=== PATIENT | male | born 1935 | race Caucasian/White ===

== ENCOUNTER → 2017-01-21 | Outpatient (CLI) | payer MEDICARE, OTHER ==
[2016-10-31 14:29] VITALS: BP 136/71
[~2017-01-21] MED LIST: ACET325T9 PO; AMOX1TAB11 PO; ASPI-482 PO; ASPI1TAB2 PO; ATOR40TA PO; CALC600T4 PO; CEFU500T PO; CLOP75TA27 PO; COLL30OI TP; DOXY100T PO; EZET10TA3 PO; FLUT12AE IH; GABA-585 PO; GUAI600T28 PO; HYDR-971 PO; INSU100I17 SQ; IPRA3AMP IH; LIDO700A27 TP; LINE600T PO; METF500T4 PO; MULT-18 PO; PRED20TA PO; PRIM50TA PO; PROP40TA PO; PSEU120T12 PO; PSYL0.528 PO; SITA100T PO; TAMS0.4C2 PO
--- NOTE | 2017-01-21 14:28 | KCIC ---
PROCEDURE CT cervical spine without contrast. HISTORY Follow up of CT fracture. TECHNIQUE Helical CT imaging of the cervical spine is performed without IV contrast. PQRS: One or more the following individualized dose reduction techniques were utilized for the study: 1. Automated exposure control. 2. Adjustment of the mA and/or kV according to patient size. 3. Use of iterative reconstruction technique. COMPARISON CT cervical spine without contrast June 25, 2016. FINDINGS Type 2 odontoid fracture re- demonstrated. The tip of the dens is from the base by 3-4 millimeters and there is minimal posterior displacement of the dens in relation to the base. No interval callus formation is seen. There is retro odontoid soft tissue thickening and minimal calcification that is stable. The atlantodental articulation is stable. There stable alignment in the cervical spine with grade 1 anterolisthesis of C2 on C3 that is minimal, C3 on C4 that is mild, C4 on C5 that is minimal, and C5 on C6 that is minimal. There is disc space narrowing and degenerative endplate spurring that is most advanced at C4/C5, C5/C6, and C6/C7. There is multilevel facet hypertrophy that is moderate to severe. No new fracture is identified. Spondylitic discs of C4/C5, C5/C6 and C6/C7 have not progressed. Left neural foraminal narrowing of C3/C4 is worse, now probably moderate. Individual level findings otherwise not significantly changed. Lung apices are clear. No cervical adenopathy is seen. IMPRESSION 1. No significant change of type II odontoid fracture, no interval callus formation. 2. Degenerative spondylosis. Interval worsening of left neural foraminal narrowing of C3/C4. Electronically signed by: Juma Bland MD (Jan 21, 2017 14:27:32)
== END | disposition home or self-care (01) ==
LOC: KCIC CT 09:56
PROVIDERS: ATTEND Neurological Surgery
DX: Z87.81 Personal history of (healed) traumatic fracture (principal)
CPT/HCPCS: 72125

== ENCOUNTER → 2017-01-30 | Outpatient (CLI) | payer MEDICARE, OTHER ==
[2016-10-31 14:29] VITALS: BP 136/71
--- NOTE | 2017-01-30 11:27 | KCIC ---
PROCEDURE CT study of the chest without contrast HISTORY Follow up of lung nodule. TECHNIQUE Noncontrast helical CT scanning of the chest was performed. Multiplanar 2D reconstructions were generated. One or more of the following individualized dose reduction techniques were utilized for this study: 1. Automated exposure control 2. Adjustment of the mA and/or kV according to patient size 3. Use of iterative reconstruction technique COMPARISON September 17, 2016. FINDINGS Calcified mediastinal lymph nodes are seen due to old granulomatous disease. There is one large calcified lymph node within the right peritracheal region which measures 4.2 centimeters in dimension. This is unchanged. No new thoracic lymphadenopathy is seen. Wall thickening of the distal esophagus is not as apparent in today's study since the esophagus is not distended with air today. No focal aneurysmal dilatation of the thoracic aorta is seen. Calcified atheromatous disease of the coronary arteries is seen. The heart size is normal. No pericardial effusion is seen. Calcification of the aortic valve leaflets is seen. No adrenal mass is seen. There is a new finding of a heterogeneous appearance of the liver. Again seen is a nodular lung infiltrate within the posterior basal segment of the left lower lobe which is stable. Again seen is a calcified granuloma of the anterior segment of the left upper lobe. Again seen is a calcified granuloma of the medial segment of the right middle lobe. There is some chronic linear scarring or atelectasis within the right lower lobe. No new lung nodule or lung infiltrate is seen. No pleural effusion or pneumothorax is evident. The proximal bronchial tree is patent. An old healed fracture of the posterior right 11th ribs is seen. No osteolytic process is seen. IMPRESSION Stable nodular left lower lobe lung infiltrate. No new lung infiltrates or new lung nodules are seen. Normal heart size. Calcified atheromatous disease of the coronary arteries. There is calcification of the aortic valve leaflets which may be seen with aortic valvular stenosis. No aneurysm or significant ectasia of the ascending aorta is seen. The caliber of the ascending aorta is 3.5 centimeters. New appearance of heterogeneity of the liver. Recommend an abdomen CT with IV contrast for further evaluation to exclude metastatic disease. If IV contrast cannot be given, then an abdomen MRI study without contrast may be helpful. Another possibility is geographic fatty infiltration of the liver. Correlation with liver function tests is recommended as well. Electronically signed by: True Quinonez MD (Jan 30, 2017 11:26:00)
== END | disposition home or self-care (01) ==
LOC: KCIC CT 10:12
PROVIDERS: ATTEND Internal Medicine Pulmonary Disease
DX: R91.1 Solitary pulmonary nodule (principal)
CPT/HCPCS: 71250

== ENCOUNTER → 2017-03-24 | Outpatient (CLI) | payer MEDICARE, OTHER ==
[2016-10-31 14:29] VITALS: BP 136/71
[~2017-03-24] MED LIST changes: +ALBU2.5V5 NEB; -CLOP75TA27 PO; +CLOP75TA57 PO; +EZET10TA18 PO; -EZET10TA3 PO; +FEXO180T81 PO; +HYDR-2762 PO; +IPRA0.2S5 IH; +METH750T2 PO; +PIOG30TA41 PO; +TRAZ50TA15 PO; +TRIA15OI TP
--- NOTE | 2017-03-24 14:59 | EKG ---
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
[2017-03-24 15:00] LABS: BASO # 0.2 x10^3/uL (0.0-0.2); BASO % 2 % (0-3); EOS % 5 % (0-3); HEMATOCRIT 45.1 % (39.0-53.0); HEMOGLOBIN 15.3 g/dL (13.0-17.5); LYMPH # 1.5 x10^3/uL (1.0-4.8); LYMPH % 19 % (24-48); MEAN CORPUSCULAR HEMOGLOBIN 34 pg (25-35); MEAN CORPUSCULAR HGB CONC 34 g/dL (31-37); MEAN CORPUSCULAR VOLUME 99 fL (79-100); MONO % 10 % (0-9); NEUT % 64 % (31-73); PLATELET COUNT 177 x10^3/uL (140-400); RED BLOOD COUNT 4.56 x10^6/uL (4.30-5.70); RED CELL DISTRIBUTION WIDTH 14.7 % (11.5-14.5); WHITE BLOOD COUNT 8.3 x10^3/uL (4.0-11.0)
[2017-03-24 15:14] LABS: ALBUMIN 3.5 g/dL (3.4-5.0); ALBUMIN/GLOBULIN RATIO 0.9 (1.0-1.7); CALCIUM 9.2 mg/dL (8.5-10.1); CREATININE 0.9 mg/dL (0.7-1.3); GFR 81.2; POTASSIUM 3.7 mmol/L (3.5-5.1); TOTAL PROTEIN 7.4 g/dL (6.4-8.2)
[2017-03-24 15:55] LABS: PROTHROMBIN TIME PATIENT 12.7 SEC (11.7-14.0)
== END | disposition home or self-care (01) ==
LOC: SURGPAT 13:21
PROVIDERS: ATTEND Neurological Surgery
DX: Z01.818 Encounter for other preprocedural examination (principal)
CPT/HCPCS: 36415; 80053; 83036; 85027; 85610; 85730; 87641; 93005

== ENCOUNTER → 2017-05-22 | Outpatient (CLI) | payer MEDICARE, OTHER ==
[2017-04-02 15:20] VITALS: BP 97/52
[~2017-05-22] MED LIST changes: -GUAI600T28 PO; +GUAI600T79 PO
--- NOTE | 2017-05-22 12:52 | RAD ---
Cervical spine, 3 views, 05/22/2017: History: Postop odontoid fracture Comparison is made to a study from 04/02/2017. A screw remains in place traversing the site of a prior odontoid fracture. Alignment in this region is unchanged. The central spinal canal is well-preserved. There are moderate multilevel degenerative changes throughout the mid and lower cervical spine. There is mild unchanged anterolisthesis at C3-4, probably due to facet joint arthropathy. No new abnormality is detected. IMPRESSION: 1. Stable postoperative findings at C2. 2. Moderate multilevel degenerative change.
== END | disposition home or self-care (01) ==
LOC: RAD 11:39
PROVIDERS: ATTEND Neurological Surgery
DX: S12.110A Anterior displaced Type II dens fracture, initial encounter for closed fracture (principal); M47.892 Other spondylosis, cervical region; X58.XXXA Exposure to other specified factors, initial encounter; Y93.89 Activity, other specified; Y92.89 Other specified places as the place of occurrence of the external cause; Y99.8 Other external cause status
CPT/HCPCS: 72040

== ENCOUNTER → 2017-07-28 | Outpatient (CLI) | payer MEDICARE, OTHER ==
[2017-04-02 15:20] VITALS: BP 97/52
[~2017-07-28] MED LIST changes: +ASPI-621 PO; -ASPI1TAB2 PO
--- NOTE | 2017-07-28 13:04 | KCIC ---
History: Follow-up lung nodule. Comparison: CT chest January 30, 2017. Technique: Helical CT of the chest was performed without intravenous contrast. Exposure: One or more of the following individualized dose reduction techniques were utilized for this examination: 1. Automated exposure control 2. Adjustment of the mA and/or kV according to patient size 3. Use of iterative reconstruction technique Findings: There is motion artifact at multiple levels which could obscure subtle abnormalities. Thyroid demonstrates a few small calcifications involving the right lobe. Trachea and mainstem bronchi appear patent. A large calcified lymph node is unchanged in the right mediastinum. Additional calcified granulomatous lymph nodes are seen. Coronary artery calcifications are present. Aortic valve calcifications are noted. No pericardial thickening is identified. Cardiac chambers do not appear enlarged. No pneumothorax or pleural effusion is identified. Curvilinear consolidation involving the posterior left lower lobe is without significant change from most recent CT appearance. This could represent focus of parenchymal scarring. There is in the right lower lobe adjacent to the diaphragm a 5 mm soft tissue pulmonary nodule (series 2 image 140) which is apparently new from most recent study. There is a 3 mm soft tissue pulmonary nodule in the right lower lobe superior segment (series 2 image 99), unchanged. Small soft tissue pulmonary nodule measuring 4 mm in the left lower lobe (series 2 image 121) is unchanged. Thoracic spine demonstrates multiple bridging disc osteophytes, suggesting changes of DISH. Impression: 1. Curvilinear consolidation involving the left lower lobe is unchanged the most recent study, may represent parenchymal scarring. 2. Apparently new nonspecific 5 mm soft tissue pulmonary nodule in the right lower lobe. Additional small soft tissue pulmonary nodules are unchanged. By Fleischner Society 2017 guidelines, recommend follow-up chest CT without contrast in 12 months. Electronically signed by: Orestes Quiroz MD (07/28/2017 1:01 PM) [place] [id number]
== END | disposition home or self-care (01) ==
LOC: KCIC CT 08:11
PROVIDERS: ATTEND Internal Medicine Pulmonary Disease
DX: R91.8 Other nonspecific abnormal finding of lung field (principal); R91.1 Solitary pulmonary nodule
CPT/HCPCS: 71250

== ENCOUNTER → 2017-07-28 | Outpatient (CLI) | payer MEDICARE, OTHER ==
[2017-04-02 15:20] VITALS: BP 97/52
--- NOTE | 2017-07-28 11:06 | KCIC ---
CERVICAL SPINE 2-3V Clinical Indication: Postop odontoid screw placement. Comparison: CT cervical spine without contrast January 21, 2017. Findings: Interval single cannulated screw fixation of the odontoid fracture. Slight posterior translation of the odontoid tip relative to the base of C2 is no longer seen. No callus formation is appreciated radiographically. The lateral masses are symmetric. Mild grade 1 anterolisthesis of C3 on C4 and C4 on C5 and C5 on C6 is stable. There is disc space narrowing of C5/C6 and C6/C7. Straightening of normal cervical lordosis may be positional or due to muscle spasm. Multilevel facet hypertrophy. Ossification along the nuchal ligament. No prevertebral soft tissue thickening is identified. Calcified right paratracheal lymph node. Lung apices are clear. IMPRESSION: Screw fixation of the odontoid fracture. Electronically signed by: Juma Bland MD (07/28/2017 11:03 AM) [id number]
== END | disposition home or self-care (01) ==
LOC: KCIC 09:53
PROVIDERS: ATTEND Neurological Surgery
DX: S12.110A Anterior displaced Type II dens fracture, initial encounter for closed fracture (principal); Z98.890 Other specified postprocedural states; X58.XXXA Exposure to other specified factors, initial encounter; Y93.89 Activity, other specified; Y92.89 Other specified places as the place of occurrence of the external cause; Y99.8 Other external cause status
CPT/HCPCS: 72040

== ENCOUNTER → 2018-01-16 | Outpatient (CLI) | payer MEDICARE, OTHER | END | disposition home or self-care (01) | LOC: CT 10:00 | DX: J84.10 Pulmonary fibrosis, unspecified (principal); I25.10 Atherosclerotic heart disease of native coronary artery without angina pectoris | CPT/HCPCS: 71250 ==

== ENCOUNTER 2019-06-04 13:42 | Inpatient (IN) | payer MEDICARE, OTHER ==
[~2019-06-04] VITALS: Ht 172.7 cm; Wt 70.8 kg
[~2019-06-04 13:42] MED LIST changes: +CALC-483 PO; +CALC625T PO; +DOCU-109 PO; -EZET10TA18 PO; +EZET10TA20 PO; +FLUT9.9S NS; +GUAI600T47 PO; +HYDR-2761 PO; -HYDR-2762 PO; +HYDR-2765 PO; +HYDR-3164 PO; -HYDR-971 PO; -IPRA3AMP IH; +IPRA3AMP29 IH; -LINE600T PO; +LINE600T37 PO; +METF500T16 PO; -METF500T4 PO; +POLY17PO29 PO; +TRAZ-118 PO; -TRAZ50TA15 PO
[2019-06-04 14:59] LABS: FECAL OB PT POSITIVE (NEG)
--- NOTE | 2019-06-04 15:00 | PHYS DOC ---
Past Medical History Past Medical History: COPD, Depression, Diabetes-Type II, High Cholesterol, Kidney Stone Additional Past Medical Histor: PVD,ENCEPHALOPATHY, BACK PAIN, URINARY RETENTION, PVD Past Surgical History: Other Additional Past Surgical Histo: JOINT REPLACEMENT, LEFT BKA Alcohol Use: None Drug Use: None Adult General Chief Complaint Chief Complaint: ABDOMINAL PAIN HPI HPI Patient is a 83 year old male that presents to the ER with abnormal labs. He was sent from his custodial as she also had black stools this morning. The patient states he's been nauseous and had loss of appetite the last several days and he states he was short of breath yesterday. Denies any pain at this time. Does state he is on aspirin and Plavix. Review of Systems Review of Systems Constitutional: Denies fever or chills. Reports fatigue and loss of appetite. Eyes: Denies change in visual acuity, redness, or eye pain [] HENT: Denies nasal congestion or sore throat [] Respiratory: Reports shortness of breath [] Cardiovascular: No additional information not addressed in HPI [] GI: Reports nausea and bloody stools. Denies abdominal pain, vomiting, or diarrhea [] : Denies dysuria or hematuria [] Musculoskeletal: Denies back pain or joint pain [] Integument: Denies rash or skin lesions [] Neurologic: Denies headache, focal weakness or sensory changes [] Endocrine: Denies polyuria or polydipsia [] Complete systems were reviewed and found to be within normal limits, except as documented in this note. Current Medications Current Medications Current Medications Medications (Trade) Dose Ordered Sig/Dominique Start Time Stop Time Status Last Admin Dose Admin Ceftriaxone Sodium (Rocephin) 1 gm 1X ONCE 06/04/19 17:30 06/04/19 17:31 DC Info (CONTRAST GIVEN -- Rx MONITORING) 1 each PRN DAILY PRN 06/04/19 16:30 06/06/19 16:29 Iohexol (Omnipaque 300 Mg/ml) 75 ml 1X ONCE 06/04/19 16:30 06/04/19 16:31 DC 06/04/19 16:37 75 ML Pantoprazole Sodium (PROTONIX VIAL for IV PUSH) 40 mg 1X STAT 06/04/19 17:17 06/04/19 17:18 DC Piperacillin Sod/ Tazobactam Sod 3.375 gm/Sodium Chloride 50 ml @ 100 mls/hr 1X ONCE 06/04/19 17:30 06/04/19 17:59 Vancomycin HCl 2 gm/Sodium Chloride 500 ml @ 250 mls/hr 1X ONCE 06/04/19 18:00 06/04/19 19:59 Allergies Allergies Allergies Coded Allergies Type Severity Reaction Last Updated Verified I S O L A T I O N *CONTACT* Allergy Unknown 03/25/17 Yes No Known Medication Allergies Allergy Unknown 03/28/17 Yes Physical Exam Physical Exam Constitutional: Well developed, well nourished, no acute distress, non-toxic appearance. [] HENT: Normocephalic, atraumatic, bilateral external ears normal, oropharynx moist, no oral exudates, nose normal. [] Eyes: PERRLA, EOMI, conjunctiva normal, no discharge. [] Neck: Normal range of motion, no tenderness, supple, no stridor. [] Cardiovascular:Heart rate regular rhythm, no murmur [] Lungs & Thorax: Bilateral breath sounds clear to auscultation [] Abdomen: Bowel sounds normal, soft, no tenderness, no masses, no pulsatile masses. [] Skin: Warm, dry, no erythema, no rash. [] Back: No tenderness, no CVA tenderness. [] Extremities: No tenderness, no cyanosis, no clubbing, ROM intact, no edema. [] Neurologic: Alert and oriented X 3, normal motor function, normal sensory function, no focal deficits noted. [] Psychologic: Affect normal, judgement normal, mood normal. [] Rectal exam: Black tarry stool noted on examination. No external hemorrhoids noted. Fecal occult blood obtained. Current Patient Data Vital Signs Vital Signs Date Time Temp Pulse Resp B/P (MAP) Pulse Ox O2 Delivery O2 Flow Rate FiO2 06/04/19 15:49 68 18 114/81 (92) 97 Room Air 06/04/19 14:21 98.2 98.2 Lab Values Laboratory Tests Test 06/04/19 14:39 06/04/19 15:36 06/04/19 16:47 Stool Occult Blood Positive (NEG) White Blood Count 9.2 x10^3/uL (4.0-11.0) Red Blood Count 3.43 x10^6/uL (4.30-5.70) L Hemoglobin 10.9 g/dL (13.0-17.5) L Hematocrit 32.4 % (39.0-53.0) L Mean Corpuscular Volume 95 fL (79-100) Mean Corpuscular Hemoglobin 32 pg (25-35) Mean Corpuscular Hemoglobin Concent 34 g/dL (31-37) Red Cell Distribution Width 15.9 % (11.5-14.5) H Platelet Count 333 x10^3/uL (140-400) Neutrophils (%) (Auto) 69 % (31-73) Lymphocytes (%) (Auto) 14 % (24-48) L Monocytes (%) (Auto) 8 % (0-9) Eosinophils (%) (Auto) 7 % (0-3) H Basophils (%) (Auto) 2 % (0-3) Neutrophils # (Auto) 6.3 x10^3/uL (1.8-7.7) Lymphocytes # (Auto) 1.3 x10^3/uL (1.0-4.8) Monocytes # (Auto) 0.8 x10^3/uL (0.0-1.1) Eosinophils # (Auto) 0.7 x10^3/uL (0.0-0.7) Basophils # (Auto) 0.2 x10^3/uL (0.0-0.2) Prothrombin Time 14.7 SEC (11.7-14.0) H Prothrombin Time INR 1.2 (0.8-1.1) H Activated Partial Thromboplast Time 30 SEC (24-38) Sodium Level 141 mmol/L (136-145) Potassium Level 3.8 mmol/L (3.5-5.1) Chloride Level 104 mmol/L (98-107) Carbon Dioxide Level 29 mmol/L (21-32) Anion Gap 8 (6-14) Blood Urea Nitrogen 31 mg/dL (8-26) H Creatinine 1.1 mg/dL (0.7-1.3) Estimated GFR (Cockcroft-Gault) 64.1 BUN/Creatinine Ratio 28 (6-20) H Glucose Level 243 mg/dL (70-99) H Calcium Level 9.2 mg/dL (8.5-10.1) Total Bilirubin 0.2 mg/dL (0.2-1.0) Aspartate Amino Transferase (AST) 17 U/L (15-37) Alanine Aminotransferase (ALT) 19 U/L (16-63) Alkaline Phosphatase 72 U/L (46-116) Troponin I Quantitative < 0.017 ng/mL (0.000-0.055) Total Protein 7.6 g/dL (6.4-8.2) Albumin 2.8 g/dL (3.4-5.0) L Albumin/Globulin Ratio 0.6 (1.0-1.7) L Procalcitonin < 0.10 ng/mL (0.00-0.10) Urine Collection Type Unknown Urine Color Yellow Urine Clarity Cloudy Urine pH 5.5 Urine Specific [place] 1.020 Urine Protein Negative mg/dL (NEG-TRACE) Urine Glucose (UA) Negative mg/dL (NEG) Urine Ketones (Stick) Negative mg/dL (NEG) Urine Blood Small (NEG) Urine Nitrite Negative (NEG) Urine Bilirubin Negative (NEG) Urine Urobilinogen Dipstick 0.2 mg/dL (0.2 mg/dL) Urine Leukocyte Esterase Large (NEG) Urine RBC /HPF (0-2) Urine WBC Tntc /HPF (0-4) Urine Bacteria Few /HPF (0-FEW) Urine Mucus Mod /LPF Urine Yeast Present /HPF Laboratory Tests 06/04/19 15:36 Laboratory Tests 06/04/19 15:36 EKG EKG EKG interpreted by Dr. Sarmiento EKG shows sinus rhythm with HR of 67. NO STEMI.[] Radiology/Procedures Radiology/Procedures [facility] [address] [place], [place] [id number] IMAGING REPORT Signed PATIENT: KAROLINE LLAMAS LACCOUNT: [id number] : 1935 LOCATION: ER AGE: 83 SEX: M EXAM STATUS: REG ER ORD. PHYSICIAN: ORESTES MONTEZ APRN REASON: abdominal pain. PROCEDURE: CT ABD PELV W/ IV CONTRST ONLY CT ABD PELV W/ IV CONTRST ONLY Indication: Abdominal pain. Exposure: One or more of the following individualized dose reduction techniques were utilized for this examination: 1. Automated exposure control 2. Adjustment of the mA and/or kV according to patient size 3. Use of iterative reconstruction technique. Technique: Intravenous contrast was given. No oral contrast per request. Comparison: 04/04/2019 FINDINGS: Mild patchy atelectasis or infiltrate in the lung bases, improved as compared with previous exam.Coronary artery calcifications. Calcification at the aortic valve. Liver appears unremarkable. Spleen is not enlarged. Pancreas is unremarkable. No adrenal mass. Mild/moderate right hydronephrosis appears slightly greater than on the previous study. Right ureteric stent is identified with proximal loop within the posterior superior right renal collecting system and distal loop within the urinary bladder. The right nephrogram is slightly delayed as compared with the left. Mild perinephric fluid and stranding on the right. Calcification or calculus identified in lower pole the right kidney measuring 9 mm. No definite calculus is seen alongside the catheter in the ureter, but the ureterovesical junction is poorly evaluated due to artifact from hip replacements. Small low-density lesion at the upper pole of the left kidney measures 1 cm, and measures 25 Hounsfield units, slightly above simple cyst. Difficult to visualize on prior noncontrast exam. Aorta is calcified, no evidence of aneurysm. Small aortocaval lymph nodes are identified appears stable since the previous exam, measuring up to 7 mm short axis. Mild wall thickening of the distal esophagus. No significant small bowel distention. Mild colonic diverticulosis. No evidence of acute colitis. The appendix is not clearly visualized. No significant ascites or pneumoperitoneum is identified. Fat-containing inguinal hernias are again identified, larger on the right. Urinary bladder is mostly obscured by artifact from hip replacements. Bilateral hip replacements are seen. Degenerative spondylosis of the spine appearance and alignment appears similar to the previous exam. IMPRESSION: 1. Right ureteric stent is now in place from the right kidney through the urinary bladder. Mild increase in hydronephrosis, perinephric fluid and inflammatory change as well as slight delayed right renal function suggests a component of ongoing obstruction although a definite ureteric calculus is not seen. Pyelonephritis or ascending infection could also be considered. 2. Right lower pole renal calculus. 3. Small left renal lesion may represent a slightly complex or hemorrhagic cyst. Nonemergent renal ultrasound could further evaluate. 4. Wall thickening of the distal esophagus similar to the previous exam. Electronically signed by: Orestes Nuno MD (06/04/2019 5:12 PM) [id number] DICTATED and SIGNED BY: ORESTES NUNO MD DATE: 06/04/191711 [][facility] [address] [place] [address] IMAGING REPORT Signed PATIENT: KAROLINE LLAMASOUNT: [id number] : 1935 LOCATION: ER AGE: 83 SEX: M EXAM STATUS: REG ER ORD. PHYSICIAN: ORESTES MONTEZ APRN REASON: shortness of breath. PROCEDURE: CHEST PA & LATERAL CHEST PA LATERAL History: Shortness of breath. Comparison: April 04, 2019 Findings: Patchy right basilar opacity. Calcified right paratracheal mass, unchanged. Unchanged heart size. No pleural effusion. No pneumothorax. Impression: 1. Patchy right medial basilar opacity, may represent atelectasis or consolidation. 2. Calcified right paratracheal mass, unchanged. Electronically signed by: Cheng Bates DO (06/04/2019 4:39 PM) [facility] DICTATED and SIGNED BY: CHENG BATES DO DATE: 06/04/19 163 Course & Med Decision Making Course & Med Decision Making Pertinent Labs and Imaging studies reviewed. (See chart for details) Will get labs, chest x-ray, CT of abdomen, and give supportive care. Lab shows hemoglobin of 10.9 which is less than the 13.8 one month ago. Also show fecal occult stool that is positive. Will give protonix. Urine shows leukocytes and blood. Will treat with rocephin. Appears to have pneumonia. Will cover with vanc and zosyn. Will page Dr. Szymanski for admission. Discussed with Dr. Szymanski at 1730. He agreed to admission. Will consult GI and ID. Yovany Disclaimer Yovany Disclaimer This electronic medical record was generated, in whole or in part, using a voice recognition dictation system. Departure Departure Impression: Primary Impression: Urinary tract infection Additional Impressions: GI bleed Pneumonia Disposition: ADMITTED INPATIENT Admitting Physician: Rajesh Szymanski Condition: GUARDED Referrals: RAJESH SZYMANSKI MD (PCP) Problem Qualifiers Primary Impression: Urinary tract infection Urinary tract infection type: acute cystitis Hematuria presence: with he maturia Qualified Codes: N30.01 - Acute cystitis with hematuria Additional Impressions: GI bleed GI bleed type/associated pathology: unspecified gastrointestinal hemorrhage type Qualified Codes: K92.2 - Gastrointestinal hemorrhage, unspecified Pneumonia Pneumonia type: due to unspecified organism Laterality: right Lung location: middle lobe of lung Qualified Codes: J18.1 - Lobar pneumonia, unspecified organism ORESTES MONTEZ APRN Jun 04, 2019 15:00
[2019-06-04 15:42] LABS: BASO # 0.2 x10^3/uL (0.0-0.2); BASO % 2 % (0-3); EOS # 0.7 x10^3/uL (0.0-0.7); EOS % 7 % (0-3); HEMATOCRIT 32.4 % (39.0-53.0); HEMOGLOBIN 10.9 g/dL (13.0-17.5); LYMPH # 1.3 x10^3/uL (1.0-4.8); LYMPH % 14 % (24-48); MEAN CORPUSCULAR HEMOGLOBIN 32 pg (25-35); MEAN CORPUSCULAR HGB CONC 34 g/dL (31-37); MEAN CORPUSCULAR VOLUME 95 fL (79-100); MONO # 0.8 x10^3/uL (0.0-1.1); MONO % 8 % (0-9); NEUT # 6.3 x10^3/uL (1.8-7.7); NEUT % 69 % (31-73); PLATELET COUNT 333 x10^3/uL (140-400); RED BLOOD COUNT 3.43 x10^6/uL (4.30-5.70); RED CELL DISTRIBUTION WIDTH 15.9 % (11.5-14.5); WHITE BLOOD COUNT 9.2 x10^3/uL (4.0-11.0)
[2019-06-04 15:51] LABS: PROTHROMBIN TIME PATIENT 14.7 SEC (11.7-14.0)
[2019-06-04 16:08] LABS: CALCIUM 9.2 mg/dL (8.5-10.1); CREATININE 1.1 mg/dL (0.7-1.3); GFR 64.1; POTASSIUM 3.8 mmol/L (3.5-5.1)
--- NOTE | 2019-06-04 16:10 | EKG ---
[facility] [address] [place] [address] Test Date: 2019-06-04 Test Time: 15:17:03 Pat Name: KAROLINE LALMAS Department: Room: Gender: M [employer]: : 1935 Requested By: SPENCER MONTEZ Order Number: [id number] Reading MD: Measurements Intervals [place] Rate: 67 P: 33 [place]: 146 QRS: 26 QRSD: 102 T: 54 QT: 418 QTc: 445 Interpretive Statements SINUS RHYTHM ATRIAL PREMATURE COMPLEX(ES) QRS(T) CONTOUR ABNORMALITY CONSIDER ANTEROSEPTAL MYOCARDIAL DAMAGE POSSIBLY ABNORMAL ECG RI6.01 Unconfirmed report No previous ECG available for comparison
[2019-06-04 16:14] LABS: ALBUMIN 2.8 g/dL (3.4-5.0); ALBUMIN/GLOBULIN RATIO 0.6 (1.0-1.7); TOTAL BILIRUBIN 0.2 mg/dL (0.2-1.0); TOTAL PROTEIN 7.6 g/dL (6.4-8.2)
[2019-06-04] MEDS ORDERED: CONTRAST GIVEN. MC PRN (16:30)
[2019-06-04] MEDS ORDERED: IOHEXOL 300 MG/ML 100ML VIAL. IV ONE (16:30)
--- NOTE | 2019-06-04 16:42 | RAD ---
CHEST PA LATERAL History: Shortness of breath. Comparison: April 04, 2019 Findings: Patchy right basilar opacity. Calcified right paratracheal mass, unchanged. Unchanged heart size. No pleural effusion. No pneumothorax. Impression: 1. Patchy right medial basilar opacity, may represent atelectasis or consolidation. 2. Calcified right paratracheal mass, unchanged. Electronically signed by: Cheng Bates DO (06/04/2019 4:39 PM) [facility]
[2019-06-04 16:54] LABS: BILIRUBIN,URINE NEGATIVE (NEG); CLARITY,URINE CLOUDY; COLOR,URINE YELLOW; NITRITE,URINE NEGATIVE (NEG); PH,URINE 5.5; PROTEIN,URINE NEGATIVE (NEG-TRACE); UROBILINOGEN,URINE 0.2 mg/dL (0.2 mg/dL)
[2019-06-04 16:59] LABS: WBC,URINE TNTC /HPF (0-4); YEAST,URINE PRESENT /HPF
[2019-06-04 17:03] LABS: BACTERIA,URINE FEW /HPF (0-FEW)
--- NOTE | 2019-06-04 17:15 | RAD ---
CT ABD PELV W/ IV CONTRST ONLY Indication: Abdominal pain. Exposure: One or more of the following individualized dose reduction techniques were utilized for this examination: 1. Automated exposure control 2. Adjustment of the mA and/or kV according to patient size 3. Use of iterative reconstruction technique. Technique: Intravenous contrast was given. No oral contrast per request. Comparison: 04/04/2019 FINDINGS: Mild patchy atelectasis or infiltrate in the lung bases, improved as compared with previous exam.Coronary artery calcifications. Calcification at the aortic valve. Liver appears unremarkable. Spleen is not enlarged. Pancreas is unremarkable. No adrenal mass. Mild/moderate right hydronephrosis appears slightly greater than on the previous study. Right ureteric stent is identified with proximal loop within the posterior superior right renal collecting system and distal loop within the urinary bladder. The right nephrogram is slightly delayed as compared with the left. Mild perinephric fluid and stranding on the right. Calcification or calculus identified in lower pole the right kidney measuring 9 mm. No definite calculus is seen alongside the catheter in the ureter, but the ureterovesical junction is poorly evaluated due to artifact from hip replacements. Small low-density lesion at the upper pole of the left kidney measures 1 cm, and measures 25 Hounsfield units, slightly above simple cyst. Difficult to visualize on prior noncontrast exam. Aorta is calcified, no evidence of aneurysm. Small aortocaval lymph nodes are identified appears stable since the previous exam, measuring up to 7 mm short axis. Mild wall thickening of the distal esophagus. No significant small bowel distention. Mild colonic diverticulosis. No evidence of acute colitis. The appendix is not clearly visualized. No significant ascites or pneumoperitoneum is identified. Fat-containing inguinal hernias are again identified, larger on the right. Urinary bladder is mostly obscured by artifact from hip replacements. Bilateral hip replacements are seen. Degenerative spondylosis of the spine appearance and alignment appears similar to the previous exam. IMPRESSION: 1. Right ureteric stent is now in place from the right kidney through the urinary bladder. Mild increase in hydronephrosis, perinephric fluid and inflammatory change as well as slight delayed right renal function suggests a component of ongoing obstruction although a definite ureteric calculus is not seen. Pyelonephritis or ascending infection could also be considered. 2. Right lower pole renal calculus. 3. Small left renal lesion may represent a slightly complex or hemorrhagic cyst. Nonemergent renal ultrasound could further evaluate. 4. Wall thickening of the distal esophagus similar to the previous exam. Electronically signed by: Orestes Nuno MD (06/04/2019 5:12 PM) [facility]
[2019-06-04] MEDS ORDERED: PANTOPRAZOLE IV PUSH 40 MG VIAL. IVP STA (17:17)
[2019-06-04] MEDS ORDERED: cefTRIAXone IV Push 1 GM VIAL. IVP ONE (17:30)
[2019-06-04] MEDS ORDERED: PIPERACILLIN/TAZOBACTAM 3.375 GM in IV NORMAL SALINE 50ML 50 ML IV ONE (17:30)
[2019-06-04] MEDS ORDERED: ONDANSETRON PF 4 MG/2 ML VIAL. IV PRN (17:45)
[2019-06-04] MEDS ORDERED: fentaNYL PF VIAL 100 MCG/2 ML VIAL IV PRN (17:45)
[2019-06-04] MEDS ORDERED: VANCOMYCIN 2 GM in IV NORMAL SALINE 500ML BAG 500 ML IV ONE (18:00)
[2019-06-04] MEDS ORDERED: POLYETHYLENE GLYCOL 3350 17 GM PACKET. PO PRN (19:30)
[2019-06-04] MEDS ORDERED: IPRATRPIUM/ALBUTEROL 0.5/2.5MG 3 ML NEBU. IH PRN (19:30)
[2019-06-04] MEDS ORDERED: ATORVASTATIN CALCIUM 40 MG TABLET. PO PRN (19:30)
[2019-06-04] MEDS ORDERED: ACETAMINOPHEN 325 MG TABLET. PO PRN (19:30)
[2019-06-04 20:05] VITALS: BP 106/50
[2019-06-04] MEDS: IV NORMAL SALINE 1000ML BAG 1,000 ML IV SCH (20:30)
[2019-06-04] MEDS: DOCUSATE SODIUM 100 MG CAPSULE. PO SCH (20:57)
[2019-06-04] MEDS: PRIMIDONE 50 MG TABLET PO SCH (20:57)
[2019-06-04] MEDS: traZODone 50 MG TABLET. PO SCH (20:57)
[2019-06-04] MEDS: PROPRANOLOL 40 MG TABLET. PO SCH (20:58)
[2019-06-04] MEDS: CALCIUM POLYCARBOPHIL 625 MG TABLET PO SCH ×2 (21:00→21:12)
[2019-06-04] MEDS: TRIAMCINOLONE ACETONIDE 0.1% TOPICAL OINTMENT 15GM TUBE. TP SCH (21:00)
--- NOTE | 2019-06-04 22:47 | HP ---
ADMIT DATE: 06/04/2019 CHIEF COMPLAINT AND HISTORY OF PRESENT ILLNESS: This 83-year-old white male is well known to me from followup in the office. The patient began having dark stools on the morning of admission and was complaining of shortness of breath. CBC was checked that at the [facility] with hemoglobin dropping from 13.5 up to the mid 10s. He was not short of breath, but feeling weaker and he was transferred to the Emergency Room, where he was admitted with a gastrointestinal bleed, with evidence of urinary tract infection. PAST MEDICAL HISTORY: Remarkable for kidney stones, hyperlipidemia, diabetes, depression, COPD, peripheral arterial disease, urinary retention. PAST SURGICAL HISTORY: Remarkable for joint replacement as well as left [id number] amputation. MEDICATIONS: Brought with the patient, listed on the computer and have been addressed. ALLERGIES: He has no known drug allergies. SOCIAL HISTORY: He is a [facility] resident, single, nonsmoker, nondrinker, does not use drugs. FAMILY HISTORY: Noncontributory. REVIEW OF SYSTEMS: As mentioned above. PHYSICAL EXAMINATION: GENERAL: He is well-developed, well-nourished white male, in no acute distress. VITAL SIGNS: Stable. He is afebrile. HEAD, EYES, EARS, NOSE, AND THROAT: Remarkable for glasses. NECK: Supple without bruit or thyromegaly. CHEST: Clear to auscultation and percussion. HEART: Regular rate and rhythm without S3, S4 or murmur. ABDOMEN: Soft, nontender, without hepatosplenomegaly or mass. EXTREMITIES: Without cyanosis, clubbing, or edema. NEUROLOGIC: He is intact. LABORATORY DATA: Initial lab is remarkable for normal white count of 9200, hemoglobin 10.9. INR is 1.2. Urine shows too numerous to count white blood cells and large leukocyte esterase positive. Stool for occult blood in the Emergency Room is negative. IMAGING: Includes a chest x-ray, showing patchy right medial basilar opacity representing atelectasis or consolidation and a calcified right paratracheal mass unchanged. CT scanning of abdomen and pelvis shows a right ureter stent in place, has a right lower pole renal calculus and wall thickening of distal esophagus similar to prior, small left renal lesion, felt to represent a slightly complex or hemorrhagic cyst. IMPRESSION: 1. Gastrointestinal bleed, likely upper, with melanotic stools. 2. Urinary tract infection, with indwelling ureteral stent after recent ESWL for kidney stone. PLAN: The patient has been admitted, IV antibiotics will be ongoing. Urine will be cultured. GI has been consulted for the bleed. Urology will be consulted for the urinary tract infection given the stent making this a complicated urinary tract infection. RAJESH SZYMANSKI MD DR: EDMUND/julia JOB#: [id number] / [id number]
[2019-06-04 23:27] VITALS: BP 101/58
[2019-06-04] MEDS: PANTOPRAZOLE SODIUM IV DRIP 80 MG in IV NORMAL SALINE 100ML 100 ML IV SCH (23:40)
[2019-06-05] MEDS: PIPERACILLIN/TAZOBACTAM 3.375 GM in IV NORMAL SALINE 50ML 50 ML IV SCH ×5 (03:26→23:28)
[2019-06-05 03:40] VITALS: BP 122/56
[2019-06-05 04:00] LABS: BASO # 0.2 x10^3/uL (0.0-0.2); BASO % 1 % (0-3); EOS # 0.7 x10^3/uL (0.0-0.7); EOS % 6 % (0-3); HEMATOCRIT 29.7 % (39.0-53.0); HEMOGLOBIN 9.8 g/dL (13.0-17.5); LYMPH # 1.1 x10^3/uL (1.0-4.8); LYMPH % 9 % (24-48); MEAN CORPUSCULAR HEMOGLOBIN 31 pg (25-35); MEAN CORPUSCULAR HGB CONC 33 g/dL (31-37); MEAN CORPUSCULAR VOLUME 95 fL (79-100); MONO % 8 % (0-9); NEUT # 9.2 x10^3/uL (1.8-7.7); NEUT % 75 % (31-73); PLATELET COUNT 283 x10^3/uL (140-400); RED BLOOD COUNT 3.13 x10^6/uL (4.30-5.70); RED CELL DISTRIBUTION WIDTH 15.7 % (11.5-14.5); WHITE BLOOD COUNT 12.2 x10^3/uL (4.0-11.0)
[2019-06-05] MEDS: PANTOPRAZOLE SODIUM IV DRIP 80 MG in IV NORMAL SALINE 100ML 100 ML IV SCH (06:00)
[2019-06-05] MEDS ORDERED: fentaNYL PF VIAL 100 MCG/2 ML VIAL ONE (08:01)
[2019-06-05] MEDS ORDERED: MIDAZOLAM HCL/PF 5 MG/5 ML VIAL. ONE (08:01)
[2019-06-05] MEDS ORDERED: fentaNYL PF VIAL 100 MCG/2 ML VIAL IV ONE (08:25)
[2019-06-05] MEDS ORDERED: MIDAZOLAM HCL/PF 5 MG/5 ML VIAL. IV ONE (08:25)
--- NOTE | 2019-06-05 08:39 | PDOC2 ---
CONSULT Date of Consult Date of Consult DATE: 06/05/19 TIME: 08:27 Reason for Consult Reason for Consult: melena, heme +, anemia History of Present Illness Reason for Visit: This is a 83 yo male with history of PVD, prior kidney stones with recent stent with new onset nausea this week, followed by black stools and drop in Hgb. Denies abd pain, dysphagia, rectal bleeding, but has lost his appetite the last few days. He denies prior history of Peptic ulcer disease and relates several prior colonoscopies which he recalls as negative. His Hgb has dropped 3 grams since April. Past Medical History Cardiovascular: HTN, Hyperlipidemia, Aortic stenosis, Other Pulmonary: COPD CENTRAL NERVOUS SYSTEM: Other GI: No pertinent hx Heme/Onc: No pertinent hx Hepatobiliary: No pertinent hx Psych: No pertinent hx Musculoskeletal: Osteoarthritis, Other Rheumatologic: No pertinent hx Infectious disease: No pertinent hx Renal/: Benign prostatic enlarg. Endocrine: Diabetes Past Surgical History Past Surgical History: Appendectomy, Cataract Removal, Total hip replacement, Other Family History Family History: Hypertension, Stroke Social History ALCOHOL: none Drugs: None Lives: Alone Domestic Violence: Neg Current Problem List Problem List Problems Medical Problems: (1) GI bleed Status: Acute (2) Pneumonia Status: Acute (3) Urinary tract infection Status: Acute Current Medications Current Medications Current Medications Iohexol (Omnipaque 300 Mg/ml) 75 ml 1X ONCE IV Last administered on 06/04/19at 16:37; Start 06/04/19 at 16:30; Stop 06/04/19 at 16:31; Status DC Info (CONTRAST GIVEN -- Rx MONITORING) 1 each PRN DAILY PRN MC SEE COMMENTS; Start 06/04/19 at 16:30; Stop 06/06/19 at 16:29 Pantoprazole Sodium (PROTONIX VIAL for IV PUSH) 40 mg 1X STAT IVP Last administered on 06/04/19at 17:57; Start 06/04/19 at 17:17; Stop 06/04/19 at 17:18; Status DC Ceftriaxone Sodium (Rocephin) 1 gm 1X ONCE IVP Last administered on 06/04/19at 17:57; Start 06/04/19 at 17:30; Stop 06/04/19 at 17:31; Status DC Vancomycin HCl 2 gm/Sodium Chloride 500 ml @ 250 mls/hr 1X ONCE IV Last administered on 06/04/19 21:01; Start 06/04/19 at 18:00; Stop 06/04/19 at 19:59; Status DC Piperacillin Sod/ Tazobactam Sod 3.375 gm/Sodium Chloride 50 ml @ 100 mls/hr 1X ONCE IV Last administered on 06/04/19at 17:57; Start 06/04/19 at 17:30; Stop 06/04/19 at 17:59; Status DC Ondansetron HCl (Zofran) 4 mg PRN Q8HRS PRN IV NAUSEA/VOMITING; Start 06/04/19 at 17:45; Stop 06/05/19 at 17:44 Fentanyl Citrate (Fentanyl 2ml Vial) 50 mcg PRN Q1HR PRN IV PAIN; Start 06/04/19 at 17:45; Stop 06/05/19 at 17:44 Sodium Chloride 1,000 ml @ 50 mls/hr Q20H IV Last administered on 06/04/19at 21:01; Start 06/04/19 at 17:33; Stop 06/05/19 at 17:32 Pantoprazole Sodium 80 mg/ Sodium Chloride 100 ml @ 10 mls/hr Q10H IV Last administered on 06/05/19at 01:16; Start 06/04/19 at 20:00 Piperacillin Sod/ Tazobactam Sod 3.375 gm/Sodium Chloride 50 ml @ 100 mls/hr Q6HRS IV Last administered on 06/05/19at 06:58; Start 06/05/19 at 00:00 Acetaminophen (Tylenol) 325 mg PRN Q4HRS PRN PO MILD PAIN / TEMP; Start 06/04/19 at 19:30 Atorvastatin Calcium (Lipitor) 40 mg PRN QHS PRN PO High cholesterol Last administered on 06/04/19at 21:12; Start 06/04/19 at 19:30 Calcium Polycarbophil (Fibercon) 1,250 mg BID PO Last administered on 06/04/19 21:12; Start 06/04/19 at 21:00 Docusate Sodium (Colace) 100 mg BID PO Last administered on 06/04/19at 21:01; Start 06/04/19 at 21:00 Guaifenesin (Mucinex) 600 mg BID PO Last administered on 06/04/19at 21:01; Start 06/04/19 at 21:00 Acetaminophen/ Hydrocodone Bitart (Lortab 5/325) 1 tab PRN Q4HRS PRN PO PAIN; Start 06/04/19 at 19:30 Albuterol/ Ipratropium (Duoneb) 3 ml PRN Q4HRS PRN IH COUGH; Start 06/04/19 at 19:30 Polyethylene Glycol (miraLAX PACKET) 17 gm PRN DAILY PRN PO CONSTIPATION; Start 06/04/19 at 19:30 Primidone (Mysoline) 50 mg TID PO Last administered on 06/04/19at 21:01; Start 06/04/19 at 21:00 Propranolol HCl (Inderal) 40 mg TID PO Last administered on 06/04/19at 21:01; Start 06/04/19 at 21:00 Tamsulosin HCl (Flomax) 0.4 mg DAILY PO ; Start 06/05/19 at 09:00 Trazodone HCl (Desyrel) 50 mg QHS PO Last administered on 06/04/19at 21:01; Start 06/04/19 at 21:00 Triamcinolone Acetonide (Kenalog 0.1%) 1 neva BID TP Last administered on 06/05/19at 01:16; Start 06/04/19 at 21:00 Calcium/Vitamin D (Oscal D 500mg/ 200uts) 1 tab BIDWMEALS PO ; Start 06/05/19 at 08:00 Fluticasone Propionate (Flonase) 2 spray DAILY NS ; Start 06/05/19 at 09:00 Multivitamins (Thera M Plus) 1 tab DAILY PO ; Start 06/05/19 at 09:00 Pioglitazone HCl (Actos) 30 mg DAILY PO ; Start 06/05/19 at 09:00 Midazolam HCl (Versed) 5 mg STK-MED ONCE .ROUTE ; Start 06/05/19 at 08:01; Stop 06/05/19 at 08:01; Status DC Fentanyl Citrate (Fentanyl 2ml Vial) 100 mcg STK-MED ONCE .ROUTE ; Start 06/05/19 at 08:01; Stop 06/05/19 at 08:01; Status DC Active Scripts Active Lipitor (Atorvastatin Calcium) 40 Mg Tablet 1 Tab PO QHS PRN Plavix (Clopidogrel Bisulfate) 75 Mg Tablet 75 Mg PO DAILYWBKFT Reported Calcium 500 mg Chewable Tablet (Calcium Carbonate/Vitamin D3) 1 Each Tab.chew 2 Each PO DAILY Mucinex (Guaifenesin) 600 Mg Tablet.er 1 Tab PO BID Miralax (Polyethylene Glycol 3350) 17 Gm Powd.pack 1 Packet PO PRN DAILY PRN Hydrocodone-Apap 5-325 (Hydrocodone Bit/Acetaminophen) 1 Tab Tablet 1 Tab PO PRN Q4HRS PRN Flonase Allergy Relief (Fluticasone Propionate) 9.9 Ml [place].susp 2 Sprays NS DAILY Fibercon (Calcium Polycarbophil) 625 Mg Tablet 2 Tab PO BID Colace (Docusate Sodium) 100 Mg Capsule 1 Cap PO BID Triamcinolone Acetonide 0.1% Oint (Triamcinolone Acetonide) 15 Gm Oint...g. 1 Neva TP BID MIX WITH EUCERIN DIRECTED BY PHYSICIAN Trazodone Hcl 50 Mg Tablet 1 Tab PO QHS LAST DOSE GIVEN: DATE: TIME:9:00 p.m. Kristina Allergy (Fexofenadine Hcl) 180 Mg Tablet 1 Tab PO DAILY LAST DOSE GIVEN: DATE:04/02/17 TIME:0900 Actos (Pioglitazone Hcl) 30 Mg Tablet 1 Tab PO DAILY LAST DOSE GIVEN: DATE:04/02/17 TIME:0900 Tylenol (Acetaminophen) 325 Mg Tablet 1 Tab PO PRN Q4HRS LAST DOSE GIVEN: DATE:04/01/17 TIME:9 p.m. Duoneb 0.5-3(2.5) Mg/3 Ml (Albuterol/Ipratropium) 3 Ml Ampul.neb 3 Ml IH PRN Q4HRS PRN Daily Vitamin (Multivitamin) 1 Each Tablet 1 Each PO DAILY LAST DOSE GIVEN: DATE:04/02/17 TIME:0900 Aspir 81 (Aspirin) 81 Mg Tablet.dr 81 Mg PO DAILY LAST DOSE GIVEN: DATE:04/02/17 TIME:0900 Tamsulosin Hcl 0.4 Mg Cap.er.24h 0.4 Mg PO DAILY LAST DOSE GIVEN: DATE:04/02/17 TIME:0900 Propranolol Hcl 40 Mg Tablet 40 Mg PO TID LAST DOSE GIVEN: DATE:04/02/17 TIME:2:00 p.m. Primidone 50 Mg Tablet 50 Mg PO TID LAST DOSE GIVEN: DATE:04/02/17 TIME:2:00 p.m. Allergies Allergies: Coded Allergies: I S O L A T I O N *CONTACT* (Verified Allergy, Unknown, 06/05/19) No Known Medication Allergies (Verified Allergy, Unknown, 06/05/19) ROS General: YES: Appetite (decreased) Gastrointestinal: Yes Nausea Physical Exam General: Alert, Oriented X3 HEENT: Atraumatic, PERRLA Lungs: Clear to auscultation Heart: Regular rate, Normal S1, Normal S2 Abdomen: Normal bowel sounds, Soft, No tenderness, No hepatosplenomegaly, No masses Extremities: No clubbing, No cyanosis, Other (left BKA) Neuro: Normal speech Psych/Mental Status: Mental status NL Vitals VITALS Vital Signs Date Time Temp Pulse Resp B/P (MAP) Pulse Ox O2 Delivery O2 Flow Rate FiO2 06/05/19 07:55 73 97 Room Air 2 06/05/19 07:51 97.0 16 97.0 06/05/19 03:40 122/56 (78) Labs Labs Laboratory Tests Test 06/04/19 14:39 06/04/19 15:36 06/04/19 16:47 06/04/19 17:48 Stool Occult Blood Positive (NEG) White Blood Count 9.2 x10^3/uL (4.0-11.0) Red Blood Count 3.43 x10^6/uL (4.30-5.70) Hemoglobin 10.9 g/dL (13.0-17.5) Hematocrit 32.4 % (39.0-53.0) Mean Corpuscular Volume 95 fL (79-100) Mean Corpuscular Hemoglobin 32 pg (25-35) Mean Corpuscular Hemoglobin Concent 34 g/dL (31-37) Red Cell Distribution Width 15.9 % (11.5-14.5) Platelet Count 333 x10^3/uL (140-400) Neutrophils (%) (Auto) 69 % (31-73) Lymphocytes (%) (Auto) 14 % (24-48) Monocytes (%) (Auto) 8 % (0-9) Eosinophils (%) (Auto) 7 % (0-3) Basophils (%) (Auto) 2 % (0-3) Neutrophils # (Auto) 6.3 x10^3/uL (1.8-7.7) Lymphocytes # (Auto) 1.3 x10^3/uL (1.0-4.8) Monocytes # (Auto) 0.8 x10^3/uL (0.0-1.1) Eosinophils # (Auto) 0.7 x10^3/uL (0.0-0.7) Basophils # (Auto) 0.2 x10^3/uL (0.0-0.2) Prothrombin Time 14.7 SEC (11.7-14.0) Prothromb Time International Ratio 1.2 (0.8-1.1) Activated Partial Thromboplast Time 30 SEC (24-38) Sodium Level 141 mmol/L (136-145) Potassium Level 3.8 mmol/L (3.5-5.1) Chloride Level 104 mmol/L (98-107) Carbon Dioxide Level 29 mmol/L (21-32) Anion Gap 8 (6-14) Blood Urea Nitrogen 31 mg/dL (8-26) Creatinine 1.1 mg/dL (0.7-1.3) Estimated GFR (Cockcroft-Gault) 64.1 BUN/Creatinine Ratio 28 (6-20) Glucose Level 243 mg/dL (70-99) Calcium Level 9.2 mg/dL (8.5-10.1) Total Bilirubin 0.2 mg/dL (0.2-1.0) Aspartate Amino Transf (AST/SGOT) 17 U/L (15-37) Alanine Aminotransferase (ALT/SGPT) 19 U/L (16-63) Alkaline Phosphatase 72 U/L (46-116) Troponin I Quantitative < 0.017 ng/mL (0.000-0.055) Total Protein 7.6 g/dL (6.4-8.2) Albumin 2.8 g/dL (3.4-5.0) Albumin/Globulin Ratio 0.6 (1.0-1.7) Procalcitonin < 0.10 ng/mL (0.00-0.10) Urine Collection Type Unknown Urine Color Yellow Urine Clarity Cloudy Urine pH 5.5 Urine Specific [place] 1.020 Urine Protein Negative mg/dL (NEG-TRACE) Urine Glucose (UA) Negative mg/dL (NEG) Urine Ketones (Stick) Negative mg/dL (NEG) Urine Blood Small (NEG) Urine Nitrite Negative (NEG) Urine Bilirubin Negative (NEG) Urine Urobilinogen Dipstick 0.2 mg/dL (0.2 mg/dL) Urine Leukocyte Esterase Large (NEG) Urine RBC /HPF (0-2) Urine WBC Tntc /HPF (0-4) Urine Bacteria Few /HPF (0-FEW) Urine Mucus Mod /LPF Urine Yeast Present /HPF Lactic Acid Level 1.4 mmol/L (0.4-2.0) Test 06/05/19 03:30 White Blood Count 12.2 x10^3/uL (4.0-11.0) Red Blood Count 3.13 x10^6/uL (4.30-5.70) Hemoglobin 9.8 g/dL (13.0-17.5) Hematocrit 29.7 % (39.0-53.0) Mean Corpuscular Volume 95 fL (79-100) Mean Corpuscular Hemoglobin 31 pg (25-35) Mean Corpuscular Hemoglobin Concent 33 g/dL (31-37) Red Cell Distribution Width 15.7 % (11.5-14.5) Platelet Count 283 x10^3/uL (140-400) Neutrophils (%) (Auto) 75 % (31-73) Lymphocytes (%) (Auto) 9 % (24-48) Monocytes (%) (Auto) 8 % (0-9) Eosinophils (%) (Auto) 6 % (0-3) Basophils (%) (Auto) 1 % (0-3) Neutrophils # (Auto) 9.2 x10^3/uL (1.8-7.7) Lymphocytes # (Auto) 1.1 x10^3/uL (1.0-4.8) Monocytes # (Auto) 1.0 x10^3/uL (0.0-1.1) Eosinophils # (Auto) 0.7 x10^3/uL (0.0-0.7) Basophils # (Auto) 0.2 x10^3/uL (0.0-0.2) Laboratory Tests Test 06/04/19 14:39 06/04/19 15:36 06/04/19 16:47 06/04/19 17:48 Stool Occult Blood Positive (NEG) White Blood Count 9.2 x10^3/uL (4.0-11.0) Red Blood Count 3.43 x10^6/uL (4.30-5.70) Hemoglobin 10.9 g/dL (13.0-17.5) Hematocrit 32.4 % (39.0-53.0) Mean Corpuscular Volume 95 fL (79-100) Mean Corpuscular Hemoglobin 32 pg (25-35) Mean Corpuscular Hemoglobin Concent 34 g/dL (31-37) Red Cell Distribution Width 15.9 % (11.5-14.5) Platelet Count 333 x10^3/uL (140-400) Neutrophils (%) (Auto) 69 % (31-73) Lymphocytes (%) (Auto) 14 % (24-48) Monocytes (%) (Auto) 8 % (0-9) Eosinophils (%) (Auto) 7 % (0-3) Basophils (%) (Auto) 2 % (0-3) Neutrophils # (Auto) 6.3 x10^3/uL (1.8-7.7) Lymphocytes # (Auto) 1.3 x10^3/uL (1.0-4.8) Monocytes # (Auto) 0.8 x10^3/uL (0.0-1.1) Eosinophils # (Auto) 0.7 x10^3/uL (0.0-0.7) Basophils # (Auto) 0.2 x10^3/uL (0.0-0.2) Prothrombin Time 14.7 SEC (11.7-14.0) Prothromb Time International Ratio 1.2 (0.8-1.1) Activated Partial Thromboplast Time 30 SEC (24-38) Sodium Level 141 mmol/L (136-145) Potassium Level 3.8 mmol/L (3.5-5.1) Chloride Level 104 mmol/L (98-107) Carbon Dioxide Level 29 mmol/L (21-32) Anion Gap 8 (6-14) Blood Urea Nitrogen 31 mg/dL (8-26) Creatinine 1.1 mg/dL (0.7-1.3) Estimated GFR (Cockcroft-Gault) 64.1 BUN/Creatinine Ratio 28 (6-20) Glucose Level 243 mg/dL (70-99) Calcium Level 9.2 mg/dL (8.5-10.1) Total Bilirubin 0.2 mg/dL (0.2-1.0) Aspartate Amino Transf (AST/SGOT) 17 U/L (15-37) Alanine Aminotransferase (ALT/SGPT) 19 U/L (16-63) Alkaline Phosphatase 72 U/L (46-116) Troponin I Quantitative < 0.017 ng/mL (0.000-0.055) Total Protein 7.6 g/dL (6.4-8.2) Albumin 2.8 g/dL (3.4-5.0) Albumin/Globulin Ratio 0.6 (1.0-1.7) Procalcitonin < 0.10 ng/mL (0.00-0.10) Urine Collection Type Unknown Urine Color Yellow Urine Clarity Cloudy Urine pH 5.5 Urine Specific [place] 1.020 Urine Protein Negative mg/dL (NEG-TRACE) Urine Glucose (UA) Negative mg/dL (NEG) Urine Ketones (Stick) Negative mg/dL (NEG) Urine Blood Small (NEG) Urine Nitrite Negative (NEG) Urine Bilirubin Negative (NEG) Urine Urobilinogen Dipstick 0.2 mg/dL (0.2 mg/dL) Urine Leukocyte Esterase Large (NEG) Urine RBC /HPF (0-2) Urine WBC Tntc /HPF (0-4) Urine Bacteria Few /HPF (0-FEW) Urine Mucus Mod /LPF Urine Yeast Present /HPF Lactic Acid Level 1.4 mmol/L (0.4-2.0) Test 06/05/19 03:30 White Blood Count 12.2 x10^3/uL (4.0-11.0) Red Blood Count 3.13 x10^6/uL (4.30-5.70) Hemoglobin 9.8 g/dL (13.0-17.5) Hematocrit 29.7 % (39.0-53.0) Mean Corpuscular Volume 95 fL (79-100) Mean Corpuscular Hemoglobin 31 pg (25-35) Mean Corpuscular Hemoglobin Concent 33 g/dL (31-37) Red Cell Distribution Width 15.7 % (11.5-14.5) Platelet Count 283 x10^3/uL (140-400) Neutrophils (%) (Auto) 75 % (31-73) Lymphocytes (%) (Auto) 9 % (24-48) Monocytes (%) (Auto) 8 % (0-9) Eosinophils (%) (Auto) 6 % (0-3) Basophils (%) (Auto) 1 % (0-3) Neutrophils # (Auto) 9.2 x10^3/uL (1.8-7.7) Lymphocytes # (Auto) 1.1 x10^3/uL (1.0-4.8) Monocytes # (Auto) 1.0 x10^3/uL (0.0-1.1) Eosinophils # (Auto) 0.7 x10^3/uL (0.0-0.7) Basophils # (Auto) 0.2 x10^3/uL (0.0-0.2) Assessment/Plan Assessment/Plan New onset nausea, decreased appetite and black stools- now known to be heme +- with drop in Hgb over last month- very suggestive of new onset peptic ulcer disease Plan- IV protonix Urgent EGD PARIS HEWITT MD Jun 05, 2019 08:39
--- NOTE | 2019-06-05 08:42 | PDOC4 ---
PROCEDURE Procedure EGD melena, heme +, nausea Fentanyl 25 mcg, versed 1 mg Findings- normal esophagus, small HH- erosive gastritis with several linear gastric ulcers (non bleeding), duodenitis with post bulbar duodenal ulcer (no bleeding or visible vessel) Plan PPI carafate resume diet - liquid then PARIS ASENCIO MD Jun 05, 2019 08:42
[2019-06-05] MEDS: PANTOPRAZOLE 40 MG TABLET.DR. PO SCH (09:00)
[2019-06-05] MEDS: SUCRALFATE 1 GM/10 ML ORAL.SUSP. PO SCH ×4 (09:00→20:15)
[2019-06-05 09:46] VITALS: BP 95/37
[2019-06-05] MEDS: PROPRANOLOL 40 MG TABLET. PO SCH ×4 (10:13→20:18)
[2019-06-05] MEDS: TRIAMCINOLONE ACETONIDE 0.1% TOPICAL OINTMENT 15GM TUBE. TP SCH ×2 (10:14→21:39)
[2019-06-05] MEDS: PRIMIDONE 50 MG TABLET PO SCH ×3 (10:15→20:16)
[2019-06-05] MEDS: DOCUSATE SODIUM 100 MG CAPSULE. PO SCH ×2 (10:16→20:15)
[2019-06-05] MEDS: MULTIVITAMIN with MINERAL TABLET. PO SCH (10:17)
[2019-06-05] MEDS: PIOGLITAZONE 15 MG TABLET. PO SCH (10:20)
[2019-06-05] MEDS: FLUTICASONE 50MCG/NASAL SPRAY 16GM BOTTLE. NS SCH (10:21)
[2019-06-05] MEDS: CALCIUM POLYCARBOPHIL 625 MG TABLET PO SCH ×2 (10:25→20:15)
[2019-06-05] MEDS: TAMSULOSIN 0.4 MG CAP.ER.24H. PO SCH (10:26)
[2019-06-05] MEDS: CALCIUM CARB/VIT D3 500/200 TABLET. PO SCH ×2 (10:28→17:01)
--- NOTE | 2019-06-05 10:56 | PDOC ---
GENERAL General: vss and afebrile. awake and alert. egd with gastritis and duodenal ulcer. Hb 9.8 this am. WBC increased to 12.2, albumin 2.8, and UA cw uti with cultures pending. severe protein calorie malnutrition. complicated uti with stent present and urology consult pending. continue antibiotics and PPI therapy for ulcer. VITAL SIGNS/I&O Vital Signs/I&O: Vital Signs Date Time Temp Pulse Resp B/P (MAP) Pulse Ox O2 Delivery O2 Flow Rate FiO2 06/05/19 10:30 72 95/37 06/05/19 10:29 Room Air 2.0 06/05/19 09:46 97.6 16 97 97.6 I & O 06/04/19 06/04/19 06/05/19 14:59 22:59 06:59 Intake Total 50 ml Output Total 800 ml Balance 50 ml -800 ml ALLERGIES Allergies: Allergies Coded Allergies Type Severity Reaction Last Updated Verified I S O L A T I O N *CONTACT* Allergy Unknown 06/05/19 Yes No Known Medication Allergies Allergy Unknown 06/05/19 Yes MEDS Medications: Current Medications Medications (Trade) Dose Ordered Sig/Dominique Route PRN Reason Start Time Stop Time Status Last Admin Dose Admin Iohexol (Omnipaque 300 Mg/ml) 75 ml 1X ONCE IV 06/04/19 16:30 06/04/19 16:31 DC 06/04/19 16:37 Pantoprazole Sodium (PROTONIX VIAL for IV PUSH) 40 mg 1X STAT IVP 06/04/19 17:17 06/04/19 17:18 DC 06/04/19 17:57 Ceftriaxone Sodium (Rocephin) 1 gm 1X ONCE IVP 06/04/19 17:30 06/04/19 17:31 DC 06/04/19 17:57 Vancomycin HCl 2 gm/Sodium Chloride 500 ml @ 250 mls/hr 1X ONCE IV 06/04/19 18:00 06/04/19 19:59 DC 06/04/19 21:01 Piperacillin Sod/ Tazobactam Sod 3.375 gm/Sodium Chloride 50 ml @ 100 mls/hr 1X ONCE IV 06/04/19 17:30 06/04/19 17:59 DC 06/04/19 17:57 Sodium Chloride 1,000 ml @ 50 mls/hr Q20H IV 06/04/19 17:33 06/05/19 17:32 06/04/19 21:01 Pantoprazole Sodium 80 mg/ Sodium Chloride 100 ml @ 10 mls/hr Q10H IV 06/04/19 20:00 06/05/19 09:33 Piperacillin Sod/ Tazobactam Sod 3.375 gm/Sodium Chloride 50 ml @ 100 mls/hr Q6HRS IV 06/05/19 00:00 06/05/19 06:58 Atorvastatin Calcium (Lipitor) 40 mg PRN QHS PRN PO High cholesterol 06/04/19 19:30 06/04/19 21:12 Calcium Polycarbophil (Fibercon) 1,250 mg BID PO 06/04/19 21:00 06/05/19 10:30 Docusate Sodium (Colace) 100 mg BID PO 06/04/19 21:00 06/05/19 10:30 Guaifenesin (Mucinex) 600 mg BID PO 06/04/19 21:00 06/05/19 10:30 Primidone (Mysoline) 50 mg TID PO 06/04/19 21:00 06/05/19 10:30 Propranolol HCl (Inderal) 40 mg TID PO 06/04/19 21:00 06/05/19 10:30 Tamsulosin HCl (Flomax) 0.4 mg DAILY PO 06/05/19 09:00 06/05/19 10:30 Trazodone HCl (Desyrel) 50 mg QHS PO 06/04/19 21:00 06/04/19 21:01 Triamcinolone Acetonide (Kenalog 0.1%) 1 lito BID TP 06/04/19 21:00 06/05/19 10:30 Calcium/Vitamin D (Oscal D 500mg/ 200uts) 1 tab BIDWMEALS PO 06/05/19 08:00 06/05/19 10:30 Fluticasone Propionate (Flonase) 2 spray DAILY NS 06/05/19 09:00 06/05/19 10:30 Multivitamins (Thera M Plus) 1 tab DAILY PO 06/05/19 09:00 06/05/19 10:30 Pioglitazone HCl (Actos) 30 mg DAILY PO 06/05/19 09:00 06/05/19 10:30 Midazolam HCl (Versed) 5 mg STK-MED ONCE IV 06/05/19 08:25 06/05/19 08:28 DC 06/05/19 08:28 Fentanyl Citrate (Fentanyl 2ml Vial) 100 mcg STK-MED ONCE IV 06/05/19 08:25 06/05/19 08:28 DC 06/05/19 08:28 LAB Lab: Laboratory Tests Test 06/04/19 14:39 06/04/19 15:36 06/04/19 16:47 06/04/19 17:48 Stool Occult Blood Positive (NEG) White Blood Count 9.2 x10^3/uL (4.0-11.0) Red Blood Count 3.43 x10^6/uL (4.30-5.70) L Hemoglobin 10.9 g/dL (13.0-17.5) L Hematocrit 32.4 % (39.0-53.0) L Mean Corpuscular Volume 95 fL (79-100) Mean Corpuscular Hemoglobin 32 pg (25-35) Mean Corpuscular Hemoglobin Concent 34 g/dL (31-37) Red Cell Distribution Width 15.9 % (11.5-14.5) H Platelet Count 333 x10^3/uL (140-400) Neutrophils (%) (Auto) 69 % (31-73) Lymphocytes (%) (Auto) 14 % (24-48) L Monocytes (%) (Auto) 8 % (0-9) Eosinophils (%) (Auto) 7 % (0-3) H Basophils (%) (Auto) 2 % (0-3) Neutrophils # (Auto) 6.3 x10^3/uL (1.8-7.7) Lymphocytes # (Auto) 1.3 x10^3/uL (1.0-4.8) Monocytes # (Auto) 0.8 x10^3/uL (0.0-1.1) Eosinophils # (Auto) 0.7 x10^3/uL (0.0-0.7) Basophils # (Auto) 0.2 x10^3/uL (0.0-0.2) Prothrombin Time 14.7 SEC (11.7-14.0) H Prothrombin Time INR 1.2 (0.8-1.1) H Activated Partial Thromboplast Time 30 SEC (24-38) Sodium Level 141 mmol/L (136-145) Potassium Level 3.8 mmol/L (3.5-5.1) Chloride Level 104 mmol/L (98-107) Carbon Dioxide Level 29 mmol/L (21-32) Anion Gap 8 (6-14) Blood Urea Nitrogen 31 mg/dL (8-26) H Creatinine 1.1 mg/dL (0.7-1.3) Estimated GFR (Cockcroft-Gault) 64.1 BUN/Creatinine Ratio 28 (6-20) H Glucose Level 243 mg/dL (70-99) H Calcium Level 9.2 mg/dL (8.5-10.1) Total Bilirubin 0.2 mg/dL (0.2-1.0) Aspartate Amino Transferase (AST) 17 U/L (15-37) Alanine Aminotransferase (ALT) 19 U/L (16-63) Alkaline Phosphatase 72 U/L (46-116) Troponin I Quantitative < 0.017 ng/mL (0.000-0.055) Total Protein 7.6 g/dL (6.4-8.2) Albumin 2.8 g/dL (3.4-5.0) L Albumin/Globulin Ratio 0.6 (1.0-1.7) L Procalcitonin < 0.10 ng/mL (0.00-0.10) Urine Collection Type Unknown Urine Color Yellow Urine Clarity Cloudy Urine pH 5.5 Urine Specific [place] 1.020 Urine Protein Negative mg/dL (NEG-TRACE) Urine Glucose (UA) Negative mg/dL (NEG) Urine Ketones (Stick) Negative mg/dL (NEG) Urine Blood Small (NEG) Urine Nitrite Negative (NEG) Urine Bilirubin Negative (NEG) Urine Urobilinogen Dipstick 0.2 mg/dL (0.2 mg/dL) Urine Leukocyte Esterase Large (NEG) Urine RBC /HPF (0-2) Urine WBC Tntc /HPF (0-4) Urine Bacteria Few /HPF (0-FEW) Urine Mucus Mod /LPF Urine Yeast Present /HPF Lactic Acid Level 1.4 mmol/L (0.4-2.0) Test 06/05/19 03:30 White Blood Count 12.2 x10^3/uL (4.0-11.0) H Red Blood Count 3.13 x10^6/uL (4.30-5.70) L Hemoglobin 9.8 g/dL (13.0-17.5) L Hematocrit 29.7 % (39.0-53.0) L Mean Corpuscular Volume 95 fL (79-100) Mean Corpuscular Hemoglobin 31 pg (25-35) Mean Corpuscular Hemoglobin Concent 33 g/dL (31-37) Red Cell Distribution Width 15.7 % (11.5-14.5) H Platelet Count 283 x10^3/uL (140-400) Neutrophils (%) (Auto) 75 % (31-73) H Lymphocytes (%) (Auto) 9 % (24-48) L Monocytes (%) (Auto) 8 % (0-9) Eosinophils (%) (Auto) 6 % (0-3) H Basophils (%) (Auto) 1 % (0-3) Neutrophils # (Auto) 9.2 x10^3/uL (1.8-7.7) H Lymphocytes # (Auto) 1.1 x10^3/uL (1.0-4.8) Monocytes # (Auto) 1.0 x10^3/uL (0.0-1.1) Eosinophils # (Auto) 0.7 x10^3/uL (0.0-0.7) Basophils # (Auto) 0.2 x10^3/uL (0.0-0.2) Laboratory Tests 06/04/19 15:36 06/05/19 03:30 Laboratory Tests 06/04/19 15:36 RAJESH SZYMANSKI MD Jun 05, 2019 10:56
[2019-06-05 11:00] VITALS: BP 93/54
--- NOTE | 2019-06-05 12:13 | PDOC ---
Infectious Disease Note Vital Sign Vital Signs Vital Signs Date Time Temp Pulse Resp B/P (MAP) Pulse Ox O2 Delivery O2 Flow Rate FiO2 06/05/19 10:30 72 95/37 06/05/19 10:29 Room Air 2.0 06/05/19 09:46 97.6 16 97 97.6 Labs Lab Laboratory Tests Test 06/04/19 14:39 06/04/19 15:36 06/04/19 16:47 06/04/19 17:48 Stool Occult Blood Positive (NEG) White Blood Count 9.2 x10^3/uL (4.0-11.0) Red Blood Count 3.43 x10^6/uL (4.30-5.70) Hemoglobin 10.9 g/dL (13.0-17.5) Hematocrit 32.4 % (39.0-53.0) Mean Corpuscular Volume 95 fL (79-100) Mean Corpuscular Hemoglobin 32 pg (25-35) Mean Corpuscular Hemoglobin Concent 34 g/dL (31-37) Red Cell Distribution Width 15.9 % (11.5-14.5) Platelet Count 333 x10^3/uL (140-400) Neutrophils (%) (Auto) 69 % (31-73) Lymphocytes (%) (Auto) 14 % (24-48) Monocytes (%) (Auto) 8 % (0-9) Eosinophils (%) (Auto) 7 % (0-3) Basophils (%) (Auto) 2 % (0-3) Neutrophils # (Auto) 6.3 x10^3/uL (1.8-7.7) Lymphocytes # (Auto) 1.3 x10^3/uL (1.0-4.8) Monocytes # (Auto) 0.8 x10^3/uL (0.0-1.1) Eosinophils # (Auto) 0.7 x10^3/uL (0.0-0.7) Basophils # (Auto) 0.2 x10^3/uL (0.0-0.2) Prothrombin Time 14.7 SEC (11.7-14.0) Prothromb Time International Ratio 1.2 (0.8-1.1) Activated Partial Thromboplast Time 30 SEC (24-38) Sodium Level 141 mmol/L (136-145) Potassium Level 3.8 mmol/L (3.5-5.1) Chloride Level 104 mmol/L (98-107) Carbon Dioxide Level 29 mmol/L (21-32) Anion Gap 8 (6-14) Blood Urea Nitrogen 31 mg/dL (8-26) Creatinine 1.1 mg/dL (0.7-1.3) Estimated GFR (Cockcroft-Gault) 64.1 BUN/Creatinine Ratio 28 (6-20) Glucose Level 243 mg/dL (70-99) Calcium Level 9.2 mg/dL (8.5-10.1) Total Bilirubin 0.2 mg/dL (0.2-1.0) Aspartate Amino Transf (AST/SGOT) 17 U/L (15-37) Alanine Aminotransferase (ALT/SGPT) 19 U/L (16-63) Alkaline Phosphatase 72 U/L (46-116) Troponin I Quantitative < 0.017 ng/mL (0.000-0.055) Total Protein 7.6 g/dL (6.4-8.2) Albumin 2.8 g/dL (3.4-5.0) Albumin/Globulin Ratio 0.6 (1.0-1.7) Procalcitonin < 0.10 ng/mL (0.00-0.10) Urine Collection Type Unknown Urine Color Yellow Urine Clarity Cloudy Urine pH 5.5 Urine Specific [place] 1.020 Urine Protein Negative mg/dL (NEG-TRACE) Urine Glucose (UA) Negative mg/dL (NEG) Urine Ketones (Stick) Negative mg/dL (NEG) Urine Blood Small (NEG) Urine Nitrite Negative (NEG) Urine Bilirubin Negative (NEG) Urine Urobilinogen Dipstick 0.2 mg/dL (0.2 mg/dL) Urine Leukocyte Esterase Large (NEG) Urine RBC /HPF (0-2) Urine WBC Tntc /HPF (0-4) Urine Bacteria Few /HPF (0-FEW) Urine Mucus Mod /LPF Urine Yeast Present /HPF Lactic Acid Level 1.4 mmol/L (0.4-2.0) Test 06/05/19 03:30 White Blood Count 12.2 x10^3/uL (4.0-11.0) Red Blood Count 3.13 x10^6/uL (4.30-5.70) Hemoglobin 9.8 g/dL (13.0-17.5) Hematocrit 29.7 % (39.0-53.0) Mean Corpuscular Volume 95 fL (79-100) Mean Corpuscular Hemoglobin 31 pg (25-35) Mean Corpuscular Hemoglobin Concent 33 g/dL (31-37) Red Cell Distribution Width 15.7 % (11.5-14.5) Platelet Count 283 x10^3/uL (140-400) Neutrophils (%) (Auto) 75 % (31-73) Lymphocytes (%) (Auto) 9 % (24-48) Monocytes (%) (Auto) 8 % (0-9) Eosinophils (%) (Auto) 6 % (0-3) Basophils (%) (Auto) 1 % (0-3) Neutrophils # (Auto) 9.2 x10^3/uL (1.8-7.7) Lymphocytes # (Auto) 1.1 x10^3/uL (1.0-4.8) Monocytes # (Auto) 1.0 x10^3/uL (0.0-1.1) Eosinophils # (Auto) 0.7 x10^3/uL (0.0-0.7) Basophils # (Auto) 0.2 x10^3/uL (0.0-0.2) Objective Assessment Complicated UTI, POA ? pneumonia Leukocytosis Hydronephrosis with right ureteral stent Kidney stones s/p ESWL recently GI bleed s/p EGD DM h/o MRSA Plan Plan of Care Continue Zosyn One time dose vanc, 06/04 f/u cultures Monitor WBC/temp Urology consulted Thank you [id number] Patient seen and examined. Chart reviewed in detail. Case discussed with DIRECTOR SHIP. Agree with above plan. TULIO HARDEN APRN Jun 05, 2019 12:13 GLENDA PANG MD Jun 05, 2019 20:33
--- NOTE | 2019-06-05 12:42 | CONS ---
DATE OF CONSULTATION: 06/05/2019 INFECTIOUS DISEASE CONSULTATION REFERRING PHYSICIAN: Orestes Wise APRN REASON FOR CONSULTATION: Urinary tract infection and pneumonia. HISTORY OF PRESENT ILLNESS: This patient is an 83-year-old male who is a group home resident, sent to the ER with complaints of nausea, loss of appetite and black tarry stools. Hemoccult tested positive. A CT abdomen/pelvis demonstrated wall thickening of the distal esophagus similar to previous study; mild colonic diverticulosis; no evidence of acute cholecystitis or small bowel distention. He underwent an EGD and was found to have erosive gastritis with several linear gastric ulcers (nonbleeding) and duodenitis with postbulbar duodenal ulcer. He is now on Carafate and tolerating a full liquid diet. On admission, urinalysis showed wbc's too numerous to count, leukocyte esterase, bacteria and yeast. Urine culture was sent. He has a history of kidney stones, status post recent ESWL. Abdomen/pelvis CT showed a right ureteric stent in place as well as mild increase in hydronephrosis, perinephric fluid and inflammatory change. Slight delayed right renal function suggests a component of ongoing obstruction, although a definite ureteric calculus not seen. Urology has been consulted. In addition, chest x-ray showed a patchy right medial basilar opacity representing atelectasis or consolidation. On CAT scan mild patchy atelectasis or infiltrate in the lung bases were noted and improved as compared with previous exam. He is satting above 97% on room air. He denies cough, shortness of air or chest discomfort. Denies fevers, chills or body aches. Denies dysuria or hematuria. He has some urinary frequency and says slow to go. PAST MEDICAL HISTORY: MRSA in sputum. Peripheral vascular disease, hypertension, hyperlipidemia, COPD, diabetes, gastroesophageal reflux disease, esophageal diverticulum, hiatal hernia. Diastolic congestive heart failure, kidney stones. Hyperlipidemia and atrial fibrillation and heart murmur. PAST SURGICAL HISTORY: Recent ESWL. Right ureter stent placement, cataract extraction, appendectomy, bilateral hip replacements, left BKA. Deviated septum repair. SOCIAL HISTORY: intermediate resident, FAMILY HISTORY: Positive for hypertension, diabetes mellitus, cardiovascular disease, Alzheimer's disease and urinary organ neoplasm. ALLERGIES: No known drug allergies. MEDICATIONS: One-time dose of vancomycin on 06/04/2019, Zosyn. One-time dose of ceftriaxone on 06/04/2019. Other medications are available and have been reviewed on the DEC. REVIEW OF SYSTEMS: Per HPI, otherwise all other review of systems are negative. PHYSICAL EXAM: VITAL SIGNS: Temp 97.6, BP 122/52, HR 62, RR 16, SpO2 99% on room air. GENERAL: Propped up in bed, alert, NAD. HENT: Pupils equal, oral cavity clear. NECK: Supple. LUNGS: Clear. HEART: S1, S2. Murmur present. ABDOMEN: Soft, nontender, bowel sounds active. EXTREMITIES: No gross edema or cyanosis. Left BKA prosthesis. SKIN: Warm to touch. No signs of rash. NEUROLOGIC: Alert, answering questions appropriately. LABORATORY DATA: Today's WBC 12.2 from 9.2 on admission, hemoglobin 9.8 and platelets 283,000. Creatinine 1.1, BUN 31. Electrolytes are unremarkable. Glucose 243. Lactic acid 1.4, total bilirubin 0.2, AST 17, and ALT 19. Troponin less than 0.017, albumin 2.8. Procalcitonin less than 0.10. Urinalysis and imaging per HPI. Blood cultures from 06/04/2019 in process. IMPRESSION: 1. Complicated UTI, POA 2. Questionable pneumonia 3. Leukocytosis 4. Hydronephrosis with right ureteral stent 5. Kidney stones s/p ESWL recently 6. GI bleed s/p EGD 7. DM 8. History of MRSA PLAN: Continue Zosyn. He received a one-time dose of vancomycin on the . I will follow up on culture results and adjust antibiotics accordingly. Urology has been consulted. Continue repeat CBC in a.m. Supportive care. Thank you, Orestes Wise APRN for asking us to participate in this patient's care. Should you have further questions or concerns, please call. GLENDA PANG MD DR: GUS/julia JOB#: [id number] / [id number] SHIKHA
[2019-06-05] MEDS: IV NORMAL SALINE 1000ML BAG 1,000 ML IV SCH (14:32)
[2019-06-05 15:00] VITALS: BP 109/60
[2019-06-05 19:39] VITALS: BP 126/50
[2019-06-05] MEDS: LACTOBACILLUS RHAMNOSUS GG 1 CAPSULE. PO SCH (20:16)
[2019-06-05] MEDS: HYDROcodone/APAP 5/325MG 1 TAB TABLET PO PRN (21:39)
[2019-06-05] MEDS: traZODone 50 MG TABLET. PO SCH (22:35)
[2019-06-05 23:44] VITALS: BP 139/63
[2019-06-06 03:47] VITALS: BP 116/55
[2019-06-06] MEDS: PIPERACILLIN/TAZOBACTAM 3.375 GM in IV NORMAL SALINE 50ML 50 ML IV SCH ×4 (05:58→23:47)
[2019-06-06 07:00] VITALS: BP 122/52
[2019-06-06] MEDS: PANTOPRAZOLE 40 MG TABLET.DR. PO SCH (08:00)
[2019-06-06] MEDS: SUCRALFATE 1 GM/10 ML ORAL.SUSP. PO SCH ×4 (08:00→21:44)
[2019-06-06] MEDS: CALCIUM POLYCARBOPHIL 625 MG TABLET PO SCH ×2 (08:03→21:43)
[2019-06-06] MEDS: LACTOBACILLUS RHAMNOSUS GG 1 CAPSULE. PO SCH ×2 (08:04→21:43)
[2019-06-06] MEDS: FLUTICASONE 50MCG/NASAL SPRAY 16GM BOTTLE. NS SCH (08:04)
[2019-06-06] MEDS: MULTIVITAMIN with MINERAL TABLET. PO SCH (08:04)
[2019-06-06] MEDS: TRIAMCINOLONE ACETONIDE 0.1% TOPICAL OINTMENT 15GM TUBE. TP SCH ×2 (08:04→21:43)
[2019-06-06] MEDS: CALCIUM CARB/VIT D3 500/200 TABLET. PO SCH ×2 (08:04→17:37)
[2019-06-06] MEDS: PIOGLITAZONE 15 MG TABLET. PO SCH (08:04)
[2019-06-06] MEDS: DOCUSATE SODIUM 100 MG CAPSULE. PO SCH ×2 (08:04→21:45)
[2019-06-06] MEDS: TAMSULOSIN 0.4 MG CAP.ER.24H. PO SCH (08:04)
[2019-06-06] MEDS: PRIMIDONE 50 MG TABLET PO SCH ×3 (08:04→21:44)
[2019-06-06] MEDS: PROPRANOLOL 40 MG TABLET. PO SCH ×3 (08:05→21:44)
--- NOTE | 2019-06-06 08:34 | PDOC ---
Infectious Disease Note Subjective Subjective Comfortable Some mild back pain on occasion Denies dysuria/F/C/aches/SOA/cough Not very hungry ROS ROS per HPI Vital Sign Vital Signs Vital Signs Date Time Temp Pulse Resp B/P (MAP) Pulse Ox O2 Delivery O2 Flow Rate FiO2 06/06/19 08:06 62 122/52 06/06/19 07:00 97.6 16 99 Room Air 97.6 06/05/19 10:29 2.0 Physical Exam PHYSICAL EXAM GENERAL: Sitting in the chair, alert, NAD HENT: Pupils equal, oral cavity clear. NECK: Supple. LUNGS: Clear. HEART: S1, S2. Murmur present. ABDOMEN: Soft, nontender, bowel sounds active. EXTREMITIES: No gross edema or cyanosis. 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 SKIN: Warm to touch. No signs of rash. NEUROLOGIC: Alert, answering questions appropriately. PIV ok. Labs Lab Laboratory Tests Test 06/05/19 14:20 Hemoglobin 9.7 g/dL (13.0-17.5) Micro Microbiology 06/05/19 Blood Culture - Preliminary, Resulted NO GROWTH AFTER 1 DAY Objective Assessment Complicated UTI, POA ? pneumonia Leukocytosis Hydronephrosis with right ureteral stent Kidney stones s/p ESWL recently GI bleed s/p EGD DM h/o MRSA Plan Plan of Care Continue Zosyn One time dose vanc, 06/04 f/u cultures Monitor WBC/temp CBC in am Awaiting urology evaluation D/w nursing Patient seen and examined. Chart reviewed in detail. Case discussed with HORIZONTAL DRILL OPERATOR. Agree with above plan. TULIO HARDEN APRN Jun 06, 2019 08:34 GLENDA PANG MD Jun 06, 2019 21:36
[2019-06-06 11:00] VITALS: BP 107/52
--- NOTE | 2019-06-06 11:29 | PDOC ---
GENERAL General: vss and afebrile. awake and alert and feeling some better. chest clear, heart regular, abdomen benign, L BKA, no significant flank tenderness. Blood cultures negative to date, no urine culture available. black stool X 1 this am with stable Hb of 9.7. PPI therapy ongoing for PUD. awaiting urology eval for plans with stent. continue IV antibiotics. VITAL SIGNS/I&O Vital Signs/I&O: Vital Signs Date Time Temp Pulse Resp B/P (MAP) Pulse Ox O2 Delivery O2 Flow Rate FiO2 06/06/19 08:06 62 122/52 06/06/19 08:00 Room Air 06/06/19 07:00 97.6 16 99 97.6 06/05/19 10:29 2.0 I & O 06/05/19 06/05/19 06/06/19 14:59 22:59 06:59 Output Total 400 ml Balance -400 ml ALLERGIES Allergies: Allergies Coded Allergies Type Severity Reaction Last Updated Verified I S O L A T I O N *CONTACT* Allergy Unknown 06/05/19 Yes No Known Medication Allergies Allergy Unknown 06/05/19 Yes MEDS Medications: Current Medications Medications (Trade) Dose Ordered Sig/Dominique Route PRN Reason Start Time Stop Time Status Last Admin Dose Admin Lactobacillus Rhamnosus (Culturelle) 1 cap BID PO 06/05/19 21:00 06/06/19 08:06 LAB Lab: Laboratory Tests Test 06/05/19 14:20 Hemoglobin 9.7 g/dL (13.0-17.5) L Laboratory Tests 06/05/19 14:20 RAJESH SZYMANSKI MD Jun 06, 2019 11:29
--- NOTE | 2019-06-06 12:27 | PDOC2 ---
UROLOGY CONSULT Date of Admission DATE: 06/06/19 TIME: 12:23 admitted for gi bleed and anemia, during [facility] noted abnormal UA and hx of stones s/p stone procedure w 03/2019. No fever, no chills, no gh. Stent not bothering him. ct with stent in place, no ureter stones, has 8mm LP stone, no hydro. ROS ROS: RESPIRATORY: Shortness of breath denies. Cough denies. UROLOGY: Denies blood in urine. Denies difficulty urinating Current Medications Current Medications Iohexol (Omnipaque 300 Mg/ml) 75 ml 1X ONCE IV Last administered on 06/04/19at 16:37; Start 06/04/19 at 16:30; Stop 06/04/19 at 16:31; Status DC Info (CONTRAST GIVEN -- Rx MONITORING) 1 each PRN DAILY PRN MC SEE COMMENTS; Start 06/04/19 at 16:30; Stop 06/06/19 at 16:29 Pantoprazole Sodium (PROTONIX VIAL for IV PUSH) 40 mg 1X STAT IVP Last administered on 06/04/19at 17:57; Start 06/04/19 at 17:17; Stop 06/04/19 at 17:18; Status DC Ceftriaxone Sodium (Rocephin) 1 gm 1X ONCE IVP Last administered on 06/04/19at 17:57; Start 06/04/19 at 17:30; Stop 06/04/19 at 17:31; Status DC Vancomycin HCl 2 gm/Sodium Chloride 500 ml @ 250 mls/hr 1X ONCE IV Last administered on 06/04/19at 21:01; Start 06/04/19 at 18:00; Stop 06/04/19 at 19:59; Status DC Piperacillin Sod/ Tazobactam Sod 3.375 gm/Sodium Chloride 50 ml @ 100 mls/hr 1X ONCE IV Last administered on 06/04/19at 17:57; Start 06/04/19 at 17:30; Stop 06/04/19 at 17:59; Status DC Ondansetron HCl (Zofran) 4 mg PRN Q8HRS PRN IV NAUSEA/VOMITING; Start 06/04/19 at 17:45; Stop 06/05/19 at 17:44; Status DC Fentanyl Citrate (Fentanyl 2ml Vial) 50 mcg PRN Q1HR PRN IV PAIN; Start 06/04/19 at 17:45; Stop 06/05/19 at 17:44; Status DC Sodium Chloride 1,000 ml @ 50 mls/hr Q20H IV Last administered on 06/05/19at 14:32; Start 06/04/19 at 17:33; Stop 06/05/19 at 17:32; Status DC Pantoprazole Sodium 80 mg/ Sodium Chloride 100 ml @ 10 mls/hr Q10H IV Last administered on 06/05/19at 09:33; Start 06/04/19 at 20:00; Stop 06/05/19 at 12:42; Status DC Piperacillin Sod/ Tazobactam Sod 3.375 gm/Sodium Chloride 50 ml @ 100 mls/hr Q6HRS IV Last administered on 06/06/19 11:43; Start 06/05/19 at 00:00 Acetaminophen (Tylenol) 325 mg PRN Q4HRS PRN PO MILD PAIN / TEMP; Start 06/04/19 at 19:30 Atorvastatin Calcium (Lipitor) 40 mg PRN QHS PRN PO High cholesterol Last administered on 06/04/19 21:12; Start 06/04/19 at 19:30 Calcium Polycarbophil (Fibercon) 1,250 mg BID PO Last administered on 06/06/19 08:05; Start 06/04/19 at 21:00 Docusate Sodium (Colace) 100 mg BID PO Last administered on 06/06/19 08:06; Start 06/04/19 at 21:00 Guaifenesin (Mucinex) 600 mg BID PO Last administered on 06/06/19 08:06; Start 06/04/19 at 21:00 Acetaminophen/ Hydrocodone Bitart (Lortab 5/325) 1 tab PRN Q4HRS PRN PO PAIN Moderate Last administered on 06/05/19 21:40; Start 06/04/19 at 19:30 Albuterol/ Ipratropium (Duoneb) 3 ml PRN Q4HRS PRN IH COUGH; Start 06/04/19 at 19:30 Polyethylene Glycol (miraLAX PACKET) 17 gm PRN DAILY PRN PO CONSTIPATION; Start 06/04/19 at 19:30 Primidone (Mysoline) 50 mg TID PO Last administered on 06/06/19 08:06; Start 06/04/19 at 21:00 Propranolol HCl (Inderal) 40 mg TID PO Last administered on 06/06/19 08:06; Start 06/04/19 at 21:00 Tamsulosin HCl (Flomax) 0.4 mg DAILY PO Last administered on 06/06/19 08:06; Start 06/05/19 at 09:00 Trazodone HCl (Desyrel) 50 mg QHS PO Last administered on 06/05/19at 22:35; Start 06/04/19 at 21:00 Triamcinolone Acetonide (Kenalog 0.1%) 1 neva BID TP Last administered on 06/06/19 08:06; Start 06/04/19 at 21:00 Calcium/Vitamin D (Oscal D 500mg/ 200uts) 1 tab BIDWMEALS PO Last administered on 06/06/19 08:05; Start 06/05/19 at 08:00 Fluticasone Propionate (Flonase) 2 spray DAILY NS Last administered on 06/06/19 08:06; Start 06/05/19 at 09:00 Multivitamins (Thera M Plus) 1 tab DAILY PO Last administered on 06/06/19 08:06; Start 06/05/19 at 09:00 Pioglitazone HCl (Actos) 30 mg DAILY PO Last administered on 06/06/19 08:06; Start 06/05/19 at 09:00 Midazolam HCl (Versed) 5 mg STK-MED ONCE .ROUTE ; Start 06/05/19 at 08:01; Stop 06/05/19 at 08:01; Status DC Fentanyl Citrate (Fentanyl 2ml Vial) 100 mcg STK-MED ONCE .ROUTE ; Start 06/05/19 at 08:01; Stop 06/05/19 at 08:01; Status DC Midazolam HCl (Versed) 5 mg STK-MED ONCE IV Last administered on 06/05/19 08:28; Start 06/05/19 at 08:25; Stop 06/05/19 at 08:28; Status DC Fentanyl Citrate (Fentanyl 2ml Vial) 100 mcg STK-MED ONCE IV Last administered on 06/05/19 08:28; Start 06/05/19 at 08:25; Stop 8/31/19 at 08:28; Status DC Pantoprazole Sodium (Protonix) 40 mg DAILYAC PO Last administered on 06/06/19at 08:05; Start 06/05/19 at 09:00 Sucralfate (Carafate) 1 gm QIDACHS PO Last administered on 06/06/19at 11:43; Start 06/05/19 at 09:00 Lactobacillus Rhamnosus (Culturelle) 1 cap BID PO Last administered on 06/06/19at 08:06; Start 06/05/19 at 21:00 Active Scripts Active Lipitor (Atorvastatin Calcium) 40 Mg Tablet 1 Tab PO QHS PRN Plavix (Clopidogrel Bisulfate) 75 Mg Tablet 75 Mg PO DAILYWBKFT Reported Calcium 500 mg Chewable Tablet (Calcium Carbonate/Vitamin D3) 1 Each Tab.chew 2 Each PO DAILY Mucinex (Guaifenesin) 600 Mg Tablet.er 1 Tab PO BID Miralax (Polyethylene Glycol 3350) 17 Gm Powd.pack 1 Packet PO PRN DAILY PRN Hydrocodone-Apap 5-325 (Hydrocodone Bit/Acetaminophen) 1 Tab Tablet 1 Tab PO PRN Q4HRS PRN Flonase Allergy Relief (Fluticasone Propionate) 9.9 Ml [place].susp 2 Sprays NS DAILY Fibercon (Calcium Polycarbophil) 625 Mg Tablet 2 Tab PO BID Colace (Docusate Sodium) 100 Mg Capsule 1 Cap PO BID Triamcinolone Acetonide 0.1% Oint (Triamcinolone Acetonide) 15 Gm Oint...g. 1 Neva TP BID MIX WITH EUCERIN DIRECTED BY PHYSICIAN Trazodone Hcl 50 Mg Tablet 1 Tab PO QHS LAST DOSE GIVEN: DATE: TIME:9:00 p.m. Kristina Allergy (Fexofenadine Hcl) 180 Mg Tablet 1 Tab PO DAILY LAST DOSE GIVEN: DATE:04/02/17 TIME:0900 Actos (Pioglitazone Hcl) 30 Mg Tablet 1 Tab PO DAILY LAST DOSE GIVEN: DATE:04/02/17 TIME:0900 Tylenol (Acetaminophen) 325 Mg Tablet 1 Tab PO PRN Q4HRS LAST DOSE GIVEN: DATE:04/01/17 TIME:9 p.m. Duoneb 0.5-3(2.5) Mg/3 Ml (Albuterol/Ipratropium) 3 Ml Ampul.neb 3 Ml IH PRN Q4HRS PRN Daily Vitamin (Multivitamin) 1 Each Tablet 1 Each PO DAILY LAST DOSE GIVEN: DATE:04/02/17 TIME:0900 Aspir 81 (Aspirin) 81 Mg Tablet.dr 81 Mg PO DAILY LAST DOSE GIVEN: DATE:04/02/17 TIME:0900 Tamsulosin Hcl 0.4 Mg Cap.er.24h 0.4 Mg PO DAILY LAST DOSE GIVEN: DATE:04/02/17 TIME:0900 Propranolol Hcl 40 Mg Tablet 40 Mg PO TID LAST DOSE GIVEN: DATE:04/02/17 TIME:2:00 p.m. Primidone 50 Mg Tablet 50 Mg PO TID LAST DOSE GIVEN: DATE:04/02/17 TIME:2:00 p.m. Allergies: Coded Allergies: I S O L A T I O N *CONTACT* (Verified Allergy, Unknown, 06/05/19) No Known Medication Allergies (Verified Allergy, Unknown, 06/05/19) Physical Examination PHYSICAL EXAMINATION: GENERAL: Gen. appearance: No acute distress. Mood/affect: Pleasant. HEENT: Head: Normocephalic, atraumatic. Airway Impairment: No. CHEST: Shape and expansion: Normal. Expansion: Normal. SKIN: General: Warm. Color: Good. GENITOURINARY:External genitalia - wnl. NEUROLOGICAL: Mental status: Alert and oriented �3. Language: Normal. VITALS Vital Signs Date Time Temp Pulse Resp B/P (MAP) Pulse Ox O2 Delivery O2 Flow Rate FiO2 06/06/19 11:00 98.2 63 18 107/52 (70) 97 Room Air 98.2 06/05/19 10:29 2.0 Labs Laboratory Tests Test 06/04/19 14:39 06/04/19 15:36 06/04/19 16:47 06/04/19 17:48 Stool Occult Blood Positive (NEG) White Blood Count 9.2 x10^3/uL (4.0-11.0) Red Blood Count 3.43 x10^6/uL (4.30-5.70) Hemoglobin 10.9 g/dL (13.0-17.5) Hematocrit 32.4 % (39.0-53.0) Mean Corpuscular Volume 95 fL (79-100) Mean Corpuscular Hemoglobin 32 pg (25-35) Mean Corpuscular Hemoglobin Concent 34 g/dL (31-37) Red Cell Distribution Width 15.9 % (11.5-14.5) Platelet Count 333 x10^3/uL (140-400) Neutrophils (%) (Auto) 69 % (31-73) Lymphocytes (%) (Auto) 14 % (24-48) Monocytes (%) (Auto) 8 % (0-9) Eosinophils (%) (Auto) 7 % (0-3) Basophils (%) (Auto) 2 % (0-3) Neutrophils # (Auto) 6.3 x10^3/uL (1.8-7.7) Lymphocytes # (Auto) 1.3 x10^3/uL (1.0-4.8) Monocytes # (Auto) 0.8 x10^3/uL (0.0-1.1) Eosinophils # (Auto) 0.7 x10^3/uL (0.0-0.7) Basophils # (Auto) 0.2 x10^3/uL (0.0-0.2) Prothrombin Time 14.7 SEC (11.7-14.0) Prothromb Time International Ratio 1.2 (0.8-1.1) Activated Partial Thromboplast Time 30 SEC (24-38) Sodium Level 141 mmol/L (136-145) Potassium Level 3.8 mmol/L (3.5-5.1) Chloride Level 104 mmol/L (98-107) Carbon Dioxide Level 29 mmol/L (21-32) Anion Gap 8 (6-14) Blood Urea Nitrogen 31 mg/dL (8-26) Creatinine 1.1 mg/dL (0.7-1.3) Estimated GFR (Cockcroft-Gault) 64.1 BUN/Creatinine Ratio 28 (6-20) Glucose Level 243 mg/dL (70-99) Calcium Level 9.2 mg/dL (8.5-10.1) Total Bilirubin 0.2 mg/dL (0.2-1.0) Aspartate Amino Transf (AST/SGOT) 17 U/L (15-37) Alanine Aminotransferase (ALT/SGPT) 19 U/L (16-63) Alkaline Phosphatase 72 U/L (46-116) Troponin I Quantitative < 0.017 ng/mL (0.000-0.055) Total Protein 7.6 g/dL (6.4-8.2) Albumin 2.8 g/dL (3.4-5.0) Albumin/Globulin Ratio 0.6 (1.0-1.7) Procalcitonin < 0.10 ng/mL (0.00-0.10) Urine Collection Type Unknown Urine Color Yellow Urine Clarity Cloudy Urine pH 5.5 Urine Specific [place] 1.020 Urine Protein Negative mg/dL (NEG-TRACE) Urine Glucose (UA) Negative mg/dL (NEG) Urine Ketones (Stick) Negative mg/dL (NEG) Urine Blood Small (NEG) Urine Nitrite Negative (NEG) Urine Bilirubin Negative (NEG) Urine Urobilinogen Dipstick 0.2 mg/dL (0.2 mg/dL) Urine Leukocyte Esterase Large (NEG) Urine RBC /HPF (0-2) Urine WBC Tntc /HPF (0-4) Urine Bacteria Few /HPF (0-FEW) Urine Mucus Mod /LPF Urine Yeast Present /HPF Lactic Acid Level 1.4 mmol/L (0.4-2.0) Test 06/05/19 03:30 06/05/19 14:20 White Blood Count 12.2 x10^3/uL (4.0-11.0) Red Blood Count 3.13 x10^6/uL (4.30-5.70) Hemoglobin 9.8 g/dL (13.0-17.5) 9.7 g/dL (13.0-17.5) Hematocrit 29.7 % (39.0-53.0) Mean Corpuscular Volume 95 fL (79-100) Mean Corpuscular Hemoglobin 31 pg (25-35) Mean Corpuscular Hemoglobin Concent 33 g/dL (31-37) Red Cell Distribution Width 15.7 % (11.5-14.5) Platelet Count 283 x10^3/uL (140-400) Neutrophils (%) (Auto) 75 % (31-73) Lymphocytes (%) (Auto) 9 % (24-48) Monocytes (%) (Auto) 8 % (0-9) Eosinophils (%) (Auto) 6 % (0-3) Basophils (%) (Auto) 1 % (0-3) Neutrophils # (Auto) 9.2 x10^3/uL (1.8-7.7) Lymphocytes # (Auto) 1.1 x10^3/uL (1.0-4.8) Monocytes # (Auto) 1.0 x10^3/uL (0.0-1.1) Eosinophils # (Auto) 0.7 x10^3/uL (0.0-0.7) Basophils # (Auto) 0.2 x10^3/uL (0.0-0.2) Laboratory Tests Test 06/05/19 14:20 Hemoglobin 9.7 g/dL (13.0-17.5) Images as above Assessment/Plan Abnormal UA. hx of stones. s/p stent placement. Not uncommon to have abnormal UA w stent in place. recommend suppressive macrobid 50mg qhs till 9.9.19 when goes back to get stent removed w BRUCE Nunez MD Jun 06, 2019 12:27
[2019-06-06 15:00] VITALS: BP 109/50
--- NOTE | 2019-06-06 16:26 | PDOC ---
GI PROGRESS NOTES Date Date/Time DATE: 06/06/19 TIME: 16:23 Subjective Subjective Improved, tolerating soup but may be able to advance. Hgb stable Objective Vitals Vital Signs Date Time Temp Pulse Resp B/P (MAP) Pulse Ox O2 Delivery O2 Flow Rate FiO2 06/06/19 15:29 63 109/50 06/06/19 15:00 98.2 63 16 109/50 (69) 99 Room Air 98.2 06/06/19 11:00 98.2 63 18 107/52 (70) 97 Room Air 98.2 06/06/19 08:06 62 122/52 06/06/19 08:00 Room Air 06/06/19 07:00 97.6 62 16 122/52 (75) 99 Room Air 97.6 06/06/19 03:47 97.6 58 18 116/55 (75) 97 Room Air 97.6 06/05/19 23:44 97.7 61 18 139/63 (88) 95 Room Air 97.7 06/05/19 22:54 98 Room Air 06/05/19 21:40 18 98 Room Air 06/05/19 20:19 67 126/50 06/05/19 20:00 Room Air 06/05/19 19:39 98.1 67 18 126/50 (75) 98 Room Air 98.1 06/05/19 17:03 69 109/60 Labs Labs Laboratory Tests Test 06/06/19 12:55 Hemoglobin 9.8 g/dL (13.0-17.5) Physical Exam Physical Exam Alert Chest clear Heart regular rate and rhythm Abdomen soft nontender normal bowel sounds Assessment Assessment Gastric ulcer with duodenal ulcer. No active bleeding but likely the source of recent bleeding. Stable presently Plan Plan Advance diet Avoid ulcerogenic medications Continue pantoprazole and Carafate PARIS HEWITT MD Jun 06, 2019 16:26
[2019-06-06 19:14] VITALS: BP 114/44
[2019-06-06] MEDS: HYDROcodone/APAP 5/325MG 1 TAB TABLET PO PRN (21:43)
[2019-06-06] MEDS: traZODone 50 MG TABLET. PO SCH (22:49)
[2019-06-06 23:20] VITALS: BP 103/46
[2019-06-07] VITALS (7 sets, daily range): BP systolic 107–121; BP diastolic 42–61
[2019-06-07 05:50] LABS: HEMATOCRIT 26.9 % (39.0-53.0); HEMOGLOBIN 9.1 g/dL (13.0-17.5); RED BLOOD COUNT 2.8 x10^6/uL (4.30-5.70)
[2019-06-07] MEDS: PIPERACILLIN/TAZOBACTAM 3.375 GM in IV NORMAL SALINE 50ML 50 ML IV SCH ×3 (06:54→17:21)
[2019-06-07] MEDS: FLUTICASONE 50MCG/NASAL SPRAY 16GM BOTTLE. NS SCH (08:36)
[2019-06-07] MEDS: TAMSULOSIN 0.4 MG CAP.ER.24H. PO SCH (08:37)
[2019-06-07] MEDS: PIOGLITAZONE 15 MG TABLET. PO SCH (08:37)
[2019-06-07] MEDS: SUCRALFATE 1 GM/10 ML ORAL.SUSP. PO SCH ×4 (08:37→20:35)
[2019-06-07] MEDS: CALCIUM POLYCARBOPHIL 625 MG TABLET PO SCH ×2 (08:38→20:35)
[2019-06-07] MEDS: LACTOBACILLUS RHAMNOSUS GG 1 CAPSULE. PO SCH ×2 (08:38→20:35)
[2019-06-07] MEDS: TRIAMCINOLONE ACETONIDE 0.1% TOPICAL OINTMENT 15GM TUBE. TP SCH ×2 (08:38→20:36)
[2019-06-07] MEDS: MULTIVITAMIN with MINERAL TABLET. PO SCH (08:38)
[2019-06-07] MEDS: PRIMIDONE 50 MG TABLET PO SCH ×3 (08:38→20:35)
[2019-06-07] MEDS: CALCIUM CARB/VIT D3 500/200 TABLET. PO SCH ×2 (08:38→17:21)
[2019-06-07] MEDS: DOCUSATE SODIUM 100 MG CAPSULE. PO SCH ×3 (08:38→20:38)
[2019-06-07] MEDS: PANTOPRAZOLE 40 MG TABLET.DR. PO SCH (08:39)
[2019-06-07] MEDS: PROPRANOLOL 40 MG TABLET. PO SCH ×3 (09:00→20:36)
--- NOTE | 2019-06-07 09:53 | PDOC ---
GENERAL General: vss and afebrile. awake and alert and in chair. no major complaints. last stool not as dark. Hb stable at 9.1 this am. chest clear, heart regular, abdomen benign. blood cultures negative to date. no urine culture showing up yet. ongoing antibiotics for uti complicated by stent. urology eval appreciated. await ID thoughts on antibiotics and otherwise same. VITAL SIGNS/I&O Vital Signs/I&O: Vital Signs Date Time Temp Pulse Resp B/P (MAP) Pulse Ox O2 Delivery O2 Flow Rate FiO2 06/07/19 07:00 97.6 64 17 109/53 (71) 96 Room Air 97.6 I & O 06/06/19 06/06/19 06/07/19 14:59 22:59 06:59 Intake Total 300 ml Output Total 700 ml Balance 300 ml -700 ml ALLERGIES Allergies: Allergies Coded Allergies Type Severity Reaction Last Updated Verified I S O L A T I O N *CONTACT* Allergy Unknown 06/05/19 Yes No Known Medication Allergies Allergy Unknown 06/05/19 Yes LAB Lab: Laboratory Tests Test 06/06/19 12:55 06/06/19 22:10 06/07/19 05:00 Hemoglobin 9.8 g/dL (13.0-17.5) L 9.1 g/dL (13.0-17.5) L 9.1 g/dL (13.0-17.5) L White Blood Count 8.0 x10^3/uL (4.0-11.0) Red Blood Count 2.80 x10^6/uL (4.30-5.70) L Hematocrit 26.9 % (39.0-53.0) L Mean Corpuscular Volume 96 fL (79-100) Mean Corpuscular Hemoglobin 32 pg (25-35) Mean Corpuscular Hemoglobin Concent 34 g/dL (31-37) Red Cell Distribution Width 16.0 % (11.5-14.5) H Platelet Count 227 x10^3/uL (140-400) Laboratory Tests 06/06/19 12:55 06/06/19 22:10 06/07/19 05:00 RAJESH SZYMANSKI MD Jun 07, 2019 09:53
--- NOTE | 2019-06-07 11:12 | PDOC ---
G I PROGRESS NOTE Reason for Follow-up Abd pain/anemia Subjective Tolerating PO Physical Exam Lungs clear CV S1 S2 ABD +BS,soft, nontender Review of Relevant I have reviewed the following items genesis (where applicable) has been applied. Labs Laboratory Tests Test 06/05/19 14:20 06/06/19 12:55 06/06/19 22:10 06/07/19 05:00 Hemoglobin 9.7 g/dL (13.0-17.5) 9.8 g/dL (13.0-17.5) 9.1 g/dL (13.0-17.5) 9.1 g/dL (13.0-17.5) White Blood Count 8.0 x10^3/uL (4.0-11.0) Red Blood Count 2.80 x10^6/uL (4.30-5.70) Hematocrit 26.9 % (39.0-53.0) Mean Corpuscular Volume 96 fL (79-100) Mean Corpuscular Hemoglobin 32 pg (25-35) Mean Corpuscular Hemoglobin Concent 34 g/dL (31-37) Red Cell Distribution Width 16.0 % (11.5-14.5) Platelet Count 227 x10^3/uL (140-400) Laboratory Tests Test 06/06/19 12:55 06/06/19 22:10 06/07/19 05:00 Hemoglobin 9.8 g/dL (13.0-17.5) 9.1 g/dL (13.0-17.5) 9.1 g/dL (13.0-17.5) White Blood Count 8.0 x10^3/uL (4.0-11.0) Red Blood Count 2.80 x10^6/uL (4.30-5.70) Hematocrit 26.9 % (39.0-53.0) Mean Corpuscular Volume 96 fL (79-100) Mean Corpuscular Hemoglobin 32 pg (25-35) Mean Corpuscular Hemoglobin Concent 34 g/dL (31-37) Red Cell Distribution Width 16.0 % (11.5-14.5) Platelet Count 227 x10^3/uL (140-400) Microbiology 06/05/19 Blood Culture - Preliminary, Resulted NO GROWTH AFTER 2 DAYS Medications Current Medications Iohexol (Omnipaque 300 Mg/ml) 75 ml 1X ONCE IV Last administered on 06/04/19at 16:37; Start 06/04/19 at 16:30; Stop 06/04/19 at 16:31; Status DC Info (CONTRAST GIVEN -- Rx MONITORING) 1 each PRN DAILY PRN MC SEE COMMENTS; Start 06/04/19 at 16:30; Stop 06/06/19 at 16:29; Status DC Pantoprazole Sodium (PROTONIX VIAL for IV PUSH) 40 mg 1X STAT IVP Last administered on 06/04/19at 17:57; Start 06/04/19 at 17:17; Stop 06/04/19 at 17:18; Status DC Ceftriaxone Sodium (Rocephin) 1 gm 1X ONCE IVP Last administered on 06/04/19at 17:57; Start 06/04/19 at 17:30; Stop 06/04/19 at 17:31; Status DC Vancomycin HCl 2 gm/Sodium Chloride 500 ml @ 250 mls/hr 1X ONCE IV Last admin istered on 06/04/19at 21:01; Start 06/04/19 at 18:00; Stop 06/04/19 at 19:59; Status DC Piperacillin Sod/ Tazobactam Sod 3.375 gm/Sodium Chloride 50 ml @ 100 mls/hr 1X ONCE IV Last administered on 06/04/19at 17:57; Start 06/04/19 at 17:30; Stop 06/04/19 at 17:59; Status DC Ondansetron HCl (Zofran) 4 mg PRN Q8HRS PRN IV NAUSEA/VOMITING; Start 06/04/19 at 17:45; Stop 06/05/19 at 17:44; Status DC Fentanyl Citrate (Fentanyl 2ml Vial) 50 mcg PRN Q1HR PRN IV PAIN; Start 06/04/19 at 17:45; Stop 06/05/19 at 17:44; Status DC Sodium Chloride 1,000 ml @ 50 mls/hr Q20H IV Last administered on 06/05/19at 14:32; Start 06/04/19 at 17:33; Stop 06/05/19 at 17:32; Status DC Pantoprazole Sodium 80 mg/ Sodium Chloride 100 ml @ 10 mls/hr Q10H IV Last administered on 06/05/19at 09:33; Start 06/04/19 at 20:00; Stop 06/05/19 at 12:42; Status DC Piperacillin Sod/ Tazobactam Sod 3.375 gm/Sodium Chloride 50 ml @ 100 mls/hr Q6HRS IV Last administered on 06/07/19 06:54; Start 06/05/19 at 00:00 Acetaminophen (Tylenol) 325 mg PRN Q4HRS PRN PO MILD PAIN / TEMP; Start 06/04/19 at 19:30 Atorvastatin Calcium (Lipitor) 40 mg PRN QHS PRN PO High cholesterol Last administered on 06/04/19 21:12; Start 06/04/19 at 19:30 Calcium Polycarbophil (Fibercon) 1,250 mg BID PO Last administered on 06/07/19 08:38; Start 06/04/19 at 21:00 Docusate Sodium (Colace) 100 mg BID PO Last administered on 06/07/19 08:38; Start 06/04/19 at 21:00 Guaifenesin (Mucinex) 600 mg BID PO Last administered on 06/07/19 08:39; Start 06/04/19 at 21:00 Acetaminophen/ Hydrocodone Bitart (Lortab 5/325) 1 tab PRN Q4HRS PRN PO PAIN Moderate Last administered on 06/06/19 21:46; Start 06/04/19 at 19:30 Albuterol/ Ipratropium (Duoneb) 3 ml PRN Q4HRS PRN IH COUGH; Start 06/04/19 at 19:30 Polyethylene Glycol (miraLAX PACKET) 17 gm PRN DAILY PRN PO CONSTIPATION; Start 06/04/19 at 19:30 Primidone (Mysoline) 50 mg TID PO Last administered on 06/07/19 08:38; Start 06/04/19 at 21:00 Propranolol HCl (Inderal) 40 mg TID PO Last administered on 06/06/19 21:46; Start 06/04/19 at 21:00 Tamsulosin HCl (Flomax) 0.4 mg DAILY PO Last administered on 06/07/19 08:38; Start 06/05/19 at 09:00 Trazodone HCl (Desyrel) 50 mg QHS PO Last administered on 06/06/19 22:49; Start 06/04/19 at 21:00 Triamcinolone Acetonide (Kenalog 0.1%) 1 neva BID TP Last administered on 06/07/19 08:39; Start 06/04/19 at 21:00 Calcium/Vitamin D (Oscal D 500mg/ 200uts) 1 tab BIDWMEALS PO Last administered on 06/07/19 08:38; Start 06/05/19 at 08:00 Fluticasone Propionate (Flonase) 2 spray DAILY NS Last administered on 06/07/19 08:38; Start 06/05/19 at 09:00 Multivitamins (Thera M Plus) 1 tab DAILY PO Last administered on 06/07/19 08:38; Start 06/05/19 at 09:00 Pioglitazone HCl (Actos) 30 mg DAILY PO Last administered on 06/07/19 08:38; Start 06/05/19 at 09:00 Midazolam HCl (Versed) 5 mg STK-MED ONCE .ROUTE ; Start 06/05/19 at 08:01; Stop 06/05/19 at 08:01; Status DC Fentanyl Citrate (Fentanyl 2ml Vial) 100 mcg STK-MED ONCE .ROUTE ; Start 06/05/19 at 08:01; Stop 06/05/19 at 08:01; Status DC Midazolam HCl (Versed) 5 mg STK-MED ONCE IV Last administered on 06/05/19 08:28; Start 06/05/19 at 08:25; Stop 06/05/19 at 08:28; Status DC Fentanyl Citrate (Fentanyl 2ml Vial) 100 mcg STK-MED ONCE IV Last administered on 06/05/19 08:28; Start 06/05/19 at 08:25; Stop 06/05/19 at 08:28; Status DC Pantoprazole Sodium (Protonix) 40 mg DAILYAC PO Last administered on 06/07/19 08:39; Start 06/05/19 at 09:00 Sucralfate (Carafate) 1 gm QIDACHS PO Last administered on 06/07/19 08:38; Start 06/05/19 at 09:00 Lactobacillus Rhamnosus (Culturelle) 1 cap BID PO Last administered on 06/07/19 08:38; Start 06/05/19 at 21:00 Active Scripts Active Lipitor (Atorvastatin Calcium) 40 Mg Tablet 1 Tab PO QHS PRN Plavix (Clopidogrel Bisulfate) 75 Mg Tablet 75 Mg PO DAILYWBKFT Reported Calcium 500 mg Chewable Tablet (Calcium Carbonate/Vitamin D3) 1 Each Tab.chew 2 Each PO DAILY Mucinex (Guaifenesin) 600 Mg Tablet.er 1 Tab PO BID Miralax (Polyethylene Glycol 3350) 17 Gm Powd.pack 1 Packet PO PRN DAILY PRN Hydrocodone-Apap 5-325 (Hydrocodone Bit/Acetaminophen) 1 Tab Tablet 1 Tab PO PRN Q4HRS PRN Flonase Allergy Relief (Fluticasone Propionate) 9.9 Ml [place].susp 2 Sprays NS DAILY Fibercon (Calcium Polycarbophil) 625 Mg Tablet 2 Tab PO BID Colace (Docusate Sodium) 100 Mg Capsule 1 Cap PO BID Triamcinolone Acetonide 0.1% Oint (Triamcinolone Acetonide) 15 Gm Oint...g. 1 Neva TP BID MIX WITH EUCERIN DIRECTED BY PHYSICIAN Trazodone Hcl 50 Mg Tablet 1 Tab PO QHS LAST DOSE GIVEN: DATE: TIME:9:00 p.m. Kristina Allergy (Fexofenadine Hcl) 180 Mg Tablet 1 Tab PO DAILY LAST DOSE GIVEN: DATE:04/02/17 TIME:0900 Actos (Pioglitazone Hcl) 30 Mg Tablet 1 Tab PO DAILY LAST DOSE GIVEN: DATE:04/02/17 TIME:0900 Tylenol (Acetaminophen) 325 Mg Tablet 1 Tab PO PRN Q4HRS LAST DOSE GIVEN: DATE:04/01/17 TIME:9 p.m. Duoneb 0.5-3(2.5) Mg/3 Ml (Albuterol/Ipratropium) 3 Ml Ampul.neb 3 Ml IH PRN Q4HRS PRN Daily Vitamin (Multivitamin) 1 Each Tablet 1 Each PO DAILY LAST DOSE GIVEN: DATE:04/02/17 TIME:0900 Aspir 81 (Aspirin) 81 Mg Tablet.dr 81 Mg PO DAILY LAST DOSE GIVEN: DATE:04/02/17 TIME:0900 Tamsulosin Hcl 0.4 Mg Cap.er.24h 0.4 Mg PO DAILY LAST DOSE GIVEN: DATE:04/02/17 TIME:0900 Propranolol Hcl 40 Mg Tablet 40 Mg PO TID LAST DOSE GIVEN: DATE:04/02/17 TIME:2:00 p.m. Primidone 50 Mg Tablet 50 Mg PO TID LAST DOSE GIVEN: DATE:04/02/17 TIME:2:00 p.m. Vitals/I & O Vital Sign - Last 24 Hours 06/06/19 06/06/19 06/06/19 06/06/19 15:00 15:29 19:14 20:06 Temp 98.2 98.3 98.2 98.3 Pulse 63 63 70 Resp 16 18 B/P (MAP) 109/50 (69) 109/50 114/44 (67) Pulse Ox 99 100 O2 Delivery Room Air Room Air Room Air 06/06/19 06/06/19 06/06/19 06/06/19 21:46 21:46 22:56 23:20 Temp 98.4 98.4 Pulse 70 63 Resp 18 18 B/P (MAP) 114/44 103/46 (65) Pulse Ox 100 100 96 O2 Delivery Room Air Room Air Room Air 06/07/19 06/07/19 06/07/19 03:45 07:00 08:00 Temp 97.8 97.6 97.8 97.6 Pulse 53 64 Resp 18 17 B/P (MAP) 108/42 (64) 109/53 (71) Pulse Ox 97 96 O2 Delivery Room Air Room Air Room Air Intake and Output 0 06/06/19 06/06/19 06/07/19 15:00 23:00 07:00 Intake Total 300 ml Output Total 700 ml Balance 300 ml -700 ml Problem List Problems Medical Problems: (1) GI bleed Status: Acute (2) Pneumonia Status: Acute (3) Urinary tract infection Status: Acute Assessment Acute blood loss anemia- with , Hg stable, on PPI therapy avoid NSAIDs and aspirin, CPM MACK KWOK MD Jun 07, 2019 11:12
--- NOTE | 2019-06-07 12:22 | PDOC ---
Infectious Disease Note Subjective Subjective Comfortable Denies dysuria/F/C/aches/SOA/cough Not very hungry Vital Sign Vital Signs Vital Signs Date Time Temp Pulse Resp B/P (MAP) Pulse Ox O2 Delivery O2 Flow Rate FiO2 06/07/19 08:00 Room Air 06/07/19 07:00 97.6 64 17 109/53 (71) 96 97.6 Physical Exam PHYSICAL EXAM GENERAL: Sitting in the chair, alert, NAD HENT: Pupils equal, oral cavity clear. NECK: Supple. LUNGS: Clear. HEART: S1, S2. Murmur present. ABDOMEN: Soft, nontender, bowel sounds active. EXTREMITIES: No gross edema or cyanosis. 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 SKIN: Warm to touch. No signs of rash. NEUROLOGIC: Alert, answering questions appropriately. PIV ok. Labs Lab Laboratory Tests Test 06/06/19 12:55 06/06/19 22:10 06/07/19 05:00 Hemoglobin 9.8 g/dL (13.0-17.5) 9.1 g/dL (13.0-17.5) 9.1 g/dL (13.0-17.5) White Blood Count 8.0 x10^3/uL (4.0-11.0) Red Blood Count 2.80 x10^6/uL (4.30-5.70) Hematocrit 26.9 % (39.0-53.0) Mean Corpuscular Volume 96 fL (79-100) Mean Corpuscular Hemoglobin 32 pg (25-35) Mean Corpuscular Hemoglobin Concent 34 g/dL (31-37) Red Cell Distribution Width 16.0 % (11.5-14.5) Platelet Count 227 x10^3/uL (140-400) Micro Microbiology 06/05/19 Blood Culture - Preliminary, Resulted NO GROWTH AFTER 2 DAYS Objective Assessment Complicated UTI, POA ? pneumonia Leukocytosis Hydronephrosis with right ureteral stent Kidney stones s/p ESWL recently GI bleed s/p EGD DM h/o MRSA Plan Plan of Care Continue Zosyn One time dose vanc, 06/04 f/u cultures Monitor WBC/temp CBC in am Awaiting urology evaluation D/w nursing YARY TRUONG MD Jun 07, 2019 12:22
[2019-06-07] MEDS: HYDROcodone/APAP 5/325MG 1 TAB TABLET PO PRN (21:40)
[2019-06-07] MEDS: traZODone 50 MG TABLET. PO SCH (22:48)
[2019-06-08] MEDS: PIPERACILLIN/TAZOBACTAM 3.375 GM in IV NORMAL SALINE 50ML 50 ML IV SCH ×2 (00:02→06:16)
[2019-06-08 03:50] VITALS: BP 118/62
[2019-06-08 07:00] VITALS: BP 124/55
--- NOTE | 2019-06-08 07:40 | PDOC ---
GENERAL General: vss and afebrile. awake and alert. no further bleeding. urine showing yeast pablo wing and will defer to ID. chest clear, heart regular, abdomen benign. dc when ID feels ok and urology feels same. VITAL SIGNS/I&O Vital Signs/I&O: Vital Signs Date Time Temp Pulse Resp B/P (MAP) Pulse Ox O2 Delivery O2 Flow Rate FiO2 06/08/19 03:50 97.4 69 20 118/62 (80) 98 Room Air 97.4 I & O 06/07/19 06/07/19 06/08/19 14:59 22:59 06:59 Intake Total 800 ml 700 ml 150 ml Output Total 450 ml 200 ml Balance 350 ml 500 ml 150 ml ALLERGIES Allergies: Allergies Coded Allergies Type Severity Reaction Last Updated Verified I S O L A T I O N *CONTACT* Allergy Unknown 06/05/19 Yes No Known Medication Allergies Allergy Unknown 06/05/19 Yes RAJESH SZYMANSKI MD Jun 08, 2019 07:40
[2019-06-08] MEDS: FLUTICASONE 50MCG/NASAL SPRAY 16GM BOTTLE. NS SCH (08:31)
[2019-06-08] MEDS: SUCRALFATE 1 GM/10 ML ORAL.SUSP. PO SCH ×4 (08:31→20:58)
[2019-06-08] MEDS: PANTOPRAZOLE 40 MG TABLET.DR. PO SCH (08:33)
[2019-06-08] MEDS: PIOGLITAZONE 15 MG TABLET. PO SCH (08:40)
[2019-06-08] MEDS: CALCIUM POLYCARBOPHIL 625 MG TABLET PO SCH ×2 (08:40→20:58)
[2019-06-08] MEDS: PRIMIDONE 50 MG TABLET PO SCH ×3 (08:40→20:58)
[2019-06-08] MEDS: CALCIUM CARB/VIT D3 500/200 TABLET. PO SCH ×2 (08:40→17:03)
[2019-06-08] MEDS: LACTOBACILLUS RHAMNOSUS GG 1 CAPSULE. PO SCH ×2 (08:40→20:58)
[2019-06-08] MEDS: MULTIVITAMIN with MINERAL TABLET. PO SCH (08:40)
[2019-06-08] MEDS: TRIAMCINOLONE ACETONIDE 0.1% TOPICAL OINTMENT 15GM TUBE. TP SCH ×2 (08:41→21:02)
[2019-06-08] MEDS: TAMSULOSIN 0.4 MG CAP.ER.24H. PO SCH (08:41)
[2019-06-08] MEDS: PROPRANOLOL 40 MG TABLET. PO SCH ×3 (08:41→20:58)
[2019-06-08] MEDS ORDERED: FLUCONAZOLE 100 MG TABLET. PO SCH (09:00)
[2019-06-08] MEDS: DOCUSATE SODIUM 100 MG CAPSULE. PO SCH ×2 (09:00→21:00)
--- NOTE | 2019-06-08 09:02 | NUR ---
SW following pt for anticipated dc needs. Chart reviewed and discussed with RN. SW confirmed with Staff at [facility], , fax: [phone], Pt is [facility] resident. SW will continue to follow pt.
--- NOTE | 2019-06-08 10:33 | NUR ---
IP: Pt has a hx of + mrsa screens since 2016 with most recent on 04/05/19. Pt to be in contact precautions. recommend screen then initiate CHG/Nozin decolonization.
[2019-06-08 10:52] VITALS: BP 116/49
--- NOTE | 2019-06-08 11:43 | PDOC ---
Infectious Disease Note Subjective Subjective Comfortable Denies dysuria/F/C/aches/SOA/cough Not very hungry Vital Sign Vital Signs Vital Signs Date Time Temp Pulse Resp B/P (MAP) Pulse Ox O2 Delivery O2 Flow Rate FiO2 06/08/19 10:52 97.8 60 18 116/49 (71) 99 Room Air 97.8 Physical Exam PHYSICAL EXAM GENERAL: Sitting in the chair, alert, NAD HENT: Pupils equal, oral cavity clear. NECK: Supple. LUNGS: Clear. HEART: S1, S2. Murmur present. ABDOMEN: Soft, nontender, bowel sounds active. EXTREMITIES: No gross edema or cyanosis. 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 SKIN: Warm to touch. No signs of rash. NEUROLOGIC: Alert, answering questions appropriately. PIV ok. Labs Micro Microbiology 06/05/19 Blood Culture - Preliminary, Resulted NO GROWTH AFTER 2 DAYS Objective Assessment Complicated UTI, POA,, stent in place ? pneumonia Leukocytosis Hydronephrosis with right ureteral stent Kidney stones s/p ESWL recently GI bleed s/p EGD DM h/o MRSA Plan Plan of Care d/c Zosyn One time dose vanc, 06/04 f/u cultures Monitor WBC/temp CBC in am Yeast growing, treatment is change aguayo, his stent will be removed on ok to d/c without any further antibiotics D/w nursing YARY TRUONG MD Jun 08, 2019 11:43
--- NOTE | 2019-06-08 12:10 | PDOC ---
SUBJECTIVE Subjective Patient doing well, no pain OBJECTIVE Objective General: Pleasant, no acute distress, well groomed Eyes: conjunctiva anicteric, eyes full range of motion ENT: moist oral mucosa, normal dentition Neck: Trachea midline, no masses Respiratory: unlabored breathing, not using accessory muscles Abdomen: nontender, nondistended, no masses Skin: no rashes or skin lesions on visualized skin Psych: normal mood, affect. Alert and oriented x 3. Vital Signs Vital Signs Date Time Temp Pulse Resp B/P (MAP) Pulse Ox O2 Delivery O2 Flow Rate FiO2 06/08/19 10:52 97.8 60 18 116/49 (71) 99 Room Air 97.8 06/08/19 08:41 68 124/55 06/08/19 08:00 Room Air 06/08/19 07:00 97.8 68 18 124/55 (78) 96 Room Air 97.8 06/08/19 03:50 97.4 69 20 118/62 (80) 98 Room Air 97.4 06/07/19 23:18 16 98 Room Air 06/07/19 23:15 97.8 61 18 107/48 (67) 98 Room Air 97.8 06/07/19 21:40 16 98 Room Air 06/07/19 20:37 71 106/48 06/07/19 20:00 Room Air 06/07/19 19:15 98.3 71 18 121/61 (81) 98 Room Air 98.3 06/07/19 15:28 79 109/49 06/07/19 15:00 98.0 7 16 107/53 (71) 95 Room Air 98.0 I & O Intake and Output 06/08/19 06:59 Intake Total 1650 ml Output Total 650 ml Balance 1000 ml Intake Oral 1650 ml Output Urine Total 650 ml PHYSICAL EXAM Physical Exam General: Pleasant, no acute distress, well groomed Eyes: conjunctiva anicteric, eyes full range of motion ENT: moist oral mucosa, normal dentition Neck: Trachea midline, no masses Respiratory: unlabored breathing, not using accessory muscles Abdomen: nontender, nondistended, no masses Skin: no rashes or skin lesions on visualized skin Psych: normal mood, affect. Alert and oriented x 3. ASSESSMENT/PLAN Assessment/Plan abnormal UA, ureteral stent in place Keep f/u with Dr. Copeland 9/9/19 for stent removal. No further antibiotics per ID. Will sign off. Call with any questions. Problems: (1) Abnormal urinalysis (2) History of nephrolithiasis LIZZIE ARCHULETA Jun 08, 2019 12:10
--- NOTE | 2019-06-08 14:52 | PDOC ---
Subjective: Subjective: No GI complaints, feeling okay. Objective: Vital Signs: Vital Signs Date Time Temp Pulse Resp B/P (MAP) Pulse Ox O2 Delivery O2 Flow Rate FiO2 06/08/19 10:52 97.8 60 18 116/49 (71) 99 Room Air 97.8 Imaging: EGD Findings- normal esophagus, small HH- erosive gastritis with several linear gastric ulcers (non bleeding), duodenitis with post bulbar duodenal ulcer (no bleeding or visible vessel) Plan PPI carafate resume diet - liquid then ADAT PE: GEN: NAD, up to chair LUNGS: CTAB HEART: RRR ABD: S/ND/NT NEURO/PSYCH: A & O �3 A/P: Melena - resolved Anemia - Hgb stable (checked 06/07) Erosive gastritis, gastric ulcers (linear/non-bleeding), duodenitis, duodenal ulcer (nonbleeding) Right ureteral stent in place -- Continue pantoprazole and Carafate. ?MARYELLEN Valdez Jun 08, 2019 14:52
[2019-06-08 15:00] VITALS: BP 128/50
[2019-06-08] MEDS: POLYETHYLENE GLYCOL 3350 17 GM PACKET. PO SCH (15:00)
[2019-06-08 19:15] VITALS: BP 141/59
[2019-06-08] MEDS: HYDROcodone/APAP 5/325MG 1 TAB TABLET PO PRN (21:31)
[2019-06-08] MEDS: traZODone 50 MG TABLET. PO SCH (23:02)
[2019-06-08 23:30] VITALS: BP 99/47
[2019-06-09 03:30] VITALS: BP 112/49
[2019-06-09 07:00] VITALS: BP 112/51
[2019-06-09] MEDS ORDERED: PANT40TA77 PO (07:38)
[2019-06-09] MEDS ORDERED: SUCR1ORA5 PO (07:38)
[2019-06-09] MEDS: POLYETHYLENE GLYCOL 3350 17 GM PACKET. PO SCH (09:00)
[2019-06-09] MEDS: DOCUSATE SODIUM 100 MG CAPSULE. PO SCH (09:00)
[2019-06-09] MEDS: MULTIVITAMIN with MINERAL TABLET. PO SCH (09:17)
[2019-06-09] MEDS: SUCRALFATE 1 GM/10 ML ORAL.SUSP. PO SCH (09:17)
[2019-06-09] MEDS: PANTOPRAZOLE 40 MG TABLET.DR. PO SCH (09:17)
[2019-06-09] MEDS: LACTOBACILLUS RHAMNOSUS GG 1 CAPSULE. PO SCH (09:17)
[2019-06-09] MEDS: CALCIUM POLYCARBOPHIL 625 MG TABLET PO SCH (09:17)
[2019-06-09] MEDS: TRIAMCINOLONE ACETONIDE 0.1% TOPICAL OINTMENT 15GM TUBE. TP SCH (09:18)
[2019-06-09] MEDS: FLUTICASONE 50MCG/NASAL SPRAY 16GM BOTTLE. NS SCH (09:18)
[2019-06-09] MEDS: PIOGLITAZONE 15 MG TABLET. PO SCH (09:18)
[2019-06-09] MEDS: CALCIUM CARB/VIT D3 500/200 TABLET. PO SCH (09:18)
[2019-06-09] MEDS: PRIMIDONE 50 MG TABLET PO SCH (09:28)
[2019-06-09] MEDS: PROPRANOLOL 40 MG TABLET. PO SCH (09:28)
[2019-06-09] MEDS: TAMSULOSIN 0.4 MG CAP.ER.24H. PO SCH (09:28)
--- NOTE | 2019-06-09 10:48 | NUR ---
TULIO following pt. TULIO phoned and faxed orders to [facility]. Pt will transport via facility arranged w/c van at 1130. Pt's Abby quiroz notified of plan. Discussed with NASIR.
[2019-06-09 11:00] VITALS: BP 117/63
--- NOTE | 2019-06-09 12:03 | NUR ---
Report called to [facility] at 1145. Reviewed plan of care, medications, follow up with urology for stent removal on June 14. All questions were answered, understanding verbalized.
--- NOTE | 2019-06-09 12:05 | NUR ---
Discharge Note: KAROLINE LLAMAS [address] Discharge instructions and discharge home medications reviewed with [facility] and a copy given to transport personnel. All questions have been answered and understanding verbalized. The following instructions and handouts were given: Follow up with Urology, Dr. Murrell on June 14, 2019 for stent removal. Hold Aspirin, Clopidogrel. Watch out for signs of GI Bleed, worsening of symptoms, fever. Discontinued lines and drains: peripheral IV intact, patient tolerated removal, no complications noted. Patient discharged to [facility] via wheelchair accompanied by transport personnel at 1130.
--- NOTE | 2019-06-09 14:07 | PATHOLOGY ---
[facility] Accession Number: [id number] . 01 Material submitted: . stomach - ANTRUM BX . 01 Clinical history: . Preop DX: GI bleed Postop DX: Gastritis, r/o h. pylori, duodenal and gastric ulcers . 02 Diagnosis: Gastric biopsies, antrum: - Chronic gastritis, mild. (JPM:jl; 06/09/2019) QMS/06/09/2019 . 02 Comment: Sections of the gastric biopsy reveal segments of gastric body mucosa showing superficial congestion and mild chronic inflammation. A properly controlled immunoperoxidase stain for Helicobacter is negative for Helicobacter organisms. There is no evidence of malignancy. (JPM:jl; 06/09/2019) . . Special stain performed: Immunoperoxidase stain for Helicobacter on A1 . 02 Electronically signed: . Erik Esposito MD, Pathologist NPI- [id number] . 01 Gross description: . Received in formalin labeled "Michael Lambert, antrum bx," are two segments of loco soft tissue measuring 0.2 x 0.2 x 0.1 cm and 0.7 x 0.2 x 0.1 cm in greatest dimensions. The specimen is submitted entirely in cassette A1. (DAC; 06/08/2019) XDC/XDC . 02 Pathologist provided ICD-10: K29.50 . 02 CPT . 415079, [id number] Specimen Comment: A courtesy copy of this report has been sent to Specimen Comment: [phone], . Specimen Comment: Report sent to / DR SZYMANSKI Performed at: [address], [place], [place] [id number] MD Dewey Workman MD Phone: [phone] Performed at: [address] [id number] MD Erik Esposito MD Phone: [phone]
--- NOTE | 2019-06-10 00:11 | DS ---
DATE OF DISCHARGE: 06/09/2019 PRIMARY DIAGNOSES: Upper gastrointestinal bleed with several linear gastric ulcers, duodenitis and postbulbar duodenal ulcer. ADDITIONAL DIAGNOSES: Yeast, urinary tract infection, diabetes, left ekktw-cqy-wspm amputation, indwelling ureteral stent with recent kidney stone, extracorporeal shock wave lithotripsy. CHIEF COMPLAINT AND HISTORY OF PRESENT ILLNESS: This 83-year-old white male is well known to me from followup in the office. The patient was admitted after melanotic stools on the morning of admission with shortness of breath. CBC checked in the retirement with hemoglobin dropping from 13.5 to the mid 10s. He was feeling weaker and transferred to the Emergency Room, was admitted for GI bleed. SUMMARY OF STAY: The patient's hemoglobin dropped further and leveled out at 9.1. His last stool to the hospital showed no evidence of melena. EGD showed the diagnoses listed above. He was treated with Protonix as well as Carafate during this stay, had evidence of urinary tract infection. His cultures are eventually growing out of urine, detailed only treatment necessary for the same was change of the catheter and removal of stent, which was planned on being done on the . He was felt he could go back to the retirement with ongoing care. DISPOSITION: The patient is discharged to the retirement. ADA diet, activity as tolerated. I will see him in followup. DISCHARGE MEDICATIONS: Listed on the med rec and have been addressed. RAJESH SZYMANSKI MD DR: EDMUND/julia JOB#: [id number] / [id number]
== END 2019-06-09 11:25 | disposition home or self-care (01) | DRG 377 ==
LOC: ER 13:42 → 6 SOUTH 17:32
PROVIDERS: ADMIT Family Medicine; ATTEND Family Medicine
PROC: 0DJ08ZZ Inspection of Upper Intestinal Tract, Via Natural or Artificial Opening Endoscopic (ICD-10-PCS; principal; 2019-06-05 08:00)
DX: K26.4 Chronic or unspecified duodenal ulcer with hemorrhage (principal); E43 Unspecified severe protein-calorie malnutrition; D62 Acute posthemorrhagic anemia; I50.32 Chronic diastolic (congestive) heart failure; N13.6 Pyonephrosis; K25.4 Chronic or unspecified gastric ulcer with hemorrhage; E11.51 Type 2 diabetes mellitus with diabetic peripheral angiopathy without gangrene; E78.00 Pure hypercholesterolemia, unspecified; E78.5 Hyperlipidemia, unspecified; I11.0 Hypertensive heart disease with heart failure; I35.0 Nonrheumatic aortic (valve) stenosis; I48.91 Unspecified atrial fibrillation; K44.9 Diaphragmatic hernia without obstruction or gangrene; J44.9 Chronic obstructive pulmonary disease, unspecified; F32.9 Major depressive disorder, single episode, unspecified; M19.90 Unspecified osteoarthritis, unspecified site; K21.9 Gastro-esophageal reflux disease without esophagitis; Z96.643 Presence of artificial hip joint, bilateral; Z79.82 Long term (current) use of aspirin; Z86.14 Personal history of Methicillin resistant Staphylococcus aureus infection; Z87.442 Personal history of urinary calculi; Z89.512 Acquired absence of left leg below knee; Z88.5 Allergy status to narcotic agent; Z98.49 Cataract extraction status, unspecified eye; Z68.23 Body mass index [BMI] 23.0-23.9, adult; Z82.0 Family history of epilepsy and other diseases of the nervous system; Z82.3 Family history of stroke; Z82.49 Family history of ischemic heart disease and other diseases of the circulatory system; Z83.3 Family history of diabetes mellitus
CPT/HCPCS: 36415; 43239; 71046; 74177; 80053; 81001; 82274; 83605; 84145; 84484; 85018; 85025; 85027; 85610; 85730; 87040; 87086; 88305; 88342; 93005; 96365; 96375; 99152; C9113; J0696; J2250; J2543; J3010; J3370; J7030; J7040; Q9967; 99285-25; G0378

== ENCOUNTER 2020-10-06 18:14 | Inpatient (IN) | payer MEDICARE, OTHER ==
[~2020-10-06] VITALS: Ht 172.7 cm; Wt 66.6 kg
[~2020-10-06 18:14] MED LIST changes: +ASCO500C PO; +AZIT250T6 PO; -CALC-483 PO; +CALC-712 PO; +CALC400T40 PO; -CALC600T4 PO; +CALC600T60 PO; +CALC625T7 PO; +DEXT1DRO12 OP; +FEXO180T16 PO; +GLIM1TAB PO; +HYDR-2759 PO; +HYDR200T5 PO; +LINE600T12 PO; -LINE600T37 PO; +LOPE-101 PO; +METH-562 PO; -METH750T2 PO; +MULT-301 PO; +NYST60PO TP; +PANT40TA77 PO; +SENN1TAB62 PO; +SUCR1ORA5 PO; +SUCR1TAB35 PO; +TRAZ-123 PO; +ZINC50TA39 PO
[2020-10-06] MEDS ORDERED: IV NORMAL SALINE 1000ML BAG 1,000 ML IV ONE (18:30)
[2020-10-06] MEDS ORDERED: DEXAMETHASONE SOD PHOS 4 MG/ML VIAL IVP ONE (18:30)
[2020-10-06 19:05] LABS: BASO # 0.1 x10^3/uL (0.0-0.2); BASO % 1 % (0-3); EOS # 0.3 x10^3/uL (0.0-0.7); EOS % 4 % (0-3); HEMATOCRIT 35.2 % (39.0-53.0); HEMOGLOBIN 11.5 g/dL (13.0-17.5); LYMPH # 0.6 x10^3/uL (1.0-4.8); LYMPH % 7 % (24-48); MEAN CORPUSCULAR HEMOGLOBIN 29 pg (25-35); MEAN CORPUSCULAR HGB CONC 33 g/dL (31-37); MEAN CORPUSCULAR VOLUME 89 fL (79-100); MONO # 0.9 x10^3/uL (0.0-1.1); MONO % 10 % (0-9); NEUT % 78 % (31-73); PLATELET COUNT 220 x10^3/uL (140-400); RED BLOOD COUNT 3.97 x10^6/uL (4.30-5.70); RED CELL DISTRIBUTION WIDTH 15.5 % (11.5-14.5)
[2020-10-06 19:15] LABS: PROTHROMBIN TIME PATIENT 15.6 SEC (11.7-14.0)
--- NOTE | 2020-10-06 19:21 | PHYS DOC ---
Past Medical History Past Medical History: COPD, Depression, Diabetes-Type II, High Cholesterol, Kidney Stone, Other Additional Past Medical Histor: PVD,ENCEPHALOPATHY, BACK PAIN, URINARY RETENTION, PVD Past Surgical History: Other Additional Past Surgical Histo: JOINT REPLACEMENT, LEFT BKA Smoking Status: Never Smoker Alcohol Use: None Drug Use: None General Adult EDM: Chief Complaint: ALTERED MENTAL STATUS HPI: HPI: 85-year-old male presents via EMS with report of worsening shortness of breath with altered mental status. Patient was recently diagnosed with COVID-19 on 09/12/2020. Patient is currently receiving Levaquin. Patient noted to have decreased oxygen saturation upon EMS arrival despite use of 3 L nasal cannula. EMS placed patient on 4 L with some improvement. Patient does report cough and shortness of breath. Reports history of headache and fatigue. Review of Systems: Review of Systems: Constitutional: Reports subjective fever and chills, and generalized malaise Eyes: Denies redness or eye pain HENT: Denies nasal congestion or sore throat Respiratory: Reports cough and shortness of breath Cardiovascular: Denies chest pain or palpitations GI: Denies abdominal pain, nausea, or vomiting : Denies dysuria or hematuria Musculoskeletal: Denies back pain or joint pain Integument: Denies rash or skin lesions Neurologic: Denies headache; reports history of altered mental status Complete systems were reviewed and found to be within normal limits, except as documented in this note. Current Medications: Current Medications Medications (Trade) Dose Ordered Sig/Dominique Start Time Stop Time Status Last Admin Dose Admin Dexamethasone Sodium Phosphate (Decadron) 10 mg 1X ONCE 10/06/20 18:30 10/06/20 18:31 DC Sodium Chloride 1,000 ml @ 1,000 mls/hr 1X ONCE 10/06/20 18:30 10/06/20 19:29 Allergies: Allergies: Allergies Coded Allergies Type Severity Reaction Last Updated Verified I S O L A T I O N *CONTACT* Allergy Unknown 06/05/19 Yes No Known Medication Allergies Allergy Unknown 06/05/19 Yes Physical Exam: PE: Constitutional: Well developed, well nourished, no acute distress, non-toxic appearance HENT: Normocephalic, atraumatic Eyes: PERRL, EOMI, conjunctiva normal, no discharge Neck: Normal range of motion, no tenderness, supple Lungs & Thorax: Moderate respiratory distress, equal chest rise and fall, in creased work of breathing Abdomen: Soft, no tenderness Skin: Warm, dry, no erythema, no rash Extremities: No tenderness, ROM intact, no edema, left BKA noted Neurologic: Alert and oriented X 3, normal motor function, normal sensory function, no focal deficits noted Psychologic: Affect normal, judgment normal Current Patient Data: Labs: Laboratory Tests Test 10/06/20 18:50 White Blood Count 9.0 x10^3/uL (4.0-11.0) Red Blood Count 3.97 x10^6/uL (4.30-5.70) L Hemoglobin 11.5 g/dL (13.0-17.5) L Hematocrit 35.2 % (39.0-53.0) L Mean Corpuscular Volume 89 fL (79-100) Mean Corpuscular Hemoglobin 29 pg (25-35) Mean Corpuscular Hemoglobin Concent 33 g/dL (31-37) Red Cell Distribution Width 15.5 % (11.5-14.5) H Platelet Count 220 x10^3/uL (140-400) Neutrophils (%) (Auto) 78 % (31-73) H Lymphocytes (%) (Auto) 7 % (24-48) L Monocytes (%) (Auto) 10 % (0-9) H Eosinophils (%) (Auto) 4 % (0-3) H Basophils (%) (Auto) 1 % (0-3) Neutrophils # (Auto) 7.0 x10^3/uL (1.8-7.7) Lymphocytes # (Auto) 0.6 x10^3/uL (1.0-4.8) L Monocytes # (Auto) 0.9 x10^3/uL (0.0-1.1) Eosinophils # (Auto) 0.3 x10^3/uL (0.0-0.7) Basophils # (Auto) 0.1 x10^3/uL (0.0-0.2) Laboratory Tests 10/06/20 18:50 Vital Signs: Vital Signs Date Time Temp Pulse Resp B/P (MAP) Pulse Ox O2 Delivery O2 Flow Rate FiO2 10/06/20 18:34 100 NonRebreather Mask 10/06/20 18:14 98.7 102 20 132/75 (94) 6.0 98.7 EKG: EKG: @1829 NSR at 97bpm, NO ST elevation, baseline artifact noted, QRS 110ms, QT/QTc 356/456ms Radiology/Procedures: Radiology/Procedures: PROCEDURE: CT ANGIOGRAPHY CHEST Exam: CT of chest with contrast INDICATION: Short of air, hypoxia TECHNIQUE: Sequential axial images through the chest obtained following the admi nistration 100 mL of Omni 350 IV contrast. Sagittal and coronal reformatted images were reconstructed from the axial data and reviewed. 3-D reformatted images were reconstructed from the axial data and reviewed. Comparisons: Chest x-ray 09/15/2020 FINDINGS: Visualized portions of the thyroid are unremarkable. No enlarged mediastinal lymph nodes are identified. Heart size is normal. No pericardial effusion. Severe coronary artery calcifications. Thoracic aorta has a normal course and caliber. Pulmonary artery is not enlarged. No pulmonary embolus identified within the main, lobar or segmental pulmonary arteries. Airways are patent. There is patchy areas of ground glass opacity and consoli dation at the lungs bilaterally. No pneumothorax. No suspicious lung nodules. Small bilateral pleural effusions. Visualized upper abdomen is unremarkable. IMPRESSION: 1. No pulmonary embolus identified within the main, lobar or segmental pulmonary arteries. 2. Extensive patchy bilateral airspace disease favored to be infectious or inflammatory in etiology. Correlate for atypical/viral causes such as Covid. 3. Small bilateral pleural effusions. Exposure: One or more of the following in the visualized dose reduction techniques were utilized for this examination: 1. Automated exposure control 2. Adjustment of the MA and/or KV according to patient size 3. Use of iterative of reconstructive technique Electronically signed by: Valerie Cardenas MD (10/06/2020 8:58 PM) [facility] Course & Med Decision Making: Course & Med Decision Making Pertinent Labs and Imaging studies reviewed. (See chart for details) Patient presents via EMS as [facility] report of increased shortness of air, generalized malaise, and history of altered mental status. Patient was found to be hypoxic per EMS and increased on O2 sats. Upon arrival patient with some increased work of breathing and continued hypoxia. Decision to place patient on Vapotherm nasal cannula. O2 sat with interval improvement. EKG stable. Labs obtained and posted to chart. Troponin significantly elevated. Aspirin provided and heparin bolus and drip initiated. D-dimer elevated. BNP elevated. CTA chest obtained without acute PE but notation of bilateral interstitial opacities consistent with Covid pneumonia. Empiric antibiotics given. UA with signs of acute UTI. Patient requiring admission for further evaluation and treatment. Discussed with Dr. Jaeger (PCP) who is in agreement with admission. Discussed case with Dr. Tinajero (cardiology) who is in agreement with plan. Discussed findings and plan with patient, who acknowledges understanding and agreement. COVID-19 CRITERIA: The patient was evaluated during the global COVID-19 pandemic, and that diagnosis was suspected/considered upon their initial presentation. Their evaluation, treatment and testing was consistent with current guidelines for patients who present with complaints or symptoms that may be related to COVID-19. Dragon Disclaimer: [employer] Disclaimer: This electronic medical record was generated, in whole or in part, using a voice recognition dictation system. Departure Departure Impression: Primary Impression: Respiratory failure Qualified Codes: J96.01 - Acute respiratory failure with hypoxia Additional Impressions: COVID-19 Hypoxia NSTEMI (non-ST elevated myocardial infarction) Hypokalemia Elevated d-dimer Elevated brain natriuretic peptide (BNP) level Acute UTI Disposition: ADMITTED INPT THIS HOSP Admitting Physician: Rajesh Jaeger Condition: GUARDED Referrals: RAJESH JAEGER MD (PCP) COVID-19 Assessment: COVID-19 Patient Risks: Age 65 or older: Yes Sign of co-morbidity: Yes Exp to person + for COVID: Yes (know positive) Exp to PUI: No Travel from affected area: No Lower respiratory symptoms: Yes Fever: No Other: Yes PPE Use: Full PPE with N95 mask or PAPR: Yes Critical Care Time Critical care time was 30 minutes which includes time at bedside, spent in discussion of patient's care with specialists and/or family members, with interpretation of laboratory and/or radiological studies and is exclusive of procedures. SPENCER HINOJOSA DO Oct 06, 2020 19:21
[2020-10-06 19:32] LABS: ALBUMIN 1.5 g/dL (3.4-5.0); ALBUMIN/GLOBULIN RATIO 0.3 (1.0-1.7); CALCIUM 8.7 mg/dL (8.5-10.1); GFR 71.2; MAGNESIUM 2.1 mg/dL (1.8-2.4); TOTAL BILIRUBIN 0.4 mg/dL (0.2-1.0); TOTAL PROTEIN 6.5 g/dL (6.4-8.2)
[2020-10-06 19:33] LABS: D-DIMER 4.94 ug/mlFEU (0.00-0.50); POTASSIUM 2.9 mmol/L (3.5-5.1)
[2020-10-06 19:38] LABS: BILIRUBIN,URINE NEGATIVE (NEG); CLARITY,URINE CLOUDY; COLOR,URINE YELLOW; NITRITE,URINE NEGATIVE (NEG); PROTEIN,URINE 30 mg/dL (NEG-TRACE)
[2020-10-06] MEDS ORDERED: HEPARIN for IV BOLUS 10,000 UNIT/10 ML VIAL. IV ONE (19:45)
[2020-10-06] MEDS ORDERED: ASPIRIN 325 MG TABLET PO ONE (19:45)
[2020-10-06 19:50] LABS: BACTERIA,URINE FEW /HPF (0-FEW); WBC,URINE >40 /HPF (0-4)
[2020-10-06 19:51] LABS: YEAST,URINE PRESENT /HPF
[2020-10-06] MEDS ORDERED: POTASSIUM CHLORIDE 20 MEQ TABLET.ER. PO ONE (20:00)
[2020-10-06] MEDS ORDERED: IOHEXOL 350 MG/ML 100 ML VIAL. IV ONE (20:00)
[2020-10-06] MEDS ORDERED: CONTRAST GIVEN. MC PRN (20:00)
[2020-10-06] MEDS ORDERED: DEXTROSE 50% 25 GM / 50ML DISP.SYRIN. IV PRN (20:30)
[2020-10-06] MEDS ORDERED: ACETAMINOPHEN 325 MG TABLET. PO PRN (20:30)
[2020-10-06] MEDS ORDERED: ONDANSETRON PF 4 MG/2 ML VIAL. IV PRN (20:30)
--- NOTE | 2020-10-06 21:00 | RAD ---
Exam: CT of chest with contrast INDICATION: Short of air, hypoxia TECHNIQUE: Sequential axial images through the chest obtained following the administration 100 mL of Omni 350 IV contrast. Sagittal and coronal reformatted images were reconstructed from the axial data and reviewed. 3-D reformatted images were reconstructed from the axial data and reviewed. Comparisons: Chest x-ray 09/15/2020 FINDINGS: Visualized portions of the thyroid are unremarkable. No enlarged mediastinal lymph nodes are identifi ed. Heart size is normal. No pericardial effusion. Severe coronary artery calcifications. Thoracic aorta has a normal course and caliber. Pulmonary artery is not enlarged. No pulmonary embolus identified wi thin the main, lobar or segmental pulmonary arteries. Airways are patent. There is patchy areas of ground glass opacity and consolidation at the lungs bila terally. No pneumothorax. No suspicious lung nodules. Small bilateral pleural effusions. Visualized upper abdomen is unremarkable. IMPRESSION: 1. No pulmonary embolus identified within the main, lobar or segmental pulmonary arteries. 2. Extensive patchy bilateral airspace disease favored to be infectious or inflammatory in etiology. Correlate for atypical/viral causes such as Covid. 3. Small bilateral pleural effusions. Exposure: One or more of the following in the visualized dose reduction techniques were utilized for this examination: 1. Automated exposure control 2. Adjustment of the MA and/or KV according to patient size 3. Use of iterative of reconstructive technique Electronically signed by: Valerie Cardenas MD (10/06/2020 8:58 PM) [facility]
[2020-10-07] VITALS (11 sets, daily range): BP systolic 103–135; BP diastolic 61–82
--- NOTE | 2020-10-07 03:25 | EKG ---
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
[2020-10-07] MEDS ORDERED: STERILE WATER for RESP 1,000 ML BAG. INH PRN (03:30)
[2020-10-07 05:35] LABS: INFLUENZA A PATIENT NEGATIVE (NEGATIVE); INFLUENZA B PATIENT NEGATIVE (NEGATIVE)
[2020-10-07] MEDS ORDERED: HEPARIN for IV BOLUS 10,000 UNIT/10 ML VIAL. IV PRN (06:00)
[2020-10-07] MEDS ORDERED: PIP/TAZO PER PHARMACY MC PRN (06:30)
[2020-10-07] MEDS: PIPERACILLIN/TAZOBACTAM 3.375 GM in IV NORMAL SALINE 50ML 50 ML IV SCH ×3 (07:41→17:53)
[2020-10-07] MEDS: INSULIN LISPRO 300 UNITS/3 ML VIAL. SQ SCH ×3 (08:00→17:00)
[2020-10-07] MEDS ORDERED: ACETAMINOPHEN 325 MG TABLET. PO SCH (11:00)
[2020-10-07] MEDS ORDERED: HYDROcodone/APAP 5/325MG 1 TAB TABLET PO PRN (11:00)
--- NOTE | 2020-10-07 11:27 | HP ---
ADMIT DATE: 10/06/2020 ADMISSION HISTORY AND PHYSICAL CHIEF COMPLAINT AND HISTORY OF PRESENT ILLNESS: This 85-year-old white male is well known to me in followup. The patient is a resident at [facility]. He was hospitalized here a couple of weeks ago with COVID. The patient was doing better and over the last couple of days, he has had decreased p.o. intake, confusion, low-grade fevers. Was sent to the Emergency Room where the patient was admitted with hypoxia despite his confusion, cough and shortness of breath. He has also been tired as well as had headache. He was admitted to the ICU, on 100% oxygen ____ on admission, but at night it was decreasing and is down to 6 liters in the ICU, and the ICU has been full and they want to transfer him up to another floor, which would be fine on current oxygen needs. PAST MEDICAL HISTORY: Remarkable for diabetes, PAD, hyperlipidemia, kidney stones, COPD, depression, back pain, urinary retention. PAST SURGICAL HISTORY: He has had a prior left mxher-ssw-tpmz amputation. MEDICATIONS: Brought with the patient listed on the computer and have been addressed. ALLERGIES: He has no medication allergies. SOCIAL HISTORY: He is a lifetime nonsmoker, nondrinker, does not use drugs. He is single, lives at the [facility]-way. FAMILY HISTORY: Noncontributory. REVIEW OF SYSTEMS: As mentioned above. PHYSICAL EXAMINATION: GENERAL: He is a well-developed, well-nourished white male in no acute distress. Nursing has no major concerns overnight. VITAL SIGNS: Stable. He is afebrile. O2 sats are good on 6 liters. HEAD, EYES, EARS, NOSE AND THROAT: Unremarkable. NECK: Supple, without thyromegaly. CHEST: Clear to auscultation. HEART: Regular rate and rhythm without S3, S4 or murmur. ABDOMEN: Soft, nontender, without hepatosplenomegaly or masses. EXTREMITIES: Reveal a left txtxn-yzs-achx amputation. NEUROLOGIC: He is intact. LABORATORY DATA: Initial laboratory shows a white count of 9000 with a slight left shift. He does have an elevated troponin on admission at 3.8 and has decreased overnight to 2.9. Cardiology has been consulted for the same. BNP is quite elevated at 23,000. Influenza screening is negative. Urinalysis does show greater than 40 white blood cells and large leukocyte esterase. He has been on Levaquin prior to admission. We will wait on cultures prior to any further treatment. He does have hypokalemia on admission with potassium of 2.9. IMPRESSION: Hypoxic respiratory failure due to COVID-19. Non-ST elevated myocardial infarction, hypokalemia, elevated D-dimer with negative CT for pulmonary embolus, but extensive patchy bilateral airspace disease, probably consistent with COVID, elevated BNP, possible urinary tract infection. PLAN: The patient has been admitted. Cardiology has been consulted. I am going to ask for Pulmonary to see. In addition, the patient will be monitored, managed and treated appropriately. RAJESH SZYMANSKI MD DR: EDMUND/julia JOB#: [id number] / [id number]
[2020-10-07] MEDS: DOCUSATE SODIUM 100 MG CAPSULE. PO SCH ×2 (11:38→20:52)
[2020-10-07] MEDS: CALCIUM POLYCARBOPHIL 625 MG TABLET PO SCH (11:39)
[2020-10-07] MEDS: SENNOSIDES/DOCUSATE 8.6/50MG TABLET. PO SCH (11:46)
[2020-10-07] MEDS: PRIMIDONE 50 MG TABLET PO SCH ×2 (12:12→20:52)
[2020-10-07] MEDS: NYSTATIN TOPICAL POWDER 15GM BOTTLE. TP PRN (12:12)
[2020-10-07] MEDS: SUCRALFATE 1 GM TABLET. PO SCH ×3 (12:16→20:51)
[2020-10-07] MEDS: TAMSULOSIN 0.4 MG CAP.ER.24H. PO SCH (12:16)
[2020-10-07] MEDS: PIOGLITAZONE 15 MG TABLET. PO SCH (12:17)
[2020-10-07] MEDS: TRIAMCINOLONE ACETONIDE 0.1% TOPICAL OINTMENT 15GM TUBE. TP SCH ×2 (12:17→21:00)
[2020-10-07] MEDS: MULTIVITAMIN with MINERAL TABLET. PO SCH (12:17)
[2020-10-07] MEDS: GLIMEPIRIDE 2 MG TABLET. PO SCH (12:17)
[2020-10-07] MEDS: GABAPENTIN 100 MG CAPSULE. PO SCH ×2 (12:17→20:52)
[2020-10-07] MEDS: PANTOPRAZOLE 40 MG TABLET.DR. PO SCH (12:17)
[2020-10-07 14:17] LABS: CALCIUM 8.1 mg/dL (8.5-10.1); GFR 71.2; POTASSIUM 3.4 mmol/L (3.5-5.1)
--- NOTE | 2020-10-07 14:57 | PDOC2 ---
CONSULT Date of Consult Date of Consult DATE: 10/07/20 TIME: 14:50 Reason for Consult Reason for Consult: Elevated troponin, possible non-ST elevated myocardial infarction Referring Physician Referring Physician: Dr. Jaeger Identification/Chief Complaint Chief Complaint Mental status changes and shortness of breath Source Source: Chart review, Patient History of Present Illness Reason for Visit: The patient is an 85-[facility]-old male [facility] who was brought to the emergency room for changes in mental status and increasing shortness of breath. He tested positive for Covid on 09/12/2020 and was treated. More recently he has had increased fatigue and mental status changes as noted above. Work-up has included a CT chest scan that showed no pulmonary emboli but did shows extensive patchy airspace disease. His EKG showed no acute ischemic changes. However his troponin did peak at 3.8 and has now decreased to 2.9. He was started on IV heparin. There is no report of chest pain however. The patient is feeling better this morning with improved oxygenation. Past Medical History Cardiovascular: HTN, Hyperlipidemia, Aortic stenosis, Other (Peripheral vascular disease) Pulmonary: COPD CENTRAL NERVOUS SYSTEM: Other GI: No pertinent hx Heme/Onc: No pertinent hx Hepatobiliary: No pertinent hx Psych: No pertinent hx Musculoskeletal: Osteoarthritis, Other Rheumatologic: No pertinent hx Infectious disease: No pertinent hx Renal/: Benign prostatic enlarg. Endocrine: Diabetes Past Surgical History Past Surgical History: Appendectomy, Cataract Removal, Total hip replacement, Other (Left BKA) Family History Family History: Hypertension, Stroke Social History No ALCOHOL: none Drugs: None Lives: Alone Domestic Violence: Neg Current Problem List Problem List Problems Medical Problems: (1) Acute UTI Status: Acute (2) COVID-19 Status: Acute (3) Elevated brain natriuretic peptide (BNP) level Status: Acute (4) Elevated d-dimer Status: Acute (5) Hypokalemia Status: Acute (6) Hypoxia Status: Acute (7) NSTEMI (non-ST elevated myocardial infarction) Status: Acute (8) Respiratory failure Status: Acute Current Medications Current Medications Current Medications Sodium Chloride 1,000 ml @ 1,000 mls/hr 1X ONCE IV Last administered on 10/06/20at 19:27; Start 10/06/20 at 18:30; Stop 10/06/20 at 19:29; Status DC Dexamethasone Sodium Phosphate (Decadron) 10 mg 1X ONCE IVP Last administered on 10/06/20at 19:27; Start 10/06/20 at 18:30; Stop 10/06/20 at 18:31; Status DC Aspirin (Krystin Aspirin) 325 mg 1X ONCE PO Last administered on 10/06/20at 20:00; Start 10/06/20 at 19:45; Stop 10/06/20 at 19:46; Status DC Heparin Sodium (Porcine) (Heparin Sodium) 4,000 unit 1X ONCE IV Last admini stered on 10/06/20at 20:05; Start 10/06/20 at 19:45; Stop 10/06/20 at 19:46; Status DC Heparin Sodium/ Dextrose 250 ml @ 0 mls/hr CONT PRN IV PER PROTOCOL; Start 10/06/20 at 19:45 Potassium Chloride (Klor-Con) 40 meq 1X ONCE PO Last administered on 10/06/20at 20:00; Start 10/06/20 at 20:00; Stop 10/06/20 at 20:01; Status DC Iohexol (Omnipaque 350 Mg/ml) 100 ml 1X ONCE IV Last administered on 10/06/20at 20:35; Start 10/06/20 at 20:00; Stop 10/06/20 at 20:01; Status DC Info (CONTRAST GIVEN -- Rx MONITORING) 1 each PRN DAILY PRN MC SEE COMMENTS; Start 10/06/20 at 20:00; Stop 10/08/20 at 19:59 Ondansetron HCl (Zofran) 4 mg PRN Q8HRS PRN IV NAUSEA/VOMITING; Start 10/06/20 at 20:30; Stop 10/07/20 at 20:29 Acetaminophen (Tylenol) 650 mg PRN Q4HRS PRN PO FEVER > 100.3'F; Start 10/06/20 at 20:30; Stop 10/07/20 at 20:29 Insulin Human Lispro (HumaLOG) 0-5 UNITS TIDWMEALS SQ ; Start 10/07/20 at 08:00 Dextrose (Dextrose 50%-Water Syringe) 12.5 gm PRN Q15MIN PRN IV SEE COMMENTS; Start 10/06/20 at 20:30 Sterile Water (WATER for RESP) 1,000 ml CONT PRN INH VIA VAPOTHERM DEVICE; Start 10/07/20 at 03:30 Heparin Sodium (Porcine) (Heparin Sodium) 1,800 unit PRN Q6HRS PRN IV FOR UFH LEVEL LESS THAN 0.2 Last administered on 10/07/20at 06:01; Start 10/07/20 at 06:00 Piperacillin Sod/ Tazobactam Sod (Zosyn Per Pharmacy) 1 each PRN DAILY PRN MC SEE COMMENTS; Start 10/07/20 at 06:30 Piperacillin Sod/ Tazobactam Sod 3.375 gm/Sodium Chloride 50 ml @ 100 mls/hr Q6HRS IV Last administered on 10/07/20at 12:12; Start 10/07/20 at 07:00 Acetaminophen (Tylenol) 325 mg PRN Q4HRS PO ; Start 10/07/20 at 11:00 Atorvastatin Calcium (Lipitor) 40 mg QHS PO ; Start 10/07/20 at 21:00 Calcium Polycarbophil (Fibercon) 1,250 mg DAILY PO ; Start 10/07/20 at 12:00 Docusate Sodium (Colace) 100 mg BID PO ; Start 10/07/20 at 12:00 Gabapentin (Neurontin) 100 mg BID PO Last administered on 10/07/20at 12:17; Start 10/07/20 at 12:00 Guaifenesin (Mucinex) 600 mg BID PO Last administered on 10/07/20at 12:17; Start 10/07/20 at 12:00 Acetaminophen/ Hydrocodone Bitart (Lortab 5/325) 1 tab HS PO ; Start 10/07/20 at 21:00 Acetaminophen/ Hydrocodone Bitart (Lortab 5/325) 1 tab PRN Q48HR PRN PO ; Start 10/07/20 at 11:00 Multivitamins (Thera M Plus) 1 tab DAILY PO Last administered on 10/07/20at 12:17; Start 10/07/20 at 12:00 Nystatin (Nystop) 1 neva PRN Q8HRS PRN TP RASH Last administered on 10/07/20at 12:12; Start 10/07/20 at 11:00 Pantoprazole Sodium (Protonix) 40 mg DAILYAC PO Last administered on 10/07/20at 12:17; Start 10/07/20 at 12:00 Primidone (Mysoline) 50 mg TID PO Last administered on 10/07/20at 12:12; Start 10/07/20 at 14:00 Senna/Docusate Sodium (Senna Plus) 2 tab DAILY PO ; Start 10/07/20 at 12:00 Sucralfate (Carafate) 1 gm QID PO Last administered on 10/07/20at 12:16; Start 10/07/20 at 13:00 Tamsulosin HCl (Flomax) 0.4 mg DAILY PO Last administered on 10/07/20at 12:16; Start 10/07/20 at 12:00 Trazodone HCl (Desyrel) 100 mg QHS PO ; Start 10/07/20 at 21:00 Triamcinolone Acetonide (Kenalog 0.1%) 1 neva BID TP ; Start 10/07/20 at 13:00 Glimepiride (Amaryl) 2 mg DAILY PO Last administered on 10/07/20at 12:17; Start 10/07/20 at 12:00 Pioglitazone HCl (Actos) 30 mg DAILY PO Last administered on 10/07/20at 12:17; Start 10/07/20 at 12:00 Active Scripts Active Pantoprazole Sodium (Pantoprazole Sodium) 40 Mg Tablet.dr 40 Mg PO DAILYAC 90 Days Lipitor (Atorvastatin Calcium) 40 Mg Tablet 1 Tab PO QHS PRN Reported Vitamin C (Ascorbic Acid) 500 Mg Capsule.er 1 Cap PO DAILY 30 Days Thera-M Caplet (Multivits,Ca,Minerals/Iron/Fa) 1 Each Tablet 1 Tab PO DAILY 30 Days Senna Plus Tablet (Sennosides/Docusate Sodium) 1 Each Tablet 2 Tab PO DAILY 20 Days Nystop (Nystatin) 60 Gm Powder 60 Gm TP PRN Q8MIN PRN Hydrocodone-Acetamin 5-325 mg (Hydrocodone/Acetaminophen) 1 Each Tablet 1 Each PO PRN Q48HR PRN Imodium A-D (Loperamide HCl) 2 Mg Capsule 2 Mg PO PRN Q8HRS PRN Hydroxychloroquine Sulfate 200 Mg Tablet 1 Tab PO BID Genteal Tears 0.1%-0.3% Drop (Dextran 70/Hypromellose/Pf) 1 Each Droperette 1 Each OP BID Gabapentin (Gabapentin) 100 Mg Capsule 100 Mg PO BID Fiber Lax (Calcium Polycarbophil) 625 Mg Tablet 1,250 Mg PO DAILY Fexofenadine Hcl 180 Mg Tablet 1 Tab PO DAILY Carafate (Sucralfate) 1 Gm Tablet 1 Tab PO QID 30 Days Calcium Carbonate 400 Mg Tab.chew 400 Mg PO BID Amaryl (Glimepiride) 1 Mg Tablet 2 Tab PO DAILY Trazodone Hcl 100 Mg Tablet 1 Tab PO QHS Zinc 50 Mg Tablet 1 Tab PO DAILY 30 Days Mucinex (Guaifenesin) 600 Mg Tablet.er 1 Tab PO BID Hydrocodone-Apap 5-325 (Hydrocodone Bit/Acetaminophen) 1 Tab Tablet 1 Tab PO HS Flonase Allergy Relief (Fluticasone Propionate) 9.9 Ml [place].susp 2 Sprays NS DAILY Colace (Docusate Sodium) 100 Mg Capsule 1 Cap PO BID Triamcinolone Acetonide 0.1% Oint (Triamcinolone Acetonide) 15 Gm Oint...g. 1 Neva TP BID MIX WITH EUCERIN DIRECTED BY PHYSICIAN Actos (Pioglitazone Hcl) 30 Mg Tablet 1 Tab PO DAILY LAST DOSE GIVEN: DATE:04/02/17 TIME:0900 Tylenol (Acetaminophen) 325 Mg Tablet 1 Tab PO PRN Q4HRS LAST DOSE GIVEN: DATE:04/01/17 TIME:9 p.m. Duoneb 0.5-3(2.5) Mg/3 Ml (Albuterol/Ipratropium) 3 Ml Ampul.neb 3 Ml IH PRN Q4HRS PRN Tamsulosin Hcl 0.4 Mg Cap.er.24h 0.4 Mg PO DAILY LAST DOSE GIVEN: DATE:04/02/17 TIME:0900 Primidone 50 Mg Tablet 50 Mg PO TID LAST DOSE GIVEN: DATE:04/02/17 TIME:2:00 p.m. Allergies Allergies: Coded Allergies: No Known Medication Allergies (Verified Allergy, Unknown, 06/05/19) I S O L A T I O N "[place]" (Verified Adverse Reaction, Unknown, 10/07/20) ROS General: YES: Fatigue Respiratory: YES: Shortness of breath, SOB with excertion Physical Exam Physical Exam Visual examination due to Covid status. Vitals VITALS Vital Signs Date Time Temp Pulse Resp B/P (MAP) Pulse Ox O2 Delivery O2 Flow Rate FiO2 10/07/20 12:00 98.1 78 15 128/72 (90) 98 Nasal Cannula 6.0 98.1 Labs Labs Laboratory Tests Test 10/06/20 18:50 10/06/20 19:27 10/07/20 00:40 10/07/20 04:35 White Blood Count 9.0 x10^3/uL (4.0-11.0) Red Blood Count 3.97 x10^6/uL (4.30-5.70) Hemoglobin 11.5 g/dL (13.0-17.5) Hematocrit 35.2 % (39.0-53.0) Mean Corpuscular Volume 89 fL (79-100) Mean Corpuscular Hemoglobin 29 pg (25-35) Mean Corpuscular Hemoglobin Concent 33 g/dL (31-37) Red Cell Distribution Width 15.5 % (11.5-14.5) Platelet Count 220 x10^3/uL (140-400) Neutrophils (%) (Auto) 78 % (31-73) Lymphocytes (%) (Auto) 7 % (24-48) Monocytes (%) (Auto) 10 % (0-9) Eosinophils (%) (Auto) 4 % (0-3) Basophils (%) (Auto) 1 % (0-3) Neutrophils # (Auto) 7.0 x10^3/uL (1.8-7.7) Lymphocytes # (Auto) 0.6 x10^3/uL (1.0-4.8) Monocytes # (Auto) 0.9 x10^3/uL (0.0-1.1) Eosinophils # (Auto) 0.3 x10^3/uL (0.0-0.7) Basophils # (Auto) 0.1 x10^3/uL (0.0-0.2) Prothrombin Time 15.6 SEC (11.7-14.0) Prothromb Time International Ratio 1.3 (0.8-1.1) Activated Partial Thromboplast Time 47 SEC (24-38) D-Dimer (Usha) 4.94 ug/mlFEU (0.00-0.50) Sodium Level 141 mmol/L (136-145) Potassium Level 2.9 mmol/L (3.5-5.1) Chloride Level 103 mmol/L (98-107) Carbon Dioxide Level 31 mmol/L (21-32) Anion Gap 7 (6-14) Blood Urea Nitrogen 9 mg/dL (8-26) Creatinine 1.0 mg/dL (0.7-1.3) Estimated GFR (Cockcroft-Gault) 71.2 BUN/Creatinine Ratio 9 (6-20) Glucose Level 112 mg/dL (70-99) Lactic Acid Level 1.4 mmol/L (0.4-2.0) Calcium Level 8.7 mg/dL (8.5-10.1) Magnesium Level 2.1 mg/dL (1.8-2.4) Total Bilirubin 0.4 mg/dL (0.2-1.0) Aspartate Amino Transf (AST/SGOT) 88 U/L (15-37) Alanine Aminotransferase (ALT/SGPT) 46 U/L (16-63) Alkaline Phosphatase 71 U/L (46-116) Creatine Kinase 110 U/L (39-308) Creatine Kinase MB (Mass) 3.3 ng/mL (0.0-3.6) Creatine Kinase MB Relative Index 3.0 % (0-4) Troponin I Quantitative 3.833 ng/mL (0.000-0.055) 2.970 ng/mL (0.000-0.055) AW-Rtk-I-Type Natriuretic Peptide 22477 pg/mL (0-449) Total Protein 6.5 g/dL (6.4-8.2) Albumin 1.5 g/dL (3.4-5.0) Albumin/Globulin Ratio 0.3 (1.0-1.7) Urine Collection Type Unknown Urine Color Yellow Urine Clarity Cloudy Urine pH 7.0 (<5.0-8.0) Urine Specific [place] 1.010 (1.000-1.030) Urine Protein 30 mg/dL (NEG-TRACE) Urine Glucose (UA) Negative mg/dL (NEG) Urine Ketones (Stick) Negative mg/dL (NEG) Urine Blood Moderate (NEG) Urine Nitrite Negative (NEG) Urine Bilirubin Negative (NEG) Urine Urobilinogen Dipstick 1.0 mg/dL (0.2 mg/dL) Urine Leukocyte Esterase Large (NEG) Urine RBC 3-5 /HPF (0-2) Urine WBC >40 /HPF (0-4) Urine Bacteria Few /HPF (0-FEW) Urine Yeast Present /HPF Heparin Anti-Xa Act, Unfractionated < 0.10 IU/mL (0.30-0.70) Influenza Type A Antigen Negative (NEGATIVE) Influenza Type B Antigen Negative (NEGATIVE) Test 10/07/20 07:34 10/07/20 12:04 10/07/20 12:50 Glucose (Fingerstick) 222 mg/dL (70-99) 161 mg/dL (70-99) Heparin Anti-Xa Act, Unfractionated 0.23 IU/mL (0.30-0.70) Sodium Level 144 mmol/L (136-145) Potassium Level 3.4 mmol/L (3.5-5.1) Chloride Level 106 mmol/L (98-107) Carbon Dioxide Level 29 mmol/L (21-32) Anion Gap 9 (6-14) Blood Urea Nitrogen 12 mg/dL (8-26) Creatinine 1.0 mg/dL (0.7-1.3) Estimated GFR (Cockcroft-Gault) 71.2 Glucose Level 178 mg/dL (70-99) Calcium Level 8.1 mg/dL (8.5-10.1) Laboratory Tests Test 10/06/20 18:50 10/06/20 19:27 10/07/20 00:40 10/07/20 04:35 White Blood Count 9.0 x10^3/uL (4.0-11.0) Red Blood Count 3.97 x10^6/uL (4.30-5.70) Hemoglobin 11.5 g/dL (13.0-17.5) Hematocrit 35.2 % (39.0-53.0) Mean Corpuscular Volume 89 fL (79-100) Mean Corpuscular Hemoglobin 29 pg (25-35) Mean Corpuscular Hemoglobin Concent 33 g/dL (31-37) Red Cell Distribution Width 15.5 % (11.5-14.5) Platelet Count 220 x10^3/uL (140-400) Neutrophils (%) (Auto) 78 % (31-73) Lymphocytes (%) (Auto) 7 % (24-48) Monocytes (%) (Auto) 10 % (0-9) Eosinophils (%) (Auto) 4 % (0-3) Basophils (%) (Auto) 1 % (0-3) Neutrophils # (Auto) 7.0 x10^3/uL (1.8-7.7) Lymphocytes # (Auto) 0.6 x10^3/uL (1.0-4.8) Monocytes # (Auto) 0.9 x10^3/uL (0.0-1.1) Eosinophils # (Auto) 0.3 x10^3/uL (0.0-0.7) Basophils # (Auto) 0.1 x10^3/uL (0.0-0.2) Prothrombin Time 15.6 SEC (11.7-14.0) Prothromb Time International Ratio 1.3 (0.8-1.1) Activated Partial Thromboplast Time 47 SEC (24-38) D-Dimer (Usha) 4.94 ug/mlFEU (0.00-0.50) Sodium Level 141 mmol/L (136-145) Potassium Level 2.9 mmol/L (3.5-5.1) Chloride Level 103 mmol/L (98-107) Carbon Dioxide Level 31 mmol/L (21-32) Anion Gap 7 (6-14) Blood Urea Nitrogen 9 mg/dL (8-26) Creatinine 1.0 mg/dL (0.7-1.3) Estimated GFR (Cockcroft-Gault) 71.2 BUN/Creatinine Ratio 9 (6-20) Glucose Level 112 mg/dL (70-99) Lactic Acid Level 1.4 mmol/L (0.4-2.0) Calcium Level 8.7 mg/dL (8.5-10.1) Magnesium Level 2.1 mg/dL (1.8-2.4) Total Bilirubin 0.4 mg/dL (0.2-1.0) Aspartate Amino Transf (AST/SGOT) 88 U/L (15-37) Alanine Aminotransferase (ALT/SGPT) 46 U/L (16-63) Alkaline Phosphatase 71 U/L (46-116) Creatine Kinase 110 U/L (39-308) Creatine Kinase MB (Mass) 3.3 ng/mL (0.0-3.6) Creatine Kinase MB Relative Index 3.0 % (0-4) Troponin I Quantitative 3.833 ng/mL (0.000-0.055) 2.970 ng/mL (0.000-0.055) QE-Shr-W-Type Natriuretic Peptide 51412 pg/mL (0-449) Total Protein 6.5 g/dL (6.4-8.2) Albumin 1.5 g/dL (3.4-5.0) Albumin/Globulin Ratio 0.3 (1.0-1.7) Urine Collection Type Unknown Urine Color Yellow Urine Clarity Cloudy Urine pH 7.0 (<5.0-8.0) Urine Specific [place] 1.010 (1.000-1.030) Urine Protein 30 mg/dL (NEG-TRACE) Urine Glucose (UA) Negative mg/dL (NEG) Urine Ketones (Stick) Negative mg/dL (NEG) Urine Blood Moderate (NEG) Urine Nitrite Negative (NEG) Urine Bilirubin Negative (NEG) Urine Urobilinogen Dipstick 1.0 mg/dL (0.2 mg/dL) Urine Leukocyte Esterase Large (NEG) Urine RBC 3-5 /HPF (0-2) Urine WBC >40 /HPF (0-4) Urine Bacteria Few /HPF (0-FEW) Urine Yeast Present /HPF Heparin Anti-Xa Act, Unfractionated < 0.10 IU/mL (0.30-0.70) Influenza Type A Antigen Negative (NEGATIVE) Influenza Type B Antigen Negative (NEGATIVE) Test 10/07/20 07:34 10/07/20 12:04 10/07/20 12:50 Glucose (Fingerstick) 222 mg/dL (70-99) 161 mg/dL (70-99) Heparin Anti-Xa Act, Unfractionated 0.23 IU/mL (0.30-0.70) Sodium Level 144 mmol/L (136-145) Potassium Level 3.4 mmol/L (3.5-5.1) Chloride Level 106 mmol/L (98-107) Carbon Dioxide Level 29 mmol/L (21-32) Anion Gap 9 (6-14) Blood Urea Nitrogen 12 mg/dL (8-26) Creatinine 1.0 mg/dL (0.7-1.3) Estimated GFR (Cockcroft-Gault) 71.2 Glucose Level 178 mg/dL (70-99) Calcium Level 8.1 mg/dL (8.5-10.1) Images Images CT chest scan as above shows no pulmonary emboli. It does show extensive patchy airspace disease. Assessment/Plan Assessment/Plan 1. Acute respiratory failure. History of recent COVID-19. CT chest scan shows extensive patchy airspace disease. Patient has been treated with oxygen and antibiotics. Pulmonary consultation is pending. 2. Patient has tested positive for Covid on 09/12/2020. Treatment as above. 3. Elevated troponin at 3.833 now trending down. Consistent with a possible mild non-ST elevated myocardial infarction as well as with demand ischemia. Will continue to monitor. We will check an echocardiogram once able based on Covid protocols. 4. Heart failure. Elevated BNP. Mild diuresis with monitoring of the lab. Future echo as noted above. 5. History of hypertension. Resume home medications and monitor. 6. Hyperlipidemia. Will check lab. 7. History of peripheral arterial disease status post a left BKA. 7. Hypokalemia. Potassium level of 2.9. Being replaced. Thank you for allowing us to participate in the care of your patient. WILLIE HERRERA MD Oct 07, 2020 14:57
[2020-10-07] MEDS: HEPARIN 25,000UTS/250ML PREMIX 250 ML IV PRN (15:28)
[2020-10-07] MEDS: traZODone 100 MG TABLET. PO SCH (20:52)
[2020-10-07] MEDS: ATORVASTATIN CALCIUM 40 MG TABLET. PO SCH (20:52)
[2020-10-07] MEDS: HYDROcodone/APAP 5/325MG 1 TAB TABLET PO SCH (21:18)
[2020-10-08] MEDS: PIPERACILLIN/TAZOBACTAM 3.375 GM in IV NORMAL SALINE 50ML 50 ML IV SCH ×4 (02:15→18:19)
[2020-10-08 03:59] VITALS: BP 123/69
[2020-10-08] MEDS: ACETAMINOPHEN 325 MG TABLET. PO PRN ×2 (04:13→17:27)
[2020-10-08 06:00] LABS: CALCIUM 8.2 mg/dL (8.5-10.1); CREATININE 1.1 mg/dL (0.7-1.3); GFR 63.8
[2020-10-08 06:03] LABS: POTASSIUM 2.9 mmol/L (3.5-5.1)
[2020-10-08 06:05] VITALS: BP 117/68
[2020-10-08 06:06] LABS: HEMOGLOBIN 10.9 g/dL (13.0-17.5); RED BLOOD COUNT 3.74 x10^6/uL (4.30-5.70); RED CELL DISTRIBUTION WIDTH 16.2 % (11.5-14.5); WHITE BLOOD COUNT 8.4 x10^3/uL (4.0-11.0)
[2020-10-08] MEDS: POTASSIUM CHLORIDE 20 MEQ TABLET.ER. PO SCH ×2 (06:36→09:18)
[2020-10-08] MEDS: PANTOPRAZOLE 40 MG TABLET.DR. PO SCH (06:37)
[2020-10-08] MEDS: INSULIN LISPRO 300 UNITS/3 ML VIAL. SQ SCH ×3 (08:00→17:00)
[2020-10-08] MEDS: SENNOSIDES/DOCUSATE 8.6/50MG TABLET. PO SCH ×2 (09:00→09:19)
[2020-10-08] MEDS: TRIAMCINOLONE ACETONIDE 0.1% TOPICAL OINTMENT 15GM TUBE. TP SCH ×2 (09:00→21:00)
[2020-10-08] MEDS: DOCUSATE SODIUM 100 MG CAPSULE. PO SCH ×3 (09:00→22:05)
[2020-10-08] MEDS: CALCIUM POLYCARBOPHIL 625 MG TABLET PO SCH ×2 (09:00→09:17)
[2020-10-08] MEDS: HEPARIN 25,000UTS/250ML PREMIX 250 ML IV PRN (09:15)
[2020-10-08] MEDS: SUCRALFATE 1 GM TABLET. PO SCH ×4 (09:17→22:04)
[2020-10-08] MEDS: GABAPENTIN 100 MG CAPSULE. PO SCH ×2 (09:17→22:04)
[2020-10-08] MEDS: GLIMEPIRIDE 2 MG TABLET. PO SCH (09:17)
[2020-10-08] MEDS: TAMSULOSIN 0.4 MG CAP.ER.24H. PO SCH (09:18)
[2020-10-08] MEDS: PIOGLITAZONE 15 MG TABLET. PO SCH (09:18)
[2020-10-08] MEDS: MULTIVITAMIN with MINERAL TABLET. PO SCH (09:18)
[2020-10-08] MEDS: PRIMIDONE 50 MG TABLET PO SCH ×3 (09:18→22:04)
[2020-10-08 11:00] VITALS: BP 123/76
--- NOTE | 2020-10-08 12:26 | PN ---
DATE: 10/08/2020 LOCATION: He is in room 254. SUBJECTIVE: The patient is awake, alert, lying in bed, seems a little grumpy this morning, which is not like him, but is much more awake and alert and oriented than he was yesterday. His major complaint is inability to get out of bed and needs his prosthetic leg to be able to do so. OBJECTIVE: VITAL SIGNS: Stable. He is afebrile. O2 is up to 8 liters per nasal cannula with good sats. CHEST: Clear. HEART: Regular. EXTREMITIES: Benign. Has a left [id number] amputation. LABORATORY DATA: Potassium this morning was low at 2.9. IMPRESSION: Acute respiratory failure with a recent COVID-19 with bilateral pulmonary infiltrates on CT scanning, elevated D-dimer with no evidence of pulmonary embolism on CT of the chest, elevated troponin consistent with non-ST elevated myocardial infarction, heart failure with remarkably elevated BNP with future echocardiogram planned. Hypokalemia, being replaced. PLAN: Recheck BMP in the morning. Await echo as I am suspicious he may have some underlying cardiac dysfunction due to his recent COVID as he has had nothing like that prior. We will decrease O2 as we were able to. Otherwise, supportive care. RAJESH SZYMANSKI MD DR: EDMUND/julia JOB#: [id number] / [id number]
[2020-10-08 15:00] VITALS: BP 125/75
--- NOTE | 2020-10-08 15:34 | PDOC ---
PROGRESS NOTES Date of Service DATE: 10/08/20 TIME: 15:32 Subjective Subjective Patient seen and examined Objective Objective Vital Signs Date Time Temp Pulse Resp B/P (MAP) Pulse Ox O2 Delivery O2 Flow Rate FiO2 10/08/20 11:00 96.8 84 24 123/76 (92) 98 Nasal Cannula 6.0 96.8 Intake and Output 10/08/20 07:00 Intake Total 510 ml Output Total 1190 ml Balance -680 ml Intake Oral 510 ml Output Urine Total 1190 ml # Bowel Movements 1 Physical Exam Abdomen: Normal bowel sounds Heart: Regular rate General: mild distress Lungs: Other (Mildly decreased breath sounds) Assessment Assessment Problems Medical Problems: (1) Acute UTI Status: Acute (2) COVID-19 Status: Acute (3) Elevated brain natriuretic peptide (BNP) level Status: Acute (4) Elevated d-dimer Status: Acute (5) Hypokalemia Status: Acute (6) Hypoxia Status: Acute (7) NSTEMI (non-ST elevated myocardial infarction) Status: Acute (8) Respiratory failure Status: Acute 1. Acute respiratory failure. History of recent COVID-19. CT chest scan shows extensive patchy airspace disease. Patient has been treated with oxygen and an tibiotics. The patient is feeling better today. 2. Patient has tested positive for Covid on 09/12/2020. Treatment as above. 3. Elevated troponin at 3.833 now trending down. Consistent with a possible mild non-ST elevated myocardial infarction as well as with demand ischemia. Will continue to monitor. We will check an echocardiogram once able based on Covid protocols. 4. Heart failure. Elevated BNP. Mild diuresis with monitoring of the lab. 5. History of hypertension. Resume home medications and monitor. 6. Hyperlipidemia. 7. History of peripheral arterial disease status post a left BKA. 8. Hypokalemia. Continues low. Being replaced. Comment Review of Relevant I have reviewed the following items genesis (where applicable) has been applied. Labs Laboratory Tests Test 10/06/20 18:50 10/06/20 19:27 10/07/20 00:40 10/07/20 04:35 White Blood Count 9.0 x10^3/uL (4.0-11.0) Red Blood Count 3.97 x10^6/uL (4.30-5.70) Hemoglobin 11.5 g/dL (13.0-17.5) Hematocrit 35.2 % (39.0-53.0) Mean Corpuscular Volume 89 fL (79-100) Mean Corpuscular Hemoglobin 29 pg (25-35) Mean Corpuscular Hemoglobin Concent 33 g/dL (31-37) Red Cell Distribution Width 15.5 % (11.5-14.5) Platelet Count 220 x10^3/uL (140-400) Neutrophils (%) (Auto) 78 % (31-73) Lymphocytes (%) (Auto) 7 % (24-48) Monocytes (%) (Auto) 10 % (0-9) Eosinophils (%) (Auto) 4 % (0-3) Basophils (%) (Auto) 1 % (0-3) Neutrophils # (Auto) 7.0 x10^3/uL (1.8-7.7) Lymphocytes # (Auto) 0.6 x10^3/uL (1.0-4.8) Monocytes # (Auto) 0.9 x10^3/uL (0.0-1.1) Eosinophils # (Auto) 0.3 x10^3/uL (0.0-0.7) Basophils # (Auto) 0.1 x10^3/uL (0.0-0.2) Prothrombin Time 15.6 SEC (11.7-14.0) Prothromb Time International Ratio 1.3 (0.8-1.1) Activated Partial Thromboplast Time 47 SEC (24-38) D-Dimer (Usha) 4.94 ug/mlFEU (0.00-0.50) Sodium Level 141 mmol/L (136-145) Potassium Level 2.9 mmol/L (3.5-5.1) Chloride Level 103 mmol/L (98-107) Carbon Dioxide Level 31 mmol/L (21-32) Anion Gap 7 (6-14) Blood Urea Nitrogen 9 mg/dL (8-26) Creatinine 1.0 mg/dL (0.7-1.3) Estimated GFR (Cockcroft-Gault) 71.2 BUN/Creatinine Ratio 9 (6-20) Glucose Level 112 mg/dL (70-99) Lactic Acid Level 1.4 mmol/L (0.4-2.0) Calcium Level 8.7 mg/dL (8.5-10.1) Magnesium Level 2.1 mg/dL (1.8-2.4) Total Bilirubin 0.4 mg/dL (0.2-1.0) Aspartate Amino Transf (AST/SGOT) 88 U/L (15-37) Alanine Aminotransferase (ALT/SGPT) 46 U/L (16-63) Alkaline Phosphatase 71 U/L (46-116) Creatine Kinase 110 U/L (39-308) Creatine Kinase MB (Mass) 3.3 ng/mL (0.0-3.6) Creatine Kinase MB Relative Index 3.0 % (0-4) Troponin I Quantitative 3.833 ng/mL (0.000-0.055) 2.970 ng/mL (0.000-0.055) PE-Uuv-C-Type Natriuretic Peptide 83030 pg/mL (0-449) Total Protein 6.5 g/dL (6.4-8.2) Albumin 1.5 g/dL (3.4-5.0) Albumin/Globulin Ratio 0.3 (1.0-1.7) Urine Collection Type Unknown Urine Color Yellow Urine Clarity Cloudy Urine pH 7.0 (<5.0-8.0) Urine Specific [place] 1.010 (1.000-1.030) Urine Protein 30 mg/dL (NEG-TRACE) Urine Glucose (UA) Negative mg/dL (NEG) Urine Ketones (Stick) Negative mg/dL (NEG) Urine Blood Moderate (NEG) Urine Nitrite Negative (NEG) Urine Bilirubin Negative (NEG) Urine Urobilinogen Dipstick 1.0 mg/dL (0.2 mg/dL) Urine Leukocyte Esterase Large (NEG) Urine RBC 3-5 /HPF (0-2) Urine WBC >40 /HPF (0-4) Urine Bacteria Few /HPF (0-FEW) Urine Yeast Present /HPF Heparin Anti-Xa Act, Unfractionated < 0.10 IU/mL (0.30-0.70) Influenza Type A Antigen Negative (NEGATIVE) Influenza Type B Antigen Negative (NEGATIVE) Test 10/07/20 07:34 10/07/20 12:04 10/07/20 12:50 10/07/20 17:56 Glucose (Fingerstick) 222 mg/dL (70-99) 161 mg/dL (70-99) 142 mg/dL (70-99) Heparin Anti-Xa Act, Unfractionated 0.23 IU/mL (0.30-0.70) Sodium Level 144 mmol/L (136-145) Potassium Level 3.4 mmol/L (3.5-5.1) Chloride Level 106 mmol/L (98-107) Carbon Dioxide Level 29 mmol/L (21-32) Anion Gap 9 (6-14) Blood Urea Nitrogen 12 mg/dL (8-26) Creatinine 1.0 mg/dL (0.7-1.3) Estimated GFR (Cockcroft-Gault) 71.2 Glucose Level 178 mg/dL (70-99) Calcium Level 8.1 mg/dL (8.5-10.1) Test 10/07/20 20:10 10/07/20 20:49 10/08/20 04:30 10/08/20 07:58 Heparin Anti-Xa Act, Unfractionated 0.22 IU/mL (0.30-0.70) 0.43 IU/mL (0.30-0.70) Glucose (Fingerstick) 160 mg/dL (70-99) 131 mg/dL (70-99) White Blood Count 8.4 x10^3/uL (4.0-11.0) Red Blood Count 3.74 x10^6/uL (4.30-5.70) Hemoglobin 10.9 g/dL (13.0-17.5) Hematocrit 33.0 % (39.0-53.0) Mean Corpuscular Volume 88 fL (79-100) Mean Corpuscular Hemoglobin 29 pg (25-35) Mean Corpuscular Hemoglobin Concent 33 g/dL (31-37) Red Cell Distribution Width 16.2 % (11.5-14.5) Platelet Count 276 x10^3/uL (140-400) Sodium Level 145 mmol/L (136-145) Potassium Level 2.9 mmol/L (3.5-5.1) Chloride Level 107 mmol/L (98-107) Carbon Dioxide Level 30 mmol/L (21-32) Anion Gap 8 (6-14) Blood Urea Nitrogen 12 mg/dL (8-26) Creatinine 1.1 mg/dL (0.7-1.3) Estimated GFR (Cockcroft-Gault) 63.8 Glucose Level 126 mg/dL (70-99) Calcium Level 8.2 mg/dL (8.5-10.1) Test 10/08/20 11:00 10/08/20 11:52 Heparin Anti-Xa Act, Unfractionated 0.47 IU/mL (0.30-0.70) Glucose (Fingerstick) 127 mg/dL (70-99) Laboratory Tests Test 10/07/20 17:56 10/07/20 20:10 10/07/20 20:49 10/08/20 04:30 Glucose (Fingerstick) 142 mg/dL (70-99) 160 mg/dL (70-99) Heparin Anti-Xa Act, Unfractionated 0.22 IU/mL (0.30-0.70) 0.43 IU/mL (0.30-0.70) White Blood Count 8.4 x10^3/uL (4.0-11.0) Red Blood Count 3.74 x10^6/uL (4.30-5.70) Hemoglobin 10.9 g/dL (13.0-17.5) Hematocrit 33.0 % (39.0-53.0) Mean Corpuscular Volume 88 fL (79-100) Mean Corpuscular Hemoglobin 29 pg (25-35) Mean Corpuscular Hemoglobin Concent 33 g/dL (31-37) Red Cell Distribution Width 16.2 % (11.5-14.5) Platelet Count 276 x10^3/uL (140-400) Sodium Level 145 mmol/L (136-145) Potassium Level 2.9 mmol/L (3.5-5.1) Chloride Level 107 mmol/L (98-107) Carbon Dioxide Level 30 mmol/L (21-32) Anion Gap 8 (6-14) Blood Urea Nitrogen 12 mg/dL (8-26) Creatinine 1.1 mg/dL (0.7-1.3) Estimated GFR (Cockcroft-Gault) 63.8 Glucose Level 126 mg/dL (70-99) Calcium Level 8.2 mg/dL (8.5-10.1) Test 10/08/20 07:58 10/08/20 11:00 10/08/20 11:52 Glucose (Fingerstick) 131 mg/dL (70-99) 127 mg/dL (70-99) Heparin Anti-Xa Act, Unfractionated 0.47 IU/mL (0.30-0.70) Microbiology 10/07/20 Blood Culture - Preliminary, Resulted NO GROWTH AFTER 1 DAY 10/06/20 Urine Culture - Final, Complete Medications Current Medications Sodium Chloride 1,000 ml @ 1,000 mls/hr 1X ONCE IV Last administered on 10/06/20at 19:27; Start 10/06/20 at 18:30; Stop 10/06/20 at 19:29; Status DC Dexamethasone Sodium Phosphate (Decadron) 10 mg 1X ONCE IVP Last administered on 10/06/20at 19:27; Start 10/06/20 at 18:30; Stop 10/06/20 at 18:31; Status DC Aspirin (Krystin Aspirin) 325 mg 1X ONCE PO Last administered on 10/06/20at 20:00; Start 10/06/20 at 19:45; Stop 10/06/20 at 19:46; Status DC Heparin Sodium (Porcine) (Heparin Sodium) 4,000 unit 1X ONCE IV Last administered on 10/06/20at 20:05; Start 10/06/20 at 19:45; Stop 10/06/20 at 19:46; Status DC Heparin Sodium/ Dextrose 250 ml @ 0 mls/hr CONT PRN IV PER PROTOCOL Last administered on 10/08/20at 09:15; Start 10/06/20 at 19:45 Potassium Chloride (Klor-Con) 40 meq 1X ONCE PO Last administered on 10/06/20at 20:00; Start 10/06/20 at 20:00; Stop 10/06/20 at 20:01; Status DC Iohexol (Omnipaque 350 Mg/ml) 100 ml 1X ONCE IV Last administered on 10/06/20at 20:35; Start 10/06/20 at 20:00; Stop 10/06/20 at 20:01; Status DC Info (CONTRAST GIVEN -- Rx MONITORING) 1 each PRN DAILY PRN MC SEE COMMENTS; Start 10/06/20 at 20:00; Stop 10/08/20 at 19:59 Ondansetron HCl (Zofran) 4 mg PRN Q8HRS PRN IV NAUSEA/VOMITING; Start 10/06/20 at 20:30; Stop 10/07/20 at 20:29; Status DC Acetaminophen (Tylenol) 650 mg PRN Q4HRS PRN PO FEVER > 100.3'F; Start 10/06/20 at 20:30; Stop 10/07/20 at 20:29; Status DC Insulin Human Lispro (HumaLOG) 0-5 UNITS TIDWMEALS SQ ; Start 10/07/20 at 08:00 Dextrose (Dextrose 50%-Water Syringe) 12.5 gm PRN Q15MIN PRN IV SEE COMMENTS; Start 10/06/20 at 20:30 Sterile Water (WATER for RESP) 1,000 ml CONT PRN INH VIA VAPOTHERM DEVICE; Start 10/07/20 at 03:30 Heparin Sodium (Porcine) (Heparin Sodium) 1,800 unit PRN Q6HRS PRN IV FOR UFH LEVEL LESS THAN 0.2 Last administered on 10/07/20at 06:01; Start 10/07/20 at 06:00 Piperacillin Sod/ Tazobactam Sod (Zosyn Per Pharmacy) 1 each PRN DAILY PRN MC SEE COMMENTS; Start 10/07/20 at 06:30 Piperacillin Sod/ Tazobactam Sod 3.375 gm/Sodium Chloride 50 ml @ 100 mls/hr Q6HRS IV Last administered on 10/08/20at 12:47; Start 10/07/20 at 07:00 Acetaminophen (Tylenol) 325 mg PRN Q4HRS PO ; Start 10/07/20 at 11:00; Stop 10/08/20 at 04:10; Status DC Atorvastatin Calcium (Lipitor) 40 mg QHS PO Last administered on 10/07/20at 20:52; Start 10/07/20 at 21:00 Calcium Polycarbophil (Fibercon) 1,250 mg DAILY PO Last administered on 10/08/20at 09:17; Start 10/07/20 at 12:00 Docusate Sodium (Colace) 100 mg BID PO Last administered on 10/08/20at 09:17; Start 10/07/20 at 12:00 Gabapentin (Neurontin) 100 mg BID PO Last administered on 10/08/20at 09:17; Start 10/07/20 at 12:00 Guaifenesin (Mucinex) 600 mg BID PO Last administered on 10/08/20at 09:17; Start 10/07/20 at 12:00 Acetaminophen/ Hydrocodone Bitart (Lortab 5/325) 1 tab HS PO Last administered on 10/07/20 21:18; Start 10/07/20 at 21:00 Acetaminophen/ Hydrocodone Bitart (Lortab 5/325) 1 tab PRN Q48HR PRN PO ; Start 10/07/20 at 11:00 Multivitamins (Thera M Plus) 1 tab DAILY PO Last administered on 10/08/20 09:18; Start 10/07/20 at 12:00 Nystatin (Nystop) 1 neva PRN Q8HRS PRN TP RASH Last administered on 10/07/20 12 :12; Start 10/07/20 at 11:00 Pantoprazole Sodium (Protonix) 40 mg DAILYAC PO Last administered on 10/08/20 06:37; Start 10/07/20 at 12:00 Primidone (Mysoline) 50 mg TID PO Last administered on 10/08/20 09:18; Start 10/07/20 at 14:00 Senna/Docusate Sodium (Senna Plus) 2 tab DAILY PO Last administered on 10/08/20 09:19; Start 10/07/20 at 12:00 Sucralfate (Carafate) 1 gm QID PO Last administered on 10/08/20 09:17; Start 10/07/20 at 13:00 Tamsulosin HCl (Flomax) 0.4 mg DAILY PO Last administered on 10/08/20 09:18; Start 10/07/20 at 12:00 Trazodone HCl (Desyrel) 100 mg QHS PO Last administered on 10/07/20at 20:52; Start 10/07/20 at 21:00 Triamcinolone Acetonide (Kenalog 0.1%) 1 neva BID TP ; Start 10/07/20 at 13:00 Glimepiride (Amaryl) 2 mg DAILY PO Last administered on 10/08/20 09:17; Start 10/07/20 at 12:00 Pioglitazone HCl (Actos) 30 mg DAILY PO Last administered on 10/08/20 09:18; Start 10/07/20 at 12:00 Acetaminophen (Tylenol) 325 mg PRN Q4HRS PRN PO MILD PAIN 1-3 Last administered on 1/3/21at 04:13; Start 10/08/20 at 04:15 Potassium Chloride (Klor-Con) 40 meq DAILY PO Last administered on 10/08/20at 09:18; Start 10/08/20 at 06:30 Active Scripts Active Pantoprazole Sodium (Pantoprazole Sodium) 40 Mg Tablet.dr 40 Mg PO DAILYAC 90 Days Lipitor (Atorvastatin Calcium) 40 Mg Tablet 1 Tab PO QHS PRN Reported Vitamin C (Ascorbic Acid) 500 Mg Capsule.er 1 Cap PO DAILY 30 Days Thera-M Caplet (Multivits,Ca,Minerals/Iron/Fa) 1 Each Tablet 1 Tab PO DAILY 30 Days Senna Plus Tablet (Sennosides/Docusate Sodium) 1 Each Tablet 2 Tab PO DAILY 20 Days Nystop (Nystatin) 60 Gm Powder 60 Gm TP PRN Q8MIN PRN Hydrocodone-Acetamin 5-325 mg (Hydrocodone/Acetaminophen) 1 Each Tablet 1 Each PO PRN Q48HR PRN Imodium A-D (Loperamide HCl) 2 Mg Capsule 2 Mg PO PRN Q8HRS PRN Hydroxychloroquine Sulfate 200 Mg Tablet 1 Tab PO BID Genteal Tears 0.1%-0.3% Drop (Dextran 70/Hypromellose/Pf) 1 Each Droperette 1 Each OP BID Gabapentin (Gabapentin) 100 Mg Capsule 100 Mg PO BID Fiber Lax (Calcium Polycarbophil) 625 Mg Tablet 1,250 Mg PO DAILY Fexofenadine Hcl 180 Mg Tablet 1 Tab PO DAILY Carafate (Sucralfate) 1 Gm Tablet 1 Tab PO QID 30 Days Calcium Carbonate 400 Mg Tab.chew 400 Mg PO BID Amaryl (Glimepiride) 1 Mg Tablet 2 Tab PO DAILY Trazodone Hcl 100 Mg Tablet 1 Tab PO QHS Zinc 50 Mg Tablet 1 Tab PO DAILY 30 Days Mucinex (Guaifenesin) 600 Mg Tablet.er 1 Tab PO BID Hydrocodone-Apap 5-325 (Hydrocodone Bit/Acetaminophen) 1 Tab Tablet 1 Tab PO HS Flonase Allergy Relief (Fluticasone Propionate) 9.9 Ml [place].susp 2 Sprays NS DAILY Colace (Docusate Sodium) 100 Mg Capsule 1 Cap PO BID Triamcinolone Acetonide 0.1% Oint (Triamcinolone Acetonide) 15 Gm Oint...g. 1 Neva TP BID MIX WITH EUCERIN DIRECTED BY PHYSICIAN Actos (Pioglitazone Hcl) 30 Mg Tablet 1 Tab PO DAILY LAST DOSE GIVEN: DATE:04/02/17 TIME:0900 Tylenol (Acetaminophen) 325 Mg Tablet 1 Tab PO PRN Q4HRS LAST DOSE GIVEN: DATE:04/01/17 TIME:9 p.m. Duoneb 0.5-3(2.5) Mg/3 Ml (Albuterol/Ipratropium) 3 Ml Ampul.neb 3 Ml IH PRN Q4HRS PRN Tamsulosin Hcl 0.4 Mg Cap.er.24h 0.4 Mg PO DAILY LAST DOSE GIVEN: DATE:04/02/17 TIME:09 Primidone 50 Mg Tablet 50 Mg PO TID LAST DOSE GIVEN: DATE:04/02/17 TIME:2:00 p.m. Vitals/I & O Vital Sign - Last 24 Hours 10/07/20 10/07/20 10/07/20 10/07/20 19:45 20:00 21:18 22:18 Temp 97.7 97.7 Pulse 93 Resp 18 B/P (MAP) 120/70 (87) Pulse Ox 99 O2 Delivery Nasal Cannula Nasal Cannula Room Air Room Air O2 Flow Rate 8.0 6.0 10/07/20 10/08/20 10/08/20 10/08/20 23:25 03:59 06:05 08:00 Temp 98.1 97.7 96.5 98.1 97.7 96.5 Pulse 81 85 85 Resp 16 18 18 B/P (MAP) 116/63 (80) 123/69 (87) 117/68 (84) Pulse Ox 100 96 96 O2 Delivery Nasal Cannula Nasal Cannula Nasal Cannula Nasal Cannula O2 Flow Rate 8.0 8.0 8.0 6.0 10/08/20 11:00 Temp 96.8 96.8 Pulse 84 Resp 24 B/P (MAP) 123/76 (92) Pulse Ox 98 O2 Delivery Nasal Cannula O2 Flow Rate 6.0 Intake and Output 10/07/20 10/07/20 10/08/20 15:00 23:00 07:00 Intake Total 180 ml 180 ml 150 ml Output Total 90 ml 1100 ml Balance 90 ml 180 ml -950 ml Justifications for Admission Other Justification WILLIE HERRERA MD Oct 08, 2020 15:34
--- NOTE | 2020-10-08 17:35 | PDOC ---
PULMONARY PROGRESS NOTES DATE: 10/08/20 TIME: 17:34 Vitals Vital Signs Date Time Temp Pulse Resp B/P (MAP) Pulse Ox O2 Delivery O2 Flow Rate FiO2 10/08/20 11:00 96.8 84 24 123/76 (92) 98 Nasal Cannula 6.0 96.8 General: Alert, No acute distress Lungs: Clear Cardiovascular: S1, S2 Abdomen: Soft Extremities: No Edema Labs Laboratory Tests Test 10/06/20 18:50 10/06/20 19:27 10/07/20 00:40 10/07/20 04:35 White Blood Count 9.0 x10^3/uL (4.0-11.0) Red Blood Count 3.97 x10^6/uL (4.30-5.70) Hemoglobin 11.5 g/dL (13.0-17.5) Hematocrit 35.2 % (39.0-53.0) Mean Corpuscular Volume 89 fL (79-100) Mean Corpuscular Hemoglobin 29 pg (25-35) Mean Corpuscular Hemoglobin Concent 33 g/dL (31-37) Red Cell Distribution Width 15.5 % (11.5-14.5) Platelet Count 220 x10^3/uL (140-400) Neutrophils (%) (Auto) 78 % (31-73) Lymphocytes (%) (Auto) 7 % (24-48) Monocytes (%) (Auto) 10 % (0-9) Eosinophils (%) (Auto) 4 % (0-3) Basophils (%) (Auto) 1 % (0-3) Neutrophils # (Auto) 7.0 x10^3/uL (1.8-7.7) Lymphocytes # (Auto) 0.6 x10^3/uL (1.0-4.8) Monocytes # (Auto) 0.9 x10^3/uL (0.0-1.1) Eosinophils # (Auto) 0.3 x10^3/uL (0.0-0.7) Basophils # (Auto) 0.1 x10^3/uL (0.0-0.2) Prothrombin Time 15.6 SEC (11.7-14.0) Prothromb Time International Ratio 1.3 (0.8-1.1) Activated Partial Thromboplast Time 47 SEC (24-38) D-Dimer (Usha) 4.94 ug/mlFEU (0.00-0.50) Sodium Level 141 mmol/L (136-145) Potassium Level 2.9 mmol/L (3.5-5.1) Chloride Level 103 mmol/L (98-107) Carbon Dioxide Level 31 mmol/L (21-32) Anion Gap 7 (6-14) Blood Urea Nitrogen 9 mg/dL (8-26) Creatinine 1.0 mg/dL (0.7-1.3) Estimated GFR (Cockcroft-Gault) 71.2 BUN/Creatinine Ratio 9 (6-20) Glucose Level 112 mg/dL (70-99) Lactic Acid Level 1.4 mmol/L (0.4-2.0) Calcium Level 8.7 mg/dL (8.5-10.1) Magnesium Level 2.1 mg/dL (1.8-2.4) Total Bilirubin 0.4 mg/dL (0.2-1.0) Aspartate Amino Transf (AST/SGOT) 88 U/L (15-37) Alanine Aminotransferase (ALT/SGPT) 46 U/L (16-63) Alkaline Phosphatase 71 U/L (46-116) Creatine Kinase 110 U/L (39-308) Creatine Kinase MB (Mass) 3.3 ng/mL (0.0-3.6) Creatine Kinase MB Relative Index 3.0 % (0-4) Troponin I Quantitative 3.833 ng/mL (0.000-0.055) 2.970 ng/mL (0.000-0.055) IO-Sku-I-Type Natriuretic Peptide 79122 pg/mL (0-449) Total Protein 6.5 g/dL (6.4-8.2) Albumin 1.5 g/dL (3.4-5.0) Albumin/Globulin Ratio 0.3 (1.0-1.7) Urine Collection Type Unknown Urine Color Yellow Urine Clarity Cloudy Urine pH 7.0 (<5.0-8.0) Urine Specific [place] 1.010 (1.000-1.030) Urine Protein 30 mg/dL (NEG-TRACE) Urine Glucose (UA) Negative mg/dL (NEG) Urine Ketones (Stick) Negative mg/dL (NEG) Urine Blood Moderate (NEG) Urine Nitrite Negative (NEG) Urine Bilirubin Negative (NEG) Urine Urobilinogen Dipstick 1.0 mg/dL (0.2 mg/dL) Urine Leukocyte Esterase Large (NEG) Urine RBC 3-5 /HPF (0-2) Urine WBC >40 /HPF (0-4) Urine Bacteria Few /HPF (0-FEW) Urine Yeast Present /HPF Heparin Anti-Xa Act, Unfractionated < 0.10 IU/mL (0.30-0.70) Influenza Type A Antigen Negative (NEGATIVE) Influenza Type B Antigen Negative (NEGATIVE) Test 10/07/20 07:34 10/07/20 12:04 10/07/20 12:50 10/07/20 17:56 Glucose (Fingerstick) 222 mg/dL (70-99) 161 mg/dL (70-99) 142 mg/dL (70-99) Heparin Anti-Xa Act, Unfractionated 0.23 IU/mL (0.30-0.70) Sodium Level 144 mmol/L (136-145) Potassium Level 3.4 mmol/L (3.5-5.1) Chloride Level 106 mmol/L (98-107) Carbon Dioxide Level 29 mmol/L (21-32) Anion Gap 9 (6-14) Blood Urea Nitrogen 12 mg/dL (8-26) Creatinine 1.0 mg/dL (0.7-1.3) Estimated GFR (Cockcroft-Gault) 71.2 Glucose Level 178 mg/dL (70-99) Calcium Level 8.1 mg/dL (8.5-10.1) Test 10/07/20 20:10 10/07/20 20:49 10/08/20 04:30 10/08/20 07:58 Heparin Anti-Xa Act, Unfractionated 0.22 IU/mL (0.30-0.70) 0.43 IU/mL (0.30-0.70) Glucose (Fingerstick) 160 mg/dL (70-99) 131 mg/dL (70-99) White Blood Count 8.4 x10^3/uL (4.0-11.0) Red Blood Count 3.74 x10^6/uL (4.30-5.70) Hemoglobin 10.9 g/dL (13.0-17.5) Hematocrit 33.0 % (39.0-53.0) Mean Corpuscular Volume 88 fL (79-100) Mean Corpuscular Hemoglobin 29 pg (25-35) Mean Corpuscular Hemoglobin Concent 33 g/dL (31-37) Red Cell Distribution Width 16.2 % (11.5-14.5) Platelet Count 276 x10^3/uL (140-400) Sodium Level 145 mmol/L (136-145) Potassium Level 2.9 mmol/L (3.5-5.1) Chloride Level 107 mmol/L (98-107) Carbon Dioxide Level 30 mmol/L (21-32) Anion Gap 8 (6-14) Blood Urea Nitrogen 12 mg/dL (8-26) Creatinine 1.1 mg/dL (0.7-1.3) Estimated GFR (Cockcroft-Gault) 63.8 Glucose Level 126 mg/dL (70-99) Calcium Level 8.2 mg/dL (8.5-10.1) Test 10/08/20 11:00 10/08/20 11:52 Heparin Anti-Xa Act, Unfractionated 0.47 IU/mL (0.30-0.70) Glucose (Fingerstick) 127 mg/dL (70-99) Laboratory Tests Test 10/07/20 17:56 10/07/20 20:10 10/07/20 20:49 10/08/20 04:30 Glucose (Fingerstick) 142 mg/dL (70-99) 160 mg/dL (70-99) Heparin Anti-Xa Act, Unfractionated 0.22 IU/mL (0.30-0.70) 0.43 IU/mL (0.30-0.70) White Blood Count 8.4 x10^3/uL (4.0-11.0) Red Blood Count 3.74 x10^6/uL (4.30-5.70) Hemoglobin 10.9 g/dL (13.0-17.5) Hematocrit 33.0 % (39.0-53.0) Mean Corpuscular Volume 88 fL (79-100) Mean Corpuscular Hemoglobin 29 pg (25-35) Mean Corpuscular Hemoglobin Concent 33 g/dL (31-37) Red Cell Distribution Width 16.2 % (11.5-14.5) Platelet Count 276 x10^3/uL (140-400) Sodium Level 145 mmol/L (136-145) Potassium Level 2.9 mmol/L (3.5-5.1) Chloride Level 107 mmol/L (98-107) Carbon Dioxide Level 30 mmol/L (21-32) Anion Gap 8 (6-14) Blood Urea Nitrogen 12 mg/dL (8-26) Creatinine 1.1 mg/dL (0.7-1.3) Estimated GFR (Cockcroft-Gault) 63.8 Glucose Level 126 mg/dL (70-99) Calcium Level 8.2 mg/dL (8.5-10.1) Test 10/08/20 07:58 10/08/20 11:00 10/08/20 11:52 Glucose (Fingerstick) 131 mg/dL (70-99) 127 mg/dL (70-99) Heparin Anti-Xa Act, Unfractionated 0.47 IU/mL (0.30-0.70) Medications Active Scripts Medications Dose Route/Sig Max Daily Dose Days Date Category Dose Instructions Vitamin C (Ascorbic Acid) 500 Mg Capsule.er 1 Cap PO DAILY 30 09/16/20 Reported Thera-M Caplet (Multivits,Ca,Minerals/Iron/Fa) 1 Each Tablet 1 Tab PO DAILY 30 09/16/20 Reported Senna Plus Tablet (Sennosides/Docusate Sodium) 1 Each Tablet 2 Tab PO DAILY 20 09/16/20 Reported Nystop (Nystatin) 60 Gm Powder 60 Gm TP PRN Q8MIN PRN 09/16/20 Reported Hydrocodone-Acetamin 5-325 mg (Hydrocodone/Acetaminophen) 1 Each Tablet 1 Each PO PRN Q48HR PRN 09/16/20 Reported Imodium A-D (Loperamide HCl) 2 Mg Capsule 2 Mg PO PRN Q8HRS PRN 09/16/20 Reported Hydroxychloroquine Sulfate 200 Mg Tablet 1 Tab PO BID 09/16/20 Reported Genteal Tears 0.1%-0.3% Drop (Dextran 70/Hypromellose/Pf) 1 Each Droperette 1 Each OP BID 09/16/20 Reported Gabapentin (Gabapentin) 100 Mg Capsule 100 Mg PO BID 09/16/20 Reported Fiber Lax (Calcium Polycarbophil) 625 Mg Tablet 1,250 Mg PO DAILY 09/16/20 Reported Fexofenadine Hcl 180 Mg Tablet 1 Tab PO DAILY 09/16/20 Reported Carafate (Sucralfate) 1 Gm Tablet 1 Tab PO QID 30 09/16/20 Reported Calcium Carbonate 400 Mg Tab.chew 400 Mg PO BID 09/16/20 Reported Amaryl (Glimepiride) 1 Mg Tablet 2 Tab PO DAILY 09/16/20 Reported Trazodone Hcl 100 Mg Tablet 1 Tab PO QHS 09/16/20 Reported Zinc 50 Mg Tablet 1 Tab PO DAILY 30 09/16/20 Reported Pantoprazole Sodium (Pantoprazole Sodium) 40 Mg Tablet.dr 40 Mg PO DAILYAC 90 06/09/19 Rx Mucinex (Guaifenesin) 600 Mg Tablet.er 1 Tab PO BID 04/04/19 Reported Hydrocodone-Apap 5-325 (Hydrocodone Bit/Acetaminophen) 1 Tab Tablet 1 Tab PO HS 04/04/19 Reported Flonase Allergy Relief (Fluticasone Propionate) 9.9 Ml [place].susp 2 Sprays NS DAILY 04/04/19 Reported Colace (Docusate Sodium) 100 Mg Capsule 1 Cap PO BID 04/04/19 Reported Triamcinolone Acetonide 0.1% Oint (Triamcinolone Acetonide) 15 Gm Oint...g. 1 Neva TP BID 03/24/17 Reported MIX WITH EUCERIN DIRECTED BY PHYSICIAN Actos (Pioglitazone Hcl) 30 Mg Tablet 1 Tab PO DAILY 03/24/17 Reported LAST DOSE GIVEN: DATE:04/02/17 TIME:0900 Tylenol (Acetaminophen) 325 Mg Tablet 1 Tab PO PRN Q4HRS 01/15/17 Reported LAST DOSE GIVEN: DATE:04/01/17 TIME:9 p.m. Duoneb 0.5-3(2.5) Mg/3 Ml (Albuterol/Ipratropium) 3 Ml Ampul.neb 3 Ml IH PRN Q4HRS PRN 01/23/16 Reported Lipitor (Atorvastatin Calcium) 40 Mg Tablet 1 Tab PO QHS PRN 02/01/15 Rx Tamsulosin Hcl 0.4 Mg Cap.er.24h 0.4 Mg PO DAILY 01/31/15 Reported LAST DOSE GIVEN: DATE:04/02/17 TIME:0900 Primidone 50 Mg Tablet 50 Mg PO TID 01/31/15 Reported LAST DOSE GIVEN: DATE:04/02/17 TIME:2:00 p.m. Impression . Full consult dictated Abnormal CT chest compatible with bacterial pneumonia, doubt repeat Covid Empiric antibiotics Diurese Repeat SARS-CoV-2 testing REKHA FONTENOT MD Oct 08, 2020 17:35
--- NOTE | 2020-10-08 18:00 | NUR ---
Turned patient's Q2 down to 3L NC. Patient O2 sat in 90's.
[2020-10-08] MEDS: methylPREDNISolone SOD SUCC PF 125 MG/2 ML VIAL. IV SCH (18:16)
[2020-10-08 19:00] VITALS: BP 123/75
--- NOTE | 2020-10-08 20:04 | CONS ---
DATE OF CONSULTATION: 10/08/2020 ATTENDING PHYSICIAN: Db Jaeger MD REASON FOR CONSULTATION: The patient is seen in pulmonary consultation at the request of Dr. Jaeger for increasing shortness of air and respiratory failure. HISTORY OF PRESENT ILLNESS: The patient is an 85-year-old male that tested positive for COVID-19 back on 09/12. He resides at [facility]. He is normally on 3 liters of oxygen supplementation. The patient was readmitted with increasing shortness of breath. He has been weak. Decreased appetite, low-grade fever. The patient was evaluated with imaging studies and labs. His white count is not elevated. He does have lymphopenia. Electrolytes were noted. Potassium was low. Troponin level was markedly elevated. The proBNP was elevated. Serology for influenza was negative. He also had CT angiogram, which revealed no evidence of PE. There was extensive patchy bilateral infiltrates, small bilateral pleural effusions. He also had some dependent atelectasis. I was asked to see him in consultation. Initially, the patient was admitted to the intensive care unit on 100% nonrebreather. He was transferred to the floor. He is currently less short of air. He is awake, alert, following commands. PAST MEDICAL HISTORY: 1. COVID-19, diagnosed back on 09/12/2020. 2. Diabetes. 3. Peripheral arterial disease. 4. Hyperlipidemia. 5. Kidney stones. 6. COPD. 7. Depression. 8. Urinary retention. PAST SURGICAL HISTORY: Previous left below knee amputation. ALLERGIES: No known drug allergies. SOCIAL HISTORY: He is currently not smoking. He has never smoked. REVIEW OF SYSTEMS: As indicated above, otherwise a 10-point system was reviewed and negative. PHYSICAL EXAMINATION: GENERAL: The patient did not appear to be in any respiratory distress. VITAL SIGNS: Since admission, he has been afebrile, currently on 6 liters of oxygen supplementation. HEENT: Eyes: The sclerae were nonicteric. NECK: Jugular venous distention was not elevated. No lymphadenopathy. CHEST: Full expansion. LUNGS: Crackles in the bases. No wheezes. CARDIOVASCULAR: Regular rate and rhythm with S1, S2. No S3. ABDOMEN: Soft, nontender, nondistended. EXTREMITIES: No cyanosis, clubbing or pitting edema. Evidence of previous below knee amputation. Labs and CT as indicated above. IMPRESSION: 1. Acute hypoxemic respiratory failure. 2. Negative CT for pulmonary embolism. 3. CT chest revealed extensive bibasilar airspace disease and some atelectasis in the bases with small effusions. 4. Non-ST segment elevation myocardial infarction. 5. Elevated troponin. 6. COVID-19 positive back on 09/12/2019. 7. Acute heart failure. 8. Hypertension. 9. Hyperlipidemia. 10. Peripheral arterial disease, status post left below knee amputation. 11. Hypokalemia. PLAN: 1. Recommend empiric antibiotics, doubt that this admission is related to recurrent or persistent COVID-19. 2. Repeat both rapid and PCR testing. 3. Consult Cardiology already performed. 4. Recommend diuresis. 5. Replace potassium. I do appreciate the privilege in sharing in the patient's care. REKHA FONTENOT MD DR: CRISTELA/julia JOB#: [id number] / [id number]
[2020-10-08] MEDS: traZODone 100 MG TABLET. PO SCH (22:04)
[2020-10-08] MEDS: ATORVASTATIN CALCIUM 40 MG TABLET. PO SCH (22:04)
[2020-10-08] MEDS: HYDROcodone/APAP 5/325MG 1 TAB TABLET PO SCH (22:05)
[2020-10-08 23:01] VITALS: BP 134/84
[2020-10-09] MEDS: PIPERACILLIN/TAZOBACTAM 3.375 GM in IV NORMAL SALINE 50ML 50 ML IV SCH ×4 (00:14→17:58)
[2020-10-09] MEDS: HEPARIN 25,000UTS/250ML PREMIX 250 ML IV PRN (01:19)
[2020-10-09 03:39] VITALS: BP 129/70
[2020-10-09] MEDS: PANTOPRAZOLE 40 MG TABLET.DR. PO SCH (05:45)
[2020-10-09] MEDS ORDERED: ONDANSETRON PF 4 MG/2 ML VIAL. IVP PRN (05:45)
[2020-10-09 07:00] VITALS: BP 103/63
[2020-10-09] MEDS: INSULIN LISPRO 300 UNITS/3 ML VIAL. SQ SCH ×3 (08:00→17:58)
[2020-10-09] MEDS ORDERED: ANTI-COAG MONITOR BY PHARMACY. MC PRN (08:45)
[2020-10-09] MEDS: TRIAMCINOLONE ACETONIDE 0.1% TOPICAL OINTMENT 15GM TUBE. TP SCH ×2 (09:00→21:00)
[2020-10-09] MEDS: DOCUSATE SODIUM 100 MG CAPSULE. PO SCH ×2 (09:00→22:04)
[2020-10-09] MEDS: SENNOSIDES/DOCUSATE 8.6/50MG TABLET. PO SCH (09:00)
[2020-10-09 10:14] LABS: GFR 71.2; POTASSIUM 3.8 mmol/L (3.5-5.1)
[2020-10-09] MEDS: GLIMEPIRIDE 2 MG TABLET. PO SCH (10:14)
[2020-10-09] MEDS: PIOGLITAZONE 15 MG TABLET. PO SCH (10:14)
[2020-10-09] MEDS: MULTIVITAMIN with MINERAL TABLET. PO SCH (10:15)
[2020-10-09] MEDS: GABAPENTIN 100 MG CAPSULE. PO SCH ×2 (10:15→22:05)
[2020-10-09] MEDS: SUCRALFATE 1 GM TABLET. PO SCH ×4 (10:15→22:04)
[2020-10-09] MEDS: POTASSIUM CHLORIDE 20 MEQ TABLET.ER. PO SCH (10:16)
[2020-10-09] MEDS: NYSTATIN TOPICAL POWDER 15GM BOTTLE. TP PRN (10:16)
[2020-10-09] MEDS: TAMSULOSIN 0.4 MG CAP.ER.24H. PO SCH (10:16)
[2020-10-09] MEDS: CALCIUM POLYCARBOPHIL 625 MG TABLET PO SCH (10:17)
[2020-10-09] MEDS: methylPREDNISolone SOD SUCC PF 125 MG/2 ML VIAL. IV SCH (10:17)
[2020-10-09] MEDS: PRIMIDONE 50 MG TABLET PO SCH ×3 (10:17→22:05)
[2020-10-09 11:00] VITALS: BP 101/55
--- NOTE | 2020-10-09 11:33 | PDOC ---
PULMONARY PROGRESS NOTES DATE: 10/09/20 TIME: 11:33 Subjective resting, on 3 liters N/C afebrile no overnight events Vitals Vital Signs Date Time Temp Pulse Resp B/P (MAP) Pulse Ox O2 Delivery O2 Flow Rate FiO2 10/09/20 07:00 97.8 82 18 103/63 (76) 95 Room Air 3.0 97.8 ROS: No Nausea, No Chest Pain, No Abdominal Pain, No Increase Cough General: Alert, No acute distress Lungs: Clear Cardiovascular: S1, S2 Abdomen: Soft Extremities: No Edema Labs Laboratory Tests Test 10/07/20 12:04 10/07/20 12:50 10/07/20 17:56 10/07/20 20:10 Glucose (Fingerstick) 161 mg/dL (70-99) 142 mg/dL (70-99) Heparin Anti-Xa Act, Unfractionated 0.23 IU/mL (0.30-0.70) 0.22 IU/mL (0.30-0.70) Sodium Level 144 mmol/L (136-145) Potassium Level 3.4 mmol/L (3.5-5.1) Chloride Level 106 mmol/L (98-107) Carbon Dioxide Level 29 mmol/L (21-32) Anion Gap 9 (6-14) Blood Urea Nitrogen 12 mg/dL (8-26) Creatinine 1.0 mg/dL (0.7-1.3) Estimated GFR (Cockcroft-Gault) 71.2 Glucose Level 178 mg/dL (70-99) Calcium Level 8.1 mg/dL (8.5-10.1) Test 10/07/20 20:49 10/08/20 04:30 10/08/20 07:58 10/08/20 11:00 Glucose (Fingerstick) 160 mg/dL (70-99) 131 mg/dL (70-99) White Blood Count 8.4 x10^3/uL (4.0-11.0) Red Blood Count 3.74 x10^6/uL (4.30-5.70) Hemoglobin 10.9 g/dL (13.0-17.5) Hematocrit 33.0 % (39.0-53.0) Mean Corpuscular Volume 88 fL (79-100) Mean Corpuscular Hemoglobin 29 pg (25-35) Mean Corpuscular Hemoglobin Concent 33 g/dL (31-37) Red Cell Distribution Width 16.2 % (11.5-14.5) Platelet Count 276 x10^3/uL (140-400) Heparin Anti-Xa Act, Unfractionated 0.43 IU/mL (0.30-0.70) 0.47 IU/mL (0.30-0.70) Sodium Level 145 mmol/L (136-145) Potassium Level 2.9 mmol/L (3.5-5.1) Chloride Level 107 mmol/L (98-107) Carbon Dioxide Level 30 mmol/L (21-32) Anion Gap 8 (6-14) Blood Urea Nitrogen 12 mg/dL (8-26) Creatinine 1.1 mg/dL (0.7-1.3) Estimated GFR (Cockcroft-Gault) 63.8 Glucose Level 126 mg/dL (70-99) Calcium Level 8.2 mg/dL (8.5-10.1) Test 10/08/20 11:52 10/08/20 17:26 10/08/20 21:18 10/09/20 00:30 Glucose (Fingerstick) 127 mg/dL (70-99) 109 mg/dL (70-99) 222 mg/dL (70-99) SARS-CoV-2 Antigen (Rapid) Negative (NEGATIVE) Test 10/09/20 07:43 10/09/20 07:45 Glucose (Fingerstick) 195 mg/dL (70-99) Heparin Anti-Xa Act, Unfractionated 0.48 IU/mL (0.30-0.70) Sodium Level 144 mmol/L (136-145) Potassium Level 3.8 mmol/L (3.5-5.1) Chloride Level 107 mmol/L (98-107) Carbon Dioxide Level 28 mmol/L (21-32) Anion Gap 9 (6-14) Blood Urea Nitrogen 12 mg/dL (8-26) Creatinine 1.0 mg/dL (0.7-1.3) Estimated GFR (Cockcroft-Gault) 71.2 Glucose Level 180 mg/dL (70-99) Calcium Level 8.0 mg/dL (8.5-10.1) Laboratory Tests Test 10/08/20 11:52 1/3/21 17:26 10/08/20 21:18 10/09/20 00:30 Glucose (Fingerstick) 127 mg/dL (70-99) 109 mg/dL (70-99) 222 mg/dL (70-99) SARS-CoV-2 Antigen (Rapid) Negative (NEGATIVE) Test 10/09/20 07:43 10/09/20 07:45 Glucose (Fingerstick) 195 mg/dL (70-99) Heparin Anti-Xa Act, Unfractionated 0.48 IU/mL (0.30-0.70) Sodium Level 144 mmol/L (136-145) Potassium Level 3.8 mmol/L (3.5-5.1) Chloride Level 107 mmol/L (98-107) Carbon Dioxide Level 28 mmol/L (21-32) Anion Gap 9 (6-14) Blood Urea Nitrogen 12 mg/dL (8-26) Creatinine 1.0 mg/dL (0.7-1.3) Estimated GFR (Cockcroft-Gault) 71.2 Glucose Level 180 mg/dL (70-99) Calcium Level 8.0 mg/dL (8.5-10.1) Medications Active Scripts Medications Dose Route/Sig Max Daily Dose Days Date Category Dose Instructions Vitamin C (Ascorbic Acid) 500 Mg Capsule.er 1 Cap PO DAILY 30 09/16/20 Reported Thera-M Caplet (Multivits,Ca,Minerals/Iron/Fa) 1 Each Tablet 1 Tab PO DAILY 30 09/16/20 Reported Senna Plus Tablet (Sennosides/Docusate Sodium) 1 Each Tablet 2 Tab PO DAILY 20 09/16/20 Reported Nystop (Nystatin) 60 Gm Powder 60 Gm TP PRN Q8MIN PRN 09/16/20 Reported Hydrocodone-Acetamin 5-325 mg (Hydrocodone/Acetaminophen) 1 Each Tablet 1 Each PO PRN Q48HR PRN 09/16/20 Reported Imodium A-D (Loperamide HCl) 2 Mg Capsule 2 Mg PO PRN Q8HRS PRN 09/16/20 Reported Hydroxychloroquine Sulfate 200 Mg Tablet 1 Tab PO BID 09/16/20 Reported Genteal Tears 0.1%-0.3% Drop (Dextran 70/Hypromellose/Pf) 1 Each Droperette 1 Each OP BID 09/16/20 Reported Gabapentin (Gabapentin) 100 Mg Capsule 100 Mg PO BID 09/16/20 Reported Fiber Lax (Calcium Polycarbophil) 625 Mg Tablet 1,250 Mg PO DAILY 09/16/20 Reported Fexofenadine Hcl 180 Mg Tablet 1 Tab PO DAILY 09/16/20 Reported Carafate (Sucralfate) 1 Gm Tablet 1 Tab PO QID 30 09/16/20 Reported Calcium Carbonate 400 Mg Tab.chew 400 Mg PO BID 09/16/20 Reported Amaryl (Glimepiride) 1 Mg Tablet 2 Tab PO DAILY 09/16/20 Reported Trazodone Hcl 100 Mg Tablet 1 Tab PO QHS 09/16/20 Reported Zinc 50 Mg Tablet 1 Tab PO DAILY 30 09/16/20 Reported Pantoprazole Sodium (Pantoprazole Sodium) 40 Mg Tablet.dr 40 Mg PO DAILYAC 90 06/09/19 Rx Mucinex (Guaifenesin) 600 Mg Tablet.er 1 Tab PO BID 04/04/19 Reported Hydrocodone-Apap 5-325 (Hydrocodone Bit/Acetaminophen) 1 Tab Tablet 1 Tab PO HS 04/04/19 Reported Flonase Allergy Relief (Fluticasone Propionate) 9.9 Ml [place].susp 2 Sprays NS DAILY 04/04/19 Reported Colace (Docusate Sodium) 100 Mg Capsule 1 Cap PO BID 04/04/19 Reported Triamcinolone Acetonide 0.1% Oint (Triamcinolone Acetonide) 15 Gm Oint...g. 1 Neva TP BID 03/24/17 Reported MIX WITH EUCERIN DIRECTED BY PHYSICIAN Actos (Pioglitazone Hcl) 30 Mg Tablet 1 Tab PO DAILY 03/24/17 Reported LAST DOSE GIVEN: DATE:04/02/17 TIME:0900 Tylenol (Acetaminophen) 325 Mg Tablet 1 Tab PO PRN Q4HRS 01/15/17 Reported LAST DOSE GIVEN: DATE:04/01/17 TIME:9 p.m. Duoneb 0.5-3(2.5) Mg/3 Ml (Albuterol/Ipratropium) 3 Ml Ampul.neb 3 Ml IH PRN Q4HRS PRN 01/23/16 Reported Lipitor (Atorvastatin Calcium) 40 Mg Tablet 1 Tab PO QHS PRN 02/01/15 Rx Tamsulosin Hcl 0.4 Mg Cap.er.24h 0.4 Mg PO DAILY 01/31/15 Reported LAST DOSE GIVEN: DATE:04/02/17 TIME:0900 Primidone 50 Mg Tablet 50 Mg PO TID 01/31/15 Reported LAST DOSE GIVEN: DATE:04/02/17 TIME:2:[address] chest IMPRESSION: 1. No pulmonary embolus identified within the main, lobar or segmental pulmonary arteries. 2. Extensive patchy bilateral airspace disease favored to be infectious or inflammatory in etiology. Correlate for atypical/viral causes such as Covid. 3. Small bilateral pleural effusions. Impression . IMPRESSION: 1. Acute hypoxemic respiratory failure. 2. Negative CT for pulmonary embolism. 3. CT chest revealed extensive bibasilar airspace disease and some atelectasis in the bases with small effusions. 4. Non-ST segment elevation myocardial infarction. 5. Elevated troponin. 6. COVID-19 positive back on 09/12/2019. 7. Acute heart failure. 8. Hypertension. 9. Hyperlipidemia. 10. Peripheral arterial disease, status post left below knee amputation. 11. Hypokalemia. Plan . PLAN: Continue supplemental oxygen, to keep sats above 92% Follow CXR PRN Continue steroids with taper Continue ABX Follow cardiology recs-- Diuresis COVID-19 rapid negtive await PCR, influenza negative PT/OT DVT/GI PPX D/W REKHA BUI MD Oct 09, 2020 11:33
--- NOTE | 2020-10-09 12:21 | PN ---
DATE: 10/09/2020 LOCATION: He is in room 254. SUBJECTIVE: The patient is awake, alert, lying in bed, had some nausea over tonight, this was remedied with Zofran. He is otherwise feeling mainly just fatigued. He denies any shortness of breath this morning. OBJECTIVE: VITAL SIGNS: Stable. He is afebrile. O2 has been decreased to 3 liters per nasal cannula since being at 8 liters yesterday with good sats. CHEST: Clear. HEART: Regular. ABDOMEN: Benign. EXTREMITIES: Reveal the left zaawg-weg-bonz amputation. LABORATORY DATA: Sugars have been decent in the morning. Potassium is still pending. IMPRESSION: 1. Acute respiratory failure with recent COVID-19, bilateral pulmonary infiltrates on CT scanning and an elevated D-dimer with no evidence of pulmonary embolism, elevated troponin. 2. Consistent with non-ST elevated myocardial infarction. 3. Heart failure with markedly elevated BNP with echocardiogram plan once ____ COVID negative which rapid test this morning has been negative. 4. Hypokalemia, being replaced. PLAN: 1. Await morning's potassium. 2. Need the echo done when we are able to do this. Also, [facility], so the Therapy can begin to mobilize him. RAJESH SZYMANSKI MD DR: EDMUND/julia JOB#: [id number] / [id number]
--- NOTE | 2020-10-09 13:07 | NUR ---
SS following for discharge planning. SS reviewed pt chart and discussed with pt RN. Pt is from home and is currently requiring oxygen. Pt on IV Zosyn. Heparin drip. COVID19 negative. Cardiology following. SS will continue to follow for discharge planning.
--- NOTE | 2020-10-09 13:21 | PDOC ---
CARDIO Progress Notes Date and Time Date of Service 10/09/19 Time of Evaluation 1300 Subjective Subjective: No Chest Pain, No Palpitations, Other (fatigued ) Vitals Vitals Vital Signs Date Time Temp Pulse Resp B/P (MAP) Pulse Ox O2 Delivery O2 Flow Rate FiO2 10/09/20 11:00 97.9 87 20 101/55 (70) 97 Room Air 3.0 97.9 Weight Weight [ ] Input and Output Intake and Output Intake and Output 10/09/20 07:00 Intake Total 690 ml Output Total 200 ml Balance 490 ml Intake Oral 690 ml Output Urine Total 200 ml Laboratory Labs Laboratory Tests Test 10/08/20 17:26 10/08/20 21:18 10/09/20 00:30 10/09/20 07:43 Glucose (Fingerstick) 109 mg/dL (70-99) 222 mg/dL (70-99) 195 mg/dL (70-99) SARS-CoV-2 Antigen (Rapid) Negative (NEGATIVE) Test 10/09/20 07:45 10/09/20 10:24 Heparin Anti-Xa Act, Unfractionated 0.48 IU/mL (0.30-0.70) Sodium Level 144 mmol/L (136-145) Potassium Level 3.8 mmol/L (3.5-5.1) Chloride Level 107 mmol/L (98-107) Carbon Dioxide Level 28 mmol/L (21-32) Anion Gap 9 (6-14) Blood Urea Nitrogen 12 mg/dL (8-26) Creatinine 1.0 mg/dL (0.7-1.3) Estimated GFR (Cockcroft-Gault) 71.2 Glucose Level 180 mg/dL (70-99) Calcium Level 8.0 mg/dL (8.5-10.1) Glucose (Fingerstick) 185 mg/dL (70-99) Microbiology Micro Microbiology 10/07/20 Blood Culture - Preliminary, Resulted NO GROWTH AFTER 2 DAYS 10/06/20 Urine Culture - Final, Complete Physical Exam HEENT: Neck Supple W Full Motion Chest: Symmetric LUNGS: Other (on NC) Heart: RRR (SR) Extremities: Other (left BKA ) Neurology: alert, oriented, follow commands Assessment Assessment 1. Acute respiratory failure secondary to PNA, CHF 2. Recent COVID: + 09/12/20 3. NSTEMI; trop peak 3.8. Possibly type II, demand ischemia, but underlying CAD cannot be ruled out. on heparin gtt. 4. Acute on chronic diastolic CHF; better compensated 5. Hypertension; controlled 6. Hyperlipidemia; statin 7. PAD s/p left BKA 8. Hypokalemia; replaced Recommendations Stop heparin gtt. Continue statin. Add ASA, low-dose BB therapy. Lipid panel Repeat EKG Echo if COVID PCR is negative. Lasix PRN Will need further ischemic evaluation, possibly as an outpatient Ongoing lung optimization, treatment of PNA as per pulm Justicifation of Admission Dx: Justifications for Admission: Justification of Admission Dx: Yes UT: Acute NSTEMI Comments: Acute respiratory failure, PNA NASEEM FOLEY APRN Oct 09, 2020 13:20
[2020-10-09 15:00] VITALS: BP 97/58
[2020-10-09] MEDS: ASPIRIN ENTERIC COATED 81 MG TABLET.DR. PO SCH (17:46)
[2020-10-09 19:50] VITALS: BP 101/54
[2020-10-09] MEDS: ATORVASTATIN CALCIUM 40 MG TABLET. PO SCH (22:03)
[2020-10-09] MEDS: HYDROcodone/APAP 5/325MG 1 TAB TABLET PO SCH (22:04)
[2020-10-09] MEDS: traZODone 100 MG TABLET. PO SCH (22:04)
[2020-10-09] MEDS: METOPROLOL TART IMMED RELEASE 25 MG TABLET. PO SCH (22:05)
--- NOTE | 2020-10-09 22:27 | EKG ---
[facility] [address] [place] [address] Test Date: 2020-10-09 Test Time: 22:15:55 Pat Name: KAROLINE LLAMAS Department: Room: 254 1 Gender: M Card Puncher: NIK : [id number] Requested By: NASEEM FOLEY Order Number: [id number] Reading MD: Measurements Intervals [place] Rate: 94 P: 26 NE: 120 QRS: 42 QRSD: 110 T: 13 QT: 380 QTc: 481 Interpretive Statements SINUS RHYTHM QRS(T) CONTOUR ABNORMALITY CONSIDER INFERIOR MYOCARDIAL DAMAGE ST & T ABNORMALITY, CONSIDER ANTEROLATERAL ISCHEMIA OR LEFT VENTRICULAR STRAIN ABNORMAL ECG RI6.02 Compared to ECG 10/06/2020 18:29:09 T-wave abnormality now present Possible ischemia now present Atrial abnormality no longer present Left ventricular hypertrophy no longer present Early repolarization no longer present
[2020-10-09 23:30] VITALS: BP 105/65
[2020-10-10] MEDS: PIPERACILLIN/TAZOBACTAM 3.375 GM in IV NORMAL SALINE 50ML 50 ML IV SCH ×5 (00:26→23:32)
[2020-10-10 03:44] VITALS: BP 102/48
[2020-10-10 07:00] VITALS: BP 107/58
[2020-10-10] MEDS: INSULIN LISPRO 300 UNITS/3 ML VIAL. SQ SCH ×3 (08:00→17:30)
--- NOTE | 2020-10-10 08:14 | PN ---
DATE: 10/10/2020 LOCATION: He is in room 254. SUBJECTIVE: This 85-year-old white male, awake, alert, lying in bed, wants to sleep in this morning as he is feeling tired. Denies any shortness of breath or major discomfort. OBJECTIVE: VITAL SIGNS: Stable. He is afebrile. O2 is currently being decreased to 2 liters per nasal cannula this morning. CHEST: Clear. HEART: Regular. ABDOMEN: Benign. DIAGNOSTIC DATA: Sugars are fair. We are still awaiting COVID PCR testing to be able to do an echocardiogram to assess his heart function. IMPRESSION: 1. Acute respiratory failure with recent COVID-19 and bilateral pulmonary infiltrates on CT scanning with an elevated D-dimer. No evidence of pulmonary embolism, but elevated troponin. 2. Non-ST elevated myocardial infarction. 3. Heart failure with markedly elevated BNP. 4. Hypokalemia with replacement replaced. PLAN: Continue present supportive care. Await COVID testing for echocardiogram. Further plans per Cardiology. Otherwise, he seems to be nearing a stable enough condition to consider [facility] to [facility] in the next day or two. RAJESH SZYMANSKI MD DR: EDMUND/julia JOB#: [id number] / [id number]
[2020-10-10] MEDS: PIOGLITAZONE 15 MG TABLET. PO SCH (08:42)
[2020-10-10] MEDS: GLIMEPIRIDE 2 MG TABLET. PO SCH (08:43)
[2020-10-10] MEDS: TAMSULOSIN 0.4 MG CAP.ER.24H. PO SCH (08:43)
[2020-10-10] MEDS: SUCRALFATE 1 GM TABLET. PO SCH ×4 (08:43→20:33)
[2020-10-10] MEDS: MULTIVITAMIN with MINERAL TABLET. PO SCH (08:43)
[2020-10-10] MEDS: GABAPENTIN 100 MG CAPSULE. PO SCH ×2 (08:43→20:36)
[2020-10-10] MEDS: PRIMIDONE 50 MG TABLET PO SCH ×3 (08:43→20:36)
[2020-10-10] MEDS: DOCUSATE SODIUM 100 MG CAPSULE. PO SCH ×2 (08:43→20:36)
[2020-10-10] MEDS: POTASSIUM CHLORIDE 20 MEQ TABLET.ER. PO SCH (08:43)
[2020-10-10] MEDS: PANTOPRAZOLE 40 MG TABLET.DR. PO SCH (08:43)
[2020-10-10] MEDS: CALCIUM POLYCARBOPHIL 625 MG TABLET PO SCH (08:44)
[2020-10-10] MEDS: SENNOSIDES/DOCUSATE 8.6/50MG TABLET. PO SCH (08:44)
[2020-10-10] MEDS: methylPREDNISolone SOD SUCC PF 125 MG/2 ML VIAL. IV SCH (08:44)
[2020-10-10] MEDS: METOPROLOL TART IMMED RELEASE 25 MG TABLET. PO SCH ×2 (08:44→20:34)
[2020-10-10] MEDS: TRIAMCINOLONE ACETONIDE 0.1% TOPICAL OINTMENT 15GM TUBE. TP SCH ×2 (09:00→20:47)
[2020-10-10 09:13] LABS: CHOLESTEROL/HDL RATIO 3.8
[2020-10-10] MEDS: ASPIRIN ENTERIC COATED 81 MG TABLET.DR. PO SCH (09:36)
[2020-10-10] MEDS: ACETAMINOPHEN 325 MG TABLET. PO PRN (10:27)
--- NOTE | 2020-10-10 10:43 | PDOC ---
PULMONARY PROGRESS NOTES DATE: 10/10/20 TIME: 10:42 Subjective resting, on 2 liters N/C afebrile no SOA or increased cough complains of a headache today no overnight events Vitals Vital Signs Date Time Temp Pulse Resp B/P (MAP) Pulse Ox O2 Delivery O2 Flow Rate FiO2 10/10/20 08:44 70 107/58 10/10/20 08:00 Nasal Cannula 2.0 10/10/20 07:00 98.4 18 96 98.4 ROS: No Nausea, No Chest Pain, No Abdominal Pain, No Increase Cough General: Alert, No acute distress Lungs: Clear Cardiovascular: S1, S2 Abdomen: Soft Extremities: No Edema Labs Laboratory Tests Test 10/08/20 11:00 10/08/20 11:52 10/08/20 17:26 10/08/20 21:18 Heparin Anti-Xa Act, Unfractionated 0.47 IU/mL (0.30-0.70) Glucose (Fingerstick) 127 mg/dL (70-99) 109 mg/dL (70-99) 222 mg/dL (70-99) Test 10/09/20 00:30 10/09/20 07:43 10/09/20 07:45 10/09/20 10:24 SARS-CoV-2 Antigen (Rapid) Negative (NEGATIVE) Glucose (Fingerstick) 195 mg/dL (70-99) 185 mg/dL (70-99) Heparin Anti-Xa Act, Unfractionated 0.48 IU/mL (0.30-0.70) Sodium Level 144 mmol/L (136-145) Potassium Level 3.8 mmol/L (3.5-5.1) Chloride Level 107 mmol/L (98-107) Carbon Dioxide Level 28 mmol/L (21-32) Anion Gap 9 (6-14) Blood Urea Nitrogen 12 mg/dL (8-26) Creatinine 1.0 mg/dL (0.7-1.3) Estimated GFR (Cockcroft-Gault) 71.2 Glucose Level 180 mg/dL (70-99) Calcium Level 8.0 mg/dL (8.5-10.1) Test 10/09/20 17:45 10/09/20 21:08 10/10/20 07:26 10/10/20 07:48 Glucose (Fingerstick) 203 mg/dL (70-99) 194 mg/dL (70-99) 84 mg/dL (70-99) Triglycerides Level 147 mg/dL (0-150) Cholesterol Level 92 mg/dL (0-200) LDL Cholesterol, Calculated 39 mg/dL (0-100) VLDL Cholesterol, Calculated 29 mg/dL (0-40) Non-HDL Cholesterol Calculated 68 mg/dL (0-129) HDL Cholesterol 24 mg/dL (40-60) Cholesterol/HDL Ratio 3.8 Laboratory Tests Test 10/09/20 17:45 10/09/20 21:08 10/10/20 07:26 10/10/20 07:48 Glucose (Fingerstick) 203 mg/dL (70-99) 194 mg/dL (70-99) 84 mg/dL (70-99) Triglycerides Level 147 mg/dL (0-150) Cholesterol Level 92 mg/dL (0-200) LDL Cholesterol, Calculated 39 mg/dL (0-100) VLDL Cholesterol, Calculated 29 mg/dL (0-40) Non-HDL Cholesterol Calculated 68 mg/dL (0-129) HDL Cholesterol 24 mg/dL (40-60) Cholesterol/HDL Ratio 3.8 Medications Active Scripts Medications Dose Route/Sig Max Daily Dose Days Date Category Dose Instructions Vitamin C (Ascorbic Acid) 500 Mg Capsule.er 1 Cap PO DAILY 30 09/16/20 Reported Thera-M Caplet (Multivits,Ca,Minerals/Iron/Fa) 1 Each Tablet 1 Tab PO DAILY 30 09/16/20 Reported Senna Plus Tablet (Sennosides/Docusate Sodium) 1 Each Tablet 2 Tab PO DAILY 20 09/16/20 Reported Nystop (Nystatin) 60 Gm Powder 60 Gm TP PRN Q8MIN PRN 09/16/20 Reported Hydrocodone-Acetamin 5-325 mg (Hydrocodone/Acetaminophen) 1 Each Tablet 1 Each PO PRN Q48HR PRN 09/16/20 Reported Imodium A-D (Loperamide HCl) 2 Mg Capsule 2 Mg PO PRN Q8HRS PRN 09/16/20 Reported Hydroxychloroquine Sulfate 200 Mg Tablet 1 Tab PO BID 09/16/20 Reported Genteal Tears 0.1%-0.3% Drop (Dextran 70/Hypromellose/Pf) 1 Each Droperette 1 Each OP BID 09/16/20 Reported Gabapentin (Gabapentin) 100 Mg Capsule 100 Mg PO BID 09/16/20 Reported Fiber Lax (Calcium Polycarbophil) 625 Mg Tablet 1,250 Mg PO DAILY 09/16/20 Reported Fexofenadine Hcl 180 Mg Tablet 1 Tab PO DAILY 09/16/20 Reported Carafate (Sucralfate) 1 Gm Tablet 1 Tab PO QID 30 09/16/20 Reported Calcium Carbonate 400 Mg Tab.chew 400 Mg PO BID 09/16/20 Reported Amaryl (Glimepiride) 1 Mg Tablet 2 Tab PO DAILY 09/16/20 Reported Trazodone Hcl 100 Mg Tablet 1 Tab PO QHS 09/16/20 Reported Zinc 50 Mg Tablet 1 Tab PO DAILY 30 09/16/20 Reported Pantoprazole Sodium (Pantoprazole Sodium) 40 Mg Tablet.dr 40 Mg PO DAILYAC 90 06/09/19 Rx Mucinex (Guaifenesin) 600 Mg Tablet.er 1 Tab PO BID 04/04/19 Reported Hydrocodone-Apap 5-325 (Hydrocodone Bit/Acetaminophen) 1 Tab Tablet 1 Tab PO HS 04/04/19 Reported Flonase Allergy Relief (Fluticasone Propionate) 9.9 Ml [place].susp 2 Sprays NS DAILY 04/04/19 Reported Colace (Docusate Sodium) 100 Mg Capsule 1 Cap PO BID 04/04/19 Reported Triamcinolone Acetonide 0.1% Oint (Triamcinolone Acetonide) 15 Gm Oint...g. 1 Neva TP BID 03/24/17 Reported MIX WITH EUCERIN DIRECTED BY PHYSICIAN Actos (Pioglitazone Hcl) 30 Mg Tablet 1 Tab PO DAILY 03/24/17 Reported LAST DOSE GIVEN: DATE:04/02/17 TIME:0900 Tylenol (Acetaminophen) 325 Mg Tablet 1 Tab PO PRN Q4HRS 01/15/17 Reported LAST DOSE GIVEN: DATE:04/01/17 TIME:9 p.m. Duoneb 0.5-3(2.5) Mg/3 Ml (Albuterol/Ipratropium) 3 Ml Ampul.neb 3 Ml IH PRN Q4HRS PRN 01/23/16 Reported Lipitor (Atorvastatin Calcium) 40 Mg Tablet 1 Tab PO QHS PRN 02/01/15 Rx Tamsulosin Hcl 0.4 Mg Cap.er.24h 0.4 Mg PO DAILY 01/31/15 Reported LAST DOSE GIVEN: DATE:04/02/17 TIME:0900 Primidone 50 Mg Tablet 50 Mg PO TID 01/31/15 Reported LAST DOSE GIVEN: DATE:04/02/17 TIME:2:[address] chest IMPRESSION: 1. No pulmonary embolus identified within the main, lobar or segmental pulmonary arteries. 2. Extensive patchy bilateral airspace disease favored to be infectious or inflammatory in etiology. Correlate for atypical/viral causes such as Covid. 3. Small bilateral pleural effusions. Impression . IMPRESSION: 1. Acute hypoxemic respiratory failure. 2. Negative CT for pulmonary embolism. 3. CT chest revealed extensive bibasilar airspace disease and some atelectasis in the bases with small effusions. 4. Non-ST segment elevation myocardial infarction. 5. Elevated troponin. 6. COVID-19 positive back on 09/12/2019. 7. Acute heart failure. 8. Hypertension. 9. Hyperlipidemia. 10. Peripheral arterial disease, status post left below knee amputation. 11. Hypokalemia. Plan . PLAN: Continue supplemental oxygen, to keep sats above 92%, wean as tolerated Follow CXR PRN Continue steroids with taper Continue ABX on zosyn Follow cardiology recs-- Diuresis COVID-19 rapid negtive await PCR, influenza negative PT/OT DVT/GI PPX D/W ALAINA PERRIN MD Oct 10, 2020 10:43
[2020-10-10 10:56] VITALS: BP 133/72
--- NOTE | 2020-10-10 14:36 | NUR ---
SS following up with discharge planning. SS reviewed pt chart and discussed with pt RN. SS notified that pt is [facility], ; fax [phone]. Pt is currently requiring oxygen via nasal canula. COVID19 negative. Pt on IV Zosyn. Per Dr. Jaeger possible discharge back to facility in the next day or two. SS will continue to follow for discharge planning.
--- NOTE | 2020-10-10 15:05 | PDOC ---
CARDIO Progress Notes Date and Time Date of Service 10/10/19 Time of Evaluation 1220 Subjective Subjective: No Chest Pain, No Palpitations, Other (fatigued ) Vitals Vitals Vital Signs Date Time Temp Pulse Resp B/P (MAP) Pulse Ox O2 Delivery O2 Flow Rate FiO2 10/10/20 10:56 98.0 81 20 133/72 (92) 94 Room Air 98.0 10/10/20 08:00 2.0 Weight Weight [ ] Input and Output Intake and Output Intake and Output 10/10/20 07:00 Intake Total 740 ml Output Total 100 ml Balance 640 ml Intake Oral 740 ml Output Urine Total 100 ml # Bowel Movements 3 Laboratory Labs Laboratory Tests Test 10/09/20 17:45 10/09/20 21:08 10/10/20 07:26 10/10/20 07:48 Glucose (Fingerstick) 203 mg/dL (70-99) 194 mg/dL (70-99) 84 mg/dL (70-99) Triglycerides Level 147 mg/dL (0-150) Cholesterol Level 92 mg/dL (0-200) LDL Cholesterol, Calculated 39 mg/dL (0-100) VLDL Cholesterol, Calculated 29 mg/dL (0-40) Non-HDL Cholesterol Calculated 68 mg/dL (0-129) HDL Cholesterol 24 mg/dL (40-60) Cholesterol/HDL Ratio 3.8 Test 10/10/20 11:44 Glucose (Fingerstick) 134 mg/dL (70-99) Microbiology Micro Microbiology 10/07/20 Blood Culture - Preliminary, Resulted NO GROWTH AFTER 3 DAYS 10/06/20 Urine Culture - Final, Complete Physical Exam HEENT: Neck Supple W Full Motion Chest: Symmetric LUNGS: Other (on NC) Heart: RRR (SR) Extremities: Other (left BKA ) Neurology: alert, oriented, follow commands Assessment Assessment 1. Acute respiratory failure secondary to CHF, possible PNA 2. Recent COVID: + 09/12/20 3. NSTEMI; trop peak 3.8. Possibly type II, demand ischemia, but underlying CAD cannot be ruled out. on heparin gtt. 4. Acute on chronic diastolic CHF; better compensated 5. Hypertension; controlled 6. Hyperlipidemia; statin. LDL 39 7. PAD s/p left BKA 8. Hypokalemia; replaced Recommendations Continue ASA, statin, and low-dose BB therapy. Echo pending Await PCR. CXR Lasix PRN Consider further ischemic evaluation Will need to determine goal of care with patient/family Ongoing lung optimization as per pulm Justicifation of Admission Dx: Justifications for Admission: Justification of Admission Dx: Yes [place]: Acute NSTEMI NASEEM FOLEY APRN Oct 10, 2020 15:04
[2020-10-10 15:22] VITALS: BP 140/69
--- NOTE | 2020-10-10 16:27 | RAD ---
EXAM: Chest, single view. HISTORY: Shortness of air. COMPARISON: 10/06/2020 FINDINGS: A frontal view of the chest is obtained. There is suspected partially consolidated infiltra te within the right and left greater than right lower lobe superimposed on stable diffuse diffuse int erstitial infiltrate. There is a stable cardiac silhouette. There are stable small pleural effusions. There are calcified subcarinal granulomas, flushed which is in a reticular distribution. IMPRESSION: Suspected new partial right upper lobe and increasing left greater than right lower lobe partial consolidation superimposed on stable diffuse interstitial infiltrate and small pleural effusi ons. Electronically signed by: Светлана Reed MD (10/10/2020 4:25 PM) [id number]
--- NOTE | 2020-10-10 18:29 | CARD ---
MR#: [id number] Date of Study: 10/09/2020 Ordering Physician: WILLIE DUMONT, Referring Physician: WILLIE DUMONT, Tech: Mary Jane Hogan APPROVED REPORT EXAM: Two-dimensional and M-mode echocardiogram with Doppler and color Doppler. Other Information Quality : FairHR: 88bpm INDICATION Dyspnea 2D DIMENSIONS Left Atrium(2D)3.2 (1.6-4.0cm)IVSd1.1 (0.7-1.1cm) Aortic Root(2D)2.8 (2.0-3.7cm)LVDd4.7 (3.9-5.9cm) LVOT Diameter1.9 (1.8-2.4cm)PWd1.1 (0.7-1.1cm) LVDs2.7 (2.5-4.0cm)FS (%) 42.6 % SV76.4 ml Aortic Valve AoV Peak Ilir.270.3cm/sAoV VTI62.3cm AO Peak GR.29.2mmHgLVOT VTI 16.45cm AO Mean GR.19mmHgAI P 1/2 [id number] Mitral Valve MV E Qxntllsf446.6cm/sMV E Peak Gr.4mmHg MV DECEL [id number] A Ynfownuf368.4cm/s MV E Mean Gr.2mmHgE/A Ratio1.0 TDI Lateral E' P. V1.68cm/sMedial E' P. V1.68cm/s E/Lateral E'65.2E/Medial E'65.2 Tricuspid Valve RAP [id number] LEFT VENTRICLE The left ventricle is normal size. There is borderline to mild concentric left ventricular hypertroph y. The left ventricular systolic function is normal and the ejection fraction is within normal range. The Ejection Fraction is 55-60%. There is normal LV segmental wall motion. Transmitral Doppler flow pattern is Grade I-abnormal relaxation pattern. RIGHT VENTRICLE The right ventricle is normal size. There is normal right ventricular wall thickness. The right ventr icular systolic function is normal. ATRIA The left atrium size is normal. The right atrium size is normal. The interatrial septum is intact wit h no evidence for an atrial septal defect or patent foramen ovale as noted on 2-D or Doppler imaging. AORTIC VALVE The aortic valve is mildly to moderately thickened. Doppler and Color Flow revealed trace aortic regu rgitation. Calculated aortic valve area is 1.70 cm2 with maximum pressure gradient of 31 mmHg and ulisses n pressure gradient of 20 mmHg. There is mild valvular aortic stenosis. MITRAL VALVE The mitral valve is normal in structure and function. There is no evidence of mitral valve prolapse. There is no mitral valve stenosis. Doppler and Color-flow revealed trace mitral regurgitation. TRICUSPID VALVE The tricuspid valve is not well visualized. Doppler and Color Flow revealed no tricuspid valve regurg itation noted. There is no tricuspid valve stenosis. PULMONIC VALVE The pulmonic valve is not well visualized. Doppler and Color Flow revealed no pulmonic valvular regur gitation. GREAT VESSELS The aortic root is normal in size. The IVC is dilated. PERICARDIAL EFFUSION There is no evidence of significant pericardial effusion. Critical Notification Critical Value: No <Conclusion> The left ventricle is normal size. The left ventricular systolic function is normal and the ejection fraction is within normal range. The Ejection Fraction is 55-60%. There is borderline to mild concentric left ventricular hypertrophy. Doppler and Color Flow revealed trace aortic regurgitation. Calculated aortic valve area is 1.70 cm2 with maximum pressure gradient of 31 mmHg and mean pressure gradient of 20 mmHg. There is mild valvular aortic stenosis. Doppler and Color-flow revealed trace mitral regurgitation. Doppler and Color Flow revealed no tricuspid valve regurgitation noted. Signed by : Willie Dumont MD Electronically Approved : 10/10/2020 18:28:56
[2020-10-10 19:30] VITALS: BP 128/78
[2020-10-10] MEDS: ATORVASTATIN CALCIUM 40 MG TABLET. PO SCH (20:33)
[2020-10-10] MEDS: traZODone 100 MG TABLET. PO SCH (20:36)
[2020-10-10] MEDS: LACTOBACILLUS RHAMNOSUS GG 1 CAPSULE. PO SCH (20:36)
[2020-10-10] MEDS: HYDROcodone/APAP 5/325MG 1 TAB TABLET PO SCH ×2 (20:36→23:48)
[2020-10-10] MEDS: NYSTATIN TOPICAL POWDER 15GM BOTTLE. TP PRN (20:38)
[2020-10-10 23:30] VITALS: BP 140/74
[2020-10-11 03:15] VITALS: BP 134/79
[2020-10-11] MEDS: PIPERACILLIN/TAZOBACTAM 3.375 GM in IV NORMAL SALINE 50ML 50 ML IV SCH (05:15)
[2020-10-11] MEDS: PANTOPRAZOLE 40 MG TABLET.DR. PO SCH (06:33)
[2020-10-11 07:00] VITALS: BP 146/86
[2020-10-11] MEDS: SENNOSIDES/DOCUSATE 8.6/50MG TABLET. PO SCH (09:00)
[2020-10-11] MEDS: DOCUSATE SODIUM 100 MG CAPSULE. PO SCH ×2 (09:00→21:00)
[2020-10-11] MEDS: TRIAMCINOLONE ACETONIDE 0.1% TOPICAL OINTMENT 15GM TUBE. TP SCH ×2 (09:00→21:00)
[2020-10-11] MEDS ORDERED: methylPREDNISolone SOD SUCC PF 125 MG/2 ML VIAL. IV SCH (09:00)
[2020-10-11] MEDS: ASPIRIN ENTERIC COATED 81 MG TABLET.DR. PO SCH (09:30)
[2020-10-11] MEDS: LACTOBACILLUS RHAMNOSUS GG 1 CAPSULE. PO SCH ×2 (09:30→23:09)
[2020-10-11] MEDS: PRIMIDONE 50 MG TABLET PO SCH ×3 (09:30→23:10)
[2020-10-11] MEDS: SUCRALFATE 1 GM TABLET. PO SCH ×4 (09:31→23:17)
[2020-10-11] MEDS: GLIMEPIRIDE 2 MG TABLET. PO SCH (09:31)
[2020-10-11] MEDS: POTASSIUM CHLORIDE 20 MEQ TABLET.ER. PO SCH (09:31)
[2020-10-11] MEDS: CALCIUM POLYCARBOPHIL 625 MG TABLET PO SCH (09:31)
[2020-10-11] MEDS: TAMSULOSIN 0.4 MG CAP.ER.24H. PO SCH (09:31)
[2020-10-11] MEDS: PIOGLITAZONE 15 MG TABLET. PO SCH (09:31)
[2020-10-11] MEDS: GABAPENTIN 100 MG CAPSULE. PO SCH ×2 (09:31→23:15)
[2020-10-11] MEDS: METOPROLOL TART IMMED RELEASE 25 MG TABLET. PO SCH ×2 (09:32→23:14)
[2020-10-11] MEDS: MULTIVITAMIN with MINERAL TABLET. PO SCH (09:32)
[2020-10-11] MEDS: INSULIN LISPRO 300 UNITS/3 ML VIAL. SQ SCH ×3 (09:45→17:27)
--- NOTE | 2020-10-11 10:43 | PDOC ---
PULMONARY PROGRESS NOTES DATE: 10/11/20 TIME: 10:41 Subjective on 2 liters N/C afebrile no SOA or increased cough no overnight events Vitals Vital Signs Date Time Temp Pulse Resp B/P (MAP) Pulse Ox O2 Delivery O2 Flow Rate FiO2 10/11/20 09:32 100 146/86 10/11/20 07:00 97.2 19 95 Nasal Cannula 2.0 97.2 ROS: No Nausea, No Chest Pain, No Abdominal Pain, No Increase Cough General: Alert, No acute distress Lungs: Clear Cardiovascular: S1, S2 Abdomen: Soft Extremities: No Edema Labs Laboratory Tests Test 10/09/20 17:45 10/09/20 21:08 10/10/20 07:26 10/10/20 07:48 Glucose (Fingerstick) 203 mg/dL (70-99) 194 mg/dL (70-99) 84 mg/dL (70-99) Triglycerides Level 147 mg/dL (0-150) Cholesterol Level 92 mg/dL (0-200) LDL Cholesterol, Calculated 39 mg/dL (0-100) VLDL Cholesterol, Calculated 29 mg/dL (0-40) Non-HDL Cholesterol Calculated 68 mg/dL (0-129) HDL Cholesterol 24 mg/dL (40-60) Cholesterol/HDL Ratio 3.8 Test 10/10/20 11:44 10/10/20 16:46 10/10/20 20:43 Glucose (Fingerstick) 134 mg/dL (70-99) 225 mg/dL (70-99) 165 mg/dL (70-99) Laboratory Tests Test 10/10/20 11:44 10/10/20 16:46 10/10/20 20:43 Glucose (Fingerstick) 134 mg/dL (70-99) 225 mg/dL (70-99) 165 mg/dL (70-99) Medications Active Scripts Medications Dose Route/Sig Max Daily Dose Days Date Category Dose Instructions Vitamin C (Ascorbic Acid) 500 Mg Capsule.er 1 Cap PO DAILY 09/16/20 Reported Thera-M Caplet (Multivits,Ca,Minerals/Iron/Fa) 1 Each Tablet 1 Tab PO DAILY 30 09/16/20 Reported Senna Plus Tablet (Sennosides/Docusate Sodium) 1 Each Tablet 2 Tab PO DAILY 09/16/20 Reported Nystop (Nystatin) 60 Gm Powder 60 Gm TP PRN Q8MIN PRN 09/16/20 Reported Hydrocodone-Acetamin 5-325 mg (Hydrocodone/Acetaminophen) 1 Each Tablet 1 Each PO PRN Q48HR PRN 09/16/20 Reported Imodium A-D (Loperamide HCl) 2 Mg Capsule 2 Mg PO PRN Q8HRS PRN 09/16/20 Reported Hydroxychloroquine Sulfate 200 Mg Tablet 1 Tab PO BID 09/16/20 Reported Genteal Tears 0.1%-0.3% Drop (Dextran 70/Hypromellose/Pf) 1 Each Droperette 1 Each OP BID 09/16/20 Reported Gabapentin (Gabapentin) 100 Mg Capsule 100 Mg PO BID 09/16/20 Reported Fiber Lax (Calcium Polycarbophil) 625 Mg Tablet 1,250 Mg PO DAILY 09/16/20 Reported Fexofenadine Hcl 180 Mg Tablet 1 Tab PO DAILY 09/16/20 Reported Carafate (Sucralfate) 1 Gm Tablet 1 Tab PO QID 30 09/16/20 Reported Calcium Carbonate 400 Mg Tab.chew 400 Mg PO BID 09/16/20 Reported Amaryl (Glimepiride) 1 Mg Tablet 2 Tab PO DAILY 09/16/20 Reported Trazodone Hcl 100 Mg Tablet 1 Tab PO QHS 09/16/20 Reported Zinc 50 Mg Tablet 1 Tab PO DAILY 30 09/16/20 Reported Pantoprazole Sodium (Pantoprazole Sodium) 40 Mg Tablet.dr 40 Mg PO DAILYAC 90 06/09/19 Rx Mucinex (Guaifenesin) 600 Mg Tablet.er 1 Tab PO BID 04/04/19 Reported Hydrocodone-Apap 5-325 (Hydrocodone Bit/Acetaminophen) 1 Tab Tablet 1 Tab PO HS 04/04/19 Reported Flonase Allergy Relief (Fluticasone Propionate) 9.9 Ml [place].susp 2 Sprays NS DAILY 04/04/19 Reported Colace (Docusate Sodium) 100 Mg Capsule 1 Cap PO BID 04/04/19 Reported Triamcinolone Acetonide 0.1% Oint (Triamcinolone Acetonide) 15 Gm Oint...g. 1 Nev[place] TP BID 03/24/17 Reported MIX WITH EUCERIN DIRECTED BY PHYSICIAN Actos (Pioglitazone Hcl) 30 Mg Tablet 1 Tab PO DAILY 03/24/17 Reported LAST DOSE GIVEN: DATE:04/02/17 TIME:0900 Tylenol (Acetaminophen) 325 Mg Tablet 1 Tab PO PRN Q4HRS 01/15/17 Reported LAST DOSE GIVEN: DATE:04/01/17 TIME:9 p.m. Duoneb 0.5-3(2.5) Mg/3 Ml (Albuterol/Ipratropium) 3 Ml Ampul.neb 3 Ml IH PRN Q4HRS PRN 01/23/16 Reported Lipitor (Atorvastatin Calcium) 40 Mg Tablet 1 Tab PO QHS PRN 02/01/15 Rx Tamsulosin Hcl 0.4 Mg Cap.er.24h 0.4 Mg PO DAILY 01/31/15 Reported LAST DOSE GIVEN: DATE:04/02/17 TIME:0900 Primidone 50 Mg Tablet 50 Mg PO TID 01/31/15 Reported LAST DOSE GIVEN: DATE:04/02/17 TIME:2:[address] chest IMPRESSION: 1. No pulmonary embolus identified within the main, lobar or segmental pulmonary arteries. 2. Extensive patchy bilateral airspace disease favored to be infectious or inflammatory in etiology. Correlate for atypical/viral causes such as Covid. 3. Small bilateral pleural effusions. Impression . IMPRESSION: 1. Acute hypoxemic respiratory failure. 2. Negative CT for pulmonary embolism. 3. CT chest revealed extensive bibasilar airspace disease and some atelectasis in the bases with small effusions. 4. Non-ST segment elevation myocardial infarction. 5. Elevated troponin. 6. COVID-19 positive back on 09/12/2019. 7. Acute heart failure. 8. Hypertension. 9. Hyperlipidemia. 10. Peripheral arterial disease, status post left below knee amputation. 11. Hypokalemia. Plan . PLAN: Continue supplemental oxygen, to keep sats above 92%, wean as tolerated Follow CXR PRN Continue steroids with taper, transitioned to po today, taper over 10 days Continue ABX D/C zosyn change to Augmentin for full 7 day course Follow cardiology recs-- Diuresis COVID-19 rapid negative Positive by PCR, influenza negative PT/OT DVT/GI PPX D/W RN Ok to D/C home today from our standpoint ALAINA SZYMANSKI MD Oct 11, 2020 10:43
[2020-10-11 11:00] VITALS: BP 134/78
--- NOTE | 2020-10-11 12:03 | PDOC ---
NASEEM FOLEY CHEMICAL ENGINEERING PROFESSOR 10/11/20 1203: CARDIO Progress Notes Date and Time Date of Service 10/11/19 Time of Evaluation 1215 Subjective Subjective: No Chest Pain, No Palpitations, No Dizziness Vitals Vitals Vital Signs Date Time Temp Pulse Resp B/P (MAP) Pulse Ox O2 Delivery O2 Flow Rate FiO2 10/11/20 09:32 100 146/86 10/11/20 08:00 Nasal Cannula 2.0 10/11/20 07:00 97.2 19 95 97.2 Weight Weight [ ] Input and Output Intake and Output Intake and Output 10/11/20 07:00 Intake Total 1260 ml Output Total 1100 ml Balance 160 ml Intake Oral 1260 ml Output Urine Total 1100 ml # Bowel Movements 4 Laboratory Labs Laboratory Tests Test 10/10/20 11:44 10/10/20 16:46 10/10/20 20:43 Glucose (Fingerstick) 134 mg/dL (70-99) 225 mg/dL (70-99) 165 mg/dL (70-99) Microbiology Micro Microbiology 10/07/20 Blood Culture - Preliminary, Resulted NO GROWTH AFTER 3 DAYS 10/06/20 Urine Culture - Final, Complete Physical Exam HEENT: Neck Supple W Full Motion Chest: Symmetric LUNGS: Other (on NC) Heart: RRR (SR) Abdomen: Soft N/T Extremities: Other (left BKA ) Neurology: alert, follow commands, other (forgetful. Thought he was at [employer] ) Assessment Assessment 1. Acute respiratory failure secondary to CHF, possible PNA 2. Recent COVID: + 09/12/20 3. NSTEMI; trop peak 3.8. Possibly type II, demand ischemia, but underlying CAD cannot be ruled out. on heparin gtt. 4. Acute on chronic diastolic CHF; better compensated 5. Hypertension; controlled 6. Hyperlipidemia; statin. LDL 39 7. PAD s/p left BKA 8. Hypokalemia; replaced Recommendations Continue ASA, statin, and low-dose BB therapy. Salvador ZENG Spoke with niece and LUANN, Teressa and patient. Discussed further ischemic evaluation with stress test/LHC versus conservative measures given significant comorbidities and overall poor functional status. At this time, they would like to continue with medical management. Also discussed code status. LUANN would like to discuss this further with her siblings. Ongoing lung optimization as per pulm Justicifation of Admission Dx: Justifications for Admission: Justification of Admission Dx: Yes [place]: Acute NSTEMI WILLIE HERRERA MD 10/11/202039: CARDIO Progress Notes Assessment Assessment Patient seen and examined I agree with our nurse practitioners assessment and plan as above. Acute respiratory failure secondary to CHF, possible PNA. Improving. Lasix as needed. Recent COVID: + 09/12/20 NSTEMI; trop peak 3.8. Possibly type II, demand ischemia, but underlying CAD cannot be ruled out. Medical treatment as discussed above. Acute on chronic diastolic CHF; better compensated Hypertension; controlled Hyperlipidemia; statin. LDL 39 PAD s/p left BKA NASEEM FOLEY APRN Oct 11, 2020 12:03 WILLIE HERRERA MD Oct 11, 2020 20:40
--- NOTE | 2020-10-11 12:49 | PN ---
DATE: 10/11/2020 LOCATION: He is in room 254. SUBJECTIVE: This 85-year-old white male remains hospitalized with acute respiratory failure. He is breathing better. O2 has been turned down to 2 liters per nasal cannula and he actually was off CO2 for a while yesterday during the day per nursing. He still states that he is somewhat short of breath when trying to do anything. OBJECTIVE: VITAL SIGNS: Stable. He is afebrile. O2 is at 2 liters per nasal cannula. Sugars are decent. CHEST: Clear. HEART: Regular. ABDOMEN: Benign. A repeat COVID PCR is still positive, but likely represents old infection ____ virus. Echocardiogram yesterday is fairly unremarkable. Cardiology has planned for an ischemic workup, but will not be doing it with him being COVID positive. He remains on IV Zosyn currently per Pulmonary. Also, he has had multiple stools over the last 12 hours or so and nursing shows me when I collected for C. diff, which definitely still has some form to it. IMPRESSION: 1. Acute respiratory failure with recent COVID-19, bilateral pulmonary infiltrates on CT with elevated D-dimer and no evidence of pulmonary embolism, but elevated troponin on admission. 2. Non-ST elevated myocardial infarction. 3. Heart failure with markedly elevated BNP on admission with essentially normal echo. 4. Hypokalemia, replacement. 5. Diarrhea, rule out Clostridium difficile. PLAN: Continue supportive care. We will await final direction from Pulmonary and Cardiology as to discharge or further treatment. RAJESH SZYMANSKI MD DR: EDMUND/julia JOB#: [id number] / [id number]
[2020-10-11 15:00] VITALS: BP 150/87
--- NOTE | 2020-10-11 15:44 | NUR ---
SS following up with discharge planning. SS reviewed pt chart and discussed with pt RN. Pt is currently requiring oxygen via nasal canula. COVID19 PCR positive and rapid test negative. Pt on IV Zosyn. SS phoned and faxed clinical to [facility], ; fax [phone]. Consultants signed off. Dr. Jaeger notified. Currently awaiting discharge orders. SS will continue to follow for discharge planning.
[2020-10-11 19:59] VITALS: BP 122/72
[2020-10-11] MEDS: ATORVASTATIN CALCIUM 40 MG TABLET. PO SCH (23:14)
[2020-10-11] MEDS: AMOXICILLIN/K CLAV 875/125MG TABLET. PO SCH (23:14)
[2020-10-11] MEDS: traZODone 100 MG TABLET. PO SCH (23:15)
[2020-10-11 23:46] VITALS: BP 118/69
[2020-10-12 03:59] VITALS: BP 138/80
[2020-10-12 07:00] VITALS: BP 124/68
[2020-10-12] MEDS: INSULIN LISPRO 300 UNITS/3 ML VIAL. SQ SCH ×2 (08:00→12:00)
[2020-10-12] MEDS ORDERED: predniSONE 10 MG TABLET PO SCH (09:00)
[2020-10-12] MEDS: DOCUSATE SODIUM 100 MG CAPSULE. PO SCH (09:00)
[2020-10-12] MEDS: SENNOSIDES/DOCUSATE 8.6/50MG TABLET. PO SCH (09:00)
[2020-10-12] MEDS: TRIAMCINOLONE ACETONIDE 0.1% TOPICAL OINTMENT 15GM TUBE. TP SCH (09:00)
[2020-10-12] MEDS: MULTIVITAMIN with MINERAL TABLET. PO SCH (09:21)
[2020-10-12] MEDS: CALCIUM POLYCARBOPHIL 625 MG TABLET PO SCH (09:21)
[2020-10-12] MEDS: PRIMIDONE 50 MG TABLET PO SCH ×2 (09:21→15:36)
[2020-10-12] MEDS: POTASSIUM CHLORIDE 20 MEQ TABLET.ER. PO SCH (09:21)
[2020-10-12] MEDS: AMOXICILLIN/K CLAV 875/125MG TABLET. PO SCH (09:21)
[2020-10-12] MEDS: PIOGLITAZONE 15 MG TABLET. PO SCH (09:21)
[2020-10-12] MEDS: ASPIRIN ENTERIC COATED 81 MG TABLET.DR. PO SCH (09:22)
[2020-10-12] MEDS: TAMSULOSIN 0.4 MG CAP.ER.24H. PO SCH (09:22)
[2020-10-12] MEDS: LACTOBACILLUS RHAMNOSUS GG 1 CAPSULE. PO SCH (09:22)
[2020-10-12] MEDS: METOPROLOL TART IMMED RELEASE 25 MG TABLET. PO SCH (09:22)
[2020-10-12] MEDS: GLIMEPIRIDE 2 MG TABLET. PO SCH (09:22)
[2020-10-12] MEDS: SUCRALFATE 1 GM TABLET. PO SCH ×2 (09:22→12:19)
[2020-10-12] MEDS: GABAPENTIN 100 MG CAPSULE. PO SCH (09:22)
[2020-10-12] MEDS: PANTOPRAZOLE 40 MG TABLET.DR. PO SCH (09:22)
--- NOTE | 2020-10-12 10:34 | PDOC ---
NASEEM FOLEY [employer] CHIEF CLERK 10/12/20 1034: CARDIO Progress Notes Date and Time Date of Service 10/12/20 Time of Evaluation 1030 Subjective Subjective: No Chest Pain, No Palpitations, No Dizziness Vitals Vitals Vital Signs Date Time Temp Pulse Resp B/P (MAP) Pulse Ox O2 Delivery O2 Flow Rate FiO2 10/12/20 09:22 83 10/12/20 07:00 95.2 18 124/68 (86) 99 Nasal Cannula 2.0 95.2 Weight Weight [ ] Input and Output Intake and Output Intake and Output 10/12/20 07:00 Intake Total 700 ml Output Total 1650 ml Balance -950 ml Intake Oral 700 ml Output Urine Total 1650 ml # Voids 1 # Bowel Movements 1 Laboratory Labs Laboratory Tests Test 10/11/20 11:58 10/11/20 16:42 10/11/20 20:56 10/12/20 08:34 Glucose (Fingerstick) 148 mg/dL (70-99) 217 mg/dL (70-99) 149 mg/dL (70-99) 89 mg/dL (70-99) Microbiology Micro Microbiology 10/07/20 Blood Culture - Preliminary, Resulted NO GROWTH AFTER 4 DAYS 10/06/20 Urine Culture - Final, Complete Physical Exam HEENT: Neck Supple W Full Motion Chest: Symmetric LUNGS: Other (on NC) Heart: RRR (SR/ST) Abdomen: Soft N/T Extremities: Other (left BKA ) Neurology: alert, follow commands, other (forgetful. Thought he was at [facility] ) Assessment Assessment 1. Acute respiratory failure secondary to CHF, possible PNA 2. Recent COVID: + 09/12/20 3. NSTEMI; trop peak 3.8. Possibly type II, demand ischemia, but underlying CAD cannot be ruled out. on heparin gtt. 4. Acute on chronic diastolic CHF; better compensated 5. Hypertension; controlled 6. Hyperlipidemia; statin. LDL 39 7. PAD s/p left BKA 8. Hypokalemia; replaced Recommendations Continue ASA, statin, and low-dose BB therapy. Lasix PRN Continue conservative measures per patient, family request. Ongoing lung optimization as per pulm Justicifation of Admission Dx: Justifications for Admission: Justification of Admission Dx: Yes [place]: Acute NSTEMI WILLIE HERRERA MD 1/7/21 1853: CARDIO Progress Notes Assessment Assessment Patient seen and examined I agree with our nurse practitioners assessment and plan as above. Acute respiratory failure secondary to CHF, possible PNA. Continues improvement. Lasix as needed. Recent COVID: + 09/12/20 NSTEMI; trop peak 3.8. Possibly type II, demand ischemia, but underlying CAD cannot be ruled out. Continuing medical treatment as per family request. Acute on chronic diastolic CHF; better compensated Hypertension; controlled Hyperlipidemia; statin. PAD s/p left ADANA NASEEM FOLEY APRN Oct 12, 2020 10:34 WILLIE HERRERA MD Oct 12, 2020 18:53
[2020-10-12 11:00] VITALS: BP 145/89
[2020-10-12] MEDS: ACETAMINOPHEN 325 MG TABLET. PO PRN (12:04)
[2020-10-12] MEDS ORDERED: METOPROLOL TART IMMED RELEASE 25 MG TABLET. PO ONE (14:30)
[2020-10-12 15:00] VITALS: BP 135/86
[2020-10-12] MEDS ORDERED: METO25TA4 PO (15:04)
[2020-10-12] MEDS ORDERED: DEXA6TAB6 PO (15:04)
[2020-10-12] MEDS ORDERED: AMOX1TAB11 PO (15:04)
[2020-10-12] MEDS ORDERED: ASPI-886 PO (15:04)
[2020-10-12] MEDS ORDERED: DEXA4TAB63 PO (15:07)
--- NOTE | 2020-10-12 15:09 | SNU/HH DC ---
DISCHARGE ORDERS DISCHARGE INFORMATION: DISCHARGE DATE: Oct 12, 2020 FINAL DIAGNOSIS Problems Medical Problems: (1) Acute UTI Status: Acute (2) COVID-19 Status: Acute (3) Elevated brain natriuretic peptide (BNP) level Status: Acute (4) Elevated d-dimer Status: Acute (5) Hypokalemia Status: Acute (6) Hypoxia Status: Acute (7) NSTEMI (non-ST elevated myocardial infarction) Status: Acute (8) Respiratory failure Status: Acute CONDITION ON DISCHARGE: Stable CODE STATUS: Code Status: Full CUSTODIAL: SNF STAY <30 DAYS: Yes HOSPICE: HOSPICE: No HOSPICE EVAL & TREAT: No LTAC: ADMIT TO LTAC: No POST DISCHARGE ORDERS: ACTIVITY ORDERS: Activity as tolerated WEIGHT BEARING STATUS: Full weight bearing, As tolerated BATHING ORDERS: Shower-keep dressing dry, No Tub Bath until see DIET AFTER DISCHARGE: Regular WOUND/INCISION CARE: Ice to area for comfort, May get incision wet CHECKS AFTER DISCHARGE: CHECKS AFTER DISCHARGE: Check blood press - daily, Check blood sugar, ac/hs TREATMENT/EQUIPMENT ORDERS: ADAPTIVE EQUIPMENT NEEDED: None Physical Therapy For: Evalulation/Treatment Occupational Therapy For: Evaluation/Treatment DISCHARGE MEDICATIONS: Home Meds Active Scripts Dexamethasone (Decadron) 4 Mg Tablet, 1 TAB PO DAILY PRN for scheduled for 5 Days, #5 TAB 0 Refills Prov:RAJESH SZYMANSKI MD 10/12/20 Dexamethasone (Decadron) 6 Mg Tablet, 2 TAB PO ONCE for covid for 1 Day, #2 TAB 0 Refills Prov:RAJESH SZYMANSKI MD 10/12/20 Aspirin (ASPIRIN EC) 81 Mg Tablet., 81 MG PO DAILYWBKFT for cad for 30 Days, #30 TAB.SR Prov:RAJESH SZYMANSKI MD 10/12/20 Metoprolol Tartrate (METOPROLOL TARTRATE) 25 Mg Tablet, 25 MG PO BID for cad for 30 Days, #60 TAB Prov:RAJESH SZYMANSKI MD 10/12/20 Amoxicillin/Potassium Clav (AMOX TR-K CLV 875-125 MG TAB) 1 Each Tablet, 1 TAB PO BID for pneumonia for 7 Days, #14 TAB Prov:RAJESH SZYMANSKI MD 10/12/20 Pantoprazole Sodium (PANTOPRAZOLE SODIUM ) 40 Mg Tablet., 40 MG PO DAILYAC for pud for 90 Days, #90 TAB.SR Prov:RAJESH SZYMANSKI MD 06/09/19 Atorvastatin Calcium (LIPITOR) 40 Mg Tablet, 1 TAB PO QHS PRN for High cholesterol, #90 TAB 1 Refill Prov:ESTRADA JARAMILLO MD 02/01/15 Reported Medications Ascorbic Acid (VITAMIN C) 500 Mg Capsule.er, 1 CAP PO DAILY for for 30 Days, #30 CAP 0 Refills 09/16/20 Multivits,Ca,Minerals/Iron/Fa (THERA-M CAPLET) 1 Each Tablet, 1 TAB PO DAILY for for 30 Days, #30 TAB 0 Refills 09/16/20 Sennosides/Docusate Sodium (SENNA PLUS TABLET) 1 Each Tablet, 2 TAB PO DAILY for for 20 Days, #40 TAB 0 Refills 09/16/20 Nystatin (NYSTOP) 60 Gm Powder, 60 GM TP PRN Q8MIN PRN for , MISC 09/16/20 Hydrocodone/Acetaminophen (Hydrocodone-Acetamin 5-325 mg) 1 Each Tablet, 1 EACH PO PRN Q48HR PRN for , TAB 09/16/20 Loperamide HCl (Imodium A-D) 2 Mg Capsule, 2 MG PO PRN Q8HRS PRN for , CAP 09/16/20 Dextran 70/Hypromellose/Pf (Genteal Tears 0.1%-0.3% Drop) 1 Each Droperette, 1 EACH OP BID for , DROP 09/16/20 Gabapentin (GABAPENTIN ) 100 Mg Capsule, 100 MG PO BID for NEUROGENIC PAIN, CAP 09/16/20 Calcium Polycarbophil (FIBER LAX) 625 Mg Tablet, 1250 MG PO DAILY for , TAB 09/16/20 Fexofenadine Hcl (FEXOFENADINE HCL) 180 Mg Tablet, 1 TAB PO DAILY for , #30 TAB 5 Refills 09/16/20 Sucralfate (CARAFATE) 1 Gm Tablet, 1 TAB PO QID for for 30 Days, #120 TAB 0 Refills 09/16/20 Calcium Carbonate (CALCIUM CARBONATE) 400 Mg Tab.chew, 400 MG PO BID for , TAB.CHEW 09/16/20 Glimepiride (AMARYL) 1 Mg Tablet, 2 TAB PO DAILY for , #30 TAB 5 Refills 09/16/20 Trazodone Hcl (TRAZODONE HCL) 100 Mg Tablet, 1 TAB PO QHS for , #30 TAB 1 Refill 09/16/20 Zinc (ZINC) 50 Mg Tablet, 1 TAB PO DAILY for for 30 Days, #30 TAB 0 Refills 09/16/20 Guaifenesin (MUCINEX) 600 Mg Tablet.er, 1 TAB PO BID for cough, #14 TAB 04/04/19 Hydrocodone Bit/Acetaminophen (HYDROCODONE-APAP 5-325 ) 1 Tab Tablet, 1 TAB PO HS for , TAB 0 Refills 04/04/19 Fluticasone Propionate (Flonase Allergy Relief) 9.9 Ml [place].susp, 2 SPRAYS NS DAILY for allergic rhinitis, BOTTLE 04/04/19 Docusate Sodium (COLACE) 100 Mg Capsule, 1 CAP PO BID for constipation, #30 CAP 04/04/19 Triamcinolone Acetonide (TRIAMCINOLONE ACETONIDE 0.1% OINT) 15 Gm Oint...g., 1 MARIANNE TP BID for WOUND CARE, #1 TUBE MIX WITH EUCERIN DIRECTED BY PHYSICIAN 03/24/17 Pioglitazone Hcl (ACTOS) 30 Mg Tablet, 1 TAB PO DAILY, #30 TAB 5 Refills LAST DOSE GIVEN: DATE:04/02/17 TIME:0900 03/24/17 Acetaminophen (TYLENOL) 325 Mg Tablet, 1 TAB PO PRN Q4HRS, #30 TAB LAST DOSE GIVEN: DATE:04/01/17 TIME:9 p.m. 01/15/17 Ipratropium/Albuterol Sulfate (DUONEB 0.5-3(2.5) MG/3 ML) 3 Ml Ampul.neb, 3 ML IH PRN Q4HRS PRN for COUGH 01/23/16 Tamsulosin Hcl (TAMSULOSIN HCL) 0.4 Mg Cap.er.24h, 0.4 MG PO DAILY, TAB LAST DOSE GIVEN: DATE:04/02/17 TIME:0900 01/31/15 Primidone (PRIMIDONE) 50 Mg Tablet, 50 MG PO TID LAST DOSE GIVEN: DATE:04/02/17 TIME:2:00 p.m. 01/31/15 Discontinued Reported Medications Hydroxychloroquine Sulfate (HYDROXYCHLOROQUINE SULFATE) 200 Mg Tablet, 1 TAB PO BID for , #180 TAB 1 Refill 09/16/20 RAJESH SZYMANSKI MD Oct 12, 2020 15:09
--- NOTE | 2020-10-12 15:20 | NUR ---
SS following up with discharge planning. SS reviewed pt chart and discussed with pt RN. Pt is currently requiring oxygen at two liters nasal canula. COVID19 positive. Discharge orders received to return to [facility], ; fax [phone]. SS phoned and faxed discharge orders to facility. Pt will discharge today and return to [facility] at 1630. Facility providing transportation. Pt and pt's RN notified.
--- NOTE | 2020-10-12 17:02 | NUR ---
Discharge: Report called to [facility] [phone]. Reviewed orders, medication, follow-up, tachycardia, pneumonia, diet, ect. Daughter Velvet called [phone] updated on patient and discharge. Patient assisted off of unit via personal wheelchair on 3L oxygen [place].
--- NOTE | 2020-10-12 20:59 | DS ---
DATE OF DISCHARGE: 10/12/2020 PRIMARY DIAGNOSES: 1. Non-ST elevated myocardial infarction. 2. Acute respiratory failure secondary to congestive heart failure and COVID-19 with possible pneumonia, hypertension, hyperlipidemia and hypokalemia replaced, diabetes, peripheral artery disease with left zarck-uqy-evpz amputation prior. 3. Encephalopathy. CHIEF COMPLAINT AND HISTORY OF PRESENT ILLNESS: This is an 85-year-old white male who is well known to me from followup. The patient was sent from the long term to the Emergency Room on the day of admission. He had been hospitalized here a couple of weeks before with COVID. The patient was doing better, but over the last couple of days, had decreased p.o. intake, confusion, low-grade fevers, sent to the Emergency Room where he was admitted with hypoxia, cough, shortness of breath. He was initially requiring 100% oxygen on admission, but overnight it had been decreased to 6 liters in the ICU. SUMMARY OF STAY: The patient was admitted where he initially received some diuresis. This apparently made a huge difference as his O2 needs went down to 2 liters by the time of discharge. He progressively improved in everything except for his strength. He did have some urinary retention, requiring a Valero catheter placement and this will be continued at discharge with an attempt to remove it next week at the Emergency Room as he becomes a little more mobile. Hypokalemia was present and replaced during the stay. He was covered with antibiotics as well as steroids. He was back to his baseline other than weakness with the encephalopathy completely resolved and felt ready for dismissal. DISPOSITION: The patient is discharged back to the long term on snf. DIET: ADA diet. ACTIVITY: As tolerated with therapy to evaluate and treat. DISCHARGE MEDICATIONS: Listed on the med rec and have been addressed. RAJESH SZYMANSKI MD DR: EDMUND/julia JOB#: [id number] / [id number]
[2020-10-12] MEDS ORDERED: METOPROLOL TART IMMED RELEASE 25 MG TABLET. PO SCH (21:00)
--- NOTE | 2021-01-26 15:33 | PDOC1 ---
History & Physical: Date of Service: DOS: 10-07-2020 H&P: PATIENT: KAROLINE LLAMAS LACCOUNT: [id number] : 1935 LOC: [address] [place] [address] AGE: 85 SEX: M STATUS: ADM IN LOCATION: [address] [place] [address] ADMIT DATE: 10/06/2020 ADMISSION HISTORY AND PHYSICAL CHIEF COMPLAINT AND HISTORY OF PRESENT ILLNESS: This 85-year-old white male is well known to me in followup. The patient is a resident at [facility]. He was hospitalized here a couple of weeks ago with COVID. The patient was doing better and over the last couple of days, he has had decreased p.o. intake, confusion, low-grade fevers. Was sent to the Emergency Room where the patient was admitted with hypoxia despite his confusion, cough and shortness of breath. He has also been tired as well as had headache. He was admitted to the ICU, on 100% oxygen ____ on admission, but at night it was decreasing and is down to 6 liters in the ICU, and the ICU has been full and they want to transfer him up to another floor, which would be fine on current oxygen needs. PAST MEDICAL HISTORY: Remarkable for diabetes, PAD, hyperlipidemia, kidney stones, COPD, depression, back pain, urinary retention. PAST SURGICAL HISTORY: He has had a prior left ikvau-clk-joea amputation. MEDICATIONS: Brought with the patient listed on the computer and have been addressed. ALLERGIES: He has no medication allergies. SOCIAL HISTORY: He is a lifetime nonsmoker, nondrinker, does not use drugs. He is single, [facility]. FAMILY HISTORY: Noncontributory. REVIEW OF SYSTEMS: As mentioned above. PHYSICAL EXAMINATION: GENERAL: He is a well-developed, well-nourished white male in no acute distress. Nursing has no major concerns overnight. VITAL SIGNS: Stable. He is afebrile. O2 sats are good on 6 liters. HEAD, EYES, EARS, NOSE AND THROAT: Unremarkable. NECK: Supple, without thyromegaly. CHEST: Clear to auscultation. HEART: Regular rate and rhythm without S3, S4 or murmur. ABDOMEN: Soft, nontender, without hepatosplenomegaly or masses. EXTREMITIES: Reveal a left qxssd-zyg-irkb amputation. NEUROLOGIC: He is intact. LABORATORY DATA: Initial laboratory shows a white count of 9000 with a slight left shift. He does have an elevated troponin on admission at 3.8 and has decreased overnight to 2.9. Cardiology has been consulted for the same. BNP is quite elevated at 23,000. Influenza screening is negative. Urinalysis does show greater than 40 white blood cells and large leukocyte esterase. He has been on Levaquin prior to admission. We will wait on cultures prior to any further treatment. He does have hypokalemia on admission with potassium of 2.9. IMPRESSION: Hypoxic respiratory failure due to COVID-19. Non-ST elevated myocardial infarction, hypokalemia, elevated D-dimer with negative CT for pulmonary embolus, but extensive patchy bilateral airspace disease, probably consistent with COVID, elevated BNP, possible urinary tract infection. PLAN: The patient has been admitted. Cardiology has been consulted. I am going to ask for Pulmonary to see. In addition, the patient will be monitored, managed and treated appropriately. RAJESH Munoz. MD STEPHON DR: EDMUND/julia JOB#: [id number] / [id number] DICTATED BY: RAJESH SZYMANSKI MD 10/07/20 1054 SIGNED BY: RAJESH SZYMANSKI MD 10/08/20 0949 cc: RAJESH SZYMANSKI MD ~MTF0 28 Page of RAJESH SZYMANSKI MD Jan 26, 2021 15:33
== END 2020-10-12 17:17 | DRG 280 ==
LOC: ER 18:14 → UNDOADMIN 21:12 → 1 WEST ICU 21:12 → ED HOLD 21:12 → 1 WEST ICU 10-07 04:55 → 2 SOUTH 10-07 12:10 → 1 WEST ICU 10-07 12:10 → UNDODISIN 10-12 17:17
PROVIDERS: ADMIT Family Medicine; ATTEND Family Medicine
DX: I21.4 Non-ST elevation (NSTEMI) myocardial infarction (principal); U07.1 COVID-19; J96.01 Acute respiratory failure with hypoxia; I50.33 Acute on chronic diastolic (congestive) heart failure; J15.9 Unspecified bacterial pneumonia; J12.82 Pneumonia due to coronavirus disease 2019; G93.40 Encephalopathy, unspecified; J44.0 Chronic obstructive pulmonary disease with (acute) lower respiratory infection; J98.11 Atelectasis; N39.0 Urinary tract infection, site not specified; D72.810 Lymphocytopenia; E11.51 Type 2 diabetes mellitus with diabetic peripheral angiopathy without gangrene; E78.00 Pure hypercholesterolemia, unspecified; E78.5 Hyperlipidemia, unspecified; E87.6 Hypokalemia; I11.0 Hypertensive heart disease with heart failure; I25.2 Old myocardial infarction; I35.0 Nonrheumatic aortic (valve) stenosis; Z82.3 Family history of stroke; Z82.49 Family history of ischemic heart disease and other diseases of the circulatory system; Z87.442 Personal history of urinary calculi; Z87.891 Personal history of nicotine dependence; Z89.512 Acquired absence of left leg below knee; Z96.649 Presence of unspecified artificial hip joint; F32.9 Major depressive disorder, single episode, unspecified; M19.90 Unspecified osteoarthritis, unspecified site
CPT/HCPCS: 36415; 71045; 71275; 80048; 80053; 80061; 81001; 82553; 82962; 83605; 83735; 83880; 84484; 85025; 85027; 85379; 85520; 85610; 85730; 87040; 87086; 87426; 87493; 87804; 93005; 93306; 96361; 96374; 96375; 99291; J1100; J1644; J2405; J2543; J2930; J7030; J7512; Q9967; U0003; G0378

== ENCOUNTER 2020-10-25 11:03 | Inpatient (IN) | payer MEDICARE, OTHER ==
[~2020-10-25] VITALS: Ht 177.8 cm; Wt 66.9 kg
[~2020-10-25 11:03] MED LIST changes: +ASPI-886 PO; +DEXA4TAB63 PO; +DEXA6TAB6 PO; +METO25TA4 PO
[2020-10-25] MEDS ORDERED: IBUPROFEN 200 MG TABLET. PO ONE (11:30)
--- NOTE | 2020-10-25 11:33 | PHYS DOC ---
Past Medical History Past Medical History: COPD, Depression, Diabetes-Type II, High Cholesterol, Kidney Stone, Other Additional Past Medical Histor: PVD,ENCEPHALOPATHY, BACK PAIN, URINARY RETENTION, PVD Past Surgical History: Other Additional Past Surgical Histo: JOINT REPLACEMENT, LEFT BKA Smoking Status: Never Smoker Alcohol Use: None Drug Use: None General Adult EDM: Chief Complaint: FEVER HPI: HPI: Patient is a 85 year old male with history of diabetes type 2, COPD, hypertension, high cholesterol, who presents to the ED today from a local long term to be evaluated for fever that was noted this morning, they also report reports it is altered since this morning. They state patient received COVID-19 vaccine yesterday first dose then spiked a fever this morning. They state patient was diagnosed with COVID-19 in September and finished antibiotics for pneumonia yesterday. Patient himself is a poor historian. Hx obtained from EMS who received it from the long term Review of Systems: Review of Systems: Constitutional: Reports fever HENT: KATIE due to mentation Respiratory: Unable to assess due to mentation Cardiovascular: KATIE due to mentation GI: KATIE due to mentation : KATIE due to mentation Musculoskeletal: KATIE due to mentation Integument: Rash noted on the abdomen and right thigh Neurologic: Reports AMS Heart Score: Risk Factors: Risk Factors: DM, Current or recent (<one month) smoker, HTN, HLP, family history of CAD, obesity. Risk Scores: Score 0 - 3: 2.5% MACE over next 6 weeks - Discharge Home Score 4 - 6: 20.3% MACE over next 6 weeks - Admit for Clinical Observation Score 7 - 10: 72.7% MACE over next 6 weeks - Early Invasive Strategies Current Medications: Current Medications Medications (Trade) Dose Ordered Sig/[facility] Start Time Stop Time Status Last Admin Dose Admin Ibuprofen (Motrin) 600 mg 1X ONCE 10/25/20 11:30 10/25/20 11:31 UNV Sodium Chloride 2,040 ml @ 2,040 mls/hr Q1H 10/25/20 11:30 UNV Allergies: Allergies: Allergies Coded Allergies Type Severity Reaction Last Updated Verified No Known Medication Allergies Allergy Unknown 06/05/19 Yes I S O L A T I O N "AIRBOURNE" Adverse Reaction Unknown 10/07/20 Yes Physical Exam: PE: Constitutional: Well developed, well nourished, no acute distress, non-toxic appearance. [] HENT: Normocephalic, atraumatic, bilateral external ears normal, oropharynx moist, no oral exudates, nose normal. [] Eyes: PERRLA, EOMI, conjunctiva normal, no discharge. [] Neck: Normal range of motion, no tenderness, supple, no stridor. [] Cardiovascular:Heart rate regular rhythm, no murmur [] Lungs & Thorax: Diminished breath sounds Abdomen: Bowel sounds normal, soft, no tenderness, no masses, no pulsatile masses. [] Skin: Small amount of erythematous papular rash noted on patient's abdomen and right thigh. Right lower extremity redness that is reported as chronic. A scab noted on the right knee. Left BKA Back: No tenderness, no CVA tenderness. [] Extremities: No tenderness, no cyanosis, no clubbing, ROM intact, no edema. [] Neurologic: Alert and oriented X 1-2, normal motor function, normal sensory function, no focal deficits noted. [] Psychologic: Affect normal, judgement normal, mood normal. [] EKG: EK interpreted by Dr. Suggs sinus tachycardia HR 123 no STEMI[] Radiology/Procedures: Radiology/Procedures: []PROCEDURE: PORTABLE CHEST 1V EXAM: Chest, single view. HISTORY: Fever. COMPARISON: 10/10/2020 FINDINGS: A frontal view of the chest is obtained. There has been slight interval decrease in diffuse interstitial infiltrate. There is no consolidation, pleural effusion or pneumothorax. There is a stable cardiac silhouette. There are calcified granulomas, primarily in a right paratracheal distribution. IMPRESSION: Decrease in diffuse interstitial infiltrate. Electronically signed by: Светлана Hayes MD (10/25/2020 12:06 PM) [id number] DICTATED and SIGNED BY: СВЕТЛАНА HAYES MD DATE: 10/25/20 [id number] Course & Med Decision Making: Course & Med Decision Making Pertinent Labs and Imaging studies reviewed. (See chart for details) This is a 85-year-old male patient presented to the ED today from the local long term to be evaluated for a fever that began this morning, also reported altered mental status. Symptoms began this morning, he received COVID-19 vaccine yesterday. He was positive for COVID-19 in September, he was treated for pneumonia and completed antibiotics yesterday. It is unknown what antibiotics he was on Vitals on arrival to the ED temperature 102.8, heart rate 137, respiration 26, blood pressure 97/61, O2 sats 94% on room air. Patient was started on the sepsis protocol with IV fluids. CBC with a WBC of 11.1, lactic 2.9, procalcitonin 0.11, urine positive for nitrates and leukocytes. Chest x-ray noted for decreased interstitial infiltrates. Spoke with Dr. Jaeger who accepted patient for admission. Also started on Zosyn per request for by Dr. Heide Pedroza Disclaimer: Yovany Disclaimer: This electronic medical record was generated, in whole or in part, using a voice recognition dictation system. Date and Time of Reassessment Date: May 09, 2015 Time: 12:30 Fluid Challenge Is the fluid challenge complet: No IBW Target Volume Used: No BMI > 30: No Vital Signs Vital Signs: Vital Signs Date Time Temp Pulse Resp B/P (MAP) Pulse Ox O2 Delivery O2 Flow Rate FiO2 10/25/20 12:40 112 83/49 (60) 94 Room Air 10/25/20 11:10 102.8 26 102.8 Temperature Source: Rectal Respirations Respiratory Effort: Normal Respiratory Pattern: Normal Cardiovascular Pulse Rhythm: Regular Heart: Nml rate, reg. rhythm Lung Sounds Breath Sounds: Clear Capillary Refil Capillary Refill: Rt Hand > 3 seconds Peripheral Pulse Pulse Location: Monitor Pulse Strength: Normal (2+) Pulse Assessment Method: NIBP Integumentary Skin: Warm Skin Moisture: Dry Skin Turgor: Normal Skin Color: warm Fingernail Color: WNL Departure Departure Impression: Primary Impression: Fever Qualified Codes: R50.9 - Fever, unspecified Additional Impressions: Sepsis Qualified Codes: A41.9 - Sepsis, unspecified organism UTI (urinary tract infection) Qualified Codes: N39.0 - Urinary tract infection, site not specified AMS (altered mental status) Qualified Codes: R41.82 - Altered mental status, unspecified Disposition: 09 ADMITTED INPT THIS HOSP Condition: STABLE Referrals: RAJESH JAEGER MD (PCP) SEB DAUGHERTY APRN Oct 25, 2020 11:33
[2020-10-25 11:45] LABS: BASO % 0 % (0-3); EOS # 0.1 x10^3/uL (0.0-0.7); EOS % 1 % (0-3); HEMATOCRIT 37.1 % (39.0-53.0); HEMOGLOBIN 12.1 g/dL (13.0-17.5); LYMPH # 0.5 x10^3/uL (1.0-4.8); LYMPH % 4 % (24-48); MEAN CORPUSCULAR HEMOGLOBIN 30 pg (25-35); MEAN CORPUSCULAR HGB CONC 33 g/dL (31-37); MEAN CORPUSCULAR VOLUME 91 fL (79-100); MONO # 0.6 x10^3/uL (0.0-1.1); MONO % 5 % (0-9); NEUT # 9.9 x10^3/uL (1.8-7.7); NEUT % 89 % (31-73); PLATELET COUNT 196 x10^3/uL (140-400); RED CELL DISTRIBUTION WIDTH 16.9 % (11.5-14.5); WHITE BLOOD COUNT 11.1 x10^3/uL (4.0-11.0)
[2020-10-25] MEDS: IV NORMAL SALINE 1000ML BAG 1,000 ML IV SCH ×2 (11:53→14:00)
[2020-10-25 11:54] LABS: CALCIUM 8.5 mg/dL (8.5-10.1); GFR 71.2; POTASSIUM 3.5 mmol/L (3.5-5.1)
[2020-10-25 12:00] LABS: ALBUMIN 2.1 g/dL (3.4-5.0); ALBUMIN/GLOBULIN RATIO 0.4 (1.0-1.7); TOTAL BILIRUBIN 0.7 mg/dL (0.2-1.0); TOTAL PROTEIN 7.3 g/dL (6.4-8.2)
--- NOTE | 2020-10-25 12:06 | EKG ---
[facility] [address] [place] [address] Test Date: 2020-10-25 Test Time: 11:18:34 Pat Name: KAROLINE LLAMAS Department: Room: Gender: M Pediatric Nurse: : 1935 Requested By: SEB DAUGHERTY Order Number: [id number] Reading MD: Measurements Intervals [place] Rate: 123 P: -82 GA: 136 QRS: 40 QRSD: 114 T: 54 QT: 328 QTc: 475 Interpretive Statements SINUS TACHYCARDIA LVH WITH REPOLARIZATION ABNORMALITY ABNORMAL ECG RI6.01 No previous ECG available for comparison
--- NOTE | 2020-10-25 12:08 | RAD ---
EXAM: Chest, single view. HISTORY: Fever. COMPARISON: 10/10/2020 FINDINGS: A frontal view of the chest is obtained. There has been slight interval decrease in diffuse interstitial infiltrate. There is no consolidation, pleural effusion or pneumothorax. There is a sta ble cardiac silhouette. There are calcified granulomas, primarily in a right paratracheal distributio n. IMPRESSION: Decrease in diffuse interstitial infiltrate. Electronically signed by: Светлана Reed MD (10/25/2020 12:06 PM) [id number]
[2020-10-25 12:16] LABS: INFLUENZA A PATIENT NEGATIVE (NEGATIVE); INFLUENZA B PATIENT NEGATIVE (NEGATIVE)
[2020-10-25 12:32] LABS: BILIRUBIN,URINE NEGATIVE (NEG); CLARITY,URINE CLOUDY; COLOR,URINE YELLOW; NITRITE,URINE POSITIVE (NEG); PROTEIN,URINE 30 mg/dL (NEG-TRACE); UROBILINOGEN,URINE 0.2 mg/dL (0.2 mg/dL)
[2020-10-25 12:47] LABS: BACTERIA,URINE MANY /HPF (0-FEW); WBC,URINE TNTC /HPF (0-4)
[2020-10-25] MEDS ORDERED: PIPERACILLIN/TAZOBACTAM 3.375 GM in IV NORMAL SALINE 50ML 50 ML IV ONE (13:30)
[2020-10-25] MEDS ORDERED: ACETAMINOPHEN 500 MG TABLET PO ONE (13:30)
[2020-10-25 13:58] LABS: % BASOS 2 % (0-3); % LYMPHS 7 % (24-48); % MONOS 5 % (0-10); % SEGS 86 % (35-66); PLT ESTIMATE ADEQUATE (ADEQUATE)
[2020-10-25 13:59] LABS: POLYCHROMASIA SLIGHT; TOXIC GRANULATION SLIGHT
[2020-10-25] MEDS ORDERED: ACETAMINOPHEN 325 MG TABLET. PO PRN (14:15)
[2020-10-25] MEDS ORDERED: MORPHINE SULFATE 2 MG/ML VIAL. IV PRN (14:15)
[2020-10-25] MEDS ORDERED: IV NORMAL SALINE 1000ML BAG 1,000 ML IV ONE (14:15)
[2020-10-25] MEDS ORDERED: ONDANSETRON PF 4 MG/2 ML VIAL. IV PRN (14:15)
[2020-10-25 14:45] VITALS: BP 80/49
[2020-10-25 15:20] VITALS: BP 80/49
[2020-10-25 19:00] VITALS: BP 93/51
[2020-10-25] MEDS: PIPERACILLIN/TAZOBACTAM 3.375 GM in IV NORMAL SALINE 50ML 50 ML IV SCH (21:40)
[2020-10-25 23:00] VITALS: BP 90/45
[2020-10-26 03:00] VITALS: BP 80/41
[2020-10-26] MEDS: PIPERACILLIN/TAZOBACTAM 3.375 GM in IV NORMAL SALINE 50ML 50 ML IV SCH ×4 (05:56→23:16)
[2020-10-26 07:00] VITALS: BP 97/51
[2020-10-26 08:08] LABS: BASO # 0.1 x10^3/uL (0.0-0.2); BASO % 1 % (0-3); EOS # 0.3 x10^3/uL (0.0-0.7); EOS % 3 % (0-3); HEMATOCRIT 33.7 % (39.0-53.0); HEMOGLOBIN 11.1 g/dL (13.0-17.5); LYMPH # 0.5 x10^3/uL (1.0-4.8); LYMPH % 4 % (24-48); MEAN CORPUSCULAR HEMOGLOBIN 30 pg (25-35); MEAN CORPUSCULAR HGB CONC 33 g/dL (31-37); MEAN CORPUSCULAR VOLUME 91 fL (79-100); MONO # 0.4 x10^3/uL (0.0-1.1); MONO % 4 % (0-9); NEUT # 9.3 x10^3/uL (1.8-7.7); NEUT % 88 % (31-73); PLATELET COUNT 171 x10^3/uL (140-400); RED CELL DISTRIBUTION WIDTH 17.8 % (11.5-14.5); WHITE BLOOD COUNT 10.6 x10^3/uL (4.0-11.0)
[2020-10-26 08:15] LABS: ALBUMIN 1.7 g/dL (3.4-5.0); ALBUMIN/GLOBULIN RATIO 0.4 (1.0-1.7); CALCIUM 7.8 mg/dL (8.5-10.1); CREATININE 0.8 mg/dL (0.7-1.3); GFR 92.1; TOTAL BILIRUBIN 0.7 mg/dL (0.2-1.0)
[2020-10-26 08:22] LABS: POTASSIUM 2.8 mmol/L (3.5-5.1)
--- NOTE | 2020-10-26 09:29 | NUR ---
TULIO following. Discussed with RN. 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 Pt does not need a COVID test to return as he was positive in September 2020. Pt on room air, clear liquid diet. RN anticipates discharge in the next day or two. SW to fax clinicals to [facility], when more available. TULIO will continue to follow.
--- NOTE | 2020-10-26 09:39 | NUR ---
Lab called this morning regarding patient Critical Lab value of K =2.8. Dr. Jaeger was paged and notified at 0914 and ordered received.
[2020-10-26] MEDS ORDERED: POTASSIUM BICARB 10 MEQ EFFERVESCENT TABLET. PO ONE (10:00)
--- NOTE | 2020-10-26 10:24 | NUR ---
Positive blood culture with gram + cocci in cluster, suggestive of staph in [address] Jaeger was paged and notified and ordered received.
[2020-10-26 11:00] VITALS: BP 85/42
[2020-10-26] MEDS ORDERED: VANCOMYCIN PER PHARMACY MC PRN (11:15)
[2020-10-26] MEDS ORDERED: VANCOMYCIN 1.5 GM in IV NORMAL SALINE 500ML BAG 500 ML IV ONE (11:30)
--- NOTE | 2020-10-26 14:01 | NUR ---
Pharmacy Vancomycin Dosing Note S:Consulted to monitor and dose vancomycin started 10/26/20. O:KAROLINE LLAMAS is a 85 year old M with bacteremia, UTI. Height: 5 feet, 10 inches Weight: 67.0 kg Dosing Weight: Actual Other Antibiotics: ZOSYN 3.375G IV Q6HRS LABS: Last BUN: 9 Last Creatinine: 0.8 Creatinine Clearance: 52 mL/min Last WBC: 10.6 Last Procalcitonin: 0.11 Tmax (past 24 hours): 98.5 Microbiology: BLOOD CX (10/25): GPC 10/08 URINE CX (10/25): E.COLI I/O: 1150/2 voids A: Patient requires vancomycin for bacteremia, goal trough 15-20 mcg/ml. Patient's SCr is 0.8 with an eCrCl of 52 ml/min. Initiate the following: P: 1. Initiate Vancomycin 1500 mg IV x 1 dose, then 1000 mg IV q18h 2. Follow up Trough level on 10/27/20 at 2230 3. Pharmacy will continue to monitor, follow and adjust therapy as needed. [facility], 10/26/20 [id number]
[2020-10-26 14:56] VITALS: BP 89/47
--- NOTE | 2020-10-26 17:14 | NUR ---
Dr. Jaeger was paged and notified regarding patient hand tremors but no new ordered received at this time. Dr. Jaeger will check on the patient tomorrow
[2020-10-26 19:00] VITALS: BP 92/57
--- NOTE | 2020-10-26 19:20 | CONS ---
DATE OF CONSULTATION: 10/26/2020 REFERRING PHYSICIAN: Db Jaeger MD REASON FOR CONSULTATION: Bacteremia. HISTORY OF PRESENT ILLNESS: An 85-year-old male, long term resident with history of type 2 diabetes, left below knee amputation, COPD, atrial fibrillation, hypertension, hyperlipidemia, benign prostatic hypertrophy, history of COVID-19 on 09/12/2020, history of acute on chronic CHF, presented to the ER with fever. The patient had received COVID-19 vaccine the day prior to admission and then spiked a fever. The patient is a poor historian, hard of hearing. History obtained from the chart and medical staff. The patient's white count was 11.1 with lactic acidosis. LFT elevation, procalcitonin of 0.11. UA showed large leukocyte esterase, wbc's too numerous to count. Blood cultures were done on admission, 1/3 bottles, positive for gram-positive cocci in clusters, suggestive of Staph. Urine culture greater than 100,000 E. coli. The patient is on IV vancomycin and Zosyn. ID consultation has been requested for antibiotic management. PAST MEDICAL HISTORY: COVID-19 on 09/12/2020, diabetes with diabetic neuropathy, left below knee amputation, hypertension, hyperlipidemia, atrial fibrillation, COPD, benign prostatic hypertrophy, CHF, non-STEMI, peripheral arterial disease. SOCIAL HISTORY: Negative for smoking, ETOH, or illicit drug use. ALLERGIES: No known drug allergies. CURRENT MEDICATIONS: Reviewed. Zosyn, vancomycin x 1. REVIEW OF SYSTEMS: Negative except for above, though limited. PHYSICAL EXAMINATION: VITAL SIGNS: Temperature 98.5, pulse 85, respiratory rate 18, blood pressure 85/42, oxygen saturation 95% on room air, T-max was 102.8. GENERAL: Alert, awake, hard of hearing male, in no acute distress. HEENT: Normocephalic, atraumatic. Oral mucosa dry. NECK: Supple. No JVD. LUNGS: Clear bilaterally. HEART: S1, S2 regular. ABDOMEN: Soft, nontender, nondistended. GENITOURINARY: Briefs in place. No Valero. EXTREMITIES: Left BKA. No edema. NEUROLOGIC: Alert, follows commands, somewhat forgetful. SKIN: PIV looks okay. LABORATORY DATA: WBC 11.1, now 10.6, hemoglobin 12.1, hematocrit 37.1, platelets 196. Lactate 2.9, repeat is 1.1. Sodium 144, potassium 2.8, chloride 109, bicarbonate 28, BUN 9, creatinine 0.8, glucose 120, AST 106, ALT 88, alkaline phosphatase 172, albumin 1.7. UA shows large leukocyte esterase, wbc's too numerous to count. Influenza screen negative. MICROBIOLOGY: Blood culture 1/3 bottles positive for GPC Staph. ID and GEE pending E. coli. Greater than 100,000 E. coli. IMAGING: Chest x-ray shows decrease in diffuse interstitial infiltrates. IMPRESSION: 1. Fever. 2. Lactic acidosis. 3. Gram-positive cocci bacteremia, 1/3 bottles present on admission, could be a contaminant. 4. Escherichia coli urinary tract infection. 5. Abnormal liver function tests. 6. Diabetes with neuropathy. 7. Left below knee amputation. 8. Atrial fibrillation. 9. Hypokalemia. RECOMMENDATIONS: 1. Continue Zosyn. 2. Status post one dose of vancomycin. 3. Follow up GPC in blood cultures. 4. Follow up UC 5. Maintain aspiration precaution. Discussed with nursing staff. Thank you for allowing me to participate in this patient's care. If you have any questions, do not hesitate to contact me. RICK TRUONG MD DR: DRAKE/julia JOB#: [id number] / [id number] SHIKHA
[2020-10-26] MEDS: LACTOBACILLUS RHAMNOSUS GG 1 CAPSULE. PO SCH (21:31)
[2020-10-26 23:00] VITALS: BP 99/50
[2020-10-27 02:56] VITALS: BP 108/64
[2020-10-27] MEDS ORDERED: VANCOMYCIN 1 GM in IV NORMAL SALINE 250ML 250 ML IV SCH (05:00)
[2020-10-27] MEDS: PIPERACILLIN/TAZOBACTAM 3.375 GM in IV NORMAL SALINE 50ML 50 ML IV SCH (06:53)
[2020-10-27 07:00] VITALS: BP 112/62
[2020-10-27] MEDS: LACTOBACILLUS RHAMNOSUS GG 1 CAPSULE. PO SCH ×2 (07:58→20:35)
--- NOTE | 2020-10-27 08:23 | HP ---
ADMIT DATE: 10/27/2020 CHIEF COMPLAINT AND HISTORY OF PRESENT ILLNESS: This 85-year-old white male is well known to me in followup in the office and over time in a longterm at [facility]. The patient was febrile, encephalopathic and hypoxic at the longterm and transferred to the Emergency Room for further evaluation. He had received his COVID vaccine the day prior and was running high fevers. He has already had COVID and was hospitalized earlier this winter for the same at least on one occasion and possibly two. He was admitted with the fever and evidence of urinary tract infection with some encephalopathic changes on admission. PAST MEDICAL HISTORY: Remarkable for left [id number] amputation for peripheral arterial disease. He has diabetes, COPD, depression, hyperlipidemia, history of kidney stones, chronic low back pain. MEDICATIONS: Brought with the patient, listed on the computer and have been addressed. ALLERGIES: He has no known drug allergies. SOCIAL HISTORY: He is a lifetime nonsmoker, nondrinker. Does not use drugs. He is single, lives at a longterm. FAMILY HISTORY: Noncontributory. REVIEW OF SYSTEMS: Remarkable for him feeling significantly better by the time of my examination on 10/26 in the morning. He appears to be back to his normal baseline lucidity and was complaining of general aches and pains including some abdominal and nausea. PHYSICAL EXAMINATION: GENERAL: He is a well-developed, well-nourished white male, in no acute distress. VITAL SIGNS: Stable. He was 102.8 on admission, but has not been febrile since. HEAD, EYES, EARS, NOSE AND THROAT: Unremarkable. NECK: Supple without adenopathy or thyromegaly. CHEST: Clear to auscultation and percussion. HEART: Regular rate and rhythm without S3, S4 or murmur. ABDOMEN: Soft, nontender, without hepatosplenomegaly or masses. There is no CVA tenderness present. EXTREMITIES: Without cyanosis, clubbing, or edema. NEUROLOGIC: He does have a left tqpzq-bzr-pxea amputation. NEUROLOGIC: He is intact. LABORATORY DATA: Initial laboratory is remarkable for white count of 11,100 with left shift. He is profoundly hypokalemic with a potassium of 2.8 on admission with normal renal function. Blood sugar is good. Urinalysis once again is consistent with urinary tract infection. Influenza A and B testing is negative. IMPRESSION: 1. Fever, leukocytosis, sepsis, likely due to urinary tract source. 2. Encephalopathy, improving. 3. Hypokalemia. PLAN: Potassium replacement, IV antibiotics. Blood cultures are pending and the patient will be monitored, managed and treated appropriately. RAJESH SZYMANSKI MD DR: EDMUND/julia JOB#: [id number] / [id number]
--- NOTE | 2020-10-27 08:27 | PN ---
DATE: 10/27/2020 DAILY PROGRESS NOTE SUBJECTIVE: This 85-year-old white male remains hospitalized for a picture less consistent with sepsis with encephalopathy, leukocytosis, fevers on admission. Complicating this, all is the fact that he had a COVID vaccine on the day prior to all this beginning and has had COVID recently and recovered from the same. OBJECTIVE: VITAL SIGNS: Stable. He has remained afebrile since admission. CHEST: Clear. HEART: Regular. ABDOMEN: Benign. He does complain of a little nausea this morning still. Blood culture has been reported out as positive for gram-positive cocci, which are unlikely from the urine and may be contaminant. An ID has been consulted for the same. He is currently covered with broad-spectrum antibiotics. IMPRESSION: 1. Encephalopathy, fever, leukocytosis consistent with sepsis picture, but likely urinary tract related. 2. Positive blood cultures. PLAN: Continue present antibiotics. Await final ID on blood cultures and Infectious Disease help is appreciated. RAJESH SZYMANSKI MD DR: EDMUND/julia JOB#: [id number] / [id number]
[2020-10-27 08:49] LABS: ALBUMIN 1.7 g/dL (3.4-5.0); ALBUMIN/GLOBULIN RATIO 0.4 (1.0-1.7); CALCIUM 7.6 mg/dL (8.5-10.1); CREATININE 0.9 mg/dL (0.7-1.3); GFR 80.4; TOTAL BILIRUBIN 0.9 mg/dL (0.2-1.0); TOTAL PROTEIN 6.4 g/dL (6.4-8.2)
--- NOTE | 2020-10-27 08:54 | PDOC ---
Infectious Disease Note Subjective: Subjective Patient feels better Denies fever, nausea, vomiting, diarrhea, abdominal pain Remains on room air Vital Signs: Vital Signs Vital Signs Date Time Temp Pulse Resp B/P (MAP) Pulse Ox O2 Delivery O2 Flow Rate FiO2 10/27/20 08:00 Room Air 10/27/20 07:00 98.0 89 16 112/62 (79) 92 98.0 Physical Exam: PHYSICAL EXAM GENERAL: Alert, awake, , in no acute distress. On room air HEENT: Normocephalic, atraumatic. Oral mucosa dry. NECK: Supple. No JVD. LUNGS: Clear bilaterally. HEART: S1, S2 regular. ABDOMEN: Soft, nontender, nondistended. GENITOURINARY: Briefs in place. No Valero. EXTREMITIES: Left BKA. No edema. NEUROLOGIC: Alert, follows commands, somewhat forgetful. SKIN: PIV looks okay. Medications: Inpatient Meds: Current Medications Medications (Trade) Dose Ordered Sig/Dominique Start Time Stop Time Status Last Admin Dose Admin Acetaminophen (Tylenol) 650 mg PRN Q4HRS PRN 10/25/20 14:15 10/26/20 14:14 DC Ibuprofen (Motrin) 600 mg 1X ONCE 10/25/20 11:30 10/25/20 11:32 DC 10/25/20 11:52 600 MG Lactobacillus Rhamnosus (Culturelle) 1 cap BID 10/26/20 21:00 10/27/20 07:58 1 CAP Morphine Sulfate (Morphine Sulfate) 2 mg PRN Q2HR PRN 10/25/20 14:15 10/26/20 14:14 DC 10/25/20 21:42 2 MG Ondansetron HCl (Zofran) 4 mg PRN Q8HRS PRN 10/25/20 14:15 10/26/20 14:14 DC 10/25/20 22:10 4 MG Piperacillin Sod/ Tazobactam Sod 3.375 gm/Sodium Chloride 50 ml @ 100 mls/hr Q6HRS 10/26/20 12:00 10/27/20 06:53 100 MLS/HR Potassium Bicarbonate (Potassium Effervescent Tablet) 40 meq 1X ONCE 10/26/20 10:00 10/26/20 10:01 DC 10/26/20 10:32 40 MEQ Sodium Chloride 1,000 ml @ 125 mls/hr 1X ONCE 10/25/20 14:15 10/25/20 22:14 DC 10/25/20 14:15 125 MLS/HR Vancomycin HCl (Vanco Per Pharmacy) 1 each PRN DAILY PRN 10/26/20 11:15 10/26/20 14:01 1 EACH Vancomycin HCl (Vancomycin Trough Level) 1 each 1X ONCE 10/27/20 22:30 10/27/20 22:31 Vancomycin HCl 1.5 gm/Sodium Chloride 500 ml @ 250 mls/hr 1X ONCE 10/26/20 11:30 10/26/20 13:29 DC 10/26/20 11:27 250 MLS/HR Vancomycin HCl 1 gm/Sodium Chloride 250 ml @ 250 mls/hr Q18H 10/27/20 05:00 10/27/20 05:07 250 MLS/HR Labs: Lab Laboratory Tests Test 10/26/20 11:32 10/26/20 16:34 10/26/20 20:26 10/27/20 07:30 Glucose (Fingerstick) 147 mg/dL (70-99) 158 mg/dL (70-99) 157 mg/dL (70-99) 151 mg/dL (70-99) Objective: Assessment: 1. Fever. 2. Lactic acidosis. 3. Gram-positive cocci bacteremia, 1/3 bottles present on admission, could be a contaminant. 4. Escherichia coli urinary tract infection. 5. Abnormal liver function tests. 6. Diabetes with neuropathy. 7. Left below knee amputation. 8. Atrial fibrillation. 9. Hypokalemia. Plan: Plan of Care DC Zosyn Ceftriaxone Dose Dapto until blood cultures are resulted Continue supportive care RICK TRUONG MD Oct 27, 2020 08:54
[2020-10-27 09:15] LABS: POTASSIUM 2.9 mmol/L (3.5-5.1)
--- NOTE | 2020-10-27 09:25 | NUR ---
SW following. Discussed with RN, pt from [facility], room air, clear liquid diet. IV abx. RN does not anticipate discharge over the weekend. SW added pt to the weekend list in case plans change. Clinicals faxed to [facility]. [facility] will continue to follow.
--- NOTE | 2020-10-27 09:25 | NUR ---
Patient has critical K+ 2.9. Dr. Jaeger notified and orders recieved for 40 of K+ BID for today.
[2020-10-27] MEDS ORDERED: POTASSIUM CHLORIDE 20 MEQ TABLET.ER. PO ONE ×2 (09:30→12:00)
[2020-10-27] MEDS ORDERED: cefTRIAXone IV Push 2 GM VIAL. IVP SCH (09:30)
[2020-10-27] MEDS ORDERED: cefTRIAXone IV Push 1 GM VIAL. IVP SCH ×2 (09:30→10:00)
[2020-10-27 11:00] VITALS: BP 105/65
[2020-10-27] MEDS ORDERED: DAPTOmycin (GENERIC) IVPB 400 MG in IV NORMAL SALINE 50ML 50 ML IV SCH (11:00)
[2020-10-27 15:00] VITALS: BP 123/69
[2020-10-27 19:00] VITALS: BP 118/73
[2020-10-27 22:45] VITALS: BP 105/72
[2020-10-28 02:57] VITALS: BP 119/63
[2020-10-28 07:00] VITALS: BP 129/76
[2020-10-28] MEDS: MULTIVITAMIN with MINERAL TABLET. PO SCH (08:49)
[2020-10-28] MEDS: LACTOBACILLUS RHAMNOSUS GG 1 CAPSULE. PO SCH ×2 (08:49→20:53)
--- NOTE | 2020-10-28 08:52 | PDOC ---
Infectious Disease Note Subjective: Subjective Patient denies any complaints, forgetful no fevers Remains on room air Vital Signs: Vital Signs Vital Signs Date Time Temp Pulse Resp B/P (MAP) Pulse Ox O2 Delivery O2 Flow Rate FiO2 10/28/20 07:00 97.7 104 16 129/76 (93) 98 Room Air 97.7 Physical Exam: PHYSICAL EXAM GENERAL: Alert, awake, , in no acute distress. On room air HEENT: Normocephalic, atraumatic. Oral mucosa dry. NECK: Supple. No JVD. LUNGS: Clear bilaterally. HEART: S1, S2 regular. ABDOMEN: Soft, nontender, nondistended. GENITOURINARY: Briefs in place. No Valero. EXTREMITIES: Left BKA. No edema. NEUROLOGIC: Alert, follows commands, somewhat forgetful. SKIN: PIV looks okay. Medications: Inpatient Meds: Current Medications Medications (Trade) Dose Ordered Sig/Dominique Start Time Stop Time Status Last Admin Dose Admin Acetaminophen (Tylenol) 650 mg PRN Q4HRS PRN 10/25/20 14:15 10/26/20 14:14 DC Ceftriaxone Sodium (Rocephin) 1 gm Q24H 10/27/20 10:00 10/27/20 09:52 1 GM Daptomycin 400 mg/ Sodium Chloride 50 ml @ 100 mls/hr Q24H 10/27/20 11:00 10/27/20 10:33 100 MLS/HR Ibuprofen (Motrin) 600 mg 1X ONCE 10/25/20 11:30 10/25/20 11:32 DC 10/25/20 11:52 600 MG Lactobacillus Rhamnosus (Culturelle) 1 cap BID 10/26/20 21:00 10/27/20 20:35 1 CAP Morphine Sulfate (Morphine Sulfate) 2 mg PRN Q2HR PRN 10/25/20 14:15 10/26/20 14:14 DC 10/25/20 21:42 2 MG Multivitamins (Thera M Plus) 1 tab DAILY 10/28/20 09:00 Ondansetron HCl (Zofran) 4 mg PRN Q8HRS PRN 10/25/20 14:15 10/26/20 14:14 DC 10/25/20 22:10 4 MG Piperacillin Sod/ Tazobactam Sod 3.375 gm/Sodium Chloride 50 ml @ 100 mls/hr Q6HRS 10/26/20 12:00 10/27/20 08:55 DC 10/27/20 06:53 100 MLS/HR Potassium Bicarbonate (Potassium Effervescent Tablet) 40 meq 1X ONCE 10/26/20 10:00 10/26/20 10:01 DC 10/26/20 10:32 40 MEQ Potassium Chloride (Klor-Con) 40 meq 1X ONCE 10/27/20 12:00 10/27/20 12:01 DC 10/27/20 11:39 40 MEQ Sodium Chloride 1,000 ml @ 125 mls/hr 1X ONCE 10/25/20 14:15 10/25/20 22:14 DC 10/25/20 14:15 125 MLS/HR Vancomycin HCl (Vanco Per Pharmacy) 1 each PRN DAILY PRN 10/26/20 11:15 10/27/20 08:55 DC 10/26/20 14:01 1 EACH Vancomycin HCl (Vancomycin Trough Level) 1 each 1X ONCE 10/27/20 22:30 10/27/20 08:55 DC Vancomycin HCl 1.5 gm/Sodium Chloride 500 ml @ 250 mls/hr 1X ONCE 10/26/20 11:30 10/26/20 13:29 DC 10/26/20 11:27 250 MLS/HR Vancomycin HCl 1 gm/Sodium Chloride 250 ml @ 250 mls/hr Q18H 10/27/20 05:00 10/27/20 09:00 DC 10/27/20 05:07 250 MLS/HR Labs: Lab Laboratory Tests Test 10/27/20 11:41 10/27/20 20:35 10/28/20 07:21 Glucose (Fingerstick) 169 mg/dL (70-99) 120 mg/dL (70-99) 149 mg/dL (70-99) Objective: Assessment: 1. Fever.resolved 2. Lactic acidosis. improved 3. Gram-positive cocci bacteremia, 1/3 bottles present on admission, could be a contaminant.coag neg staph likely contaminant 4. Escherichia coli urinary tract infection. 5. Abnormal liver function tests. 6. Diabetes with neuropathy. 7. Left below knee amputation. 8. Atrial fibrillation. 9. Hypokalemia. Plan: Plan of Care DC Ceftriaxone and Daptomycin Keflex for 7 days probiotics Continue supportive care d/w RICK SAN MD Oct 28, 2020 08:52
--- NOTE | 2020-10-28 09:55 | PDOC ---
Provider Note Date of Service: DATE: 10/28/20 TIME: 09:54 Provider Note no temp, vss, same , exam same, on keflex re uti- K+ low 2.9, will add po now, home meds renewed Justifications for Admission Other Justification GIORGI MORALES MD Oct 28, 2020 09:55
[2020-10-28] MEDS ORDERED: ACETAMINOPHEN 325 MG TABLET. PO PRN (10:00)
[2020-10-28] MEDS: METOPROLOL TART IMMED RELEASE 25 MG TABLET. PO SCH ×2 (10:00→20:55)
[2020-10-28] MEDS: DOCUSATE SODIUM 100 MG CAPSULE. PO SCH ×2 (10:00→20:53)
[2020-10-28] MEDS: PRIMIDONE 50 MG TABLET PO SCH ×3 (10:00→20:54)
[2020-10-28] MEDS ORDERED: IPRATRPIUM/ALBUTEROL 0.5/2.5MG 3 ML NEBU. IH PRN (10:00)
[2020-10-28] MEDS: GABAPENTIN 100 MG CAPSULE. PO SCH ×2 (10:00→20:55)
[2020-10-28] MEDS: ASPIRIN ENTERIC COATED 81 MG TABLET.DR. PO SCH (10:00)
[2020-10-28] MEDS: POTASSIUM CHLORIDE 10 MEQ TABLET.ER. PO SCH ×2 (10:15→12:54)
[2020-10-28] MEDS: TAMSULOSIN 0.4 MG CAP.ER.24H. PO SCH (10:15)
[2020-10-28] MEDS: SENNOSIDES/DOCUSATE 8.6/50MG TABLET. PO SCH (10:15)
[2020-10-28] MEDS: PIOGLITAZONE 15 MG TABLET. PO SCH (10:15)
[2020-10-28 10:29] LABS: ALBUMIN 1.7 g/dL (3.4-5.0); ALBUMIN/GLOBULIN RATIO 0.3 (1.0-1.7); CALCIUM 8.4 mg/dL (8.5-10.1); CREATININE 0.7 mg/dL (0.7-1.3); GFR 107.4; TOTAL BILIRUBIN 0.6 mg/dL (0.2-1.0); TOTAL PROTEIN 6.7 g/dL (6.4-8.2)
[2020-10-28 10:57] LABS: POTASSIUM 2.9 mmol/L (3.5-5.1)
[2020-10-28] MEDS: PANTOPRAZOLE 40 MG TABLET.DR. PO SCH (10:58)
[2020-10-28 11:00] VITALS: BP 132/78
[2020-10-28] MEDS ORDERED: POTASSIUM CHLORIDE 20 MEQ TABLET.ER. PO ONE (12:30)
[2020-10-28] MEDS: IV 1/2 NORMAL SALINE 1,000 ML IV SCH ×2 (12:54→22:40)
[2020-10-28] MEDS: CEPHALEXIN 250 MG CAPSULE. PO SCH ×3 (12:54→20:53)
[2020-10-28] MEDS: NYSTATIN TOPICAL POWDER 15GM BOTTLE. TP PRN ×2 (13:09→22:13)
[2020-10-28 15:00] VITALS: BP 123/82
[2020-10-28 19:10] VITALS: BP 117/66
[2020-10-28] MEDS: POTASSIUM CHLORIDE 20 MEQ TABLET.ER. PO SCH (20:51)
[2020-10-28] MEDS: HYDROcodone/APAP 5/325MG 1 TAB TABLET PO SCH (20:55)
[2020-10-28] MEDS: traZODone 100 MG TABLET. PO SCH (20:55)
[2020-10-28 22:52] VITALS: BP 111/72
[2020-10-29] MEDS: HYDROcodone/APAP 5/325MG 1 TAB TABLET PO SCH ×2 (01:27→20:30)
[2020-10-29 03:00] VITALS: BP 116/74
--- NOTE | 2020-10-29 03:05 | NUR ---
This RN spoke to RN at [facility]. They stated pt. was going to be evaluated by speech therapy at their facility but then pt. got transferred to [facility] so a speech evaluation was not completed. Pt. has been having trouble swallowing thin liquids tonight so this RN decided to place pt. on NPO status. Will continue to monitor.
[2020-10-29 07:00] VITALS: BP 124/79
[2020-10-29] MEDS: PANTOPRAZOLE 40 MG TABLET.DR. PO SCH (07:30)
[2020-10-29] MEDS: PIOGLITAZONE 15 MG TABLET. PO SCH (07:50)
[2020-10-29] MEDS: LACTOBACILLUS RHAMNOSUS GG 1 CAPSULE. PO SCH ×2 (07:50→20:29)
[2020-10-29] MEDS: TAMSULOSIN 0.4 MG CAP.ER.24H. PO SCH (07:50)
[2020-10-29] MEDS: ASPIRIN ENTERIC COATED 81 MG TABLET.DR. PO SCH (07:50)
[2020-10-29] MEDS: DOCUSATE SODIUM 100 MG CAPSULE. PO SCH ×2 (07:50→20:53)
[2020-10-29] MEDS: METOPROLOL TART IMMED RELEASE 25 MG TABLET. PO SCH ×2 (07:51→20:54)
[2020-10-29] MEDS: SENNOSIDES/DOCUSATE 8.6/50MG TABLET. PO SCH (07:51)
[2020-10-29] MEDS: GABAPENTIN 100 MG CAPSULE. PO SCH ×2 (07:51→20:54)
[2020-10-29] MEDS: POTASSIUM CHLORIDE 20 MEQ TABLET.ER. PO SCH ×2 (07:51→20:29)
[2020-10-29] MEDS: PRIMIDONE 50 MG TABLET PO SCH ×3 (07:51→20:29)
[2020-10-29] MEDS: CEPHALEXIN 250 MG CAPSULE. PO SCH ×4 (07:51→20:29)
[2020-10-29] MEDS: MULTIVITAMIN with MINERAL TABLET. PO SCH (07:52)
--- NOTE | 2020-10-29 08:01 | PDOC ---
Infectious Disease Note Subjective: Subjective Patient denies any complaints, forgetful no fevers Remains on room air Vital Signs: Vital Signs Vital Signs Date Time Temp Pulse Resp B/P (MAP) Pulse Ox O2 Delivery O2 Flow Rate FiO2 10/29/20 07:00 98.0 102 18 124/79 (94) 95 Room Air 98.0 Physical Exam: PHYSICAL EXAM GENERAL: Alert, awake, , in no acute distress. On room air HEENT: Normocephalic, atraumatic. Oral mucosa dry. NECK: Supple. No JVD. LUNGS: Clear bilaterally. HEART: S1, S2 regular. ABDOMEN: Soft, nontender, nondistended. GENITOURINARY: Briefs in place. No Valero. EXTREMITIES: Left BKA. No edema. NEUROLOGIC: Alert, follows commands, somewhat forgetful. SKIN: PIV looks okay. Medications: Inpatient Meds: Current Medications Medications (Trade) Dose Ordered Sig/Dominique Start Time Stop Time Status Last Admin Dose Admin Acetaminophen (Tylenol) 325 mg PRN Q4HRS PRN 10/28/20 10:00 Acetaminophen/ Hydrocodone Bitart (Lortab 5/325) 1 tab HS 10/28/20 21:00 10/29/20 01:27 1 TAB Albuterol/ Ipratropium (Duoneb) 3 ml PRN Q4HRS PRN 10/28/20 10:00 Aspirin (Ecotrin) 81 mg [id number] 10/28/20 10:00 Ceftriaxone Sodium (Rocephin) 1 gm Q24H 10/27/20 10:00 10/28/20 09:41 DC 10/27/20 09:52 1 GM Cephalexin HCl (Keflex) 500 mg QID 10/28/20 13:00 10/28/20 20:53 500 MG Daptomycin 400 mg/ Sodium Chloride 50 ml @ 100 mls/hr Q24H 10/27/20 11:00 10/28/20 09:41 DC 10/27/20 10:33 100 MLS/HR Docusate Sodium (Colace) 100 mg BID 10/28/20 10:00 10/28/20 20:53 100 MG Gabapentin (Neurontin) 100 mg BID 10/28/20 10:00 Ibuprofen (Motrin) 600 mg 1X ONCE 10/25/20 11:30 10/25/20 11:32 DC 10/25/20 11:52 600 MG Lactobacillus Rhamnosus (Culturelle) 1 cap BID 10/26/20 21:00 10/28/20 20:53 1 CAP Metoprolol Tartrate (Lopressor) 25 mg BID 10/28/20 10:00 10/28/20 20:55 25 MG Morphine Sulfate (Morphine Sulfate) 2 mg PRN Q2HR PRN 10/25/20 14:15 10/26/20 14:14 DC 10/25/20 21:42 2 MG Multivitamins (Thera M Plus) 1 tab DAILY 10/28/20 09:00 10/28/20 08:49 1 TAB Nystatin (Nystop) 60 lito PRN Q8HRS PRN 10/28/20 10:00 10/28/20 22:13 1 LITO Ondansetron HCl (Zofran) 4 mg PRN Q8HRS PRN 10/25/20 14:15 10/26/20 14:14 DC 10/25/20 22:10 4 MG Pantoprazole Sodium (Protonix) 40 mg DAILYAC 10/28/20 11:30 Pioglitazone HCl (Actos) 30 mg DAILY 10/28/20 10:15 Piperacillin Sod/ Tazobactam Sod 3.375 gm/Sodium Chloride 50 ml @ 100 mls/hr Q6HRS 10/26/20 12:00 10/27/20 08:55 DC 10/27/20 06:53 100 MLS/HR Potassium Bicarbonate (Potassium Effervescent Tablet) 40 meq 1X ONCE 10/26/20 10:00 10/26/20 10:01 DC 10/26/20 10:32 40 MEQ Potassium Chloride (Klor-Con) 40 meq 1X ONCE 10/28/20 12:30 10/28/20 12:31 DC 10/28/20 12:54 40 MEQ Primidone (Mysoline) 50 mg TID 10/28/20 10:00 10/28/20 20:54 50 MG Senna/Docusate Sodium (Senna Plus) 2 tab DAILY 10/28/20 10:15 Sodium Chloride 1,000 ml @ 100 mls/hr Q10H 10/28/20 13:00 10/28/20 22:40 100 MLS/HR Tamsulosin HCl (Flomax) 0.4 mg DAILY 10/28/20 10:15 Trazodone HCl (Desyrel) 100 mg QHS 10/28/20 21:00 10/28/20 20:55 100 MG Vancomycin HCl (Vanco Per Pharmacy) 1 each PRN DAILY PRN 10/26/20 11:15 10/27/20 08:55 DC 10/26/20 14:01 1 EACH Vancomycin HCl (Vancomycin Trough Level) 1 each 1X ONCE 10/27/20 22:30 10/27/20 08:55 DC Vancomycin HCl 1.5 gm/Sodium Chloride 500 ml @ 250 mls/hr 1X ONCE 10/26/20 11:30 10/26/20 13:29 DC 10/26/20 11:27 250 MLS/HR Vancomycin HCl 1 gm/Sodium Chloride 250 ml @ 250 mls/hr Q18H 10/27/20 05:00 10/27/20 09:00 DC 10/27/20 05:07 250 MLS/HR Labs: Lab Laboratory Tests Test 10/28/20 08:35 10/28/20 11:26 10/28/20 16:34 10/28/20 19:31 Sodium Level 150 mmol/L (136-145) Potassium Level 2.9 mmol/L (3.5-5.1) Chloride Level 112 mmol/L (98-107) Carbon Dioxide Level 26 mmol/L (21-32) Anion Gap 12 (6-14) Blood Urea Nitrogen 7 mg/dL (8-26) Creatinine 0.7 mg/dL (0.7-1.3) Estimated GFR (Cockcroft-Gault) 107.4 BUN/Creatinine Ratio 10 (6-20) Glucose Level 186 mg/dL (70-99) Calcium Level 8.4 mg/dL (8.5-10.1) Total Bilirubin 0.6 mg/dL (0.2-1.0) Aspartate Amino Transf (AST/SGOT) 70 U/L (15-37) Alanine Aminotransferase (ALT/SGPT) 65 U/L (16-63) Alkaline Phosphatase 162 U/L (46-116) Creatine Kinase 100 U/L (39-308) Total Protein 6.7 g/dL (6.4-8.2) Albumin 1.7 g/dL (3.4-5.0) Albumin/Globulin Ratio 0.3 (1.0-1.7) Glucose (Fingerstick) 176 mg/dL (70-99) 165 mg/dL (70-99) 196 mg/dL (70-99) Test 10/29/20 07:11 Glucose (Fingerstick) 143 mg/dL (70-99) Objective: Assessment: 1. Fever.resolved 2. Lactic acidosis. improved 3. Gram-positive cocci bacteremia, 1/3 bottles present on admission, could be a contaminant.coag neg staph likely contaminant 4. Escherichia coli urinary tract infection. 5. Abnormal liver function tests. 6. Diabetes with neuropathy. 7. Left below knee amputation. 8. Atrial fibrillation. 9. Hypokalemia. Plan: Plan of Care DC Ceftriaxone and Daptomycin Keflex for 7 days probiotics Continue supportive care d/w RICK SAN MD Oct 29, 2020 08:01
--- NOTE | 2020-10-29 09:32 | PDOC ---
Provider Note Date of Service: DATE: 10/29/20 TIME: 09:26 Provider Note vss, no temp, remains anorexic , poor output- Na+ up, K+ still low so will change iv fluid- TAs slowly better from admit- follow lytes Justifications for Admission Other Justification GIORGI MORALES MD Oct 29, 2020 09:32
[2020-10-29 11:00] VITALS: BP 109/67
[2020-10-29] MEDS: POTASSIUM CHLORIDE 40 MEQ in IV DEXTROSE 5% 1,000 ML IV SCH (11:25)
[2020-10-29 15:00] VITALS: BP 122/80
[2020-10-29 19:15] VITALS: BP 121/71
[2020-10-29] MEDS: traZODone 100 MG TABLET. PO SCH (20:30)
[2020-10-29 23:25] VITALS: BP 97/56
[2020-10-30] MEDS: POTASSIUM CHLORIDE 40 MEQ in IV DEXTROSE 5% 1,000 ML IV SCH ×2 (00:01→13:29)
[2020-10-30 03:14] VITALS: BP 117/70
[2020-10-30] MEDS: PANTOPRAZOLE 40 MG TABLET.DR. PO SCH (07:01)
[2020-10-30] MEDS: ASPIRIN ENTERIC COATED 81 MG TABLET.DR. PO SCH (07:01)
[2020-10-30] MEDS: TAMSULOSIN 0.4 MG CAP.ER.24H. PO SCH (07:02)
[2020-10-30] MEDS: PIOGLITAZONE 15 MG TABLET. PO SCH (07:02)
[2020-10-30] MEDS: DOCUSATE SODIUM 100 MG CAPSULE. PO SCH ×2 (07:02→21:00)
[2020-10-30] MEDS: LACTOBACILLUS RHAMNOSUS GG 1 CAPSULE. PO SCH ×2 (07:02→21:00)
[2020-10-30] MEDS: GABAPENTIN 100 MG CAPSULE. PO SCH ×2 (07:02→21:00)
[2020-10-30] MEDS: MULTIVITAMIN with MINERAL TABLET. PO SCH (07:03)
[2020-10-30] MEDS: SENNOSIDES/DOCUSATE 8.6/50MG TABLET. PO SCH (07:03)
[2020-10-30 07:11] VITALS: BP 121/74
[2020-10-30] MEDS: METOPROLOL TART IMMED RELEASE 25 MG TABLET. PO SCH ×2 (07:30→21:00)
[2020-10-30] MEDS: POTASSIUM CHLORIDE 20 MEQ TABLET.ER. PO SCH ×2 (07:31→21:00)
[2020-10-30] MEDS: CEPHALEXIN 250 MG CAPSULE. PO SCH (07:42)
[2020-10-30] MEDS: PRIMIDONE 50 MG TABLET PO SCH ×3 (07:42→21:00)
--- NOTE | 2020-10-30 08:42 | PN ---
DATE: 10/30/2020 DAILY PROGRESS NOTE LOCATION: He is in room 404. SUBJECTIVE: This 85-year-old white male remains hospitalized for sepsis due to urinary tract infection with encephalopathy, leukocytosis and fever. He has remained afebrile over the last several days. White count has dropped back into the normal range. E. coli has been found on the urine cultures and ID is adjusting antibiotics. He continues to be hypokalemic despite lots of potassium replacement and this morning's labs are pending regarding the same. OBJECTIVE: VITAL SIGNS: Stable. He is afebrile. CHEST: Clear. HEART: Regular. ABDOMEN: Benign. LABORATORY AND DIAGNOSTIC DATA: Blood cultures grew Staph epidermidis, which is a contaminant. IMPRESSION: 1. Urinary tract infection with fever, leukocytosis and encephalopathy, all improving. 2. Hypokalemia. PLAN: Continue present antibiotics. Await morning labs to direct further potassium replacement. Infectious Disease help is appreciated. RAJESH SZYMANSKI MD DR: EDMUND/julia JOB#: [id number] / [id number]
[2020-10-30 09:06] LABS: CALCIUM 7.8 mg/dL (8.5-10.1); CREATININE 0.6 mg/dL (0.7-1.3); GFR 128.4; POTASSIUM 3.4 mmol/L (3.5-5.1)
--- NOTE | 2020-10-30 09:20 | NUR ---
SW following. Discussed with RN, pt from [facility]. Pt having a video swallow study today. Potassium being replaced. Pt not ready for discharge today. SW will continue to follow.
--- NOTE | 2020-10-30 09:32 | PDOC ---
Infectious Disease Note Subjective Subjective Patient denies any complaints, forgetful no fevers Remains on room air ROS ROS no n/v/d/ Vital Sign Vital Signs Vital Signs Date Time Temp Pulse Resp B/P (MAP) Pulse Ox O2 Delivery O2 Flow Rate FiO2 10/30/20 08:00 Room Air 10/30/20 07:11 97.6 103 18 121/74 (90) 95 97.6 Physical Exam PHYSICAL EXAM GENERAL: Alert, awake, , in no acute distress. On room air HEENT: Normocephalic, atraumatic. Oral mucosa dry. NECK: Supple. No JVD. LUNGS: Clear bilaterally. HEART: S1, S2 regular. ABDOMEN: Soft, nontender, nondistended. GENITOURINARY: Briefs in place. No Valero. EXTREMITIES: Left BKA. No edema. NEUROLOGIC: Alert, follows commands, somewhat forgetful. SKIN: PIV looks okay. Labs Lab Laboratory Tests Test 10/29/20 11:09 10/29/20 16:14 10/29/20 20:47 10/30/20 07:01 Glucose (Fingerstick) 132 mg/dL (70-99) 161 mg/dL (70-99) 158 mg/dL (70-99) 153 mg/dL (70-99) Test 10/30/20 08:05 Sodium Level 142 mmol/L (136-145) Potassium Level 3.4 mmol/L (3.5-5.1) Chloride Level 108 mmol/L (98-107) Carbon Dioxide Level 24 mmol/L (21-32) Anion Gap 10 (6-14) Blood Urea Nitrogen 3 mg/dL (8-26) Creatinine 0.6 mg/dL (0.7-1.3) Estimated GFR (Cockcroft-Gault) 128.4 Glucose Level 165 mg/dL (70-99) Calcium Level 7.8 mg/dL (8.5-10.1) Micro Microbiology 10/25/20 Urine Culture - Final, Complete 10/25/20 Antimicrobic Susceptibility - Final, Complete 10/25/20 Blood Culture - Preliminary, Resulted NO GROWTH AFTER 4 DAYS Objective Assessment 1. Fever.resolved 2. Lactic acidosis. improved 3. Gram-positive cocci bacteremia, 1/3 bottles present on admission, could be a contaminant.coag neg staph likely contaminant 4. Escherichia coli urinary tract infection. 5. Abnormal liver function tests. 6. Diabetes with neuropathy. 7. Left below knee amputation. 8. Atrial fibrillation. 9. Hypokalemia. Plan Plan of Care pt is not allowed oral, will change to rocephine for now probiotics Continue supportive care d/w YARY SAN MD Oct 30, 2020 09:32
[2020-10-30] MEDS: cefTRIAXone IV Push 2 GM VIAL. IVP SCH (09:52)
[2020-10-30 10:30] VITALS: BP 119/72
--- NOTE | 2020-10-30 12:37 | NUR ---
Wound/Ostomy Care Wound Type/Assessment: Wound consult for coccyx, buttock and penis wounds. Per Zelda Cummins APRN, Pt has widespread yeast rash with small open areas to bilateral groin, posterior scrotum, and gluteal fold. Treatment Recommendations/Plan: Nystatin ointment BID and PRN to rash Education provided: Pt educated on PU prevention and WC POC Offloading surface/device: TQ2H with wedge and heel floated on pillow Recommended Referrals/Tests: na Discharge Recommendations for dressings: continue as above noted
[2020-10-30 14:44] VITALS: BP 124/77
[2020-10-30 19:00] VITALS: BP 115/71
[2020-10-30] MEDS: NYSTATIN 100,000 UNIT/GM TOPICAL OINTMENT 15GM TUBE. TP SCH (21:00)
[2020-10-30] MEDS: HYDROcodone/APAP 5/325MG 1 TAB TABLET PO SCH (21:00)
[2020-10-30] MEDS: traZODone 100 MG TABLET. PO SCH (21:00)
[2020-10-30 23:00] VITALS: BP 118/72
[2020-10-31 03:00] VITALS: BP 117/69
[2020-10-31] MEDS: POTASSIUM CHLORIDE 40 MEQ in IV DEXTROSE 5% 1,000 ML IV SCH (03:39)
[2020-10-31] MEDS: ASPIRIN ENTERIC COATED 81 MG TABLET.DR. PO SCH (06:58)
[2020-10-31] MEDS: PANTOPRAZOLE 40 MG TABLET.DR. PO SCH (06:58)
[2020-10-31] MEDS: PIOGLITAZONE 15 MG TABLET. PO SCH (06:58)
[2020-10-31] MEDS: DOCUSATE SODIUM 100 MG CAPSULE. PO SCH ×2 (06:58→21:00)
[2020-10-31] MEDS: LACTOBACILLUS RHAMNOSUS GG 1 CAPSULE. PO SCH ×2 (06:58→21:00)
[2020-10-31] MEDS: MULTIVITAMIN with MINERAL TABLET. PO SCH (06:59)
[2020-10-31] MEDS: PRIMIDONE 50 MG TABLET PO SCH ×3 (06:59→21:00)
[2020-10-31] MEDS: GABAPENTIN 100 MG CAPSULE. PO SCH ×2 (06:59→21:00)
[2020-10-31] MEDS: SENNOSIDES/DOCUSATE 8.6/50MG TABLET. PO SCH (06:59)
[2020-10-31] MEDS: POTASSIUM CHLORIDE 20 MEQ TABLET.ER. PO SCH ×2 (06:59→10:08)
[2020-10-31] MEDS: METOPROLOL TART IMMED RELEASE 25 MG TABLET. PO SCH ×2 (06:59→21:00)
[2020-10-31] MEDS: TAMSULOSIN 0.4 MG CAP.ER.24H. PO SCH (06:59)
[2020-10-31 07:00] VITALS: BP 118/73
[2020-10-31] MEDS: NYSTATIN 100,000 UNIT/GM TOPICAL OINTMENT 15GM TUBE. TP SCH ×2 (07:00→21:22)
--- NOTE | 2020-10-31 07:01 | NUR ---
IP: C.diff order cancelled, therefore contact + precautions may be discontinued.
[2020-10-31] MEDS: cefTRIAXone IV Push 2 GM VIAL. IVP SCH (08:28)
--- NOTE | 2020-10-31 08:55 | PDOC ---
Infectious Disease Note Subjective Subjective Patient denies any complaints, forgetful no fevers Remains on room air ROS ROS no n/v/d/ Vital Sign Vital Signs Vital Signs Date Time Temp Pulse Resp B/P (MAP) Pulse Ox O2 Delivery O2 Flow Rate FiO2 10/31/20 07:00 98.5 109 18 118/73 (88) 94 Room Air 98.5 Physical Exam PHYSICAL EXAM GENERAL: Alert, awake, , in no acute distress. On room air HEENT: Normocephalic, atraumatic. Oral mucosa dry. NECK: Supple. No JVD. LUNGS: Clear bilaterally. HEART: S1, S2 regular. ABDOMEN: Soft, nontender, nondistended. GENITOURINARY: Briefs in place. No Valero. EXTREMITIES: Left BKA. No edema. NEUROLOGIC: Alert, follows commands, somewhat forgetful. SKIN: PIV looks okay. Labs Lab Laboratory Tests Test 10/30/20 11:00 10/30/20 15:54 10/30/20 20:43 10/31/20 07:40 Glucose (Fingerstick) 183 mg/dL (70-99) 159 mg/dL (70-99) 170 mg/dL (70-99) 175 mg/dL (70-99) Micro Microbiology 10/25/20 Urine Culture - Final, Complete 10/25/20 Antimicrobic Susceptibility - Final, Complete 10/25/20 Blood Culture - Preliminary, Resulted NO GROWTH AFTER 4 DAYS Objective Assessment 1. Fever.resolved 2. Lactic acidosis. improved 3. Gram-positive cocci bacteremia, 1/3 bottles present on admission, could be a contaminant.coag neg staph likely contaminant 4. Escherichia coli urinary tract infection. 5. Abnormal liver function tests. 6. Diabetes with neuropathy. 7. Left below knee amputation. 8. Atrial fibrillation. 9. Hypokalemia. Plan Plan of Care pt is not allowed oral, Rocephine for now failed swallow eval, may need PEG probiotics Continue supportive care d/w YARY SAN MD Oct 31, 2020 08:55
[2020-10-31 09:05] LABS: CALCIUM 8.2 mg/dL (8.5-10.1); CREATININE 0.7 mg/dL (0.7-1.3); GFR 107.4; POTASSIUM 3.4 mmol/L (3.5-5.1)
--- NOTE | 2020-10-31 10:15 | PN ---
DATE: 10/31/2020 LOCATION: He is in room 404. SUBJECTIVE: The patient is awake, alert, feeling better on a daily basis. Still complains of weakness. OBJECTIVE: VITAL SIGNS: Stable. He is afebrile. GENERAL: He is awake, alert and oriented and encephalopathy is completely resolved. CHEST: Clear. HEART: Regular. ABDOMEN: Benign. LABORATORY DATA: Potassium is up to 3.4 this morning. He still remains on IV fluids with potassium and we will stop this today and add oral potassium to see if he would hopefully be ready for discharge tomorrow on some oral potassium as he does seem to be doing better on a daily basis. IMPRESSION: 1. Urinary tract infection with fever, leukocytosis, encephalopathy, improving. 2. Hypokalemia. 3. Diabetes. 4. Left [id number]-abll amputation. PLAN: Continue present antibiotics, potassium changes as discussed above with possible discharge as soon as tomorrow. RAJESH SZYMANSKI MD DR: EDMUND/julia JOB#: [id number] / [id number]
[2020-10-31 11:00] VITALS: BP 117/69
[2020-10-31 15:00] VITALS: BP 115/68
[2020-10-31 19:00] VITALS: BP 117/77
[2020-10-31] MEDS: traZODone 100 MG TABLET. PO SCH (21:00)
[2020-10-31] MEDS: HYDROcodone/APAP 5/325MG 1 TAB TABLET PO SCH (21:00)
[2020-10-31 23:16] VITALS: BP 116/66
[2020-11-01 03:00] VITALS: BP 104/55
[2020-11-01 06:11] LABS: CALCIUM 8.5 mg/dL (8.5-10.1); CREATININE 0.7 mg/dL (0.7-1.3); GFR 107.4; POTASSIUM 3.7 mmol/L (3.5-5.1)
[2020-11-01 07:00] VITALS: BP 109/76
[2020-11-01] MEDS: PANTOPRAZOLE 40 MG TABLET.DR. PO SCH (07:30)
[2020-11-01] MEDS: ASPIRIN ENTERIC COATED 81 MG TABLET.DR. PO SCH (07:31)
[2020-11-01] MEDS: POTASSIUM CHLORIDE 20 MEQ TABLET.ER. PO SCH (07:31)
[2020-11-01] MEDS: PIOGLITAZONE 15 MG TABLET. PO SCH (07:31)
[2020-11-01] MEDS: DOCUSATE SODIUM 100 MG CAPSULE. PO SCH ×2 (07:31→21:00)
[2020-11-01] MEDS: METOPROLOL TART IMMED RELEASE 25 MG TABLET. PO SCH ×2 (07:32→21:00)
[2020-11-01] MEDS: GABAPENTIN 100 MG CAPSULE. PO SCH ×2 (07:32→21:00)
[2020-11-01] MEDS: SENNOSIDES/DOCUSATE 8.6/50MG TABLET. PO SCH (07:32)
[2020-11-01] MEDS: MULTIVITAMIN with MINERAL TABLET. PO SCH (07:32)
[2020-11-01] MEDS: TAMSULOSIN 0.4 MG CAP.ER.24H. PO SCH (07:32)
[2020-11-01] MEDS: PRIMIDONE 50 MG TABLET PO SCH ×3 (07:32→21:00)
[2020-11-01] MEDS: LACTOBACILLUS RHAMNOSUS GG 1 CAPSULE. PO SCH ×2 (07:32→21:00)
--- NOTE | 2020-11-01 08:14 | PN ---
DATE: 11/01/2020 LOCATION: The patient is in room 404. SUBJECTIVE: The patient is awake, alert, continues to feel better. He is currently n.p.o. because of a failed bedside swallow test. DPOA states that the patient wants no alternate feedings in his wishes and thus there will be no PEG tube, etc., so discussed with nursing this morning that the patient will be continued to be fed and watched closely while doing so as we are not going to do anything about an abnormal swallow if indeed it does exist. OBJECTIVE: VITAL SIGNS: Stable. He is afebrile. GENERAL: He is awake, alert. CHEST: Clear. HEART: Regular. ABDOMEN: Benign. EXTREMITIES: He has a left BKA. LABORATORY DATA: This morning is remarkable for potassium finally being up to completely normal. His IV fluids are running at 20 mL an hour and has been n.p.o. for 24 hours now. IMPRESSION: Urinary tract infection with Escherichia coli, improving clinically; status post recent COVID infection, clinically improved; hypokalemia, finally replaced; diabetes with fair blood sugars; left [id number] amputation. PLAN: Left the n.p.o. status, begin feeding, check labs again tomorrow to make sure he is able to maintain orally with likely discharge tomorrow. RAJESH SZYMANSKI MD DR: EDMUND/julia JOB#: [id number] / [id number]
[2020-11-01] MEDS: NYSTATIN 100,000 UNIT/GM TOPICAL OINTMENT 15GM TUBE. TP SCH ×2 (09:00→21:34)
--- NOTE | 2020-11-01 09:11 | PDOC ---
Infectious Disease Note Subjective Subjective Patient denies any complaints, forgetful no fevers Remains on room air ROS ROS no n/v/d/ Vital Sign Vital Signs Vital Signs Date Time Temp Pulse Resp B/P (MAP) Pulse Ox O2 Delivery O2 Flow Rate FiO2 11/01/20 07:00 98.0 101 16 109/76 (87) 97 Room Air 98.0 Physical Exam PHYSICAL EXAM GENERAL: Alert, awake, , in no acute distress. On room air HEENT: Normocephalic, atraumatic. Oral mucosa dry. NECK: Supple. No JVD. LUNGS: Clear bilaterally. HEART: S1, S2 regular. ABDOMEN: Soft, nontender, nondistended. GENITOURINARY: Briefs in place. No Valero. EXTREMITIES: Left BKA. No edema. NEUROLOGIC: Alert, follows commands, somewhat forgetful. SKIN: PIV looks okay. Labs Lab Laboratory Tests Test 10/31/20 12:05 10/31/20 17:01 10/31/20 19:35 11/01/20 05:37 Glucose (Fingerstick) 199 mg/dL (70-99) 175 mg/dL (70-99) 166 mg/dL (70-99) Sodium Level 140 mmol/L (136-145) Potassium Level 3.7 mmol/L (3.5-5.1) Chloride Level 105 mmol/L (98-107) Carbon Dioxide Level 21 mmol/L (21-32) Anion Gap 14 (6-14) Blood Urea Nitrogen 3 mg/dL (8-26) Creatinine 0.7 mg/dL (0.7-1.3) Estimated GFR (Cockcroft-Gault) 107.4 Glucose Level 150 mg/dL (70-99) Calcium Level 8.5 mg/dL (8.5-10.1) Test 11/01/20 07:16 Glucose (Fingerstick) 172 mg/dL (70-99) Micro ANTIMICROBIAL SUSCEPTIBILITY Final Comment NEG GEE 56 ESCHERICHIA COLI ANTIBIOTIC RESULT INTERPRETATION AMPICILLIN/SULBACTAM >16/8 R AMIKACIN <=16 S AMPICILLIN >16 R AMOXICILLIN/K CLAVULANATE >16/8 R AZTREONAM <=4 S CEFTRIAXONE <=1 S CEFTAZIDIME <=1 S CEFOTAXIME <=2 S CEFOXITIN <=8 S CIPROFLOXACIN >2 R CEFEPIME <=2 S CEFUROXIME 16 I CEFTAZIDIME/AVIBACTAM <=4 S ERTAPENEM <=0.5 S NITROFURANTOIN <=32 S GENTAMICIN <=2 S LEVOFLOXACIN >4 R MEROPENEM <=1 S PIPERACILLIN/TAZOBACTAM >64 R TRIMETHOPRIM/SULFAMETHOXAZOLE >2/38 R TETRACYCLINE >8 R TOBRAMYCIN <=2 S Unless otherwise specified, Testing Performed by: Objective Assessment 1. Fever.resolved 2. Lactic acidosis. improved 3. Gram-positive cocci bacteremia, 1/3 bottles present on admission, could be a contaminant.coag neg staph likely contaminant 4. Escherichia coli urinary tract infection. 5. Abnormal liver function tests. 6. Diabetes with neuropathy. 7. Left below knee amputation. 8. Atrial fibrillation. 9. Hypokalemia. Plan Plan of Care d/c rocephine cefdinir for 3 days probiotics Continue supportive care d/w YARY SAN MD Nov 01, 2020 09:11
[2020-11-01] MEDS: CEFDINIR 300 MG CAPSULE PO SCH ×2 (10:00→21:00)
[2020-11-01 11:00] VITALS: BP 100/70
[2020-11-01] MEDS ORDERED: BARIUM SULFATE 40% (APPLE) 148 GM PWD. PO ONE (12:45)
[2020-11-01 15:00] VITALS: BP 102/72
[2020-11-01 19:00] VITALS: BP_SYST 105; BP_DIAS 11; BP_DIAS 71
[2020-11-01] MEDS: traZODone 100 MG TABLET. PO SCH (21:00)
[2020-11-01] MEDS: HYDROcodone/APAP 5/325MG 1 TAB TABLET PO SCH (21:00)
[2020-11-01 23:00] VITALS: BP 108/72
[2020-11-02 03:00] VITALS: BP 99/63
[2020-11-02 07:00] VITALS: BP 104/66
[2020-11-02] MEDS: PANTOPRAZOLE 40 MG TABLET.DR. PO SCH (07:30)
[2020-11-02] MEDS: ASPIRIN ENTERIC COATED 81 MG TABLET.DR. PO SCH (08:00)
[2020-11-02] MEDS: POTASSIUM CHLORIDE 20 MEQ TABLET.ER. PO SCH (08:00)
--- NOTE | 2020-11-02 08:27 | RAD ---
EXAMINATION: BARIUM SWALLOW WITH VIDEOFLUOROSCOPY CLINICAL HISTORY: Difficulty swallowing TECHNIQUE: DG VIDEO SWALLOW STUDY -- 12 images Fluoroscopy Time: 2.2 minutes COMPARISON: C-spine radiographs 07/28/2017 TECHNIQUE/FINDINGS: Modified barium swallow was performed in conjunction with Speech Pathology with fluoroscopic assistan ce provided by the radiologist. Patient was given various barium substrates for the speech pathologis t to evaluate the oropharyngeal phases of swallowing. The exam is recorded for review. During oral stage, there was reduced bolus formation and posterior spillage into the pharynx. During pharyngeal stage, there was reduced epiglottic inversion and post swallow residue in the valleculae a nd along the posterior pharyngeal wall. Aspiration with variably delayed cough noted with puree and t hin liquids. No aspiration noted with limited trial of honey and nectar thick liquids, but moderate r esidue present. 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 Of note, the screw appears to have backed o ut of the odontoid fragment since comparison from 2017 with persistent posterior displacement of the odontoid fragment. Degree of odontoid displacement appears fairly similar to comparison from 2017, bu t this was ultimately suboptimally assessed on low-resolution fluoroscopic images. Mild anteriorly convex bulging of the posterior pharyngeal wall at the level of the screw head appear s to be causing mechanical obstruction to epiglottic inversion/airway closure, contributing to aspira tion. IMPRESSION: Aspiration with puree and thin liquids, likely at least in part related to mechanical obstruction to airway closure caused by prominent surgical screw as described. 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 Recommend dedicated cervical spine images for further evaluatio n. Incidental C-spine findings and recommendations called to ordering provider's, Physician: RAJESH BEJARANO MD, office immediately following the procedure with voicemail left on the provider's nursing nory e, as no one was readily available to receive this examination. Electronically signed by: Gustavo Freitas DO (11/02/2020 8:25 AM) [id number]
--- NOTE | 2020-11-02 08:52 | PDOC ---
Infectious Disease Note Subjective Subjective Patient denies any complaints, forgetful no fevers Remains on room air ROS ROS no n/v/d/ Vital Sign Vital Signs Vital Signs Date Time Temp Pulse Resp B/P (MAP) Pulse Ox O2 Delivery O2 Flow Rate FiO2 11/02/20 07:42 Room Air 11/02/20 07:00 97.7 104 18 104/66 (79) 94 97.7 Physical Exam PHYSICAL EXAM GENERAL: Alert, awake, , in no acute distress. On room air HEENT: Normocephalic, atraumatic. Oral mucosa dry. NECK: Supple. No JVD. LUNGS: Clear bilaterally. HEART: S1, S2 regular. ABDOMEN: Soft, nontender, nondistended. GENITOURINARY: Briefs in place. No Valero. EXTREMITIES: Left BKA. No edema. NEUROLOGIC: Alert, follows commands, somewhat forgetful. SKIN: PIV looks okay. Labs Lab Laboratory Tests Test 11/01/20 10:25 11/01/20 16:30 11/01/20 19:19 Glucose (Fingerstick) 142 mg/dL (70-99) 167 mg/dL (70-99) 154 mg/dL (70-99) Micro ANTIMICROBIAL SUSCEPTIBILITY Final Comment NEG GEE 56 ESCHERICHIA COLI ANTIBIOTIC RESULT INTERPRETATION AMPICILLIN/SULBACTAM >16/8 R AMIKACIN <=16 S AMPICILLIN >16 R AMOXICILLIN/K CLAVULANATE >16/8 R AZTREONAM <=4 S CEFTRIAXONE <=1 S CEFTAZIDIME <=1 S CEFOTAXIME <=2 S CEFOXITIN <=8 S CIPROFLOXACIN >2 R CEFEPIME <=2 S CEFUROXIME 16 I CEFTAZIDIME/AVIBACTAM <=4 S ERTAPENEM <=0.5 S NITROFURANTOIN <=32 S GENTAMICIN <=2 S LEVOFLOXACIN >4 R MEROPENEM <=1 S PIPERACILLIN/TAZOBACTAM >64 R TRIMETHOPRIM/SULFAMETHOXAZOLE >2/38 R TETRACYCLINE >8 R TOBRAMYCIN <=2 S Unless otherwise specified, Testing Performed by: Objective Assessment 1. Fever.resolved 2. Lactic acidosis. improved 3. Gram-positive cocci bacteremia, 1/3 bottles present on admission, could be a contaminant.coag neg staph likely contaminant 4. Escherichia coli urinary tract infection. 5. Abnormal liver function tests. 6. Diabetes with neuropathy. 7. Left below knee amputation. 8. Atrial fibrillation. 9. Hypokalemia. Plan Plan of Care cefdinir for 3 days probiotics Continue supportive care d/w RN Neurosurgery eval pending YARY TRUONG MD Nov 02, 2020 08:52
[2020-11-02] MEDS: SENNOSIDES/DOCUSATE 8.6/50MG TABLET. PO SCH (09:00)
[2020-11-02] MEDS: PRIMIDONE 50 MG TABLET PO SCH ×3 (09:00→20:46)
[2020-11-02] MEDS: PIOGLITAZONE 15 MG TABLET. PO SCH (09:00)
[2020-11-02] MEDS: LACTOBACILLUS RHAMNOSUS GG 1 CAPSULE. PO SCH ×2 (09:00→20:47)
[2020-11-02] MEDS: NYSTATIN 100,000 UNIT/GM TOPICAL OINTMENT 15GM TUBE. TP SCH ×2 (09:00→20:46)
[2020-11-02] MEDS: DOCUSATE SODIUM 100 MG CAPSULE. PO SCH ×2 (09:00→20:47)
[2020-11-02] MEDS: METOPROLOL TART IMMED RELEASE 25 MG TABLET. PO SCH ×2 (09:00→20:47)
[2020-11-02] MEDS: TAMSULOSIN 0.4 MG CAP.ER.24H. PO SCH (09:00)
[2020-11-02] MEDS: MULTIVITAMIN with MINERAL TABLET. PO SCH (09:00)
[2020-11-02] MEDS: CEFDINIR 300 MG CAPSULE PO SCH ×2 (09:00→20:46)
[2020-11-02] MEDS: GABAPENTIN 100 MG CAPSULE. PO SCH ×2 (09:00→20:46)
--- NOTE | 2020-11-02 10:05 | PN ---
DATE: 11/02/2020 DAILY PROGRESS NOTE LOCATION: He is in room 404. SUBJECTIVE: The patient is awake, alert, wondering when he is going to be able to go home. I discussed in detail with him the swallowing difficulties yesterday on the video swallow and the screw that has seemed to migrate out from prior cervical fracture fixation affecting his swallow. I told him that we have to have this figured out before we can send him back to a retirement as he has got be able to eat. We would either have to do some about the screw or consider some kind of PEG tube feeding, which he is not interested in. OBJECTIVE: VITAL SIGNS: Stable. He is afebrile. Sugars are decent. CHEST: Clear. HEART: Regular. ABDOMEN: Benign. LABORATORY DATA: Morning labs are pending. X-rays reviewed. ASSESSMENT: 1. Urinary tract infection with Escherichia coli, improved. 2. Hyponatremia, improved. 3. Dysphagia, as described above. 4. Diabetes. 5. Left omaag-gwh-[id number] amputation. PLAN: We will start PPN as he is n.p.o. at this point, ask Neurosurgery for opinion on the screw, get plain films of the neck as Radiology suggested with plans to follow. RAJESH SZYMANSKI MD DR: EDMUND/julia JOB#: [id number] / [id number]
[2020-11-02 11:00] VITALS: BP 115/67
[2020-11-02] MEDS: AMINO AC 3%/ELECTROLYTE/GLYCER 1,000 ML IV SCH (13:51)
[2020-11-02 13:54] LABS: CALCIUM 8.6 mg/dL (8.5-10.1); CREATININE 0.8 mg/dL (0.7-1.3); GFR 92.1; POTASSIUM 3.6 mmol/L (3.5-5.1)
--- NOTE | 2020-11-02 15:03 | PDOC ---
Provider Note Date of Service: DATE: 11/02/20 TIME: 14:55 Provider Note Patient seen and examined at 1230 consulted for displaced odontoid screw patient underwent placement of odontoid screw in March 2017 and did well recently developed dysphagia imaging studies the screw has migrated anteriorly abutting against the esophagus although he is in poor health, I feel the best course would be to remove the screw before it erodes into the esophagus D/W Dr. Jaeger plan for OR tomorrow at 1100 Justifications for Admission Other Justification KATHY GALLOWAY MD Nov 02, 2020 15:02
--- NOTE | 2020-11-02 15:09 | RAD ---
Exam performed: CT scan of the cervical spine without contrast. Date of Service:11/02/2020 Comparison:Several prior x-ray cervical spine CT cervical spine from 2016 no priors . Clinical History: History of odontoid process fracture. Technique: Helical acquisitions are obtained through the cervical spine. Sagittal and coronal refor matted images are obtained and reviewed. CT cervical spine findings: There is a chronic fracture base of odontoid process. The anterior fixation screw is redemonstrated, however the tip of the screw is seen in the body of C2 inferior to the fracture and not clearly trans fixing the fracture. This is likely unchanged in position since the x-ray of 05/22/2017 with the tip o f the screw seen in the body of C2 along the inferior and the fracture. There is sclerosis along the fracture. There is no abnormal movement of the fractured fragment. There is grade 1 anterolisthesis o f C3 over C4, the remainder alignment is preserved. The vertebral body heights are maintained. There is narrowing of C5/6 and C6/7 intravertebral disc spaces with diffuse osteophytic spurring. Multileve l bilateral apophyseal joint hypertrophic changes are seen. The visualized portion of the brain appears normal. The airway is preserved. Mild airspace opacities are seen in the right lung apex. Impression: 1. 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 The tip of the scre w is seen in the body of C2 along the inferior and inferior aspect of the fracture and is not clearly transfixing the fracture. No abnormal with of the fractures seen 2. Multilevel disc degenerative changes and facet arthropathy involving the cervical spine. 3. Mild airspace opacities in the right lung apex. End impression AP, lateral and open-mouth view of the cervical spine is obtained. Study somewhat limited due to positioning. Fixation screw is seen involving C2 vertebral body region of the fracture base of odontoid process slightly inferior to the fracture. It looks similar in posit ion on AP view. There is no acute fracture. Diffuse spondylotic changes are seen. No prevertebral sof t tissue swelling identified. IMPRESSION: See discussion above Electronically signed by: Dory Vu MD (11/02/2020 3:07 PM) [id number]
[2020-11-02 19:00] VITALS: BP 102/46
[2020-11-02] MEDS: HYDROcodone/APAP 5/325MG 1 TAB TABLET PO SCH (20:46)
[2020-11-02] MEDS: traZODone 100 MG TABLET. PO SCH (20:47)
[2020-11-02 23:02] VITALS: BP 134/75
[2020-11-03] VITALS (10 sets, daily range): BP systolic 86–132; BP diastolic 39–73
[2020-11-03] MEDS: AMINO AC 3%/ELECTROLYTE/GLYCER 1,000 ML IV SCH ×2 (00:39→13:15)
[2020-11-03] MEDS: PANTOPRAZOLE 40 MG TABLET.DR. PO SCH (03:18)
[2020-11-03] MEDS ORDERED: BACITRACIN 50,000 UNIT in IV NORMAL SALINE 1000ML BAG 1,000 ML IRR ONE (06:00)
[2020-11-03 07:13] LABS: CALCIUM 9.2 mg/dL (8.5-10.1); CREATININE 0.7 mg/dL (0.7-1.3); GFR 107.4; POTASSIUM 3.7 mmol/L (3.5-5.1)
[2020-11-03] MEDS: POTASSIUM CHLORIDE 20 MEQ TABLET.ER. PO SCH (08:00)
[2020-11-03] MEDS: ASPIRIN ENTERIC COATED 81 MG TABLET.DR. PO SCH (08:00)
--- NOTE | 2020-11-03 08:22 | PDOC ---
Infectious Disease Note Subjective Subjective Patient denies any complaints, forgetful no fevers Remains on room air Vital Sign Vital Signs Vital Signs Date Time Temp Pulse Resp B/P (MAP) Pulse Ox O2 Delivery O2 Flow Rate FiO2 11/03/20 07:00 98.5 121 18 110/73 (85) 93 Room Air 98.5 Physical Exam PHYSICAL EXAM GENERAL: Alert, awake, , in no acute distress. On room air HEENT: Normocephalic, atraumatic. Oral mucosa dry. NECK: Supple. No JVD. LUNGS: Clear bilaterally. HEART: S1, S2 regular. ABDOMEN: Soft, nontender, nondistended. GENITOURINARY: Briefs in place. No Valero. EXTREMITIES: Left BKA. No edema. NEUROLOGIC: Alert, follows commands, somewhat forgetful. SKIN: PIV looks okay. Labs Lab Laboratory Tests Test 11/02/20 11:01 11/02/20 13:31 11/02/20 16:13 11/02/20 20:31 Glucose (Fingerstick) 141 mg/dL (70-99) 148 mg/dL (70-99) 158 mg/dL (70-99) Sodium Level 145 mmol/L (136-145) Potassium Level 3.6 mmol/L (3.5-5.1) Chloride Level 108 mmol/L (98-107) Carbon Dioxide Level 21 mmol/L (21-32) Anion Gap 16 (6-14) Blood Urea Nitrogen 7 mg/dL (8-26) Creatinine 0.8 mg/dL (0.7-1.3) Estimated GFR (Cockcroft-Gault) 92.1 Glucose Level 131 mg/dL (70-99) Calcium Level 8.6 mg/dL (8.5-10.1) Test 11/03/20 05:50 11/03/20 07:21 Sodium Level 142 mmol/L (136-145) Potassium Level 3.7 mmol/L (3.5-5.1) Chloride Level 106 mmol/L (98-107) Carbon Dioxide Level 23 mmol/L (21-32) Anion Gap 13 (6-14) Blood Urea Nitrogen 12 mg/dL (8-26) Creatinine 0.7 mg/dL (0.7-1.3) Estimated GFR (Cockcroft-Gault) 107.4 Glucose Level 179 mg/dL (70-99) Calcium Level 9.2 mg/dL (8.5-10.1) Glucose (Fingerstick) 190 mg/dL (70-99) Micro ANTIMICROBIAL SUSCEPTIBILITY Final Comment NEG GEE 56 ESCHERICHIA COLI ANTIBIOTIC RESULT INTERPRETATION AMPICILLIN/SULBACTAM >16/8 R AMIKACIN <=16 S AMPICILLIN >16 R AMOXICILLIN/K CLAVULANATE >16/8 R AZTREONAM <=4 S CEFTRIAXONE <=1 S CEFTAZIDIME <=1 S CEFOTAXIME <=2 S CEFOXITIN <=8 S CIPROFLOXACIN >2 R CEFEPIME <=2 S CEFUROXIME 16 I CEFTAZIDIME/AVIBACTAM <=4 S ERTAPENEM <=0.5 S NITROFURANTOIN <=32 S GENTAMICIN <=2 S LEVOFLOXACIN >4 R MEROPENEM <=1 S PIPERACILLIN/TAZOBACTAM >64 R TRIMETHOPRIM/SULFAMETHOXAZOLE >2/38 R TETRACYCLINE >8 R TOBRAMYCIN <=2 S Unless otherwise specified, Testing Performed by: Objective Assessment 1. Fever.resolved 2. Lactic acidosis. improved 3. Gram-positive cocci bacteremia, 1/3 bottles present on admission, could be a contaminant.coag neg staph likely contaminant 4. Escherichia coli urinary tract infection. 5. Abnormal liver function tests. 6. Diabetes with neuropathy. 7. Left below knee amputation. 8. Atrial fibrillation. 9. Hypokalemia. Plan Plan of Care cefdinir for 3 days probiotics Continue supportive care d/w RN Neurosurgery eval pending YARY TRUONG MD Nov 03, 2020 08:22
[2020-11-03] MEDS: GABAPENTIN 100 MG CAPSULE. PO SCH ×2 (09:00→21:00)
[2020-11-03] MEDS: NYSTATIN 100,000 UNIT/GM TOPICAL OINTMENT 15GM TUBE. TP SCH ×2 (09:00→21:21)
[2020-11-03] MEDS: METOPROLOL TART IMMED RELEASE 25 MG TABLET. PO SCH ×2 (09:00→21:00)
[2020-11-03] MEDS: TAMSULOSIN 0.4 MG CAP.ER.24H. PO SCH (09:00)
[2020-11-03] MEDS: MULTIVITAMIN with MINERAL TABLET. PO SCH (09:00)
[2020-11-03] MEDS: DOCUSATE SODIUM 100 MG CAPSULE. PO SCH ×2 (09:00→21:00)
[2020-11-03] MEDS: SENNOSIDES/DOCUSATE 8.6/50MG TABLET. PO SCH (09:00)
[2020-11-03] MEDS: LACTOBACILLUS RHAMNOSUS GG 1 CAPSULE. PO SCH ×2 (09:00→21:00)
[2020-11-03] MEDS: PRIMIDONE 50 MG TABLET PO SCH ×3 (09:00→21:00)
[2020-11-03] MEDS: CEFDINIR 300 MG CAPSULE PO SCH ×2 (09:00→21:00)
[2020-11-03] MEDS: PIOGLITAZONE 15 MG TABLET. PO SCH (09:00)
[2020-11-03] MEDS ORDERED: PROPOFOL 10 MG/ML (20ML) VIAL. IV ONE (09:41)
[2020-11-03] MEDS ORDERED: ROCURONIUM 50 MG/5 ML VIAL. ONE (09:41)
[2020-11-03] MEDS ORDERED: LIDOCAINE 2% PF 5 ML VIAL. ONE (09:41)
[2020-11-03] MEDS ORDERED: ONDANSETRON PF 4 MG/2 ML VIAL. ONE (09:41)
[2020-11-03] MEDS ORDERED: fentaNYL PF VIAL 100 MCG/2 ML VIAL ONE (09:41)
[2020-11-03] MEDS ORDERED: DEXAMETHASONE SOD PHOS 20 MG/5 ML VIAL. ONE (09:41)
[2020-11-03] MEDS ORDERED: SUCCINYLCHOLINE 200 MG/10 ML VIAL. ONE (09:42)
[2020-11-03] MEDS ORDERED: HYDROmorphone 2 MG/ML VIAL IVP PRN (09:45)
[2020-11-03] MEDS ORDERED: MORPHINE SULFATE 2 MG/ML VIAL. IVP PRN (09:45)
[2020-11-03] MEDS ORDERED: PROCHLORPERAZINE 10 MG/2 ML VIAL. IVP PRN (09:45)
[2020-11-03] MEDS ORDERED: fentaNYL PF VIAL 100 MCG/2 ML VIAL IVP PRN ×3 (09:45→12:15)
[2020-11-03] MEDS ORDERED: GELATIN SPONGE SIZE 100. ONE (10:01)
[2020-11-03] MEDS ORDERED: BUPIVACAINE-EPI 0.5%-1:200000 MPF 30 ML VIAL. ONE (10:01)
[2020-11-03] MEDS ORDERED: THROMBIN TOPICAL 20,000 UNIT SPRAY.SYRN KIT TP ONE (10:01)
[2020-11-03] MEDS ORDERED: ceFAZolin SODIUM IV Push 1 GM VIAL. IVP ONE (10:12)
[2020-11-03] MEDS: IV RINGERS,LACTATED 1000ML 1,000 ML IV SCH ×2 (10:14→12:24)
[2020-11-03] MEDS ORDERED: PROPOFOL 50 ML IV ONE (10:17)
[2020-11-03] MEDS ORDERED: REMIFENTANIL 1 MG VIAL. IV ONE (10:22)
[2020-11-03] MEDS ORDERED: PHENYLEPHRINE in 0.9% NACL PF 1 MG/10 ML SYRINGE. IV ONE ×2 (10:44→11:41)
[2020-11-03] MEDS ORDERED: ePHEDrine PF IN SALINE 50 MG/10 ML SYRINGE. IV ONE (11:15)
[2020-11-03] MEDS ORDERED: GLYCOPYRROLATE 1 MG/5 ML VIAL. ONE (11:48)
[2020-11-03] MEDS ORDERED: NEOSTIGMINE METHYLSULFATE 5 MG/5 ML SYRINGE. ONE (11:49)
[2020-11-03] MEDS ORDERED: INSULIN LISPRO 100 UNIT/ML 3ML VIAL for OP,RR ONLY. SQ PRN (12:15)
--- NOTE | 2020-11-03 13:15 | OP ---
DATE OF SURGERY: 11/03/2020 PREOPERATIVE DIAGNOSIS: Displaced cervical fixation screws in C2. POSTOPERATIVE DIAGNOSIS: Displaced cervical fixation screws in C2. OPERATION PERFORMED: Removal of C2 fixation screw. Fluoroscopy was utilized in the operation. SURGEON: Murphy Galloway M.D. OPERATIVE INDICATIONS: The patient is a pleasant 85-year-old man who about 3-1/2 years ago underwent an anterior screw fixation of an odontoid fracture and did very well. He had difficulties with COVID, has been hospitalized and developed problems with dysphagia and on imaging studies, it appeared that the screw had backed out of the dens portion of C2 and was markedly indenting the cervical esophagus. I recommended removal of the screw. I was concerned that he may have eroded partially into the esophagus and there may be some infection, risk of replacing it and since he has done very well with the screw backed out and not developed any problems with change of the orientation of his C2 dens. On imaging studies, I felt that he had a fibrous union and that was relatively safe to remove the offending screw. I did discuss this with the patient who somewhat understood and was also discussed with his niece who is the power of attorney general, who wished for me to go ahead. If the screw had been left, he would have required a PEG and the patient vehemently refused this. Therefore, it is a potentially a lifesaving procedure. We decided to go ahead. DESCRIPTION OF PROCEDURE: Following general endotracheal anesthesia, the patient was positioned supine on the operating room table in a neutral position. The operation was conducted such that there was absolutely no motion of the cervical spine. We did use monitoring during the operation and there was no change in SSEPs. The motor evoked potentials were satisfactory throughout. His previous incision in the anterior cervical region was reopened and I dissected superiorly around the medial aspect of the sternocleidomastoid and carotid artery sheath down the anterior cervical vertebral bodies. I worked superiorly gently digitally and with a handheld Cloward retractor and palpated the C2 screw. I worked, the esophagus over the screw and retracted contralaterally. I then shaved scar off of the screw and backed the screw out without difficulty. At this point, then the esophagus is slipped back into its normal position. The screw was removed. Hemostasis was excellent throughout. We closed the wound, then in layers with absorbable suture and the skin was closed with 4-0 subcuticular stitch. I felt the surgery went very well. MURPHY GALLOWAY MD DR: DUSTY/julia JOB#: [id number] / [id number] SHIKHA
[2020-11-03] MEDS: traZODone 100 MG TABLET. PO SCH (21:00)
[2020-11-03] MEDS: HYDROcodone/APAP 5/325MG 1 TAB TABLET PO SCH (21:00)
--- NOTE | 2020-11-03 22:02 | PN ---
DATE: 11/03/2020 SUBJECTIVE: This 85-year-old white male remains hospitalized because of urinary tract infection with encephalopathy. This is improved, but now the swallowing difficulties related at least in part to dislocated screw in his neck from prior surgery, will be addressed later today in Surgery. I discussed this with him in detail. He is willing to proceed, definitely does not want any kind of PEG tube feedings. OBJECTIVE: VITAL SIGNS: Stable. He is afebrile. CHEST: Clear. HEART: Regular. ABDOMEN: Benign. IV fluids are still running with PPN for hydration and nutrition. IMPRESSION: 1. Urinary tract infection with Escherichia coli, improved. 2. Hyponatremia. 3. Dysphagia due to screw from prior surgeries described prior. 4. Diabetes. 5. Ztvaf-[id number]-hrgt amputation on the left. PLAN: Surgery today. Once the patient is able to eat, he should be reasonable for discharge as all of his other issues present on admission have resolved. RAJESH SZYMANSKI MD DR: EDMUND/julia JOB#: [id number] / [id number]
[2020-11-04] VITALS (7 sets, daily range): BP systolic 80–108; BP diastolic 41–67
[2020-11-04] MEDS: AMINO AC 3%/ELECTROLYTE/GLYCER 1,000 ML IV SCH ×2 (02:55→15:05)
[2020-11-04] MEDS: PANTOPRAZOLE 40 MG TABLET.DR. PO SCH (05:56)
--- NOTE | 2020-11-04 07:03 | PDOC ---
PROGRESS NOTES Date of Service DATE: 11/04/20 TIME: 07:01 Subjective Subjective pod #1 s/p removal of odontiod screw awake, alert denies pain Objective Objective Vital Signs Date Time Temp Pulse Resp B/P (MAP) Pulse Ox O2 Delivery O2 Flow Rate FiO2 11/04/20 03:12 97.4 62 18 95/45 (62) 88 Nasal Cannula 2.0 97.4 Intake and Output 11/04/20 06:59 Intake Total 2900 ml Output Total 1355 ml Balance 1545 ml IV Total 2900 ml Output Urine Total 1350 ml Estimated Blood Loss 5 ml Physical Exam General: Other (voice clear) Neck: Other (soft collar on) Neuro: Other (OWUSU) Skin: Other (dressing C,D,I, flat) Assessment Assessment Problems Medical Problems: (1) AMS (altered mental status) Status: Acute (2) Fever Status: Acute (3) Sepsis Status: Acute (4) UTI (urinary tract infection) Status: Acute Plan Plan of Care rehab swallow eval Comment Review of Relevant I have reviewed the following items genesis (where applicable) has been applied. Labs Laboratory Tests Test 11/02/20 11:01 11/02/20 13:31 11/02/20 16:13 11/02/20 20:31 Glucose (Fingerstick) 141 mg/dL (70-99) 148 mg/dL (70-99) 158 mg/dL (70-99) Sodium Level 145 mmol/L (136-145) Potassium Level 3.6 mmol/L (3.5-5.1) Chloride Level 108 mmol/L (98-107) Carbon Dioxide Level 21 mmol/L (21-32) Anion Gap 16 (6-14) Blood Urea Nitrogen 7 mg/dL (8-26) Creatinine 0.8 mg/dL (0.7-1.3) Estimated GFR (Cockcroft-Gault) 92.1 Glucose Level 131 mg/dL (70-99) Calcium Level 8.6 mg/dL (8.5-10.1) Test 11/03/20 05:50 11/03/20 07:21 11/03/20 12:26 11/03/20 16:35 Sodium Level 142 mmol/L (136-145) Potassium Level 3.7 mmol/L (3.5-5.1) Chloride Level 106 mmol/L (98-107) Carbon Dioxide Level 23 mmol/L (21-32) Anion Gap 13 (6-14) Blood Urea Nitrogen 12 mg/dL (8-26) Creatinine 0.7 mg/dL (0.7-1.3) Estimated GFR (Cockcroft-Gault) 107.4 Glucose Level 179 mg/dL (70-99) Calcium Level 9.2 mg/dL (8.5-10.1) Glucose (Fingerstick) 190 mg/dL (70-99) 162 mg/dL (70-99) 221 mg/dL (70-99) Test 11/03/20 19:27 Glucose (Fingerstick) 241 mg/dL (70-99) Laboratory Tests Test 11/03/20 07:21 11/03/20 12:26 11/03/20 16:35 11/03/20 19:27 Glucose (Fingerstick) 190 mg/dL (70-99) 162 mg/dL (70-99) 221 mg/dL (70-99) 241 mg/dL (70-99) Microbiology 10/25/20 Urine Culture - Final, Complete 10/25/20 Antimicrobic Susceptibility - Final, Complete 10/25/20 Blood Culture - Final, Complete NO GROWTH AFTER 5 DAYS Medications Current Medications Sodium Chloride 1,000 ml @ 400 mls/hr Q2H30M IV Last administered on 10/25/20at 11:53; Start 10/25/20 at 11:30; Stop 10/25/20 at 16:29; Status DC Ibuprofen (Motrin) 600 mg 1X ONCE PO Last administered on 10/25/20at 11:52; Start 10/25/20 at 11:30; Stop 10/25/20 at 11:32; Status DC Piperacillin Sod/ Tazobactam Sod 3.375 gm/Sodium Chloride 50 ml @ 100 mls/hr 1X ONCE IV Last administered on 10/25/20at 14:21; Start 10/25/20 at 13:30; Stop 10/25/20 at 13:59; Status DC Acetaminophen (Tylenol) 1,000 mg 1X ONCE PO Last administered on 10/25/20at 14:20; Start 10/25/20 at 13:30; Stop 10/25/20 at 13:32; Status DC Ondansetron HCl (Zofran) 4 mg PRN Q8HRS PRN IV NAUSEA/VOMITING Last administered on 10/25/20at 22:10; Start 10/25/20 at 14:15; Stop 10/26/20 at 14:14; Status DC Morphine Sulfate (Morphine Sulfate) 2 mg PRN Q2HR PRN IV PAIN Last administered on 10/25/20at 21:42; Start 10/25/20 at 14:15; Stop 10/26/20 at 14:14; Status DC Acetaminophen (Tylenol) 650 mg PRN Q4HRS PRN PO FEVER > 100.3'F; Start 10/25/20 at 14:15; Stop 10/26/20 at 14:14; Status DC Sodium Chloride 1,000 ml @ 125 mls/hr 1X ONCE IV Last administered on 10/25/20at 14:15; Start 10/25/20 at 14:15; Stop 10/25/20 at 22:14; Status DC Piperacillin Sod/ Tazobactam Sod 3.375 gm/Sodium Chloride 50 ml @ 100 mls/hr Q8HRS IV Last administered on 10/26/20at 05:56; Start 10/25/20 at 22:00; Stop 10/26/20 at 10:09; Status DC Potassium Bicarbonate (Potassium Effervescent Tablet) 40 meq 1X ONCE PO Last administered on 10/26/20at 10:32; Start 10/26/20 at 10:00; Stop 10/26/20 at 10:01; Status DC Piperacillin Sod/ Tazobactam Sod 3.375 gm/Sodium Chloride 50 ml @ 100 mls/hr Q6HRS IV Last administered on 10/27/20at 06:53; Start 10/26/20 at 12:00; Stop 10/27/20 at 08:55; Status DC Vancomycin HCl (Vanco Per Pharmacy) 1 each PRN DAILY PRN MC SEE COMMENTS Last administered on 10/26/20at 14:01; Start 10/26/20 at 11:15; Stop 10/27/20 at 08:55; Status DC Vancomycin HCl 1.5 gm/Sodium Chloride 500 ml @ 250 mls/hr 1X ONCE IV Last administered on 10/26/20at 11:27; Start 10/26/20 at 11:30; Stop 10/26/20 at 13:29; Status DC Vancomycin HCl 1 gm/Sodium Chloride 250 ml @ 250 mls/hr Q18H IV Last administered on 10/27/20at 05:07; Start 10/27/20 at 05:00; Stop 10/27/20 at 09:00; Status DC Vancomycin HCl (Vancomycin Trough Level) 1 each 1X ONCE MC ; Start 10/27/20 at 22:30; Stop 10/27/20 at 08:55; Status DC Lactobacillus Rhamnosus (Culturelle) 1 cap BID PO Last administered on 10/29/20at 20:29; Start 10/26/20 at 21:00 Ceftriaxone Sodium (Rocephin) 1 gm Q24H IVP ; Start 10/27/20 at 09:30; Stop 10/27/20 at 09:17; Status DC Daptomycin 400 mg/ Sodium Chloride 50 ml @ 100 mls/hr Q24H IV Last administered on 10/27/20at 10:33; Start 10/27/20 at 11:00; Stop 10/28/20 at 09:41; Status DC Ceftriaxone Sodium (Rocephin) 1 gm Q24H IVP ; Start 10/27/20 at 09:30; Stop 10/27/20 at 09:18; Status DC Ceftriaxone Sodium (Rocephin) 1 gm Q24H IVP Last administered on 10/27/20at 09:52; Start 10/27/20 at 10:00; Stop 10/28/20 at 09:41; Status DC Potassium Chloride (Klor-Con) 40 meq 1X ONCE PO Last administered on 10/27/20at 09:37; Start 10/27/20 at 09:30; Stop 10/27/20 at 09:31; Status DC Potassium Chloride (Klor-Con) 40 meq 1X ONCE PO Last administered on 10/27/20at 11:39; Start 10/27/20 at 12:00; Stop 10/27/20 at 12:01; Status DC Multivitamins (Thera M Plus) 1 tab DAILY PO Last administered on 10/28/20at 08:49; Start 10/28/20 at 09:00 Cephalexin HCl (Keflex) 500 mg QID PO Last administered on 10/29/20at 20:29; Start 10/28/20 at 13:00; Stop 10/30/20 at 09:32; Status DC Acetaminophen (Tylenol) 325 mg PRN Q4HRS PRN PO MILD PAIN / TEMP > 100.3'F; Start 10/28/20 at 10:00 Aspirin (Ecotrin) 81 mg DAILYWBKFT PO ; Start 10/28/20 at 10:00 Docusate Sodium (Colace) 100 mg BID PO Last administered on 10/28/20at 20:53; Start 10/28/20 at 10:00 Gabapentin (Neurontin) 100 mg BID PO ; Start 10/28/20 at 10:00 Acetaminophen/ Hydrocodone Bitart (Lortab 5/325) 1 tab HS PO Last administered on 10/29/20at 20:30; Start 10/28/20 at 21:00 Albuterol/ Ipratropium (Duoneb) 3 ml PRN Q4HRS PRN IH COUGH; Start 10/28/20 at 10:00 Metoprolol Tartrate (Lopressor) 25 mg BID PO Last administered on 10/28/20at 20:55; Start 10/28/20 at 10:00 Nystatin (Nystop) 60 neva PRN Q8HRS PRN TP RASH Last administered on 10/28/20at 22:13; Start 10/28/20 at 10:00; Stop 10/30/20 at 11:01; Status DC Pantoprazole Sodium (Protonix) 40 mg DAILYAC PO ; Start 10/28/20 at 11:30 Primidone (Mysoline) 50 mg TID PO Last administered on 10/29/20at 20:29; Start 10/28/20 at 10:00 Senna/Docusate Sodium (Senna Plus) 2 tab DAILY PO ; Start 10/28/20 at 10:15 Tamsulosin HCl (Flomax) 0.4 mg DAILY PO ; Start 10/28/20 at 10:15 Trazodone HCl (Desyrel) 100 mg QHS PO Last administered on 10/29/20at 20:30; Start 10/28/20 at 21:00 Pioglitazone HCl (Actos) 30 mg DAILY PO ; Start 10/28/20 at 10:15 Potassium Chloride (Klor-Con) 10 meq TIDAFTMEAL PO Last administered on 10/28/20at 12:54; Start 10/28/20 at 10:15; Stop 10/28/20 at 13:19; Status DC Sodium Chloride 1,000 ml @ 100 mls/hr Q10H IV Last administered on 10/28/20at 22:40; Start 10/28/20 at 13:00; Stop 10/29/20 at 09:26; Status DC Potassium Chloride (Klor-Con) 40 meq BID PO Last administered on 10/29/20at 2 0:29; Start 10/28/20 at 21:00; Stop 10/31/20 at 12:31; Status DC Potassium Chloride (Klor-Con) 40 meq 1X ONCE PO Last administered on 10/28/20at 12:54; Start 10/28/20 at 12:30; Stop 10/28/20 at 12:31; Status DC Potassium Chloride 40 meq/ Dextrose 1,020 ml @ 75 mls/hr [id number] IV Last administered on 10/31/20at 03:39; Start 10/29/20 at 09:30; Stop 10/31/20 at 09:38; Status DC Ceftriaxone Sodium (Rocephin) 2 gm Q24H IVP Last administered on 10/31/20at 08:28; Start 10/30/20 at 10:00; Stop 11/01/20 at 09:11; Status DC Nystatin (Mycostatin) 1 neva BID TP Last administered on 11/03/20at 21:21; Start 10/30/20 at 21:00 Potassium Chloride (Klor-Con) 20 meq DAILYWBKFT PO ; Start 10/31/20 at 11:00 Cefdinir (Omnicef) 300 mg BID PO ; Start 11/01/20 at 10:00; Stop 11/03/20 at 21:01; Status DC Barium Sulfate (Varibar Thin Liquid Apple) 148 gm 1X ONCE PO Last administered on 11/01/20at 12:45; Start 11/01/20 at 12:45; Stop 11/01/20 at 12:46; Status DC Amino Acids/ Glycerin/ Electrolytes 1,000 ml @ 80 mls/hr [id number] IV Last administered on 11/04/20at 02:55; Start 11/02/20 at 12:15 Cefazolin Sodium/ Dextrose 50 ml @ 100 mls/hr 1X PREOP PRN IV PRIOR TO PROCEDURE; Start 11/03/20 at 06:00; Stop 11/03/20 at 14:18; Status DC Bacitracin 83414 unit/Sodium Chloride 1,000 ml @ 1,000 mls/hr 1X ONCE IRR Last administered on 11/03/20at 11:19; Start 11/03/20 at 06:00; Stop 11/03/20 at 06:59; Status DC Propofol (Diprivan) 200 mg STK-MED ONCE IV ; Start 11/03/20 at 09:41; Stop 11/03/20 at 09:42; Status DC Dexamethasone Sodium Phosphate (Decadron) 20 mg STK-MED ONCE .ROUTE ; Start 11/03/20 at 09:41; Stop 11/03/20 at 09:42; Status DC Lidocaine HCl (Lidocaine Pf 2% Vial) 5 ml STK-MED ONCE .ROUTE ; Start 11/03/20 at 09:41; Stop 11/03/20 at 09:42; Status DC Ondansetron HCl (Zofran) 4 mg STK-MED ONCE .ROUTE ; Start 11/03/20 at 09:41; Stop 11/03/20 at 09:42; Status DC Fentanyl Citrate (Fentanyl 2ml Vial) 100 mcg STK-MED ONCE .ROUTE ; Start 11/03/20 at 09:41; Stop 11/03/20 at 09:42; Status DC Rocuronium [place] (Zemuron) 50 mg STK-MED ONCE .ROUTE ; Start 11/03/20 at 09:41; Stop 11/03/20 at 09:42; Status DC Succinylcholine Chloride (Anectine) 200 mg STK-MED ONCE .ROUTE ; Start 11/03/20 at 09:42; Stop 11/03/20 at 09:42; Status DC Fentanyl Citrate (Fentanyl 2ml Vial) 25 mcg PRN Q5MIN PRN IVP MILD PAIN 1-3; Start 11/03/20 at 09:45; Stop 11/03/20 at 15:00; Status DC Fentanyl Citrate (Fentanyl 2ml Vial) 50 mcg PRN Q5MIN PRN IVP MODERATE PAIN 4- 6; Start 11/03/20 at 09:45; Stop 11/03/20 at 15:00; Status DC Morphine Sulfate (Morphine Sulfate) 1 mg PRN Q10MIN PRN IVP SEVERE PAIN 7-10; Start 11/03/20 at 09:45; Stop 11/03/20 at 15:00; Status DC Ringer's Solution 1,000 ml @ 30 mls/hr Q24H IV Last administered on 11/03/20at 12:24; Start 11/03/20 at 09:45; Stop 11/03/20 at 21:44; Status DC Hydromorphone HCl (Dilaudid) 0.5 mg PRN Q10MIN PRN IVP SEVERE PAIN 7-10, 2nd CHOICE; Start 11/03/20 at 09:45; Stop 11/03/20 at 15:00; Status DC Prochlorperazine Edisylate (Compazine) 5 mg PACU PRN PRN IVP NAUSEA, MRX1; Start 11/03/20 at 09:45; Stop 11/03/20 at 15:00; Status DC Gelatin (Gelfoam Size 100) 1 each STK-MED ONCE .ROUTE Last administered on 11/03/20at 11:19; Start 11/03/20 at 10:01; Stop 11/03/20 at 10:01; Status DC Bupivacaine HCl/ Epinephrine Bitart (Sensorcain-Epi 0.5%-1:[id number] Mpf) [address] K-MED ONCE .ROUTE Last administered on 11/03/20at 11:19; Start 11/03/20 at 10:01; Stop 11/03/20 at 10:01; Status DC Thrombin 20,000 unit STK-MED ONCE TP Last administered on 11/03/20at 11:19; Start 11/03/20 at 10:01; Stop 11/03/20 at 10:02; Status DC Cefazolin Sodium (Ancef) 1 gm STK-MED ONCE IVP ; Start 11/03/20 at 10:12; Stop 11/03/20 at 10:13; Status DC Propofol 50 ml @ As Directed STK-MED ONCE IV ; Start 11/03/20 at 10:17; Stop 11/03/20 at 10:17; Status DC Remifentanil HCl (Ultiva) 1 mg STK-MED ONCE IV ; Start 11/03/20 at 10:22; Stop 11/03/20 at 10:22; Status DC Phenylephrine HCl (PHENYLEPHRINE in 0.9% NACL PF) 1 mg STK-MED ONCE IV ; Start 11/03/20 at 10:44; Stop 11/03/20 at 10:44; Status DC Ephedrine Sulfate (ePHEDrine PF IN SALINE SYRINGE) 50 mg STK-MED ONCE IV ; Start 11/03/20 at 11:15; Stop 11/03/20 at 11:15; Status DC Phenylephrine HCl (PHENYLEPHRINE in 0.9% NACL PF) 1 mg STK-MED ONCE IV ; Start 11/03/20 at 11:41; Stop 11/03/20 at 11:42; Status DC Glycopyrrolate (Robinul) 1 mg STK-MED ONCE .ROUTE ; Start 11/03/20 at 11:48; Stop 11/03/20 at 11:49; Status DC Neostigmine [place] (Neostigmine Methylsulfate) 5 mg STK-MED ONCE .ROUTE ; Start 11/03/20 at 11:49; Stop 11/03/20 at 11:49; Status DC Fentanyl Citrate (Fentanyl 2ml Vial) 25 mcg PRN Q2HR PRN IVP PAIN; Start 11/03/20 at 12:15 Insulin Human Lispro (HumaLOG VIAL for OP,RR ONLY) 0-10 units PRN Q1HR PRN SQ PER PROTOCOL; Start 11/03/20 at 12:15; Stop 11/03/20 at 15:00; Status DC Active Scripts Active Decadron (Dexamethasone) 4 Mg Tablet 1 Tab PO DAILY PRN 5 Days Decadron (Dexamethasone) 6 Mg Tablet 2 Tab PO ONCE 1 Days Aspirin Ec (Aspirin) 81 Mg Tablet.dr 81 Mg PO DAILYWBKFT 30 Days Metoprolol Tartrate 25 Mg Tablet 25 Mg PO BID 30 Days Amox Tr-K Clv 875-125 Mg Tab (Amoxicillin/Potassium Clav) 1 Each Tablet 1 Tab PO BID 7 Days Pantoprazole Sodium (Pantoprazole Sodium) 40 Mg Tablet.dr 40 Mg PO DAILYAC 90 Days Lipitor (Atorvastatin Calcium) 40 Mg Tablet 1 Tab PO QHS PRN Reported Vitamin C (Ascorbic Acid) 500 Mg Capsule.er 1 Cap PO DAILY 30 Days Thera-M Caplet (Multivits,Ca,Minerals/Iron/Fa) 1 Each Tablet 1 Tab PO DAILY 30 Days Senna Plus Tablet (Sennosides/Docusate Sodium) 1 Each Tablet 2 Tab PO DAILY 20 Days Nystop (Nystatin) 60 Gm Powder 60 Gm TP PRN Q8MIN PRN Hydrocodone-Acetamin 5-325 mg (Hydrocodone/Acetaminophen) 1 Each Tablet 1 Each PO PRN Q48HR PRN Imodium A-D (Loperamide HCl) 2 Mg Capsule 2 Mg PO PRN Q8HRS PRN Genteal Tears 0.1%-0.3% Drop (Dextran 70/Hypromellose/Pf) 1 Each Droperette 1 Each OP BID Gabapentin (Gabapentin) 100 Mg Capsule 100 Mg PO BID Fiber Lax (Calcium Polycarbophil) 625 Mg Tablet 1,250 Mg PO DAILY Fexofenadine Hcl 180 Mg Tablet 1 Tab PO DAILY Carafate (Sucralfate) 1 Gm Tablet 1 Tab PO QID 30 Days Calcium Carbonate 400 Mg Tab.chew 400 Mg PO BID Amaryl (Glimepiride) 1 Mg Tablet 2 Tab PO DAILY Trazodone Hcl 100 Mg Tablet 1 Tab PO QHS Zinc 50 Mg Tablet 1 Tab PO DAILY 30 Days Mucinex (Guaifenesin) 600 Mg Tablet.er 1 Tab PO BID Hydrocodone-Apap 5-325 (Hydrocodone Bit/Acetaminophen) 1 Tab Tablet 1 Tab PO HS Flonase Allergy Relief (Fluticasone Propionate) 9.9 Ml [place].susp 2 Sprays NS DAILY Colace (Docusate Sodium) 100 Mg Capsule 1 Cap PO BID Triamcinolone Acetonide 0.1% Oint (Triamcinolone Acetonide) 15 Gm Oint...g. 1 Neva TP BID MIX WITH EUCERIN DIRECTED BY PHYSICIAN Jose (Pioglitazone Hcl) 30 Mg Tablet 1 Tab PO DAILY LAST DOSE GIVEN: DATE:04/02/17 TIME:0900 Tylenol (Acetaminophen) 325 Mg Tablet 1 Tab PO PRN Q4HRS LAST DOSE GIVEN: DATE:04/01/17 TIME:9 p.m. Duoneb 0.5-3(2.5) Mg/3 Ml (Albuterol/Ipratropium) 3 Ml Ampul.neb 3 Ml IH PRN Q4HRS PRN Tamsulosin Hcl 0.4 Mg Cap.er.24h 0.4 Mg PO DAILY LAST DOSE GIVEN: DATE:04/02/17 TIME:0900 Primidone 50 Mg Tablet 50 Mg PO TID LAST DOSE GIVEN: DATE:04/02/17 TIME:2:00 p.m. Vitals/I & O Vital Sign - Last 24 Hours 11/03/20 11/03/20 11/03/20 11/03/20 09:55 12:13 12:13 12:28 Temp 98.5 97.4 98.5 97.4 Pulse 116 87 90 Resp 36 22 22 B/P (MAP) 113/71 85/53 88/51 Pulse Ox 95 100 100 O2 Delivery Room Air Simple Mask Mask O2 Flow Rate 10 10 10 11/03/20 11/03/20 11/03/20 11/03/20 12:43 12:58 13:12 13:27 Temp 97.7 97.7 Pulse 93 97 94 94 Resp 20 20 20 22 B/P (MAP) 96/62 95/55 90/61 84/53 Pulse Ox 100 94 95 95 O2 Delivery Simple Mask Nasal Cannula Nasal Cannula Nasal Cannula O2 Flow Rate 10 2 2 2 11/03/20 11/03/20 11/03/20 11/03/20 13:38 14:00 14:15 14:30 Temp 98.6 98.6 Pulse 95 97 97 Resp 18 B/P (MAP) 87/42 (57) 93/52 (66) 89/54 (66) Pulse Ox 97 97 97 O2 Delivery Nasal Cannula Nasal Cannula Nasal Cannula Room Air O2 Flow Rate 2 2.0 2.0 2.0 11/03/20 11/03/20 11/03/20 11/03/20 14:45 15:00 15:30 19:00 Temp 98.1 98.1 Pulse 86 94 86 85 Resp 18 B/P (MAP) 89/53 (65) 96/57 (70) 89/49 (62) 89/55 (66) Pulse Ox 96 97 97 98 O2 Delivery Nasal Cannula Nasal Cannula Nasal Cannula Nasal Cannula O2 Flow Rate 2.0 2.0 2.0 2.0 11/03/20 11/03/20 11/04/20 11/04/20 20:00 23:22 00:19 03:12 Temp 96.5 97.4 96.5 97.4 Pulse 76 82 62 Resp 18 18 B/P (MAP) 86/39 (55) 91/54 (66) 95/45 (62) Pulse Ox 94 88 O2 Delivery Nasal Cannula Nasal Cannula Nasal Cannula O2 Flow Rate 2 2.0 2.0 Intake and Output 11/03/20 11/03/20 11/04/20 14:59 22:59 06:59 Intake Total 1900 ml 1000 ml Output Total 705 ml 300 ml 350 ml Balance 1195 ml -300 ml 650 ml Justifications for Admission Other Justification Nutrition Consultation Dietary Evaluation: Recommendations by RD: Dietary education by RD, PPN/TPN Comments: rec PPN < 10 days PEG TF for alf nutrition mvi and vit c when able for prevention of further skin breakdown Expected Outcomes/Goals: diet adv/tolerance- not met, goal ongoing pt to meet >75% est nutr needs- goal ongoing Interpretation of weight loss: >5% in 1 month Malnutrition Findings: Food and Nutrition Intake (Sev: <50% est energy req 5days Body Fat Depletion (Non Severe: Mod to Severe Weight Status: Underweight JEROME BANUELOS WEED CUTTER Nov 04, 2020 07:03
[2020-11-04] MEDS: ASPIRIN ENTERIC COATED 81 MG TABLET.DR. PO SCH (07:07)
[2020-11-04] MEDS: POTASSIUM CHLORIDE 20 MEQ TABLET.ER. PO SCH (07:07)
[2020-11-04] MEDS: PIOGLITAZONE 15 MG TABLET. PO SCH (07:07)
[2020-11-04] MEDS: LACTOBACILLUS RHAMNOSUS GG 1 CAPSULE. PO SCH ×2 (07:08→21:00)
[2020-11-04] MEDS: TAMSULOSIN 0.4 MG CAP.ER.24H. PO SCH (07:08)
[2020-11-04] MEDS: METOPROLOL TART IMMED RELEASE 25 MG TABLET. PO SCH ×2 (07:08→21:00)
[2020-11-04] MEDS: DOCUSATE SODIUM 100 MG CAPSULE. PO SCH ×2 (07:08→21:00)
[2020-11-04] MEDS: SENNOSIDES/DOCUSATE 8.6/50MG TABLET. PO SCH (07:09)
[2020-11-04] MEDS: GABAPENTIN 100 MG CAPSULE. PO SCH ×2 (07:09→21:09)
[2020-11-04] MEDS: MULTIVITAMIN with MINERAL TABLET. PO SCH (07:09)
[2020-11-04] MEDS: PRIMIDONE 50 MG TABLET PO SCH ×3 (07:09→21:00)
[2020-11-04] MEDS: NYSTATIN 100,000 UNIT/GM TOPICAL OINTMENT 15GM TUBE. TP SCH ×2 (08:24→21:14)
--- NOTE | 2020-11-04 15:44 | PN ---
DATE: 11/04/2020 DAILY PROGRESS NOTE LOCATION: He is in room 404. SUBJECTIVE: This 85-year-old white male remains hospitalized because of urinary tract infection with encephalopathy that has improved. He then developed swallowing difficulties, felt due to migration of the cervical hardware screw, which was removed yesterday by Dr. Qiu. He is awake and alert and wanting to set up and try something to eat and I will see if speech can come by and clear him. At this point hopefully, he is swallowing better. He has once again reiterated his wishes that he will not have any kind of artificial feeding such as a PEG tube, etc. OBJECTIVE: VITAL SIGNS: Stable. He is afebrile. CHEST: Clear. HEART: Regular. ABDOMEN: Benign. IV fluids running with PPN. He does have a cervical collar in place. IMPRESSION: 1. Urinary tract infection with Escherichia coli, improved. 2. Hyponatremia. 3. Dysphagia, as discussed above. 4. Diabetes. 5. Left echhp-vfj-glfh amputation. 6. Recent COVID with recovery. PLAN: We will begin to mobilize at least in the bed. This is difficult with his left lyusj-avl-baro amputation and his prosthesis still at the snf. We will at least get him sitting up and see if speech will clear him today for a diet as he is ready for return to the snf once we are sure that he can take p.o. well enough to survive. RAJESH SZYMANSKI MD DR: EDMUND/julia JOB#: [id number] / [id number]
--- NOTE | 2020-11-04 15:55 | NUR ---
Paged d/t adam in RLE worsening. Awaiting call back.
--- NOTE | 2020-11-04 16:10 | NUR ---
Received call back, orders received.
[2020-11-04] MEDS: PIPERACILLIN/TAZOBACTAM 3.375 GM in IV NORMAL SALINE 50ML 50 ML IV SCH ×2 (16:41→23:27)
[2020-11-04] MEDS ORDERED: VANCOMYCIN 1.5 GM in IV NORMAL SALINE 500ML BAG 500 ML IV ONE (17:00)
[2020-11-04] MEDS: VANCOMYCIN PER PHARMACY MC PRN (17:36)
--- NOTE | 2020-11-04 17:44 | NUR ---
Pharmacy Vancomycin Dosing Note S:Consulted to monitor and dose vancomycin started 10/26/20. O:KAROLINE LLAMAS is a 85 year old M with Cellulitis Height: 5 feet, 10 inches Weight: 66.9 kg [place] Body Weight: 73.00 Adjusted Body Weight: 70.56 Dosing Weight: Actual Other Antibiotics: ZOSYN 3.375G IV Q6HRS LABS: Last BUN: 12 Last Creatinine: 0.7 Creatinine Clearance: 52 mL/min Last WBC: 10.6 Last Procalcitonin: 0.11 (10/25) Tmax (past 24 hours): 98.3 Microbiology: BLOOD CX (10/25): GPC 10/08 URINE CX (10/25): E.COLI I/O: 2900/1355 Last dose given 11/04/20 at 1730 Vancomycin Dosing: Loading Dose: 1500 mg x1 Dosing Weight: Actual Target Trough: 10-20 A: Based on: weight and renal function P: 1. Begin Vancomycin 1000 mg IV q18h 2. Follow up Trough level on 11/06/20 at 0500 3. Pharmacy will continue to monitor, follow and adjust therapy as needed. Jennifer Blackman RPH, 11/04/20 [id number]
[2020-11-04] MEDS: HYDROcodone/APAP 5/325MG 1 TAB TABLET PO SCH (21:00)
[2020-11-04] MEDS: traZODone 100 MG TABLET. PO SCH (21:10)
[2020-11-05 03:04] VITALS: BP 115/53
[2020-11-05] MEDS: AMINO AC 3%/ELECTROLYTE/GLYCER 1,000 ML IV SCH ×2 (04:04→15:15)
[2020-11-05] MEDS: PIPERACILLIN/TAZOBACTAM 3.375 GM in IV NORMAL SALINE 50ML 50 ML IV SCH ×3 (05:27→17:26)
[2020-11-05] MEDS: PANTOPRAZOLE 40 MG TABLET.DR. PO SCH (05:27)
[2020-11-05 07:09] VITALS: BP 118/65
[2020-11-05] MEDS: METOPROLOL TART IMMED RELEASE 25 MG TABLET. PO SCH ×2 (07:22→21:00)
[2020-11-05] MEDS: DOCUSATE SODIUM 100 MG CAPSULE. PO SCH ×2 (07:23→20:18)
[2020-11-05] MEDS: SENNOSIDES/DOCUSATE 8.6/50MG TABLET. PO SCH (07:23)
--- NOTE | 2020-11-05 08:31 | PDOC ---
Infectious Disease Note Subjective Subjective Patient denies any complaints, forgetful no fevers Remains on room air A little stump discomfort ROS ROS o/w neg Vital Sign Vital Signs Vital Signs Date Time Temp Pulse Resp B/P (MAP) Pulse Ox O2 Delivery O2 Flow Rate FiO2 11/05/20 07:09 98.2 84 18 118/65 (82) 90 Nasal Cannula 2.0 98.2 Physical Exam PHYSICAL EXAM GENERAL: Alert, awake, , in no acute distress. On room air HEENT: Normocephalic, atraumatic. Oral mucosa dry. NECK: Supple. No JVD.- collar LUNGS: Clear bilaterally. HEART: S1, S2 regular. ABDOMEN: Soft, nontender, nondistended. GENITOURINARY: Briefs in place. No Valero. EXTREMITIES: Left BKA - clean. No edema.RLE - thin. Min erythema. no warmth NEUROLOGIC: Alert, follows commands, somewhat forgetful. SKIN: PIV looks okay. Labs Lab Laboratory Tests Test 11/04/20 11:10 11/04/20 15:46 11/04/20 20:07 11/05/20 07:01 Glucose (Fingerstick) 140 mg/dL (70-99) 168 mg/dL (70-99) 159 mg/dL (70-99) 136 mg/dL (70-99) Micro 10/25 URINE CULTURE Final Final GREATER THAN 100,000 CFU/ML GRAM NEGATIVE RODS on 10/26/20 at 0750 FINAL ID= [ESCHERICHIA COLI] Testing Performed by: [address] [address] For Inquires, the Physician may contact the Microbiology department at [phone] ESCHERICHIA COLI ANTIMICROBIAL SUSCEPTIBILITY Final Comment NEG GEE 56 ESCHERICHIA COLI ANTIBIOTIC RESULT INTERPRETATION AMPICILLIN/SULBACTAM >16/8 R AMIKACIN <=16 S AMPICILLIN >16 R AMOXICILLIN/K CLAVULANATE >16/8 R AZTREONAM <=4 S CEFTRIAXONE <=1 S CEFTAZIDIME <=1 S CEFOTAXIME <=2 S CEFOXITIN <=8 S CIPROFLOXACIN >2 R CEFEPIME <=2 S CEFUROXIME 16 I CEFTAZIDIME/AVIBACTAM <=4 S ERTAPENEM <=0.5 S NITROFURANTOIN <=32 S GENTAMICIN <=2 S LEVOFLOXACIN >4 R MEROPENEM <=1 S PIPERACILLIN/TAZOBACTAM >64 R TRIMETHOPRIM/SULFAMETHOXAZOLE >2/38 R TETRACYCLINE >8 R TOBRAMYCIN <=2 S Microbiology 10/25/20 Urine Culture - Final, Complete 10/25/20 Antimicrobic Susceptibility - Final, Complete 10/25/20 Blood Culture - Final, Complete NO GROWTH AFTER 5 DAYS Objective Assessment 1. Fever.resolved 2. Lactic acidosis. improved 3. Gram-positive cocci bacteremia, 1/3 bottles present on admission, could be a contaminant.coag neg staph likely contaminant 4. Escherichia coli urinary tract infection. 5. Abnormal liver function tests. 6. Diabetes with neuropathy. 7. Left below knee amputation. 8. Atrial fibrillation. 9. Hypokalemia. Plan Plan of Care Vanc and Zosyn ordered per babs 11/04 - leg better will cont Off load stump CBc this am BMP pending probiotics Continue supportive care d/w RN/family Neurosurgery eval pending ANASTASIIA FELTNO MD Nov 05, 2020 08:31
[2020-11-05] MEDS: LACTOBACILLUS RHAMNOSUS GG 1 CAPSULE. PO SCH ×2 (08:33→20:18)
[2020-11-05] MEDS: ASPIRIN CHEWABLE 81 MG TABLET. PO SCH (08:33)
[2020-11-05] MEDS: PRIMIDONE 50 MG TABLET PO SCH ×3 (08:33→20:18)
[2020-11-05] MEDS: TAMSULOSIN 0.4 MG CAP.ER.24H. PO SCH (08:33)
[2020-11-05] MEDS: GABAPENTIN 100 MG CAPSULE. PO SCH ×2 (08:34→20:18)
[2020-11-05] MEDS: MULTIVITAMIN with MINERAL TABLET. PO SCH (08:34)
[2020-11-05] MEDS: PIOGLITAZONE 15 MG TABLET. PO SCH (08:34)
[2020-11-05] MEDS: POTASSIUM BICARB 20 MEQ EFFERVESCENT TABLET. PO SCH (08:38)
[2020-11-05 08:54] LABS: CALCIUM 8.4 mg/dL (8.5-10.1); CREATININE 0.7 mg/dL (0.7-1.3); GFR 107.4; POTASSIUM 3.5 mmol/L (3.5-5.1)
[2020-11-05] MEDS: NYSTATIN 100,000 UNIT/GM TOPICAL OINTMENT 15GM TUBE. TP SCH ×2 (09:00→20:18)
[2020-11-05 10:10] LABS: BASO # 0.1 x10^3/uL (0.0-0.2); BASO % 1 % (0-3); EOS # 0.3 x10^3/uL (0.0-0.7); EOS % 3 % (0-3); HEMATOCRIT 34.4 % (39.0-53.0); HEMOGLOBIN 11.2 g/dL (13.0-17.5); LYMPH # 1.1 x10^3/uL (1.0-4.8); LYMPH % 11 % (24-48); MEAN CORPUSCULAR HEMOGLOBIN 30 pg (25-35); MEAN CORPUSCULAR HGB CONC 33 g/dL (31-37); MEAN CORPUSCULAR VOLUME 91 fL (79-100); MONO # 0.8 x10^3/uL (0.0-1.1); MONO % 8 % (0-9); NEUT # 7.8 x10^3/uL (1.8-7.7); NEUT % 77 % (31-73); PLATELET COUNT 300 x10^3/uL (140-400); RED BLOOD COUNT 3.76 x10^6/uL (4.30-5.70); RED CELL DISTRIBUTION WIDTH 17.9 % (11.5-14.5); WHITE BLOOD COUNT 10.2 x10^3/uL (4.0-11.0)
[2020-11-05 10:30] VITALS: BP 124/61
--- NOTE | 2020-11-05 11:02 | PN ---
DATE: 11/05/2020 LOCATION: He is in room 404. SUBJECTIVE: This 85-year-old white male remains hospitalized because of urinary tract infection with encephalopathy that has improved. He was noted to have swallowing difficulties, felt due to migration of the cervical hardware screw, which was removed a couple of days ago by Neurosurgery. He is awake and alert and has been transferred to dysphagia 1 diet per dietary at bedside yesterday. Nursing did call yesterday with concerns of right lower leg redness. I did start him on better antibiotic coverage for what was felt to be a possible cellulitis, but upon seeing him this morning, I do not think there is anything major going on here. OBJECTIVE: VITAL SIGNS: Stable. He is afebrile. CHEST: Clear. HEART: Regular. ABDOMEN: Benign. He has ongoing PPN and a cervical collar in place. IMPRESSION: 1. Urinary tract infection with Escherichia coli, improved. 2. Hyponatremia. 3. Dysphagia, as discussed above, currently on dysphagia 1 diet. 4. Diabetes. 5. Left glzdl-rvx-hmci amputation. 6. Recent COVID with recovery. 7. Right lower leg minimal redness with no heat. PLAN: Ongoing mobilization, dysphagia 1 diet. I anticipate discharge tomorrow and wonder if Speech would want to do some more formal swallow evaluation with the screw removed to see if he is safe for more than dysphagia 1 diet, but we will leave that up to them. We will plan on continuing antibiotics at least through tomorrow. RAJESH SZYMANSKI MD DR: EDMUND/julia JOB#: [id number] / [id number]
[2020-11-05] MEDS: VANCOMYCIN PER PHARMACY MC PRN (11:08)
--- NOTE | 2020-11-05 11:21 | PDOC ---
PROGRESS NOTES Date of Service DATE: 11/05/20 TIME: 11:19 Subjective Subjective POD #2 s/p Removal of odontoid screw Objective Objective Vital Signs Date Time Temp Pulse Resp B/P (MAP) Pulse Ox O2 Delivery O2 Flow Rate FiO2 11/05/20 10:30 98.3 91 18 124/61 (82) 93 Nasal Cannula 2.0 98.3 Intake and Output 11/05/20 07:00 Intake Total 1200 ml Output Total 1650 ml Balance -450 ml Intake Oral 150 ml IV Total 1050 ml Output Urine Total 1650 ml Physical Exam General: Alert, Cooperative, No acute distress MUSCULOSKELETAL: Other (OWUSU) Neck: Other (soft collar on) Neuro: Normal speech Assessment Assessment Problems Medical Problems: (1) AMS (altered mental status) Status: Acute (2) Fever Status: Acute (3) Sepsis Status: Acute (4) UTI (urinary tract infection) Status: Acute Plan Plan of Care diet per SP recommendations Comment Review of Relevant I have reviewed the following items genesis (where applicable) has been applied. Labs Laboratory Tests Test 11/03/20 12:26 11/03/20 16:35 11/03/20 19:27 11/04/20 07:13 Glucose (Fingerstick) 162 mg/dL (70-99) 221 mg/dL (70-99) 241 mg/dL (70-99) 153 mg/dL (70-99) Test 11/04/20 11:10 11/04/20 15:46 11/04/20 20:07 11/05/20 07:01 Glucose (Fingerstick) 140 mg/dL (70-99) 168 mg/dL (70-99) 159 mg/dL (70-99) 136 mg/dL (70-99) Test 11/05/20 07:17 11/05/20 11:06 White Blood Count 10.2 x10^3/uL (4.0-11.0) Red Blood Count 3.76 x10^6/uL (4.30-5.70) Hemoglobin 11.2 g/dL (13.0-17.5) Hematocrit 34.4 % (39.0-53.0) Mean Corpuscular Volume 91 fL (79-100) Mean Corpuscular Hemoglobin 30 pg (25-35) Mean Corpuscular Hemoglobin Concent 33 g/dL (31-37) Red Cell Distribution Width 17.9 % (11.5-14.5) Platelet Count 300 x10^3/uL (140-400) Neutrophils (%) (Auto) 77 % (31-73) Lymphocytes (%) (Auto) 11 % (24-48) Monocytes (%) (Auto) 8 % (0-9) Eosinophils (%) (Auto) 3 % (0-3) Basophils (%) (Auto) 1 % (0-3) Neutrophils # (Auto) 7.8 x10^3/uL (1.8-7.7) Lymphocytes # (Auto) 1.1 x10^3/uL (1.0-4.8) Monocytes # (Auto) 0.8 x10^3/uL (0.0-1.1) Eosinophils # (Auto) 0.3 x10^3/uL (0.0-0.7) Basophils # (Auto) 0.1 x10^3/uL (0.0-0.2) Sodium Level 141 mmol/L (136-145) Potassium Level 3.5 mmol/L (3.5-5.1) Chloride Level 107 mmol/L (98-107) Carbon Dioxide Level 24 mmol/L (21-32) Anion Gap 10 (6-14) Blood Urea Nitrogen 12 mg/dL (8-26) Creatinine 0.7 mg/dL (0.7-1.3) Estimated GFR (Cockcroft-Gault) 107.4 Glucose Level 143 mg/dL (70-99) Calcium Level 8.4 mg/dL (8.5-10.1) Glucose (Fingerstick) 175 mg/dL (70-99) Laboratory Tests Test 11/04/20 15:46 11/04/20 20:07 11/05/20 07:01 11/05/20 07:17 Glucose (Fingerstick) 168 mg/dL (70-99) 159 mg/dL (70-99) 136 mg/dL (70-99) White Blood Count 10.2 x10^3/uL (4.0-11.0) Red Blood Count 3.76 x10^6/uL (4.30-5.70) Hemoglobin 11.2 g/dL (13.0-17.5) Hematocrit 34.4 % (39.0-53.0) Mean Corpuscular Volume 91 fL (79-100) Mean Corpuscular Hemoglobin 30 pg (25-35) Mean Corpuscular Hemoglobin Concent 33 g/dL (31-37) Red Cell Distribution Width 17.9 % (11.5-14.5) Platelet Count 300 x10^3/uL (140-400) Neutrophils (%) (Auto) 77 % (31-73) Lymphocytes (%) (Auto) 11 % (24-48) Monocytes (%) (Auto) 8 % (0-9) Eosinophils (%) (Auto) 3 % (0-3) Basophils (%) (Auto) 1 % (0-3) Neutrophils # (Auto) 7.8 x10^3/uL (1.8-7.7) Lymphocytes # (Auto) 1.1 x10^3/uL (1.0-4.8) Monocytes # (Auto) 0.8 x10^3/uL (0.0-1.1) Eosinophils # (Auto) 0.3 x10^3/uL (0.0-0.7) Basophils # (Auto) 0.1 x10^3/uL (0.0-0.2) Sodium Level 141 mmol/L (136-145) Potassium Level 3.5 mmol/L (3.5-5.1) Chloride Level 107 mmol/L (98-107) Carbon Dioxide Level 24 mmol/L (21-32) Anion Gap 10 (6-14) Blood Urea Nitrogen 12 mg/dL (8-26) Creatinine 0.7 mg/dL (0.7-1.3) Estimated GFR (Cockcroft-Gault) 107.4 Glucose Level 143 mg/dL (70-99) Calcium Level 8.4 mg/dL (8.5-10.1) Test 11/05/20 11:06 Glucose (Fingerstick) 175 mg/dL (70-99) Microbiology 10/25/20 Urine Culture - Final, Complete 10/25/20 Antimicrobic Susceptibility - Final, Complete 10/25/20 Blood Culture - Final, Complete NO GROWTH AFTER 5 DAYS Medications Current Medications Sodium Chloride 1,000 ml @ 400 mls/hr Q2H30M IV Last administered on 10/25/20at 11:53; Start 10/25/20 at 11:30; Stop 10/25/20 at 16:29; Status DC Ibuprofen (Motrin) 600 mg 1X ONCE PO Last administered on 10/25/20at 11:52; Start 10/25/20 at 11:30; Stop 10/25/20 at 11:32; Status DC Piperacillin Sod/ Tazobactam Sod 3.375 gm/Sodium Chloride 50 ml @ 100 mls/hr 1X ONCE IV Last administered on 10/25/20at 14:21; Start 10/25/20 at 13:30; Stop 10/25/20 at 13:59; Status DC Acetaminophen (Tylenol) 1,000 mg 1X ONCE PO Last administered on 10/25/20at 14:20; Start 10/25/20 at 13:30; Stop 10/25/20 at 13:32; Status DC Ondansetron HCl (Zofran) 4 mg PRN Q8HRS PRN IV NAUSEA/VOMITING Last administered on 10/25/20at 22:10; Start 10/25/20 at 14:15; Stop 10/26/20 at 14:14; Status DC Morphine Sulfate (Morphine Sulfate) 2 mg PRN Q2HR PRN IV PAIN Last administered on 10/25/20at 21:42; Start 10/25/20 at 14:15; Stop 10/26/20 at 14:14; Status DC Acetaminophen (Tylenol) 650 mg PRN Q4HRS PRN PO FEVER > 100.3'F; Start 10/25/20 at 14:15; Stop 10/26/20 at 14:14; Status DC Sodium Chloride 1,000 ml @ 125 mls/hr 1X ONCE IV Last administered on 10/25/20at 14:15; Start 10/25/20 at 14:15; Stop 10/25/20 at 22:14; Status DC Piperacillin Sod/ Tazobactam Sod 3.375 gm/Sodium Chloride 50 ml @ 100 mls/hr Q8HRS IV Last administered on 10/26/20at 05:56; Start 10/25/20 at 22:00; Stop 10/26/20 at 10:09; Status DC Potassium Bicarbonate (Potassium Effervescent Tablet) 40 meq 1X ONCE PO Last administered on 10/26/20at 10:32; Start 10/26/20 at 10:00; Stop 10/26/20 at 10:01; Status DC Piperacillin Sod/ Tazobactam Sod 3.375 gm/Sodium Chloride 50 ml @ 100 mls/hr Q6HRS IV Last administered on 10/27/20at 06:53; Start 10/26/20 at 12:00; Stop 10/27/20 at 08:55; Status DC Vancomycin HCl (Vanco Per Pharmacy) 1 each PRN DAILY PRN MC SEE COMMENTS Last administered on 10/26/20at 14:01; Start 10/26/20 at 11:15; Stop 10/27/20 at 08:55; Status DC Vancomycin HCl 1.5 gm/Sodium Chloride 500 ml @ 250 mls/hr 1X ONCE IV Last administered on 10/26/20at 11:27; Start 10/26/20 at 11:30; Stop 10/26/20 at 13:29; Status DC Vancomycin HCl 1 gm/Sodium Chloride 250 ml @ 250 mls/hr Q18H IV Last administered on 10/27/20at 05:07; Start 10/27/20 at 05:00; Stop 10/27/20 at 09:00; Status DC Vancomycin HCl (Vancomycin Trough Level) 1 each 1X ONCE MC ; Start 10/27/20 at 22:30; Stop 10/27/20 at 08:55; Status DC Lactobacillus Rhamnosus (Culturelle) 1 cap BID PO Last administered on 11/05/20at 08:33; Start 10/26/20 at 21:00 Ceftriaxone Sodium (Rocephin) 1 gm Q24H IVP ; Start 10/27/20 at 09:30; Stop 10/27/20 at 09:17; Status DC Daptomycin 400 mg/ Sodium Chloride 50 ml @ 100 mls/hr Q24H IV Last administered on 10/27/20at 10:33; Start 10/27/20 at 11:00; Stop 10/28/20 at 09:41; Status DC Ceftriaxone Sodium (Rocephin) 1 gm Q24H IVP ; Start 10/27/20 at 09:30; Stop 10/27/20 at 09:18; Status DC Ceftriaxone Sodium (Rocephin) 1 gm Q24H IVP Last administered on 10/27/20at 09:52; Start 10/27/20 at 10:00; Stop 10/28/20 at 09:41; Status DC Potassium Chloride (Klor-Con) 40 meq 1X ONCE PO Last administered on 10/27/20at 09:37; Start 10/27/20 at 09:30; Stop 10/27/20 at 09:31; Status DC Potassium Chloride (Klor-Con) 40 meq 1X ONCE PO Last administered on 10/27/20at 11:39; Start 10/27/20 at 12:00; Stop 10/27/20 at 12:01; Status DC Multivitamins (Thera M Plus) 1 tab DAILY PO Last administered on 11/05/20at 08:34; Start 10/28/20 at 09:00 Cephalexin HCl (Keflex) 500 mg QID PO Last administered on 10/29/20at 20:29; Start 10/28/20 at 13:00; Stop 10/30/20 at 09:32; Status DC Acetaminophen (Tylenol) 325 mg PRN Q4HRS PRN PO MILD PAIN / TEMP > 100.3'F; Start 10/28/20 at 10:00 Aspirin (Ecotrin) 81 mg DAILYWBKFT PO ; Start 10/28/20 at 10:00; Stop 11/05/20 at 07:21; Status DC Docusate Sodium (Colace) 100 mg BID PO Last administered on 10/28/20at 20:53; Start 10/28/20 at 10:00 Gabapentin (Neurontin) 100 mg BID PO Last administered on 11/05/20at 08:34; Start 10/28/20 at 10:00 Acetaminophen/ Hydrocodone Bitart (Lortab 5/325) 1 tab HS PO Last administered on 10/29/20at 20:30; Start 10/28/20 at 21:00 Albuterol/ Ipratropium (Duoneb) 3 ml PRN Q4HRS PRN IH COUGH; Start 10/28/20 at 10:00 Metoprolol Tartrate (Lopressor) 25 mg BID PO Last administered on 10/28/20at 20:55; Start 10/28/20 at 10:00 Nystatin (Nystop) 60 neva PRN Q8HRS PRN TP RASH Last administered on 10/28/20at 22:13; Start 10/28/20 at 10:00; Stop 10/30/20 at 11:01; Status DC Pantoprazole Sodium (Protonix) 40 mg DAILYAC PO Last administered on 11/05/20at 05:27; Start 10/28/20 at 11:30 Primidone (Mysoline) 50 mg TID PO Last administered on 11/05/20at 08:33; Start 10/28/20 at 10:00 Senna/Docusate Sodium (Senna Plus) 2 tab DAILY PO ; Start 10/28/20 at 10:15 Tamsulosin HCl (Flomax) 0.4 mg DAILY PO Last administered on 11/05/20at 08:33; Start 10/28/20 at 10:15 Trazodone HCl (Desyrel) 100 mg QHS PO Last administered on 11/04/20at 21:10; Start 10/28/20 at 21:00 Pioglitazone HCl (Actos) 30 mg DAILY PO Last administered on 11/05/20at 08:34; Start 10/28/20 at 10:15 Potassium Chloride (Klor-Con) 10 meq TIDAFTMEAL PO Last administered on 10/28/20at 12:54; Start 10/28/20 at 10:15; Stop 10/28/20 at 13:19; Status DC Sodium Chloride 1,000 ml @ 100 mls/hr Q10H IV Last administered on 10/28/20at 22:40; Start 10/28/20 at 13:00; Stop 10/29/20 at 09:26; Status DC Potassium Chloride (Klor-Con) 40 meq BID PO Last administered on 10/29/20at 20:29; Start 10/28/20 at 21:00; Stop 10/31/20 at 12:31; Status DC Potassium Chloride (Klor-Con) 40 meq 1X ONCE PO Last administered on 10/28/20at 12:54; Start 10/28/20 at 12:30; Stop 10/28/20 at 12:31; Status DC Potassium Chloride 40 meq/ Dextrose 1,020 ml @ 75 mls/hr [id number] IV Last administered on 10/31/20at 03:39; Start 10/29/20 at 09:30; Stop 10/31/20 at 09:38; Status DC Ceftriaxone Sodium (Rocephin) 2 gm Q24H IVP Last administered on 10/31/20at 08:28; Start 10/30/20 at 10:00; Stop 11/01/20 at 09:11; Status DC Nystatin (Mycostatin) 1 neva BID TP Last administered on 11/05/20at 09:00; Start 10/30/20 at 21:00 Potassium Chloride (Klor-Con) 20 meq DAILYWBKFT PO ; Start 10/31/20 at 11:00; Stop 11/05/20 at 07:22; Status DC Cefdinir (Omnicef) 300 mg BID PO ; Start 11/01/20 at 10:00; Stop 11/03/20 at 21:01; Status DC Barium Sulfate (Varibar Thin Liquid Apple) 148 gm 1X ONCE PO Last administered on 11/01/20at 12:45; Start 11/01/20 at 12:45; Stop 11/01/20 at 12:46; Status DC Amino Acids/ Glycerin/ Electrolytes 1,000 ml @ 80 mls/hr [id number] IV Last administered on 11/05/20at 04:04; Start 11/02/20 at 12:15 Cefazolin Sodium/ Dextrose 50 ml @ 100 mls/hr 1X PREOP PRN IV PRIOR TO PROCEDURE; Start 11/03/20 at 06:00; Stop 11/03/20 at 14:18; Status DC Bacitracin 40640 unit/Sodium Chloride 1,000 ml @ 1,000 mls/hr 1X ONCE IRR Last administered on 11/03/20at 11:19; Start 11/03/20 at 06:00; Stop 11/03/20 at 06:59; Status DC Propofol (Diprivan) 200 mg STK-MED ONCE IV ; Start 11/03/20 at 09:41; Stop 11/03/20 at 09:42; Status DC Dexamethasone Sodium Phosphate (Decadron) 20 mg STK-MED ONCE .ROUTE ; Start 11/03/20 at 09:41; Stop 11/03/20 at 09:42; Status DC Lidocaine HCl (Lidocaine Pf 2% Vial) 5 ml STK-MED ONCE .ROUTE ; Start 11/03/20 a t 09:41; Stop 11/03/20 at 09:42; Status DC Ondansetron HCl (Zofran) 4 mg STK-MED ONCE .ROUTE ; Start 11/03/20 at 09:41; Stop 11/03/20 at 09:42; Status DC Fentanyl Citrate (Fentanyl 2ml Vial) 100 mcg STK-MED ONCE .ROUTE ; Start 11/03/20 at 09:41; Stop 11/03/20 at 09:42; Status DC Rocuronium [place] (Zemuron) 50 mg STK-MED ONCE .ROUTE ; Start 11/03/20 at 09:41; Stop 11/03/20 at 09:42; Status DC Succinylcholine Chloride (Anectine) 200 mg STK-MED ONCE .ROUTE ; Start 11/03/20 at 09:42; Stop 11/03/20 at 09:42; Status DC Fentanyl Citrate (Fentanyl 2ml Vial) 25 mcg PRN Q5MIN PRN IVP MILD PAIN 1-3; Start 11/03/20 at 09:45; Stop 11/03/20 at 15:00; Status DC Fentanyl Citrate (Fentanyl 2ml Vial) 50 mcg PRN Q5MIN PRN IVP MODERATE PAIN 4- 6; Start 11/03/20 at 09:45; Stop 11/03/20 at 15:00; Status DC Morphine Sulfate (Morphine Sulfate) 1 mg PRN Q10MIN PRN IVP SEVERE PAIN 7-10; Start 11/03/20 at 09:45; Stop 11/03/20 at 15:00; Status DC Ringer's Solution 1,000 ml @ 30 mls/hr Q24H IV Last administered on 11/03/20at 12:24; Start 11/03/20 at 09:45; Stop 11/03/20 at 21:44; Status DC Hydromorphone HCl (Dilaudid) 0.5 mg PRN Q10MIN PRN IVP SEVERE PAIN 7-10, 2nd CHOICE; Start 11/03/20 at 09:45; Stop 11/03/20 at 15:00; Status DC Prochlorperazine Edisylate (Compazine) 5 mg PACU PRN PRN IVP NAUSEA, MRX1; Start 11/03/20 at 09:45; Stop 11/03/20 at 15:00; Status DC Gelatin (Gelfoam Size 100) 1 each STK-MED ONCE .ROUTE Last administered on 11/03/20at 11:19; Start 11/03/20 at 10:01; Stop 11/03/20 at 10:01; Status DC Bupivacaine HCl/ Epinephrine Bitart (Sensorcain-Epi 0.5%-1:288009 Mpf) 30 ml STK-MED ONCE .ROUTE Last administered on 11/03/20at 11:19; Start 11/03/20 at 10:01; Stop 11/03/20 at 10:01; Status DC Thrombin 20,000 unit STK-MED ONCE TP Last administered on 11/03/20at 11:19; Start 11/03/20 at 10:01; Stop 11/03/20 at 10:02; Status DC Cefazolin Sodium (Ancef) 1 gm STK-MED ONCE IVP ; Start 11/03/20 at 10:12; Stop 11/03/20 at 10:13; Status DC Propofol 50 ml @ As Directed STK-MED ONCE IV ; Start 11/03/20 at 10:17; Stop at 10:17; Status DC Remifentanil HCl (Ultiva) 1 mg STK-MED ONCE IV ; Start 11/03/20 at 10:22; Stop 11/03/20 at 10:22; Status DC Phenylephrine HCl (PHENYLEPHRINE in 0.9% NACL PF) 1 mg STK-MED ONCE IV ; Start 11/03/20 at 10:44; Stop 11/03/20 at 10:44; Status DC Ephedrine Sulfate (ePHEDrine PF IN SALINE SYRINGE) 50 mg STK-MED ONCE IV ; Start 11/03/20 at 11:15; Stop 11/03/20 at 11:15; Status DC Phenylephrine HCl (PHENYLEPHRINE in 0.9% NACL PF) 1 mg STK-MED ONCE IV ; Start 11/03/20 at 11:41; Stop 11/03/20 at 11:42; Status DC Glycopyrrolate (Robinul) 1 mg STK-MED ONCE .ROUTE ; Start 11/03/20 at 11:48; Stop 11/03/20 at 11:49; Status DC Neostigmine [place] (Neostigmine Methylsulfate) 5 mg STK-MED ONCE .ROUTE ; Start 11/03/20 at 11:49; Stop 11/03/20 at 11:49; Status DC Fentanyl Citrate (Fentanyl 2ml Vial) 25 mcg PRN Q2HR PRN IVP PAIN; Start 11/03/20 at 12:15 Insulin Human Lispro (HumaLOG VIAL for OP,RR ONLY) 0-10 units PRN Q1HR PRN SQ PER PROTOCOL; Start 11/03/20 at 12:15; Stop 11/03/20 at 15:00; Status DC Vancomycin HCl (Vanco Per Pharmacy) 1 each PRN DAILY PRN MC SEE COMMENTS Last administered on 11/05/20at 11:08; Start 11/04/20 at 16:15 Piperacillin Sod/ Tazobactam Sod 3.375 gm/Sodium Chloride 50 ml @ 100 mls/hr Q6HRS IV Last administered on 11/05/20at 05:27; Start 11/04/20 at 17:00 Vancomycin HCl 1.5 gm/Sodium Chloride 500 ml @ 250 mls/hr 1X ONCE IV Last administered on 11/04/20at 17:23; Start 11/04/20 at 17:00; Stop 11/04/20 at 18:59; Status DC Vancomycin HCl 1 gm/Sodium Chloride 250 ml @ 250 mls/hr Q18H IV ; Start 11/05/20 at 11:30 Vancomycin HCl (Vancomycin Trough Level) 1 each 1X ONCE MC ; Start 11/06/20 at 05:00; Stop 11/06/20 at 05:01 Aspirin (Aspirin Chewable) 81 mg DAILYWBKFT PO Last administered on 11/05/20at 08:33; Start 11/05/20 at 08:00 Potassium Bicarbonate (Potassium Effervescent Tablet) 20 meq DAILYWBKFT PO Last administered on 11/05/20at 08:38; Start 11/05/20 at 08:00 Active Scripts Active Decadron (Dexamethasone) 4 Mg Tablet 1 Tab PO DAILY PRN 5 Days Decadron (Dexamethasone) 6 Mg Tablet 2 Tab PO ONCE 1 Days Aspirin Ec (Aspirin) 81 Mg Tablet. 81 Mg PO DAILYWBKFT 30 Days Metoprolol Tartrate 25 Mg Tablet 25 Mg PO BID 30 Days Amox Tr-K Clv 875-125 Mg Tab (Amoxicillin/Potassium Clav) 1 Each Tablet 1 Tab PO BID 7 Days Pantoprazole Sodium (Pantoprazole Sodium) 40 Mg Tablet. 40 Mg PO DAILYAC 90 Days Lipitor (Atorvastatin Calcium) 40 Mg Tablet 1 Tab PO QHS PRN Reported Vitamin C (Ascorbic Acid) 500 Mg Capsule.er 1 Cap PO DAILY 30 Days Thera-M Caplet (Multivits,Ca,Minerals/Iron/Fa) 1 Each Tablet 1 Tab PO DAILY 30 Days Senna Plus Tablet (Sennosides/Docusate Sodium) 1 Each Tablet 2 Tab PO DAILY 20 Days Nystop (Nystatin) 60 Gm Powder 60 Gm TP PRN Q8MIN PRN Hydrocodone-Acetamin 5-325 mg (Hydrocodone/Acetaminophen) 1 Each Tablet 1 Each PO PRN Q48HR PRN Imodium A-D (Loperamide HCl) 2 Mg Capsule 2 Mg PO PRN Q8HRS PRN Genteal Tears 0.1%-0.3% Drop (Dextran 70/Hypromellose/Pf) 1 Each Droperette 1 Each OP BID Gabapentin (Gabapentin) 100 Mg Capsule 100 Mg PO BID Fiber Lax (Calcium Polycarbophil) 625 Mg Tablet 1,250 Mg PO DAILY Fexofenadine Hcl 180 Mg Tablet 1 Tab PO DAILY Carafate (Sucralfate) 1 Gm Tablet 1 Tab PO QID 30 Days Calcium Carbonate 400 Mg Tab.chew 400 Mg PO BID Amaryl (Glimepiride) 1 Mg Tablet 2 Tab PO DAILY Trazodone Hcl 100 Mg Tablet 1 Tab PO QHS Zinc 50 Mg Tablet 1 Tab PO DAILY 30 Days Mucinex (Guaifenesin) 600 Mg Tablet.er 1 Tab PO BID Hydrocodone-Apap 5-325 (Hydrocodone Bit/Acetaminophen) 1 Tab Tablet 1 Tab PO HS Flonase Allergy Relief (Fluticasone Propionate) 9.9 Ml [place].susp 2 Sprays NS DAILY Colace (Docusate Sodium) 100 Mg Capsule 1 Cap PO BID Triamcinolone Acetonide 0.1% Oint (Triamcinolone Acetonide) 15 Gm Oint...g. 1 Neva TP BID MIX WITH EUCERIN DIRECTED BY PHYSICIAN Actos (Pioglitazone Hcl) 30 Mg Tablet 1 Tab PO DAILY LAST DOSE GIVEN: DATE:04/02/17 TIME:0900 Tylenol (Acetaminophen) 325 Mg Tablet 1 Tab PO PRN Q4HRS LAST DOSE GIVEN: DATE:04/01/17 TIME:9 p.m. Duoneb 0.5-3(2.5) Mg/3 Ml (Albuterol/Ipratropium) 3 Ml Ampul.neb 3 Ml IH PRN Q4HRS PRN Tamsulosin Hcl 0.4 Mg Cap.er.24h 0.4 Mg PO DAILY LAST DOSE GIVEN: DATE:04/02/17 TIME:0900 Primidone 50 Mg Tablet 50 Mg PO TID LAST DOSE GIVEN: DATE:04/02/17 TIME:2:00 p.m. Vitals/I & O Vital Sign - Last 24 Hours 11/04/20 11/04/20 11/04/20 11/04/20 14:19 19:00 20:00 22:56 Temp 96.7 97.9 98.0 96.7 97.9 98.0 Pulse 60 82 86 Resp 18 16 16 B/P (MAP) 84/41 (55) 108/62 (77) 99/67 (78) Pulse Ox 100 94 93 O2 Delivery Nasal Cannula Nasal Cannula Nasal Cannula Nasal Cannula O2 Flow Rate 2.0 2.0 2 2.0 11/05/20 11/05/20 11/05/20 03:04 07:09 10:30 Temp 98.0 98.2 98.3 98.0 98.2 98.3 Pulse 75 84 91 Resp 18 18 18 B/P (MAP) 115/53 (73) 118/65 (82) 124/61 (82) Pulse Ox 96 90 93 O2 Delivery Nasal Cannula Nasal Cannula Nasal Cannula O2 Flow Rate 2.0 2.0 2.0 Intake and Output 11/04/20 11/04/20 11/05/20 15:00 23:00 07:00 Intake Total 100 ml 1100 ml Output Total 550 ml 1100 ml Balance -450 ml 0 ml Justifications for Admission Other Justification Nutrition Consultation Dietary Evaluation: Recommendations by RD: Dietary education by RD, PPN/TPN Comments: rec PPN < 10 days 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
[2020-11-05] MEDS ORDERED: VANCOMYCIN 1 GM in IV NORMAL SALINE 250ML 250 ML IV SCH (11:30)
[2020-11-05 14:19] VITALS: BP 123/69
[2020-11-05 19:00] VITALS: BP 108/49
[2020-11-05] MEDS: traZODone 100 MG TABLET. PO SCH (20:18)
[2020-11-05] MEDS: HYDROcodone/APAP 5/325MG 1 TAB TABLET PO SCH (21:00)
[2020-11-05 23:00] VITALS: BP 113/80
[2020-11-06] MEDS: PIPERACILLIN/TAZOBACTAM 3.375 GM in IV NORMAL SALINE 50ML 50 ML IV SCH ×3 (00:16→13:17)
[2020-11-06 03:01] VITALS: BP 128/47
[2020-11-06] MEDS: AMINO AC 3%/ELECTROLYTE/GLYCER 1,000 ML IV SCH ×2 (05:12→14:20)
[2020-11-06] MEDS: PANTOPRAZOLE 40 MG TABLET.DR. PO SCH (05:13)
[2020-11-06 06:32] LABS: CALCIUM 8.5 mg/dL (8.5-10.1); CREATININE 0.6 mg/dL (0.7-1.3); GFR 128.4; POTASSIUM 3.4 mmol/L (3.5-5.1)
[2020-11-06 06:58] LABS: VANC TR 9.2 mcg/mL (10.0-20.0)
[2020-11-06 07:19] VITALS: BP 129/83
[2020-11-06] MEDS: VANCOMYCIN PER PHARMACY MC PRN (07:27)
--- NOTE | 2020-11-06 07:30 | NUR ---
Pharmacy Vancomycin Dosing Note S: Consulted to monitor and dose vancomycin started 10/26/20. O: KAROLINE LLAMAS is a 85 year old M with Cellulitis Other Antibiotics: ZOSYN 3.375G IV Q6HRS LABS: Last BUN: 8 Last Creatinine: 0.6 Creatinine Clearance: 52 mL/min Last WBC: 10.2 Last Procalcitonin: 0.11 (10/25) Tmax (past 24 hours): 98.3 Microbiology: BLOOD CX (10/25): GPC 10/08 URINE CX (10/25): E.COLI I/O: 1200/1650 Last Trough level: 9.2 on 11/06/20 at 0611 Vancomycin Dosing: Dosing Weight: Actual Target Trough: 10-20 A: Based on: SUBTHERAPEUTIC TROUGH P: 1. Change Vancomycin 1250 mg IV q18h 2. Follow up Trough level on 11/07/20 at 1930 3. Pharmacy will continue to monitor, follow and adjust therapy as needed. DENEEN FLORES [facility], 11/06/20 [id number]
[2020-11-06] MEDS: ASPIRIN CHEWABLE 81 MG TABLET. PO SCH (08:00)
[2020-11-06] MEDS: POTASSIUM BICARB 20 MEQ EFFERVESCENT TABLET. PO SCH (08:00)
[2020-11-06] MEDS ORDERED: VANCOMYCIN 1.25 GM in IV NORMAL SALINE 250ML 250 ML IV SCH (08:00)
[2020-11-06] MEDS: PIOGLITAZONE 15 MG TABLET. PO SCH (09:00)
[2020-11-06] MEDS: METOPROLOL TART IMMED RELEASE 25 MG TABLET. PO SCH ×2 (09:00→21:31)
[2020-11-06] MEDS: DOCUSATE SODIUM 100 MG CAPSULE. PO SCH ×2 (09:00→21:31)
[2020-11-06] MEDS: GABAPENTIN 100 MG CAPSULE. PO SCH ×2 (09:00→21:31)
[2020-11-06] MEDS: NYSTATIN 100,000 UNIT/GM TOPICAL OINTMENT 15GM TUBE. TP SCH ×2 (09:00→21:00)
[2020-11-06] MEDS: MULTIVITAMIN with MINERAL TABLET. PO SCH (09:00)
[2020-11-06] MEDS: TAMSULOSIN 0.4 MG CAP.ER.24H. PO SCH (09:00)
[2020-11-06] MEDS: LACTOBACILLUS RHAMNOSUS GG 1 CAPSULE. PO SCH ×2 (09:00→21:31)
[2020-11-06] MEDS: SENNOSIDES/DOCUSATE 8.6/50MG TABLET. PO SCH (09:00)
[2020-11-06] MEDS: PRIMIDONE 50 MG TABLET PO SCH ×3 (09:00→21:31)
--- NOTE | 2020-11-06 10:03 | PDOC ---
Infectious Disease Note Subjective Subjective Patient denies any complaints, forgetful no fevers Remains on room air A little stump discomfort Vital Sign Vital Signs Vital Signs Date Time Temp Pulse Resp B/P (MAP) Pulse Ox O2 Delivery O2 Flow Rate FiO2 11/06/20 07:19 11/06/20 07:19 97.8 95 18 96 Nasal Cannula 2.0 97.8 Physical Exam PHYSICAL EXAM GENERAL: Alert, awake, , in no acute distress. On room air HEENT: Normocephalic, atraumatic. Oral mucosa dry. NECK: Supple. No JVD.- collar LUNGS: Clear bilaterally. HEART: S1, S2 regular. ABDOMEN: Soft, nontender, nondistended. GENITOURINARY: Briefs in place. No Valero. EXTREMITIES: Left BKA - clean. No edema.RLE - thin. Min erythema. no warmth NEUROLOGIC: Alert, follows commands, somewhat forgetful. SKIN: PIV looks okay. Labs Lab Laboratory Tests Test 11/05/20 11:06 11/05/20 16:02 11/05/20 20:07 11/06/20 06:11 Glucose (Fingerstick) 175 mg/dL (70-99) 131 mg/dL (70-99) 173 mg/dL (70-99) Sodium Level 139 mmol/L (136-145) Potassium Level 3.4 mmol/L (3.5-5.1) Chloride Level 105 mmol/L (98-107) Carbon Dioxide Level 24 mmol/L (21-32) Anion Gap 10 (6-14) Blood Urea Nitrogen 8 mg/dL (8-26) Creatinine 0.6 mg/dL (0.7-1.3) Estimated GFR (Cockcroft-Gault) 128.4 Glucose Level 154 mg/dL (70-99) Calcium Level 8.5 mg/dL (8.5-10.1) Vancomycin Level Trough 9.2 mcg/mL (10.0-20.0) Vancomycin Last Dose Date 11/05/20 Vancomycin Last Dose Time 1130 Test 11/06/20 07:08 Glucose (Fingerstick) 153 mg/dL (70-99) Micro ANTIMICROBIAL SUSCEPTIBILITY Final Comment NEG GEE 56 ESCHERICHIA COLI ANTIBIOTIC RESULT INTERPRETATION AMPICILLIN/SULBACTAM >16/8 R AMIKACIN <=16 S AMPICILLIN >16 R AMOXICILLIN/K CLAVULANATE >16/8 R AZTREONAM <=4 S CEFTRIAXONE <=1 S CEFTAZIDIME <=1 S CEFOTAXIME <=2 S CEFOXITIN <=8 S CIPROFLOXACIN >2 R CEFEPIME <=2 S CEFUROXIME 16 I CEFTAZIDIME/AVIBACTAM <=4 S ERTAPENEM <=0.5 S NITROFURANTOIN <=32 S GENTAMICIN <=2 S LEVOFLOXACIN >4 R MEROPENEM <=1 S PIPERACILLIN/TAZOBACTAM >64 R TRIMETHOPRIM/SULFAMETHOXAZOLE >2/38 R TETRACYCLINE >8 R TOBRAMYCIN <=2 S Unless otherwise specified, Testing Performed by: Objective Assessment 1. Fever.resolved 2. Lactic acidosis. improved 3. Gram-positive cocci bacteremia, 1/3 bottles present on admission, could be a contaminant.coag neg staph likely contaminant 4. Escherichia coli urinary tract infection. 5. Abnormal liver function tests. 6. Diabetes with neuropathy. 7. Left below knee amputation. 8. Atrial fibrillation. 9. Hypokalemia. Plan Plan of Care Antibiotic can be discontinued if it is okay with neurosurgery Supportive care PT OT Follow YARY Stinson MD Nov 06, 2020 10:03
[2020-11-06 10:38] VITALS: BP 145/79
[2020-11-06] MEDS ORDERED: BARIUM SULFATE 40% (APPLE) 148 GM PWD. PO ONE (12:00)
[2020-11-06 14:44] VITALS: BP 125/62
--- NOTE | 2020-11-06 16:54 | RAD ---
PROCEDURE: DG VIDEO SWALLOW STUDY STUDY DATE: 11/06/2020 CLINICAL INDICATION / HISTORY: Reason: Dysphagia / Spl. Instructions: BARIUM ORDERED / History: . TECHNIQUE: Real-time fluoroscopic imaging examination was performed in conjunction with speech therap y. The patient was administered barium labeled thin liquids, honey, and pudding consistency compounds . FLUOROSCOPY TIME: 4.1 minutes. Number of Images: 8 COMPARISON: C-spine x-rays of 11/02/2020 FINDINGS: A fixation screw through the C2 vertebral body has since been removed. Laryngeal penetration was observed with honey thickened. The fluid consistencies. Tracheal aspiration with delayed throat clear was observed with thin liquids. There is a delayed trigger for swallowing. With all tested food consistencies, moderate vallecular, posterior pharyngeal wall, and piriform sinu s residue was observed. . IMPRESSION: Dysphagia of the oral and pharyngeal phases.. There was evidence of aspiration. Please refer to speech pathology notes for complete details and recommendations. Electronically signed by: Love Ramírez MD (11/06/2020 4:51 PM) [id number]
[2020-11-06] MEDS ORDERED: INSULIN LISPRO 300 UNITS/3 ML VIAL. SQ PRN (17:00)
[2020-11-06 19:00] VITALS: BP 124/82
--- NOTE | 2020-11-06 20:08 | PN ---
DATE: 11/06/2020 DAILY PROGRESS NOTE LOCATION: He is in room 404. SUBJECTIVE: The patient is an 85-year-old white male who remains hospitalized with initial presentation for sepsis due to urinary tract infection. He was then noted to have dysphagia and was found to have a migrated screw in his neck pressing on the esophagus, which has been removed. I did receive a call from Speech Therapy prior to the dictation, they state his speech is still not completely safe and that he should remain on a dysphagia 1 diet, which is what he has been. Thus, we will probably discharge him tomorrow if he remains stable. OBJECTIVE: VITAL SIGNS: Stable. He is afebrile. CHEST: Clear. HEART: Regular. ABDOMEN: Benign. Has the ongoing PPI and the cervical collar in place. IMPRESSION: 1. Urinary tract infection with Escherichia coli, improved. 2. Hyponatremia. 3. Hypokalemia. 4. Dysphagia as described above. 5. Diabetes. 6. Left lrggy-knh-wgaz amputation. 7. Recent COVID with recovery. 8. Right lower leg with minimal redness, but I am not concerned about. PLAN: Dysphagia 1 diet with anticipation of discharge tomorrow back to skilled nursing status and hopefully he is able to do well enough p.o. to maintain himself there. RAJESH SZYMANSKI MD DR: EDMUND/julia JOB#: [id number] / [id number]
[2020-11-06] MEDS: traZODone 100 MG TABLET. PO SCH (21:31)
[2020-11-06] MEDS: HYDROcodone/APAP 5/325MG 1 TAB TABLET PO SCH (21:32)
[2020-11-06 23:14] VITALS: BP 103/52
[2020-11-07 03:00] VITALS: BP 120/57
[2020-11-07] MEDS: AMINO AC 3%/ELECTROLYTE/GLYCER 1,000 ML IV SCH (03:35)
[2020-11-07 07:00] VITALS: BP 129/71
[2020-11-07] MEDS ORDERED: POTA20TA40 PO (08:00)
--- NOTE | 2020-11-07 08:02 | SNU/HH DC ---
DISCHARGE ORDERS DISCHARGE INFORMATION: DISCHARGE DATE: Nov 07, 2020 FINAL DIAGNOSIS Problems Medical Problems: (1) AMS (altered mental status) Status: Acute (2) Fever Status: Acute (3) Sepsis Status: Acute (4) UTI (urinary tract infection) Status: Acute CONDITION ON DISCHARGE: Stable CODE STATUS: Code Status: Full FDC: SNF STAY <30 DAYS: Yes HOSPICE: HOSPICE: No HOSPICE EVAL & TREAT: No LTAC: ADMIT TO LTAC: No POST DISCHARGE ORDERS: ACTIVITY ORDERS: Activity as tolerated WEIGHT BEARING STATUS: Full weight bearing, As tolerated BATHING ORDERS: Shower-keep dressing dry, No Tub Bath until see DIET AFTER DISCHARGE: ADA WOUND/INCISION CARE: Ice to area for comfort, May get incision wet CHECKS AFTER DISCHARGE: CHECKS AFTER DISCHARGE: Check blood press - daily, Check blood sugar, ac/hs TREATMENT/EQUIPMENT ORDERS: ADAPTIVE EQUIPMENT NEEDED: None Physical Therapy For: Evalulation/Treatment Occupational Therapy For: Evaluation/Treatment DISCHARGE MEDICATIONS: Home Meds Active Scripts Potassium Bicarbonate/Cit Ac (EFFER-K 20 MEQ TABLET EFF) 20 Meq Tablet.eff, 20 MEQ PO DAILYWBKFT for hypokalemia for 30 Days, #30 TAB Prov:RAJESH SZYMANSKI MD 11/07/20 Aspirin (ASPIRIN EC) 81 Mg Tablet., 81 MG PO DAILYWBKFT for cad for 30 Days, #30 TAB.SR Prov:RAJESH SZYMANSKI MD 10/12/20 Metoprolol Tartrate (METOPROLOL TARTRATE) 25 Mg Tablet, 25 MG PO BID for cad for 30 Days, #60 TAB Prov:RAJESH SZYMANSKI MD 10/12/20 Pantoprazole Sodium (PANTOPRAZOLE SODIUM ) 40 Mg Tablet., 40 MG PO DAILYAC for pud for 90 Days, #90 TAB.SR Prov:RAJESH SZYMANSKI MD 06/09/19 Atorvastatin Calcium (LIPITOR) 40 Mg Tablet, 1 TAB PO QHS PRN for High cholesterol, #90 TAB 1 Refill Prov:ESTRADA JARAMILLO MD 02/01/15 Reported Medications Multivits,Ca,Minerals/Iron/Fa (THERA-M CAPLET) 1 Each Tablet, 1 TAB PO DAILY for for 30 Days, #30 TAB 0 Refills 09/16/20 Sennosides/Docusate Sodium (SENNA PLUS TABLET) 1 Each Tablet, 2 TAB PO DAILY for for 20 Days, #40 TAB 0 Refills 09/16/20 Nystatin (NYSTOP) 60 Gm Powder, 60 GM TP PRN Q8MIN PRN for , MISC 09/16/20 Gabapentin (GABAPENTIN ) 100 Mg Capsule, 100 MG PO BID for NEUROGENIC PAIN, CAP 09/16/20 Glimepiride (AMARYL) 1 Mg Tablet, 2 TAB PO DAILY for , #30 TAB 5 Refills 09/16/20 Trazodone Hcl (TRAZODONE HCL) 100 Mg Tablet, 1 TAB PO QHS for , #30 TAB 1 Refill 09/16/20 Docusate Sodium (COLACE) 100 Mg Capsule, 1 CAP PO BID for constipation, #30 CAP 04/04/19 Pioglitazone Hcl (ACTOS) 30 Mg Tablet, 1 TAB PO DAILY, #30 TAB 5 Refills LAST DOSE GIVEN: DATE:04/02/17 TIME:0900 03/24/17 Acetaminophen (TYLENOL) 325 Mg Tablet, 1 TAB PO PRN Q4HRS, #30 TAB LAST DOSE GIVEN: DATE:04/01/17 TIME:9 p.m. 01/15/17 Ipratropium/Albuterol Sulfate (DUONEB 0.5-3(2.5) MG/3 ML) 3 Ml Ampul.neb, 3 ML IH PRN Q4HRS PRN for COUGH 01/23/16 Tamsulosin Hcl (TAMSULOSIN HCL) 0.4 Mg Cap.er.24h, 0.4 MG PO DAILY, TAB LAST DOSE GIVEN: DATE:04/02/17 TIME:0900 01/31/15 Primidone (PRIMIDONE) 50 Mg Tablet, 50 MG PO TID LAST DOSE GIVEN: DATE:04/02/17 TIME:2:00 p.m. 01/31/15 Discontinued Reported Medications Ascorbic Acid (VITAMIN C) 500 Mg Capsule.er, 1 CAP PO DAILY for for 30 Days, #30 CAP 0 Refills 09/16/20 Hydrocodone/Acetaminophen (Hydrocodone-Acetamin 5-325 mg) 1 Each Tablet, 1 EACH PO PRN Q48HR PRN for , TAB 09/16/20 Loperamide HCl (Imodium A-D) 2 Mg Capsule, 2 MG PO PRN Q8HRS PRN for , CAP 09/16/20 Dextran 70/Hypromellose/Pf (Genteal Tears 0.1%-0.3% Drop) 1 Each Droperette, 1 EACH OP BID for , DROP 09/16/20 Calcium Polycarbophil (FIBER LAX) 625 Mg Tablet, 1250 MG PO DAILY for , TAB 09/16/20 Fexofenadine Hcl (FEXOFENADINE HCL) 180 Mg Tablet, 1 TAB PO DAILY for , #30 TAB 5 Refills 09/16/20 Sucralfate (CARAFATE) 1 Gm Tablet, 1 TAB PO QID for for 30 Days, #120 TAB 0 Refills 09/16/20 Calcium Carbonate (CALCIUM CARBONATE) 400 Mg Tab.chew, 400 MG PO BID for , TAB.CHEW 09/16/20 Zinc (ZINC) 50 Mg Tablet, 1 TAB PO DAILY for for 30 Days, #30 TAB 0 Refills 09/16/20 Guaifenesin (MUCINEX) 600 Mg Tablet.er, 1 TAB PO BID for cough, #14 TAB 04/04/19 Hydrocodone Bit/Acetaminophen (HYDROCODONE-APAP 5-325 ) 1 Tab Tablet, 1 TAB PO HS for , TAB 0 Refills 04/04/19 Fluticasone Propionate (Flonase Allergy Relief) 9.9 Ml [place].susp, 2 SPRAYS NS DAILY for allergic rhinitis, BOTTLE 04/04/19 Triamcinolone Acetonide (TRIAMCINOLONE ACETONIDE 0.1% OINT) 15 Gm Oint...g., 1 MARIANNE TP BID for WOUND CARE, #1 TUBE MIX WITH EUCERIN DIRECTED BY PHYSICIAN 03/24/17 Discontinued Scripts Dexamethasone (Decadron) 4 Mg Tablet, 1 TAB PO DAILY PRN for scheduled for 5 Days, #5 TAB 0 Refills Prov:RAJESH SZYMANSKI MD 10/12/20 Dexamethasone (Decadron) 6 Mg Tablet, 2 TAB PO ONCE for covid for 1 Day, #2 TAB 0 Refills Prov:RAJESH SZYMANSKI MD 10/12/20 Amoxicillin/Potassium Clav (AMOX TR-K CLV 875-125 MG TAB) 1 Each Tablet, 1 TAB PO BID for pneumonia for 7 Days, #14 TAB Prov:RAJESH SZYMANSKI MD 10/12/20 RAJESH SZYMANSKI MD Nov 07, 2020 08:02
--- NOTE | 2020-11-07 08:56 | PDOC ---
Infectious Disease Note Subjective Subjective Patient denies any complaints, forgetful no fevers Vital Sign Vital Signs Vital Signs Date Time Temp Pulse Resp B/P (MAP) Pulse Ox O2 Delivery O2 Flow Rate FiO2 11/07/20 07:00 98.3 94 16 129/71 (90) 94 Room Air 98.3 11/06/20 20:05 2.0 Physical Exam PHYSICAL EXAM GENERAL: Alert, awake, , in no acute distress. On room air HEENT: Normocephalic, atraumatic. Oral mucosa dry. NECK: Supple. No JVD.- collar LUNGS: Clear bilaterally. HEART: S1, S2 regular. ABDOMEN: Soft, nontender, nondistended. GENITOURINARY: Briefs in place. No Valero. EXTREMITIES: Left BKA - clean. No edema.RLE - thin. Min erythema. no warmth NEUROLOGIC: Alert, follows commands, somewhat forgetful. SKIN: PIV looks okay. Labs Lab Laboratory Tests Test 11/06/20 11:15 11/06/20 16:03 11/06/20 20:05 11/07/20 07:15 Glucose (Fingerstick) 170 mg/dL (70-99) 200 mg/dL (70-99) 165 mg/dL (70-99) 157 mg/dL (70-99) Micro ANTIMICROBIAL SUSCEPTIBILITY Final Comment NEG GEE 56 ESCHERICHIA COLI ANTIBIOTIC RESULT INTERPRETATION AMPICILLIN/SULBACTAM >16/8 R AMIKACIN <=16 S AMPICILLIN >16 R AMOXICILLIN/K CLAVULANATE >16/8 R AZTREONAM <=4 S CEFTRIAXONE <=1 S CEFTAZIDIME <=1 S CEFOTAXIME <=2 S CEFOXITIN <=8 S CIPROFLOXACIN >2 R CEFEPIME <=2 S CEFUROXIME 16 I CEFTAZIDIME/AVIBACTAM <=4 S ERTAPENEM <=0.5 S NITROFURANTOIN <=32 S GENTAMICIN <=2 S LEVOFLOXACIN >4 R MEROPENEM <=1 S PIPERACILLIN/TAZOBACTAM >64 R TRIMETHOPRIM/SULFAMETHOXAZOLE >2/38 R TETRACYCLINE >8 R TOBRAMYCIN <=2 S Unless otherwise specified, Testing Performed by: Objective Assessment 1. Fever.resolved 2. Lactic acidosis. improved 3. Gram-positive cocci bacteremia, 1/3 bottles present on admission, could be a contaminant.coag neg staph likely contaminant 4. Escherichia coli urinary tract infection. 5. Abnormal liver function tests. 6. Diabetes with neuropathy. 7. Left below knee amputation. 8. Atrial fibrillation. 9. Hypokalemia. Plan Plan of Care off antibiotics Supportive care PT OT d/c YARY Negron MD Nov 07, 2020 08:56
[2020-11-07] MEDS: NYSTATIN 100,000 UNIT/GM TOPICAL OINTMENT 15GM TUBE. TP SCH (09:00)
[2020-11-07] MEDS: METOPROLOL TART IMMED RELEASE 25 MG TABLET. PO SCH (09:00)
[2020-11-07 11:00] VITALS: BP 122/68
[2020-11-07] MEDS: SENNOSIDES/DOCUSATE 8.6/50MG TABLET. PO SCH (13:05)
[2020-11-07] MEDS: GABAPENTIN 100 MG CAPSULE. PO SCH (13:05)
[2020-11-07] MEDS: ASPIRIN CHEWABLE 81 MG TABLET. PO SCH (13:05)
[2020-11-07] MEDS: DOCUSATE SODIUM 100 MG CAPSULE. PO SCH (13:06)
[2020-11-07] MEDS: POTASSIUM BICARB 20 MEQ EFFERVESCENT TABLET. PO SCH (13:06)
[2020-11-07] MEDS: PRIMIDONE 50 MG TABLET PO SCH (13:06)
[2020-11-07] MEDS: PANTOPRAZOLE 40 MG TABLET.DR. PO SCH (13:06)
[2020-11-07] MEDS: PIOGLITAZONE 15 MG TABLET. PO SCH (13:06)
[2020-11-07] MEDS: LACTOBACILLUS RHAMNOSUS GG 1 CAPSULE. PO SCH (13:06)
[2020-11-07] MEDS: MULTIVITAMIN with MINERAL TABLET. PO SCH (13:06)
[2020-11-07] MEDS: TAMSULOSIN 0.4 MG CAP.ER.24H. PO SCH (13:07)
--- NOTE | 2020-11-07 13:28 | NUR ---
Wound/Ostomy Care Wound Type/Assessment: Pt seen per follow up wound care for coccyx and bilateral groin wounds. Pt has widespread yeast rash with small open areas to bilateral groin and coccyx. Areas have greatly improved since last seen per wound care. Areas cleansed with cleansing wipes and foam cleanser, assessed, measured, and pictured for discharge. Treatment Recommendations/Plan: Recommendations to Continue with Nystatin ointment BID and PRN to rash. Education provided: Pt educated on PU prevention and WC Offloading surface/device: TQ2H with wedge and right heel floated on pillow. Pt is currently on a P-500 bed at this time. Recommended Referrals/Tests: NA Discharge Recommendations for dressings: Dressing change instructions left in room. Continue current treatment until healed. No other wounds noted. Pt scheduled to discharge today. Bed lowered and call light in reach.
--- NOTE | 2020-11-07 15:11 | NUR ---
Called Shweta Edmonds at 1415 to give report. There was no answer so I left a message. Called again at 1500 and gave report to Magaly.
--- NOTE | 2020-11-07 19:07 | DS ---
DATE OF DISCHARGE: 11/07/2020 PRIMARY DIAGNOSIS: Urinary tract infection due to Escherichia coli with encephalopathy and sepsis on admission. ADDITIONAL DIAGNOSES: 1. Hyponatremia, hypokalemia, dysphagia due to loosening of a screw in his neck for prior cervical fixation and indenting the esophagus. 2. Diabetes. 3. Left esyhm-zqz-oflz amputation. 4. Recovery phase for COVID infection. CHIEF COMPLAINT AND HISTORY OF PRESENT ILLNESS: This 85-year-old white male admitted with encephalopathy on the day of admission through the Emergency Room. He was also somewhat hypoxic at the Emergency Room and found to be also hypokalemic. SUMMARY OF STAY: The patient was admitted and treated with IV antibiotics with eventual improvement in his mentation. Potassium was replaced, took a while for this to become back up to normal as it was quite low on admission with his initial potassium being normal by the following morning 2.8. Sugars were fairly decent throughout the stay, initially had transaminitis, which improved with treatment of the sepsis. He was found to be dysphagic and with workup was found to have the above-mentioned problem with the screw in his neck. Neurosurgery did remove that during this hospitalization. He was still requiring some oxygen needs at 2 liters from his COVID infection from which he was recovering. He was quite weak and therapy was added during the stay. He will continue to get this at senior living on return to [facility]. DISPOSITION: The patient is discharged back to [facility] on senior living. DIET: Diabetic diet. ACTIVITY: As tolerated. PT and OT to evaluate. DISCHARGE MEDICATIONS: Listed on the med rec and have been addressed. RAJESH SZYMANSKI MD DR: EDMUND/julia JOB#: [id number] / [id number]
--- NOTE | 2021-01-26 15:19 | PDOC1 ---
History & Physical: Date of Service: DOS: 10-26-2020 H&P: PATIENT: KAROLINE LLAMAS LACCOUNT: [id number] : 1935 LOC: [address] [place] [address] AGE: 85 SEX: M STATUS: ADM IN LOCATION: [address] [place] [address] ADMIT DATE: 10/27/2020 CHIEF COMPLAINT AND HISTORY OF PRESENT ILLNESS: This 85-year-old white male is well known to me in followup in the office and over time in a retirement at [facility]. The patient was febrile, encephalopathic and hypoxic at the retirement and transferred to the Emergency Room for further evaluation. He had received his COVID vaccine the day prior and was running high fevers. He has already had COVID and was hospitalized earlier this winter for the same at least on one occasion and possibly two. He was admitted with the fever and evidence of urinary tract infection with some encephalopathic changes on admission. PAST MEDICAL HISTORY: Remarkable for left pqdxv-ebu-rdwq amputation for peripheral arterial disease. He has diabetes, COPD, depression, hyperlipidemia, history of kidney stones, chronic low back pain. MEDICATIONS: Brought with the patient, listed on the computer and have been addressed. ALLERGIES: He has no known drug allergies. SOCIAL HISTORY: He is a lifetime nonsmoker, nondrinker. Does not use drugs. He is single, lives at a retirement. FAMILY HISTORY: Noncontributory. REVIEW OF SYSTEMS: Remarkable for him feeling significantly better by the time of my examination on 10/26 in the morning. He appears to be back to his normal baseline lucidity and was complaining of general aches and pains including some abdominal and nausea. PHYSICAL EXAMINATION: GENERAL: He is a well-developed, well-nourished white male, in no acute distress. VITAL SIGNS: Stable. He was 102.8 on admission, but has not been febrile since. HEAD, EYES, EARS, NOSE AND THROAT: Unremarkable. NECK: Supple without adenopathy or thyromegaly. CHEST: Clear to auscultation and percussion. HEART: Regular rate and rhythm without S3, S4 or murmur. ABDOMEN: Soft, nontender, without hepatosplenomegaly or masses. There is no CVA tenderness present. EXTREMITIES: Without cyanosis, clubbing, or edema. NEUROLOGIC: He does have a left cterv-uul-ksvi amputation. NEUROLOGIC: He is intact. LABORATORY DATA: Initial laboratory is remarkable for white count of 11,100 with left shift. He is profoundly hypokalemic with a potassium of 2.8 on admission with normal renal function. Blood sugar is good. Urinalysis once again is consistent with urinary tract infection. Influenza A and B testing is negative. IMPRESSION: 1. Fever, leukocytosis, sepsis, likely due to urinary tract source. 2. Encephalopathy, improving. 3. Hypokalemia. PLAN: Potassium replacement, IV antibiotics. Blood cultures are pending and the patient will be monitored, managed and treated appropriately. RAJESH Munoz. MD STEPHON DR: EDMUND/julia JOB#: [id number] / [id number] DICTATED BY: RAJESH SZYMANSKI MD 10/27/20 0759 SIGNED BY: RAJESH SZYMANSKI MD 10/30/20 0727 cc: RAJESH SZYMANSKI MD ~MTF0 28 Page of RAJESH SZYMANKSI MD Jan 26, 2021 15:19
== END 2020-11-07 14:05 | DRG 871 ==
LOC: ER 11:03 → 4 NORTH 13:32
PROVIDERS: ADMIT Family Medicine; ATTEND Family Medicine
PROC: 0RP Upper Joints, Removal (ICD-10-PCS; principal; 2020-11-03 10:15)
DX: A41.9 Sepsis, unspecified organism (principal); G92 Toxic encephalopathy; T84.226A Displacement of internal fixation device of vertebrae, initial encounter; E87.1 Hypo-osmolality and hyponatremia; E87.2 Acidosis; N39.0 Urinary tract infection, site not specified; B96.20 Unspecified Escherichia coli [E. coli] as the cause of diseases classified elsewhere; B96.89 Other specified bacterial agents as the cause of diseases classified elsewhere; E11.40 Type 2 diabetes mellitus with diabetic neuropathy, unspecified; E11.51 Type 2 diabetes mellitus with diabetic peripheral angiopathy without gangrene; E78.00 Pure hypercholesterolemia, unspecified; E78.5 Hyperlipidemia, unspecified; E87.6 Hypokalemia; I11.0 Hypertensive heart disease with heart failure; I25.2 Old myocardial infarction; I48.91 Unspecified atrial fibrillation; I50.9 Heart failure, unspecified; J44.9 Chronic obstructive pulmonary disease, unspecified; N40.0 Benign prostatic hyperplasia without lower urinary tract symptoms; R13.10 Dysphagia, unspecified; Z87.442 Personal history of urinary calculi; Z89.512 Acquired absence of left leg below knee; F32.9 Major depressive disorder, single episode, unspecified; G89.29 Other chronic pain; Z91.041 Radiographic dye allergy status; R94.5 Abnormal results of liver function studies; Y83.8 Other surgical procedures as the cause of abnormal reaction of the patient, or of later complication, without mention of misadventure at the time of the procedure; Y92.89 Other specified places as the place of occurrence of the external cause
CPT/HCPCS: 36415; 71045; 72040; 72125; 74230; 76000; 80048; 80053; 80202; 81001; 82550; 82962; 83605; 84132; 84145; 85007; 85025; 87040; 87086; 87205; 87804; 93005; J0330; J0690; J0696; J0878; J1100; J1815; J2270; J2370; J2405; J2543; J2704; J2710; J3010; J3370; J3480; J3490; J7030; J7040; J7050; J7060; J7120; 92526-GN; 92610-GN; 92611-GN; 99285-25; G0378